=== PATIENT | male | born 1960 | race Caucasian/White ===

== ENCOUNTER → 2018-05-26 10:35 | Outpatient (CLI) | payer OTHER, SELFPAY ==
--- NOTE | 2018-05-26 | DI.ECHO.S_ITS ---
[facility]---------[facility] +---------+ : : [address] : : : : [place] : : : : [id number] : : : : Phone: [phone]---------+ Echocardiogram Report + + :Name: PAT TAYLOR Study Date: 05/26/2018 Height: 70 in : :[facility] Weight: 188 lb : : Gender: Male BSA: 2.0 m2 : :: 1960 Age: 58 yrs BP: 142/79 mmHg: :Reason For Study: Aortic valve stenosis : :Ordering Physician: Nahid Ag : :Arlen Performed By: Ladonna Akers : + + Interpretation Summary The left ventricle is normal in size. The ejection fraction is estimated to be 55-60%. There has been no significant change in LV EF since the previous study. The right ventricle is normal in size and function. The aortic valve is moderately calcified. Leaflet mobility is severely reduced. The peak aortic velocity is 3.7 m/sec. The aortic valve mean gradient is 29 mmHg. The peak aortic velocity on the previous exam was 4.0 m/sec. sev ratio: 0.16 Aortic cusp separation is about 0.7 cm. There is severe aortic stenosis (Paradoxically low gradient). Procedure: A two-dimensional transthoracic echocardiogram with color flow and Doppler was performed. The study quality was technically adequate. Comparison is made with the echocardiogram of 08/01/2016. The patient was in normal sinus rhythm during the exam. Left Ventricle: Left ventricular wall thickness is mildly increased. The left ventricle is normal in size. There is no thrombus. The ejection fraction is estimated to be 55-60%. There has been no significant change since the previous study. There are no focal wall motion abnormalities. The E/A ratio is reversed with an elevated E/E', suggesting impaired early relaxation of the left ventricle with possible increased filling pressures. This is unchanged compared to the previous study. Right Ventricle: The right ventricle is normal in size and function. Atria: The left atrium is moderately dilated. The left atrium has mildly increased in size since the prior echo exam. Right atrial size is normal. There is no Doppler evidence for an interatrial shunt. Mitral Valve: The mitral valve leaflets are mildly calcified. There is mild to moderate mitral annular calcification. There is trace mitral regurgitation. Aortic Valve: The aortic valve is moderately calcified. Leaflet mobility is severely reduced. The aortic valve is not well visualized. The peak aortic velocity is 3.7 m/sec. The peak aortic velocity on the previous exam was 4.0 m/sec. The aortic valve mean gradient is 29 mmHg. The calculated aortic valve area is 0.54 cm2. The aortic valve area indexed to the BSA is 0.27 . Aortic cusp separation is about 0.7 cm. There is severe aortic stenosis. There is mild to moderate aortic regurgitation. Compared to the prior echo study, there has been no change in the severity of aortic regurgitation. Tricuspid Valve: The tricuspid valve is normal in structure and function. Pulmonary artery pressures cannot be estimated because of the lack of a measurable TR jet velocity. There is trace tricuspid regurgitation. Pulmonic Valve: The pulmonic valve is not well visualized. Great Vessels: The aortic root is normal size. The aortic arch is normal in size. The IVC is of normal diameter and collapses greater than 50% with a sniff. This suggests a low right atrial pressure of 3 mm Hg. Pericardium/ Pleura There is no pericardial effusion. MMode/2D Measurements & Calculations LVIDd: 5.2 cm LVOT diam: 2.1 cm LVIDs: 4.0 cm Ao root diam: 3.6 cm FS: 22.2 % asc Aorta Diam: 3.4 cm EPSS: 2.2 cm Ao Arch Diam (Prox Trans): 3.4 cm IVSd: 1.2 cm LVPWd: 1.1 cm LV villanueva. diameter/BSA (cm/m^2): 2.5 LV sys. diameter/BSA (cm/m^2): 2.0 LA A2 area: 26.9 cm2 RA long axis: 4.6 cm LA A4 area: 19.6 cm2 RA area: 14.8 cm2 LA length (vol): 5.1 cm RA vol: 40.7 ml LA vol: 87.9 ml RA : 20.0 ml/m2 LA vol index: 43.2 ml/m2 IVC diam: 1.9 cm RVD1 (basal): 3.1 cm TAPSE: 2.2 cm MANNY (plan): 0.65 cm2 Doppler Measurements & Calculations Ao V2 max: 368.4 cm/sec LVOT Max Lebron: 61.1 cm/sec Ao V2 mean: 257.2 cm/sec LV V1 max P.5 mmHg Ao max P.3 mmHg LV V1 VTI: 13.6 cm Ao mean P.1 mmHg MANNY(I,D): 0.54 cm2 Ao V2 VTI: 85.6 cm MANNY(V,D): 0.57 cm2 sev ratio: 0.16 MANNY indexed to BSA (cm^2/m^2): 0.27 AI P1/2t: 654.7 msec AI dec slope: 197.2 cm/sec2 MV E max lebron: 90.2 cm/sec PA V2 max: 94.0 cm/sec MV A max lebron: 113.0 cm/sec PA V2 mean: 62.4 cm/sec MV E/A: 0.80 PA mean P.8 mmHg Med Peak E' Lebron: 4.3 cm/sec PA Accel Time: 0.09 sec E/E' med: 20.9 Lat Peak E' Lebron: 7.7 cm/sec E/E' lat: 11.7 E/e' average: 16.3 MV dec time: 0.46 sec MV P1/2t: 133.5 msec MV P1/2t max lebron: 90.2 cm/sec MVA(P1/2t): 1.6 cm2 Reading Physician:PM
== END ==
PROVIDERS: Family Provider Internal Medicine; PCP Internal Medicine; Visit Provider Internal Medicine Cardiovascular Disease
DX: I35.0 Nonrheumatic aortic (valve) stenosis (principal)
CPT/HCPCS: 93306

== ENCOUNTER 2019-03-02 14:00 | Outpatient (RCR) | payer OTHER, SELFPAY | END 2019-03-28 10:28 | disposition home or self-care (01) | LOC: CAR 14:00 | PROVIDERS: Family Provider Internal Medicine; PCP Internal Medicine; Visit Provider Thoracic Surgery (Cardiothoracic Vascular Surgery) | DX: Z95.2 Presence of prosthetic heart valve (principal) | CPT/HCPCS: 93798 ==

== ENCOUNTER 2019-05-03 23:07 | Emergency (ER) | payer OTHER, SELFPAY ==
[2019-05-03 23:10] VITALS: BP 171/90; PULSE 88; RESP 16; TEMP 36.6; O2SAT 96; BMI 27.9
--- NOTE | 2019-05-03 23:16 | DI.RAD.S_ITS ---
PROCEDURE: XR CHEST 1V INDICATIONS: chest and left shoulder pain TECHNIQUE: One view of the chest was acquired. COMPARISON: [facility], , CHEST 2 VIEW, 01/27/2018, 10:05. [facility], , CHEST 1 VIEW, 09/20/2012, 13:46. FINDINGS: Surgical changes and devices: Sternotomy wires, probable heart valve replacement surgery. Lungs and pleura: Lungs are clear considering reduced inspiratory volume. No pleural effusions or pneumothorax. Mediastinum: Mediastinal contours appear normal. Heart size is normal. Bones and chest wall: No suspicious bony lesions. Overlying soft tissues appear unremarkable. IMPRESSION: Prior heart surgery, source of chest and shoulder pain not seen. Currently no cardiomegaly or congestive heart failure is seen. Inspiratory volume is reduced. Dictated by: Chris Solis M.D. on 05/04/2019 at 6:55 Approved by: Chris Solis M.D. on 05/04/2019 at 6:55
--- NOTE | 2019-05-03 23:16 | ED.CHESTPAIN ---
HPI - Chest Pain General Chief Complaint: Chest Pain Stated Complaint: LT SHOULDER PAIN Time Seen by Provider: 05/03/19 23:13 Source: patient Mode of arrival: ambulatory Limitations: no limitations History of Present Illness HPI narrative: 59-year-old male smoker with history of valve replacement presents with left shoulder and deltoid pain for the past day or so. He denies any specific injury or obvious over use. He denies any numbness, tingling or weakness. He denies any history of the same. He denies any rash or blisters. He did have very short episode of epigastric chest discomfort earlier this morning which lasted only a few minutes. At the time his pressure had no provocation, palliation or radiation. He denies any associated symptoms such as shortness of breath, dizziness, weakness or lightheadedness. He has no nausea, vomiting or diaphoresis. He denies any of the symptoms that were present prior to his valve replacement as stated above. He states that much of the time his shoulder seems to be slightly worse with range of motion but not always. MD complaint: chest pain Onset (ago): hour(s) Duration: now resolved Onset: during rest Pain location: substernal Severity: mild Quality: aching Pain radiation: none Relieving factors: nothing Exacerbating factors: nothing Treatments prior to arrival chest pain: none Related Data Home Medications Medication Instructions Recorded Confirmed CA PANTOTHENATE/FOLIC ACID/VIT 1 tab PO QDAY #0 04/07/11 (MULTIVITAMIN) Garlic (#GARLIC) 1 tab PO Q DAY #0 09/17/12 DILTIAZEM HCL (DILT-CD) 240 mg PO QDAY #0 01/13/13 aspirin #0 01/13/13 Previous Rx's Medication Instructions Recorded simvastatin 20 mg PO Q DAY #30 tab 07/04/16 omeprazole 20 mg PO QDAY #30 tab 02/09/17 azithromycin [Zithromax Z-Trey] 250 mg PO QDAY #6 tab 01/27/18 promethazine-codeine 5 - 10 ml PO Q4HP PRN #120 ml 01/27/18 prednisone 40 mg PO QDAY #8 tab 01/29/18 hydrocodone-acetaminophen 1 tab PO Q4-6H PRN #10 tab 05/04/19 Allergies Allergy/AdvReac Type Severity Reaction Status Date / Time No Known Drug Allergies Allergy Verified 05/03/19 23:16 Review of Systems Constitutional Denies chills, Denies fever(s), Denies lethargy and Denies weakness Eyes Denies change in vision, Denies eye discharge, Denies irritation and Denies loss of vision ENT Ears, Nose, Mouth, and Throat: Denies change in voice, Denies neck pain and Denies sore throat Cardiovascular Reports chest pain, Denies irregular heart rhythm, Denies lightheadedness, Denies palpitations, Denies dyspnea, Denies dyspnea on exertion and Denies orthopnea Respiratory Denies cough, Denies dyspnea, Denies dyspnea on exertion and Denies wheezing Gastrointestinal Gastrointestinal: Denies abdominal pain, Denies change in bowel habits, Denies diarrhea, Denies nausea and Denies vomiting Genitourinary Denies hematuria, Denies flank pain, Denies urinary incontinence and Denies urinary urgency Musculoskeletal Reports limited range of motion, Reports muscle cramps and Denies neck pain Integumentary/Breasts Denies pruritus, Denies erythema, Denies rash and Denies wounds Neurologic Denies confusion, Denies loss of vision and Denies weakness Psychiatric Denies anxiety, Denies confusion, Denies depression, Denies homicidal ideation and Denies suicidal ideation Endocrine Denies palpitations Hematologic/Lymphatic Denies easy bruising Allergic/Immunologic Denies wheezing PFSH Family History (Updated 09/05/15 @ 00:00 by Conversion Provider) Father Crohn's disease Social History Smoking Status: Smoker, status unknown Family History Father Crohn's disease Social History Smoking Status: Smoker, status unknown Exam Narrative Exam Narrative: GENERAL: 59-year-old male appears stated age, obviously uncomfortable and massaging his left shoulder HEAD: Atraumatic. Normocephalic. No temporal or scalp tenderness. EYES: Pupils equal round and reactive. Extraocular motions intact. No scleral icterus. No injection or drainage. ENT: Nose without bleeding, purulent drainage or septal hematoma. Throat without erythema, tonsillar hypertrophy or exudate. Uvula midline. Airway patent. NECK: Trachea midline. No JVD or lymphadenopathy. Supple, nontender, no meningeal signs. CARDIOVASCULAR: Regular rate and rhythm without murmurs, gallops, or rubs. RESPIRATORY: Clear to auscultation. Breath sounds equal bilaterally. No wheezes, rales, or rhonchi. GASTROINTESTINAL: Abdomen soft, non-tender, nondistended. No hepato-splenomegaly, or palpable masses. No guarding. EXTREMITIES: No clubbing, cyanosis, or edema. No joint tenderness, effusion, or edema noted. No skin abnormalities suggesting cellulitis or shingles BACK: Nontender without deformity or crepitance. No flank tenderness. NEURO: AOx3. SKIN: No rash or erythema. Initial Vital Signs Initial Vital Signs: Vital Signs Temperature 97.8 F 05/03/19 23:10 Pulse Rate 88 05/03/19 23:10 Respiratory Rate 16 05/03/19 23:10 Blood Pressure 171/90 H 05/03/19 23:10 Pulse Oximetry 96 05/03/19 23:10 Scores HEART Score Heart Score history: Slightly Suspicious Heart Score EKG: Normal Heart Score Age: 45-64 years old Heart Score risk factors: 1-2 risk factors Heart Score troponin: < or = to normal limit Heart Score Total: 2 Course Orders Ordered: ED Orders 05/03/19 23:16 XR chest 1V Stat EKG-12 Lead Stat 05/03/19 23:32 Complete Blood Count AUTO DIFF Stat Comprehensive Metabolic Panel Stat Lipase Stat Troponin & CK Cardiac Panel Stat Discontinued Medications Hydrocodone Bitart/Acetaminophen (Vicodin Prepack) 1 bottle MISC SEEINSTR ONE Stop: 05/04/19 00:42 Last Admin: 05/04/19 00:50 Dose: 1 bottle Aspirin (Aspirin Chew) 324 mg PO NOW ONE Stop: 05/03/19 23:17 Last Admin: 05/03/19 23:36 Dose: 324 mg Sodium Chloride (Normal Saline 0.9%) 1,000 mls @ 150 mls/hr IV CONT NELLY Last Infusion: 05/04/19 01:00 Dose: 0 mls/hr Admin: 05/03/19 23:36 Dose: 150 mls/hr Vital Signs - 8 hr 05/03/19 23:10 05/04/19 00:00 05/04/19 01:01 Temperature 97.8 F Pulse Rate 88 64 68 Respiratory Rate 16 13 16 Blood Pressure 171/90 H 158/82 H Blood Pressure [Right Arm] 170/91 H Pulse Oximetry 96 96 97 MDM - Chest Pain Lab Data Result diagrams: 05/03/19 23:32 05/03/19 23:32 Lab Results 05/03/19 05/03/19 Range/Units 23:32 23:32 WBC 6.4 (4.5-11.0) X10^3/uL RBC 4.51 (4.5-5.9) X10^6/uL Hgb 14.2 (13.5-17.5) g/dL Hct 41.2 (41-53) % MCV 91.3 (80-100) fL MCH 31.4 (26-34) PG MCHC 34.4 (30-36) % RDW 14.2 (11.6-14.8) % Plt Count 258 (150-400) X10^3/uL Neut % (Auto) 59.3 (50-75) % Lymph % (Auto) 19.9 L (25-40) % [place] % (Auto) 9.5 (3-14) % Eos % (Auto) 10.5 H (2-4) % Baso % (Auto) 0.8 (0-2) % Neut # (Auto) 3800 (9216-2875) /uL Lymph # (Auto) 1300 (0337-8908) /uL [place] # (Auto) 600 (0-900) /uL Eos # (Auto) 700 H (0-450) /uL Baso # (Auto) 0 (0-100) /uL Sodium 138 (137-145) mmol/L Potassium 4.0 (3.4-5.1) mmol/L Chloride 105 (98-107) mmol/L Carbon Dioxide 22 (22-32) mmol/L BUN 20 (9-20) mg/dL Creatinine 0.90 (0.66-1.25) mg/dL Estimated GFR > 60.0 (>60) mL/min BUN/Creatinine Ratio 22.2 H (6-22) Glucose 140 H (70-100) mg/dL Calcium 9.4 (8.4-10.2) mg/dL Total Bilirubin 0.5 (0.2-1.3) mg/dL AST 32 (17-59) IU/L ALT 21 (21-72) IU/L Alkaline Phosphatase 82 (38-126) U/L Total Creatine Kinase 139 (55-170) U/L CK-MB (CK-2) 1.77 (<2.37) ng/mL CK-MB (CK-2) Rel Index 1.3 L (1.5-5.0) % Troponin I < 0.012 (0.01-0.034) ng/mL Total Protein 7.8 (6.3-8.2) g/dL Albumin 4.6 (3.5-5.0) g/dL Globulin 3.2 (1.7-4.1) g/dL Albumin/Globulin Ratio 1.4 (1.0-2.8) Lipase 164 (23-300) U/L Urine Dip Bedside Urine Glucose Negative Bedside Urine Bilirubin - Negative Bedside Urine Ketone +/- 5 Urine Specific [place] 1.025 Bedside Urine Occult Blood - Negative Bedside Urine pH 6.0 Bedside Urine Protein +/- 15 Bedside Urine Urobilinogen - Negative Bedside Urine Nitrite - Negative Bedside Urine Leukocytes - Negative Esterase MDM Narrative Medical decision making narrative: Multiple etiologies for patient's symptoms considered including: [Cardiovascular disease with thought less likely given lack of convincing findings on EKG, history or by chemically.] Patient's symptoms improved or duration of stay with above-stated therapies. Findings and discharge diagnosis discussed with patient/family followed by verbalization of understanding Return precautions discussed with patient/family whom verbalize understanding. Discharge Plan Departure Patient Disposition: Home Clinical Impression: Acute shoulder pain Qualifiers: Laterality: left Qualified Code(s): M25.512 - Pain in left shoulder Discharge Date/Time: 05/04/19 01:00 Interventions: ED Discharge Assessment Last Done: 05/04/19 01:01 Instructions: DI for Shoulder Pain Activity Restrictions/Additional Instructions: *You have been diagnosed with [acute left shoulder pain] *What to do: *Take medications as directed *Follow up with your primary care provider in 2-3 days, call for an appointment. Let them know you were seen in the Emergency Department and that we ask that you be seen in follow up *Return to ER if you should have any new, worsening or concerning symptoms Prescriptions: New hydrocodone-acetaminophen 5-325 mg tablet 1 tab PO Q4-6H PRN (Reason: pain) Qty: 10 RF: 0 No Action CA PANTOTHENATE/FOLIC ACID/VIT (MULTIVITAMIN) 1 tab PO QDAY Qty: 0 RF: 0 Garlic (#GARLIC) 1 tab PO Q DAY Qty: 0 RF: 0 DILTIAZEM HCL (DILT-CD) 240 mg PO QDAY Qty: 0 RF: 0 aspirin 325 MG tablet,delayed release (DR/EC) Qty: 0 RF: 0 simvastatin 20 MG tablet 20 mg PO Q DAY Qty: 30 RF: 6 omeprazole 20 MG capsule,delayed release(DR/EC) 20 mg PO QDAY Qty: 30 RF: 5 azithromycin [Zithromax Z-Trey] 250 MG tablet 250 mg PO QDAY Qty: 6 RF: 0 promethazine-codeine 6.25 MG/10 MG syrup 5 - 10 ml PO Q4HP PRNQty: 120 RF: 0 prednisone 20 MG tablet 40 mg PO QDAY Qty: 8 RF: 0 Referrals: Juan George MD [Primary Care Provider] -
[2019-05-03] MEDS: ASPIRIN 81 MG TAB 324 MG PO (23:36)
[2019-05-03] MEDS: SODIUM CHLORIDE 0.9% 1,000 ML 150 ML IV (23:36)
[2019-05-03 23:40] LABS: Add Manual Diff / Slide Review NO; Basophils Absolute Auto 0 /uL (0-100); Basophils Percent Auto 0.8 % (0-2); Eosinophils Absolute Auto 700 /uL (0-450); Eosinophils Percent Auto 10.5 % (2-4); Hematocrit 41.2 % (41-53); Hemoglobin 14.2 g/dL (13.5-17.5); Lymphocytes Absolute Auto 1300 /uL (1100-4500); Lymphocytes Percent Auto 19.9 % (25-40); Mean Corpuscular HGB Conc 34.4 % (30-36); Mean Corpuscular Hemoglobin 31.4 PG (26-34); Mean Corpuscular Volume 91.3 fL (80-100); Monocytes Absolute Auto 600 /uL (0-900); Monocytes Percent Auto 9.5 % (3-14); Neutrophils Absolute Auto 3800 /uL (1500-7000); Neutrophils Percent Auto 59.3 % (50-75); Platelet Count 258 X10^3/uL (150-400); Red Blood Cell Count 4.51 X10^6/uL (4.5-5.9); Red Cell Distribution Width 14.2 % (11.6-14.8); White Blood Cell Count 6.4 X10^3/uL (4.5-11.0)
[2019-05-03 23:50] LABS: Alanine Aminotransferase 21 IU/L (21-72); Albumin 4.6 g/dL (3.5-5.0); Albumin Globulin Ratio 1.4 (1.0-2.8); Alkaline Phosphatase 82 U/L (38-126); Aspartate Aminotransferase 32 IU/L (17-59); BUN Creatinine Ratio 22.2 (6-22); Bilirubin Total 0.5 mg/dL (0.2-1.3); Blood Urea Nitrogen 20 mg/dL (9-20); Calcium 9.4 mg/dL (8.4-10.2); Carbon Dioxide 22 mmol/L (22-32); Chloride 105 mmol/L (98-107); Creatine Kinase 139 U/L (55-170); Estimated Glomerular Filt Rate > 60.0 mL/min (>60); Globulin 3.2 g/dL (1.7-4.1); Glucose 140 mg/dL (70-100); HEMOLYSIS < 15 (0-50); Lipase 164 U/L (23-300); Sodium 138 mmol/L (137-145); Total Protein 7.8 g/dL (6.3-8.2)
[2019-05-04] VITALS: BP 170/91; PULSE 64; RESP 13; O2SAT 96
[2019-05-04 00:02] LABS: Troponin I < 0.012 ng/mL (0.01-0.034)
[2019-05-04 00:06] LABS: CKMB % Relative Index 1.3 % (1.5-5.0); Creatine Kinase MB 1.77 ng/mL (<2.37)
[2019-05-04] MEDS: HYDROCODONE/ACET 5/325 PREPACK 1 BOTTLE MISC (00:50)
[2019-05-04 01:01] VITALS: BP 158/82; PULSE 68; RESP 16; O2SAT 97
== END 2019-05-04 01:00 | disposition home or self-care (01) ==
PROVIDERS: Emergency Provider Emergency Medicine; Family Provider Internal Medicine; PCP Internal Medicine
DX: M25.512 Pain in left shoulder (principal); R07.89 Other chest pain; R10.13 Epigastric pain
CPT/HCPCS: 36591; 71045; 80053; 81003; 82550; 82553; 83690; 84484; 85025; 93005; 96360; 99283; 99285

== ENCOUNTER → 2019-07-15 09:07 | Outpatient (CLI) | payer OTHER, SELFPAY ==
--- NOTE | 2019-07-15 | DI.ECHO.S_ITS ---
[place] [facility]---------+ [facility] +---------+ : : [address] : : : : [place] : : : : [phone] : : : : Phone: [phone]---------+ Echocardiogram Report + + :Name: PAT TAYLOR Study Date: 07/15/2019 Height: 70 in : :[facility] Weight: 196 lb : : Gender: Male BSA: 2.1 m2 : :: 1960 Age: 59 yrs BP: 132/80 mmHg: :Reason For Study: S/P AOV REPLACEMENT : :Ordering Physician: Andres : :Maggy Ag Performed By: Shellie Etienne : :Referring: Andres Winter M.D. : + + Interpretation Summary The ejection fraction is estimated to be 55-60%. Septal motion is consistent with post-operative state. There is mild mitral stenosis. The mitral valve mean gradient is 6 mmHg. There is a mechanical aortic valve. The prosthetic aortic valve is well-seated. There is trace perivalvular regurgitation around the prosthetic aortic valve. Procedure: A two-dimensional transthoracic echocardiogram with color flow and Doppler was performed. The study quality was technically adequate. Comparison is made with the echocardiogram of 11/15/18. The patient had a bundle branch block rhythm during the exam. Left Ventricle: The left ventricle is normal in size, wall thickness, and systolic function without any focal wall motion abnormalities. The ejection fraction is estimated to be 55-60%. Septal motion is consistent with post- operative state. Diastolic parameters suggest a relaxation abnormality of the left ventricle, consistent with probable normal filling pressures. Right Ventricle: The right ventricle is normal in size and function. Atria: The left atrium is mildly dilated. Right atrial size is normal. There is no Doppler evidence for an interatrial shunt. Mitral Valve: There is mild mitral annular calcification. The mitral valve leaflets are mildly calcified. There is mild mitral stenosis. The mitral valve mean gradient is 6 mmHg. There is trace mitral regurgitation. Compared to the prior echo study, there has been no change in the severity of mitral regurgitation. Aortic Valve: There is a mechanical aortic valve. The prosthetic aortic valve appears to open well. The prosthetic aortic valve is well-seated. There is trace perivalvular regurgitation around the prosthetic aortic valve. The peak aortic velocity is 2.2 m/sec. The peak aortic velocity on the previous exam was 2.3 m/sec. The aortic valve mean gradient is 9 mmHg. Tricuspid Valve: The tricuspid valve is normal. There is a trace or physiologic amount of tricuspid regurgitation. Pulmonary artery pressures cannot be estimated because of the lack of a measurable TR jet velocity. Pulmonic Valve: The pulmonic valve is not well seen, but is grossly normal. There is a trace or physiologic amount of pulmonic regurgitation. Great Vessels: The aortic root is normal size. The ascending aorta is normal in size. The aortic arch is normal in size. The pulmonary is not well visualized. The IVC is dilated (diameter is greater than 2.1 cm) yet it collapses greater than 50% with a sniff. This suggests a right atrial pressure of 8 mm Hg. Pericardium/ Pleura There is no pericardial effusion. There is no pleural effusion. MMode/2D Measurements & Calculations LVIDd: 5.4 cm LVOT diam: 2.2 cm LVIDs: 4.4 cm Ao root diam: 3.6 cm FS: 18.7 % asc Aorta Diam: 3.4 cm EPSS: 1.9 cm Ao Arch Diam (Prox Trans): 3.0 cm IVSd: 0.93 cm LVPWd: 1.00 cm LV villanueva. diameter/BSA (cm/m^2): 2.6 LV sys. diameter/BSA (cm/m^2): 2.1 LA A2 area: 25.2 cm2 RA long axis: 4.3 cm LA A4 area: 21.7 cm2 RA area: 17.0 cm2 LA length (vol): 5.8 cm RA vol: 57.4 ml LA vol: 80.8 ml RA : 27.7 ml/m2 LA vol index: 39.0 ml/m2 IVC diam: 2.2 cm RVD1 (basal): 4.2 cm RVD2 (mid): 3.1 cm TAPSE: 1.9 cm Doppler Measurements & Calculations Ao V2 max: 219.9 cm/sec LVOT Max Lebron: 81.5 cm/sec Ao V2 mean: 143.8 cm/sec LV V1 max P.7 mmHg Ao max P.3 mmHg LV V1 VTI: 15.8 cm Ao mean P.4 mmHg MANNY(I,D): 1.5 cm2 Ao V2 VTI: 41.5 cm MANNY(V,D): 1.5 cm2 sev ratio: 0.38 MANNY indexed to BSA (cm^2/m^2): 0.73 MV E max lebron: 133.3 cm/sec PA V2 max: 93.8 cm/sec MV A max lebron: 142.8 cm/sec PA V2 mean: 68.0 cm/sec MV E/A: 0.93 PA mean P.0 mmHg Med Peak E' Lebron: 3.4 cm/sec PA Accel Time: 0.11 sec E/E' med: 39.6 Lat Peak E' Lebron: 6.5 cm/sec E/E' lat: 20.4 E/e' average: 30.0 MV dec time: 0.36 sec MVA(VTI): 1.3 cm2 MV V2 mean: 116.3 cm/sec SV(LVOT): 62.2 ml MV mean P.7 mmHg MV V2 VTI: 47.7 cm Reading Physician:12:24 PM
== END ==
PROVIDERS: PCP Internal Medicine; Visit Provider Registered Nurse
DX: I05.0 Rheumatic mitral stenosis (principal); Z95.2 Presence of prosthetic heart valve
CPT/HCPCS: 93306

== ENCOUNTER 2019-07-26 15:41 | Emergency (ER) | payer OTHER, SELFPAY ==
[2019-07-26 15:45] VITALS: BP 149/82; PULSE 88; RESP 16; TEMP 36.8; O2SAT 98
--- NOTE | 2019-07-26 16:14 | ED.ARRPALP ---
HPI - Arrhythmia/Palpitations General Chief Complaint: Arrhythmia/Palpitations Stated Complaint: TACHYCARDIA Time Seen by Provider: 07/26/19 16:08 Source: patient Mode of arrival: ambulatory Limitations: no limitations History of Present Illness HPI narrative: 59-year-old male with complaint of elevated heart rate. Patient states it started at 1:32 p.m., lasted for about 2 or 3 hours. Patient states he has had this many times in the past probably 10 or 15 times. He has been converted with adenosine in the past. He checked his heart rate about 150-160. He felt sort of sudden onset, he felt that his heart rate was elevated. I felt a little short of breath, denies any chest pain or pressure. Denies any nausea or vomiting no other GI or urinary symptoms. No swelling in his extremities. Since his heart rate has resolved he no longer has any symptoms. He has a cardiac history significant for valve replacement, it is metallic and he is on warfarin. He states he has had an ablation x3, he has been cathed he has never had any stents placed. He had echo about 1-2 weeks ago. He takes diltiazem, simvastatin, omeprazole and multivitamin as well as Kelly. He sees Dr. George and Dr. Mckinley is his EP. Related Data Home Medications Medication Instructions Recorded Confirmed multivitamin 1 tab PO DAILY #0 04/07/11 05/17/19 triamcinolone acetonide 0.1 % 1 applic TOP DIRECTED #454 gram 05/06/19 07/26/19 topical cream warfarin 5 mg tablet 10 mg PO QMWF #52 tab 05/06/19 05/17/19 diltiazem HCl 180 mg PO BID 07/26/19 07/26/19 omeprazole 20 mg PO DAILY 07/26/19 07/26/19 simvastatin 20 mg PO DAILY 07/26/19 07/26/19 warfarin 7.5 mg PO SUTUTHSA 07/26/19 Allergies Allergy/AdvReac Type Severity Reaction Status Date / Time No Known Drug Allergies Allergy Verified 07/26/19 15:49 Review of Systems Review of Systems ROS Unobtainable: All systems reviewed & are unremarkable except as noted in HPI and below PFSH Medical History Atrial tachycardia (Chronic) PSVT (paroxysmal supraventricular tachycardia) (Chronic) Stenosis of aorta (Chronic 09/06/15) Chronic hepatitis C without hepatic coma (Chronic 09/06/15) Non-Hodgkin's lymphoma (Inactive 09/06/15) Surgical History S/P aortic valve replacement with metallic valve (Inactive ~09/2018) Family History Father Crohn's disease Social History Smoking Status: Smoker, status unknown Family History Father Crohn's disease Social History Smoking Status: Smoker, status unknown Exam Narrative Exam Narrative: GENERAL: Alert and oriented x three, well-nourished, well-appearing male in no acute distress. HEENT: Head normocephalic, atraumatic, EOMI, pupils reactive, face symmetric, moist mucous membranes NECK: Supple, full range of motion CARDIOVASCULAR: Regular rate and rhythm without murmurs, rubs or gallops. Click noted. No JVD. No edema lower extremities. RESPIRATORY: Breath sounds equal bilaterally, no wheezes rales or rhonchi. ABDOMEN: Soft, nontender. Normoactive bowel sounds all 4 quadrants. No guarding or rebound, rigidity, no mass : No CVA tenderness EXTREMITIES: Normal range of motion, no clubbing or edema. Neurovascularly intact NEUROLOGICAL: Cranial nerves II through XII grossly intact. Moving all extremities SKIN: Warm, dry, no petechiae, no rashes or lesions. Initial Vital Signs Initial Vital Signs: Vital Signs Temperature 98.3 F 07/26/19 15:45 Pulse Rate 88 07/26/19 15:45 Respiratory Rate 16 07/26/19 15:45 Blood Pressure 149/82 H 07/26/19 15:45 Pulse Oximetry 98 07/26/19 15:45 Course Orders Ordered: ED Orders 07/26/19 15:52 EKG-12 Lead Stat 07/26/19 16:37 XR chest 1V Stat 07/26/19 16:43 Basic Metabolic Panel Stat Complete Blood Count AUTO DIFF Stat Magnesium Stat Prothrombin Time INR Stat Thyroid Stimulating Hormone Stat Troponin & CK Cardiac Panel Stat Discontinued Medications Sodium Chloride (Normal Saline 0.9%) 1,000 mls @ 1,000 mls/hr IV BOLUS ONE Stop: 07/26/19 17:36 Last Infusion: 07/26/19 18:03 Dose: 0 mls/hr Admin: 07/26/19 17:10 Dose: 1,000 mls/hr Vital Signs - 8 hr 07/26/19 15:45 07/26/19 17:00 07/26/19 18:08 Temperature 98.3 F Pulse Rate 88 68 73 Respiratory Rate 16 17 16 Blood Pressure 149/82 H 137/72 Blood Pressure [Right Arm] 130/74 Pulse Oximetry 98 97 96 MDM - Arrhythmia/Palpitations Lab Data Attestation: I reviewed the patient's lab results. Result diagrams: 07/26/19 16:43 07/26/19 16:43 Lab Results 07/26/19 07/26/19 07/26/19 Range/Units 16:43 16:43 16:43 WBC 8.8 (4.5-11.0) X10^3/uL RBC 4.73 (4.5-5.9) X10^6/uL Hgb 14.9 (13.5-17.5) g/dL Hct 43.3 (41-53) % MCV 91.7 (80-100) fL MCH 31.6 (26-34) PG MCHC 34.4 (30-36) % RDW 13.3 (11.6-14.8) % Plt Count 260 (150-400) X10^3/uL Neut % (Auto) 64.6 (50-75) % Lymph % (Auto) 17.6 L (25-40) % Graves % (Auto) 10.7 (3-14) % Eos % (Auto) 6.2 H (2-4) % Baso % (Auto) 0.9 (0-2) % Neut # (Auto) 5700 (1781-3290) /uL Lymph # (Auto) 1600 (6944-3117) /uL Graves # (Auto) 900 (0-900) /uL Eos # (Auto) 500 H (0-450) /uL Baso # (Auto) 100 (0-100) /uL PT 20.4 H (10.1-12.7) SECONDS INR 1.7 H (0.9-1.3) Sodium 137 (137-145) mmol/L Potassium 4.3 (3.4-5.1) mmol/L Chloride 106 (98-107) mmol/L Carbon Dioxide 24 (22-32) mmol/L BUN 25 H (9-20) mg/dL Creatinine 1.00 (0.66-1.25) mg/dL Estimated GFR > 60.0 (>60) mL/min BUN/Creatinine Ratio 25.0 H (6-22) Glucose 107 H (70-100) mg/dL Calcium 9.4 (8.4-10.2) mg/dL Magnesium 2.2 (1.6-2.3) mg/dL Total Creatine Kinase 193 H (55-170) U/L CK-MB (CK-2) 2.08 (<2.37) ng/mL CK-MB (CK-2) Rel Index 1.1 L (1.5-5.0) % Troponin I < 0.012 (0.01-0.034) ng/mL TSH (0.47-4.68) uIU/mL 07/26/19 Range/Units 16:43 WBC (4.5-11.0) X10^3/uL RBC (4.5-5.9) X10^6/uL Hgb (13.5-17.5) g/dL Hct (41-53) % MCV (80-100) fL MCH (26-34) PG MCHC (30-36) % RDW (11.6-14.8) % Plt Count (150-400) X10^3/uL Neut % (Auto) (50-75) % Lymph % (Auto) (25-40) % Graves % (Auto) (3-14) % Eos % (Auto) (2-4) % Baso % (Auto) (0-2) % Neut # (Auto) (0438-9559) /uL Lymph # (Auto) (2226-5439) /uL Graves # (Auto) (0-900) /uL Eos # (Auto) (0-450) /uL Baso # (Auto) (0-100) /uL PT (10.1-12.7) SECONDS INR (0.9-1.3) Sodium (137-145) mmol/L Potassium (3.4-5.1) mmol/L Chloride (98-107) mmol/L Carbon Dioxide (22-32) mmol/L BUN (9-20) mg/dL Creatinine (0.66-1.25) mg/dL Estimated GFR (>60) mL/min BUN/Creatinine Ratio (6-22) Glucose (70-100) mg/dL Calcium (8.4-10.2) mg/dL Magnesium (1.6-2.3) mg/dL Total Creatine Kinase (55-170) U/L CK-MB (CK-2) (<2.37) ng/mL CK-MB (CK-2) Rel Index (1.5-5.0) % Troponin I (0.01-0.034) ng/mL TSH 2.35 (0.47-4.68) uIU/mL Imaging Data Chest x-ray: Radiologist's impression: [address] [address] XRay Report Signed Patient: Jake Ramos [facility]#: [id number] : 1960Acct:[id number] Age/Sex: 59 / MDate of Service: 07/26/19 Loc: ED Accession Number: [id number] Procedure: XR chest 1V Ordering Provider: Светлана Knapp D.O. PROCEDURE: XR CHEST 1V INDICATIONS: fast heart beat resolved, hx svt, valve replacement TECHNIQUE: One view of the chest was acquired. COMPARISON: [facility], , XR CHEST 1V, 05/03/2019, 23:28. FINDINGS: Surgical changes and devices: Median sternotomy. Lungs and pleura: Lungs are clear. No pleural effusions or pneumothorax. Mediastinum: Mediastinal contours appear normal. Heart size is normal. Bones and chest wall: No suspicious bony lesions. Overlying soft tissues appear unremarkable. IMPRESSION: No acute process. Dictated by: Jose Ramon Wan M.D. on 07/26/2019 at 17:21 Approved by: Jose Ramon Wan M.D. on 07/26/2019 at 17:21 ECG Data Attestation: I personally reviewed and interpreted this ECG as follows: Prior ECG tracings: available for review Interpretation: Sinus rhythm rate of 78 [place] 168 QRS of 113 and QTC of 419. No ST elevation appreciated, no depression appreciated. Patient has some changes consistent with LVH. Patient has prior from 05/03/19 that appears similar. [facility] Narrative Medical decision making narrative: Patient's symptoms resolved and her is consistent with a episode of SVT which he has known history. Patient is on warfarin, plan to do baseline labs including CBC, INR and BMP to check cholesterol lytes renal function and hemoglobin. Discussed with patient if he continues to be asymptomatic here without any other changes likely plan for DC home with follow-up with cardiology. He has not had episode for quite a while. He did try Valsalva, cold ice water and carotid massage without any improvement and then it resolved about 2 minutes prior to arrival. Patient labs show no acute changes, symptoms self-resolved. Patient has appointment tomorrow with his wire preparation machine tender. His INR is subtherapeutic at 1.7, patient took his usual 10mg warfarin this morning and is due for 7.5mg tomorrow morning. Asked him to take an additional 10mg tonight and his usual 7.5mg in the morning and have wire preparation machine tender recheck his INR tomorrow at his appointment tomorrow. Discharge Plan Departure Patient Disposition: Home Clinical Impression: Heart palpitations Discharge Date/Time: 07/26/19 18:09 Interventions: ED Discharge Assessment Last Done: 07/26/19 18:08 Instructions: Paroxysmal Supraventricular Tachycardia Activity Restrictions/Additional Instructions: Call for follow up with your wire preparation machine tender. Continue home medications as prescribed. Return to the ER for new or worsening symptoms, lightheadedness, passing out, nausea, vomiting, new chest pain, shortness of breath, persistent palpitations or elevated heart rate, new swelling in her lower extremities or other new or concerning symptoms. Prescriptions: No Action multivitamin Tablet 1 tab PO DAILY Qty: 0 RF: 0 warfarin 5 mg tablet 10 mg PO QMWF Qty: 52 RF: 0 triamcinolone acetonide 0.1 % cream 1 applic TOP DIRECTED Qty: 454 RF: 0 diltiazem HCl 180 mg capsule,extended release 24hr 180 mg PO BID RF: 0 simvastatin 20 mg tablet 20 mg PO DAILY RF: 0 omeprazole 20 mg capsule,delayed release(DR/EC) 20 mg PO DAILY RF: 0 warfarin 5 mg tablet 7.5 mg PO SUTUTHSA RF: 0 Referrals: Nahid Mckinley MD [Physician] - Juan George MD [Primary Care Provider] -
--- NOTE | 2019-07-26 16:17 | ED_ITS ---
HPI - Arrhythmia/Palpitations General Chief Complaint: Arrhythmia/Palpitations Stated Complaint: TACHYCARDIA Time Seen by Provider: 07/26/19 16:08 Source: patient Mode of arrival: ambulatory Limitations: no limitations History of Present Illness HPI narrative: 59-year-old male with complaint of elevated heart rate. Patient states it started at 1:32 p.m., lasted for about 2 or 3 hours. Patient states he has had this many times in the past probably 10 or 15 times. He has been converted with adenosine in the past. He checked his heart rate about 150-160. He felt sort of sudden onset, he felt that his heart rate was elevated. I felt a little short of breath, denies any chest pain or pressure. Denies any nausea or vomiting no other GI or urinary symptoms. No swelling in his extremities. Since his heart rate has resolved he no longer has any symptoms. He has a cardiac history significant for valve replacement, it is metallic and he is on warfarin. He states he has had an ablation x3, he has been cathed he has never had any stents placed. He had echo about 1-2 weeks ago. He takes diltiazem, simvastatin, omeprazole and multivitamin as well as Kelly. He sees Dr. George and Dr. Mckinley is his EP. Related Data Home Medications Medication Instructions Recorded Confirmed multivitamin 1 tab PO DAILY #0 04/07/11 05/17/19 triamcinolone acetonide 0.1 % 1 applic TOP DIRECTED #454 gram 05/06/19 07/26/19 topical cream warfarin 5 mg tablet 10 mg PO QMWF #52 tab 05/06/19 05/17/19 diltiazem HCl 180 mg PO BID 07/26/19 07/26/19 omeprazole 20 mg PO DAILY 07/26/19 07/26/19 simvastatin 20 mg PO DAILY 07/26/19 07/26/19 warfarin 7.5 mg PO SUTUTHSA 07/26/19 Allergies Allergy/AdvReac Type Severity Reaction Status Date / Time No Known Drug Allergies Allergy Verified 07/26/19 15:49 Review of Systems Review of Systems ROS Unobtainable: All systems reviewed & are unremarkable except as noted in HPI and below PFSH Medical History Atrial tachycardia (Chronic) PSVT (paroxysmal supraventricular tachycardia) (Chronic) Stenosis of aorta (Chronic 09/06/15) Chronic hepatitis C without hepatic coma (Chronic 09/06/15) Non-Hodgkin's lymphoma (Inactive 09/06/15) Surgical History S/P aortic valve replacement with metallic valve (Inactive ~09/2018) Family History Father Crohn's disease Social History Smoking Status: Smoker, status unknown Family History Father Crohn's disease Social History Smoking Status: Smoker, status unknown Exam Narrative Exam Narrative: GENERAL: Alert and oriented x three, well-nourished, well- appearing male in no acute distress. HEENT: Head normocephalic, atraumatic, EOMI, pupils reactive, face symmetric, moist mucous membranes NECK: Supple, full range of motion CARDIOVASCULAR: Regular rate and rhythm without murmurs, rubs or gallops. Click noted. No JVD. No edema lower extremities. RESPIRATORY: Breath sounds equal bilaterally, no wheezes rales or rhonchi. ABDOMEN: Soft, nontender. Normoactive bowel sounds all 4 quadrants. No guarding or rebound, rigidity, no mass : No CVA tenderness EXTREMITIES: Normal range of motion, no clubbing or edema. Neurovascularly intact NEUROLOGICAL: Cranial nerves II through XII grossly intact. Moving all extremities SKIN: Warm, dry, no petechiae, no rashes or lesions. Initial Vital Signs Initial Vital Signs: Vital Signs Temperature 98.3 F 07/26/19 15:45 Pulse Rate 88 07/26/19 15:45 Respiratory Rate 16 07/26/19 15:45 Blood Pressure 149/82 H 07/26/19 15:45 Pulse Oximetry 98 07/26/19 15:45 Course Orders Ordered: ED Orders 07/26/19 15:52 EKG-12 Lead Stat 07/26/19 16:37 XR chest 1V Stat 07/26/19 16:43 Basic Metabolic Panel Stat Complete Blood Count AUTO DIFF Stat Magnesium Stat Prothrombin Time INR Stat Thyroid Stimulating Hormone Stat Troponin & CK Cardiac Panel Stat Discontinued Medications Sodium Chloride (Normal Saline 0.9%) 1,000 mls @ 1,000 mls/hr IV BOLUS ONE Stop: 07/26/19 17:36 Last Infusion: 07/26/19 18:03 Dose: 0 mls/hr Admin: 07/26/19 17:10 Dose: 1,000 mls/hr Vital Signs - 8 hr 07/26/19 15:45 07/26/19 17:00 07/26/19 18:08 Temperature 98.3 F Pulse Rate 88 68 73 Respiratory Rate 16 17 16 Blood Pressure 149/82 H 137/72 Blood Pressure [Right Arm] 130/74 Pulse Oximetry 98 97 96 MDM - Arrhythmia/Palpitations Lab Data Attestation: I reviewed the patient's lab results. Result diagrams: 07/26/19 16:43 07/26/19 16:43 Lab Results 07/26/19 07/26/19 07/26/19 Range/Units 16:43 16:43 16:43 WBC 8.8 (4.5-11.0) X10^3/uL RBC 4.73 (4.5-5.9) X10^6/uL Hgb 14.9 (13.5-17.5) g/dL Hct 43.3 (41-53) % MCV 91.7 (80-100) fL MCH 31.6 (26-34) PG MCHC 34.4 (30-36) % RDW 13.3 (11.6-14.8) % Plt Count 260 (150-400) X10^3/uL Neut % (Auto) 64.6 (50-75) % Lymph % (Auto) 17.6 L (25-40) % Hettinger % (Auto) 10.7 (3-14) % Eos % (Auto) 6.2 H (2-4) % Baso % (Auto) 0.9 (0-2) % Neut # (Auto) 5700 (8146-7892) /uL Lymph # (Auto) 1600 (1278-0108) /uL [place] # (Auto) 900 (0-900) /uL Eos # (Auto) 500 H (0-450) /uL Baso # (Auto) 100 (0-100) /uL PT 20.4 H (10.1-12.7) SECONDS INR 1.7 H (0.9-1.3) Sodium 137 (137-145) mmol/L Potassium 4.3 (3.4-5.1) mmol/L Chloride 106 (98-107) mmol/L Carbon Dioxide 24 (22-32) mmol/L BUN 25 H (9-20) mg/dL Creatinine 1.00 (0.66-1.25) mg/dL Estimated GFR > 60.0 (>60) mL/min BUN/Creatinine Ratio 25.0 H (6-22) Glucose 107 H (70-100) mg/dL Calcium 9.4 (8.4-10.2) mg/dL Magnesium 2.2 (1.6-2.3) mg/dL Total Creatine Kinase 193 H (55-170) U/L CK-MB (CK-2) 2.08 (<2.37) ng/mL CK-MB (CK-2) Rel Index 1.1 L (1.5-5.0) % Troponin I < 0.012 (0.01-0.034) ng/mL TSH (0.47-4.68) uIU/mL 07/26/19 Range/Units 16:43 WBC (4.5-11.0) X10^3/uL RBC (4.5-5.9) X10^6/uL Hgb (13.5-17.5) g/dL Hct (41-53) % MCV (80-100) fL MCH (26-34) PG MCHC (30-36) % RDW (11.6-14.8) % Plt Count (150-400) X10^3/uL Neut % (Auto) (50-75) % Lymph % (Auto) (25-40) % Hettinger % (Auto) (3-14) % Eos % (Auto) (2-4) % Baso % (Auto) (0-2) % Neut # (Auto) (6397-9301) /uL Lymph # (Auto) (2764-1313) /uL Hettinger # (Auto) (0-900) /uL Eos # (Auto) (0-450) /uL Baso # (Auto) (0-100) /uL PT (10.1-12.7) SECONDS INR (0.9-1.3) Sodium (137-145) mmol/L Potassium (3.4-5.1) mmol/L Chloride (98-107) mmol/L Carbon Dioxide (22-32) mmol/L BUN (9-20) mg/dL Creatinine (0.66-1.25) mg/dL Estimated GFR (>60) mL/min BUN/Creatinine Ratio (6-22) Glucose (70-100) mg/dL Calcium (8.4-10.2) mg/dL Magnesium (1.6-2.3) mg/dL Total Creatine Kinase (55-170) U/L CK-MB (CK-2) (<2.37) ng/mL CK-MB (CK-2) Rel Index (1.5-5.0) % Troponin I (0.01-0.034) ng/mL TSH 2.35 (0.47-4.68) uIU/mL Imaging Data Chest x-ray: Radiologist's impression: [address] [address] XRay Report Signed Patient: Jake Ramos [facility]#: [id number] : 1960Acct:[id number] Age/Sex: 59 / MDate of Service: 07/26/19 Loc: ED Accession Number: [id number] Procedure: XR chest 1V Ordering Provider: Светлана Knapp D.O. PROCEDURE: XR CHEST 1V INDICATIONS: fast heart beat resolved, hx svt, valve replacement TECHNIQUE: One view of the chest was acquired. COMPARISON: [facility], , XR CHEST 1V, 05/03/2019, 23:28. FINDINGS: Surgical changes and devices: Median sternotomy. Lungs and pleura: Lungs are clear. No pleural effusions or pneumothorax. Mediastinum: Mediastinal contours appear normal. Heart size is normal. Bones and chest wall: No suspicious bony lesions. Overlying soft tissues appear unremarkable. IMPRESSION: No acute process. Dictated by: Jose Ramon Wan M.D. on 07/26/2019 at 17:21 Approved by: Jose Ramon Wan M.D. on 07/26/2019 at 17:21 ECG Data Attestation: I personally reviewed and interpreted this ECG as follows: Prior ECG tracings: available for review Interpretation: Sinus rhythm rate of 78 [place] 168 QRS of 113 and QTC of 419. No ST elevation appreciated, no depression appreciated. Patient has some changes consistent with LVH. Patient has prior from 05/03/19 that appears similar. [facility] Narrative Medical decision making narrative: Patient's symptoms resolved and her is consistent with a episode of SVT which he has known history. Patient is on warfarin, plan to do baseline labs including CBC, INR and BMP to check cholesterol lytes renal function and hemoglobin. Discussed with patient if he continues to be asymptomatic here without any other changes likely plan for DC home with follow-up with cardiology. He has not had episode for quite a while. He did try Valsalva, cold ice water and carotid massage without any improvement and then it resolved about 2 minutes prior to arrival. Patient labs show no acute changes, symptoms self-resolved. Patient has appointment tomorrow with his preparation supervisor. His INR is subtherapeutic at 1.7, patient took his usual 10mg warfarin this morning and is due for 7.5mg tomorrow morning. Asked him to take an additional 10mg tonight and his usual 7.5mg in the morning and have preparation supervisor recheck his INR tomorrow at his appointment tomorrow. Discharge Plan Departure Patient Disposition: Home Clinical Impression: Heart palpitations Discharge Date/Time: 07/26/19 18:09 Interventions: ED Discharge Assessment Last Done: 07/26/19 18:08 Instructions: Paroxysmal Supraventricular Tachycardia Activity Restrictions/Additional Instructions: Call for follow up with your preparation supervisor. Continue home medications as prescribed. Return to the ER for new or worsening symptoms, lightheadedness, passing out, nausea, vomiting, new chest pain, shortness of breath, persistent palpitations or elevated heart rate, new swelling in her lower extremities or other new or concerning symptoms. Prescriptions: No Action multivitamin Tablet 1 tab PO DAILY Qty: 0 RF: 0 warfarin 5 mg tablet 10 mg PO QMWF Qty: 52 RF: 0 triamcinolone acetonide 0.1 % cream 1 applic TOP DIRECTED Qty: 454 RF: 0 diltiazem HCl 180 mg capsule,extended release 24hr 180 mg PO BID RF: 0 simvastatin 20 mg tablet 20 mg PO DAILY RF: 0 omeprazole 20 mg capsule,delayed release(DR/EC) 20 mg PO DAILY RF: 0 warfarin 5 mg tablet 7.5 mg PO SUTUTHSA RF: 0 Referrals: Nahid Mckinley MD [Physician] - Juan George MD [Primary Care Provider] -
--- NOTE | 2019-07-26 16:37 | DI.RAD.S_ITS ---
PROCEDURE: XR CHEST 1V INDICATIONS: fast heart beat resolved, hx svt, valve replacement TECHNIQUE: One view of the chest was acquired. COMPARISON: [facility], CR, XR CHEST 1V, 05/03/2019, 23:28. FINDINGS: Surgical changes and devices: Median sternotomy. Lungs and pleura: Lungs are clear. No pleural effusions or pneumothorax. Mediastinum: Mediastinal contours appear normal. Heart size is normal. Bones and chest wall: No suspicious bony lesions. Overlying soft tissues appear unremarkable. IMPRESSION: No acute process. Dictated by: Jose Ramon Wan M.D. on 07/26/2019 at 17:21 Approved by: Jose Ramon Wan M.D. on 07/26/2019 at 17:21
[2019-07-26 16:49] LABS: Add Manual Diff / Slide Review NO; Basophils Absolute Auto 100 /uL (0-100); Basophils Percent Auto 0.9 % (0-2); Eosinophils Absolute Auto 500 /uL (0-450); Eosinophils Percent Auto 6.2 % (2-4); Hematocrit 43.3 % (41-53); Hemoglobin 14.9 g/dL (13.5-17.5); Lymphocytes Absolute Auto 1600 /uL (1100-4500); Lymphocytes Percent Auto 17.6 % (25-40); Mean Corpuscular HGB Conc 34.4 % (30-36); Mean Corpuscular Hemoglobin 31.6 PG (26-34); Mean Corpuscular Volume 91.7 fL (80-100); Monocytes Absolute Auto 900 /uL (0-900); Monocytes Percent Auto 10.7 % (3-14); Neutrophils Absolute Auto 5700 /uL (1500-7000); Neutrophils Percent Auto 64.6 % (50-75); Platelet Count 260 X10^3/uL (150-400); Red Blood Cell Count 4.73 X10^6/uL (4.5-5.9); Red Cell Distribution Width 13.3 % (11.6-14.8); White Blood Cell Count 8.8 X10^3/uL (4.5-11.0)
[2019-07-26 16:56] LABS: INR 1.7 (0.9-1.3); Prothrombin Time 20.4 SECONDS (10.1-12.7)
[2019-07-26 17:00] VITALS: BP 130/74; PULSE 68; RESP 17; O2SAT 97
[2019-07-26 17:01] LABS: Blood Urea Nitrogen 25 mg/dL (9-20); Calcium 9.4 mg/dL (8.4-10.2); Carbon Dioxide 24 mmol/L (22-32); Chloride 106 mmol/L (98-107); Creatine Kinase 193 U/L (55-170); Estimated Glomerular Filt Rate > 60.0 mL/min (>60); Glucose 107 mg/dL (70-100); HEMOLYSIS 19 (0-50); Magnesium 2.2 mg/dL (1.6-2.3); Potassium 4.3 mmol/L (3.4-5.1); Sodium 137 mmol/L (137-145)
[2019-07-26] MEDS: SODIUM CHLORIDE 0.9% 1,000 ML 1000 ML IV (17:10)
--- NOTE | 2019-07-26 17:10 | PC.NURSE ---
PT resting in room. connected to cardiac monitoring. denies palpitation at this time. HR 70's NSR. Cardiac h/o of atrial tachycardia, alblation, and valve replacement on warfarin. IVF infusing. denies CP or SOB at this time. IV placed and labs drawn and sent per order. will monitor.
[2019-07-26 17:12] LABS: Troponin I < 0.012 ng/mL (0.01-0.034)
[2019-07-26 17:15] LABS: CKMB % Relative Index 1.1 % (1.5-5.0); Creatine Kinase MB 2.08 ng/mL (<2.37)
[2019-07-26 17:47] LABS: Thyroid Stimulating Hormone 2.35 uIU/mL (0.47-4.68)
--- NOTE | 2019-07-26 18:03 | PC.NURSE ---
pt resting in bed without change in assessment. IVF completed. pt resting in bed with lights off for comfort. lab work resulted. made aware. awaiting DC.
[2019-07-26 18:08] VITALS: BP 137/72; PULSE 73; RESP 16; O2SAT 96
== END 2019-07-26 18:09 | disposition home or self-care (01) ==
PROVIDERS: Emergency Provider Emergency Medicine; PCP Internal Medicine
DX: R00.2 Palpitations (principal); Z79.01 Long term (current) use of anticoagulants
CPT/HCPCS: 71045; 80048; 82550; 82553; 83735; 84443; 84484; 85025; 85610; 93005; 93041; 96360; 99283; 99285

== ENCOUNTER → 2020-08-21 08:40 | Outpatient (CLI) | payer OTHER, SELFPAY ==
[2020-08-21 09:57] LABS: Add Manual Diff / Slide Review NO; Basophils Absolute Auto 100 /uL (0-100); Basophils Percent Auto 0.6 % (0-2); Eosinophils Absolute Auto 700 /uL (0-450); Hematocrit 44.1 % (41-53); Hemoglobin 15.3 g/dL (13.5-17.5); Lymphocytes Absolute Auto 1500 /uL (1100-4500); Lymphocytes Percent Auto 13.7 % (25-40); Mean Corpuscular HGB Conc 34.7 % (30-36); Mean Corpuscular Hemoglobin 31.9 PG (26-34); Monocytes Absolute Auto 800 /uL (0-900); Monocytes Percent Auto 7.3 % (3-14); Neutrophils Absolute Auto 7900 /uL (1500-7000); Neutrophils Percent Auto 72.4 % (50-75); Platelet Count 264 X10^3/uL (150-400); Red Cell Distribution Width 12.8 % (11.6-14.8)
[2020-08-21 10:14] LABS: HEMOLYSIS < 15 (0-50)
[2020-08-21 10:20] LABS: Alanine Aminotransferase 19 IU/L (<50); Albumin 4.5 g/dL (3.5-5.0); Albumin Globulin Ratio 1.5 (1.0-2.8); Alkaline Phosphatase 89 U/L (38-126); Aspartate Aminotransferase 29 IU/L (17-59); BUN Creatinine Ratio 16.7 (6-22); Bilirubin Total 0.7 mg/dL (0.2-1.3); Blood Urea Nitrogen 16 mg/dL (9-20); Calcium 10.1 mg/dL (8.4-10.2); Carbon Dioxide 29 mmol/L (22-32); Chloride 103 mmol/L (98-107); Cholesterol 192 mg/dL (140-199); Estimated Glomerular Filt Rate > 60.0 mL/min (>60); Globulin 3.1 g/dL (1.7-4.1); Glucose 88 mg/dL (80-110); HDL Cholesterol 49 mg/dL (40-60); LDL Cholesterol Calculated 121 mg/dL (<100); Potassium 4.5 mmol/L (3.4-5.1); Sodium 138 mmol/L (137-145); Total Protein 7.6 g/dL (6.3-8.2); Triglycerides 109 mg/dL (35-150)
== END ==
PROVIDERS: PCP Internal Medicine; Referring Provider Internal Medicine; Visit Provider Internal Medicine
DX: C85.90 Non-Hodgkin lymphoma, unspecified, unspecified site (principal); I47.1 Supraventricular tachycardia; Z79.01 Long term (current) use of anticoagulants; Z95.2 Presence of prosthetic heart valve
CPT/HCPCS: 36415; 80053; 80061; 84153; 85025

== ENCOUNTER 2021-01-28 09:53 | Emergency (ER) | payer OTHER, SELFPAY ==
[2021-01-28] VITALS (44 sets, daily range): BP systolic 128–154; BP diastolic 70–87; PULSE 66–86; RESP 11–30; TEMP 37.2; O2SAT 94–99; BMI 27.6
--- NOTE | 2021-01-28 10:07 | DI.RAD.S_ITS ---
PROCEDURE: XR CHEST 1V INDICATIONS: chest pain TECHNIQUE: One view of the chest was acquired. COMPARISON: [facility], CR, XR CHEST 1V, 07/26/2019, 16:46. FINDINGS: Surgical changes and devices: Sternotomy wires and cardiac valvular prosthesis. Scattered subsegmental atelectasis and/or scarring. No focal consolidation. No pleural effusions or pneumothorax. Mediastinum: Mediastinal contours appear normal. Heart size is normal. Bones and chest wall: No suspicious bony lesions. Overlying soft tissues appear unremarkable. IMPRESSION: No acute disease or interval change. Dictated by: Singh Sepulveda M.D. on 01/28/2021 at 10:55 Approved by: Singh Sepulveda M.D. on 01/28/2021 at 10:57
--- NOTE | 2021-01-28 10:20 | ED.CHESTPAIN ---
HPI - Chest Pain General Chief Complaint: Chest Pain Stated Complaint: Mild Chest pain, Hard time breathing Time Seen by Provider: 01/28/21 10:07 Source: patient Mode of arrival: Ambulatory Limitations: no limitations History of Present Illness HPI narrative: Patient is a 61-year-old male. Has a mechanical aortic heart valve that was placed approximately 2 years ago. He has also had history of ?SVT ?he is on Coumadin. Also has a history of reflux disease. States he has never had a heart attack or stroke. Was told to come into the emergency department by his supervisory forester office after he called them stating that he has had chest pain for the past 24-36 hours. He states that yesterday morning he woke with the discomfort. He states that it was in the center of his chest and radiates to his neck. It is still there although it is improved from yesterday. Since that time he has become very short of breath with exertion. Has not tried anything for his symptoms except his normal medications. Related Data Home Medications Medication Instructions Recorded Confirmed multivitamin 1 tab PO DAILY #0 04/07/11 01/14/21 diltiazem HCl 180 mg PO BID 07/26/19 01/28/21 Melatonin Gummies 2 ea PO BEDTIME 12/10/20 01/14/21 Previous Rx's Medication Instructions Recorded omeprazole 20 mg capsule,delayed 20 mg PO DAILY #90 cap 03/07/20 release simvastatin 20 mg tablet 20 mg PO DAILY #90 tab 08/28/20 warfarin 5 mg tablet 15 mg PO DAILY #270 tab 01/23/21 Allergies Allergy/AdvReac Type Severity Reaction Status Date / Time No Known Drug Allergies Allergy Verified 01/14/21 11:29 Review of Systems Constitutional Constitutional: Denies fever(s) and Denies headache(s) ENT Ears, Nose, Mouth, and Throat: Denies vertigo, Denies dizziness and Denies headache(s) Cardiovascular Cardiovascular: Reports chest pain, Denies rapid heart rate, Denies lightheadedness and Reports dyspnea on exertion Respiratory Respiratory: Denies cough and Reports dyspnea on exertion Gastrointestinal Gastrointestinal: Denies abdominal pain, Denies nausea and Denies vomiting Genitourinary Genitourinary: Denies dysuria Genitourinary: Denies dysuria Musculoskeletal Musculoskeletal: Denies arthralgias, Denies back pain and Denies myalgias Integumentary/Breasts Skin/Breast: Denies rash Neurologic Neurologic: Denies vertigo, Denies dizziness and Denies headache(s) Hematologic/Lymphatic On Anticoagulants: Yes Allergic/Immunologic Allergic/Immunologic: Denies urticaria Patient History Medical History Atrial tachycardia Chronic hepatitis C without hepatic coma (09/06/15) Coronary artery disease detention current use of anticoagulant therapy Non-Hodgkin's lymphoma (09/06/15) PSVT (paroxysmal supraventricular tachycardia) Stenosis of aorta (09/06/15) Surgical History (Updated 08/23/20 @ 16:20 by Juan George MD) S/P aortic valve replacement with metallic valve (~09/2018) Status post heart valve replacement with mechanical valve Family History Father Crohn's disease Social History Smoking Status: Current every day smoker Smoking Status: Current every day smoker alcohol intake frequency: holidays/special occasions only Substance Use Type: marijuana Exam Initial Vital Signs Initial Vital Signs: Vital Signs Blood Pressure 154/83 H 01/28/21 10:01 Const General: cooperative, comfortable and well developed Limitations: mental status not altered HENMT Head: normal to inspection and normocephalic Resp Effort & Inspection: normal respiratory effort Auscultation: clear to auscultation bilaterally Cardio Rate: regular rate Rhythm: regular rhythm Heart Sounds: murmur GI Inspection: non-distended Palpation: soft Skin Lesions: no lesions Rashes: no rashes Neuro General: patient alert, patient awake and patient oriented x3 Cognition: normal cognition Speech: speech normal Extrem General: normal to inspection and capillary refill normal Psych Appearance: grossly normal and well kempt Scores GCS [place] coma scale eye opening: Spontaneous [place] coma scale verbal response: Orientated [place] coma scale motor response: Obey commands [place] coma scale total score: 15 Course Orders Ordered: ED Orders 01/28/21 10:07 XR chest 1V Stat EKG-12 Lead Stat 01/28/21 10:10 COVID19 Stat Complete Blood Count AUTO DIFF Stat Comprehensive Metabolic Panel Stat Lipase Stat Partial Thromboplastin Time Stat Prothrombin Time INR Stat Troponin & CK Cardiac Panel Stat 01/28/21 11:56 CT angio chest abdomen Stat Discontinued Medications Aspirin (Aspirin 81 Mg Chew Tab) 324 mg PO NOW ONE Stop: 01/28/21 14:55 Last Admin: 01/28/21 16:32 Dose: 324 mg Documented by: KERRIE Heparin Sodium (Porcine) (Heparin 5,000 Unit/Ml Vial) 5,000 unit IV NOW ONE Stop: 01/28/21 10:50 Last Admin: 01/28/21 11:07 Dose: 5,000 unit Documented by: SAMRA Heparin Sodium/Dextrose (Heparin Drip) 25,000 unit in 500 mls @ 20 mls/hr IV CONT NELLY; Protocol Last Titration: 01/28/21 12:42 Dose: 1,000 units/hr, 20 mls/hr Documented by: Titration: 01/28/21 11:40 Dose: 0 units/hr, 0 mls/hr Documented by: Admin: 01/28/21 11:07 Dose: 1,000 units/hr, 20 mls/hr Documented by: SAMRA Nitroglycerin (Nitroglycerin Oint 1 Inch/Gm Oint...G.) 0.5 inch TOP NOW ONE Stop: 01/28/21 10:27 Last Admin: 01/28/21 10:31 Dose: 0.5 inch Documented by: SAMRA Vital Signs Vital signs: Vital Signs - 8 hr 01/28/21 10:01 01/28/21 10:02 01/28/21 10:03 Temperature 98.9 F Pulse Rate 82 86 Respiratory Rate 23 16 Blood Pressure 154/83 H 154/83 H Pulse Oximetry 99 97 01/28/21 10:10 01/28/21 10:20 01/28/21 10:30 Temperature Pulse Rate 80 77 72 Respiratory Rate 16 14 18 Blood Pressure Pulse Oximetry 98 97 97 01/28/21 10:31 01/28/21 10:36 01/28/21 10:40 Temperature Pulse Rate 72 69 69 Respiratory Rate 18 18 Blood Pressure 154/83 H 128/71 129/72 Pulse Oximetry 96 96 01/28/21 10:50 01/28/21 11:00 01/28/21 11:10 Temperature Pulse Rate 67 72 75 Respiratory Rate 17 18 19 Blood Pressure 141/70 H 140/79 143/78 H Pulse Oximetry 97 96 97 01/28/21 11:20 01/28/21 11:30 01/28/21 11:40 Temperature Pulse Rate 81 78 73 Respiratory Rate 30 H 25 H 19 Blood Pressure 145/77 H Pulse Oximetry 96 95 96 01/28/21 11:50 01/28/21 12:24 01/28/21 12:25 Temperature Pulse Rate 72 71 71 Respiratory Rate 15 13 Blood Pressure 143/82 H Pulse Oximetry 96 97 01/28/21 12:30 01/28/21 12:40 01/28/21 12:50 Temperature Pulse Rate 69 69 68 Respiratory Rate 14 14 11 L Blood Pressure 140/79 144/75 H 142/75 H Pulse Oximetry 97 97 97 01/28/21 13:00 01/28/21 13:10 01/28/21 13:20 Temperature Pulse Rate 66 81 83 Respiratory Rate 13 18 14 Blood Pressure 135/71 148/83 H 154/87 H Pulse Oximetry 96 96 96 01/28/21 13:30 01/28/21 13:40 01/28/21 13:50 Temperature Pulse Rate 72 70 67 Respiratory Rate 17 15 13 Blood Pressure 132/74 135/74 138/73 Pulse Oximetry 96 96 96 01/28/21 14:00 01/28/21 14:10 01/28/21 14:20 Temperature Pulse Rate 67 68 79 Respiratory Rate 14 15 18 Blood Pressure 131/73 137/74 136/76 Pulse Oximetry 95 96 96 01/28/21 14:30 01/28/21 14:40 01/28/21 14:50 Temperature Pulse Rate 74 74 74 Respiratory Rate 14 19 24 Blood Pressure 144/79 H 136/73 132/72 Pulse Oximetry 96 96 95 01/28/21 15:00 01/28/21 15:10 01/28/21 15:20 Temperature Pulse Rate 75 69 72 Respiratory Rate 17 17 Blood Pressure 141/77 H 133/74 129/72 Pulse Oximetry 97 96 96 01/28/21 15:30 01/28/21 15:40 01/28/21 15:50 Temperature Pulse Rate 68 72 72 Respiratory Rate 13 16 14 Blood Pressure 136/78 133/79 147/81 H Pulse Oximetry 96 96 96 01/28/21 16:00 01/28/21 16:10 01/28/21 16:20 Temperature Pulse Rate 80 72 72 Respiratory Rate 25 H 18 17 Blood Pressure 151/87 H 139/78 136/76 Pulse Oximetry 95 94 95 01/28/21 16:30 01/28/21 16:40 Temperature Pulse Rate 73 72 Respiratory Rate 20 18 Blood Pressure 142/79 H 141/77 H Pulse Oximetry 95 95 MDM - Chest Pain Lab Data Attestation: I reviewed the patient's lab results. Result diagrams: 01/28/21 10:10 01/28/21 10:10 Labs: Lab Results 01/28/21 01/28/21 01/28/21 Range/Units 10:10 10:10 10:10 WBC 9.0 (4.5-11.0) X10^3/uL RBC 4.93 (4.5-5.9) X10^6/uL Hgb 15.4 (13.5-17.5) g/dL Hct 44.7 (41-53) % MCV 90.7 (80-100) fL MCH 31.3 (26-34) PG MCHC 34.5 (30-36) % RDW 13.7 (11.6-14.8) % Plt Count 279 (150-400) X10^3/uL Neut % (Auto) Not Reportable Lymph % (Auto) Not Reportable [place] % (Auto) Not Reportable Eos % (Auto) Not Reportable Baso % (Auto) Not Reportable Lymph # (Auto) Not Reportable [place] # (Auto) Not Reportable Baso # (Auto) Not Reportable Total Counted 100 Seg Neutrophils % 69.0 (38-70) % Band Neutrophils % 1.0 L (3-7) % Lymphocytes % (Manual) 11.0 L (25-45) % Atypical Lymphs % 3.0 H ( - 0) % Monocytes % (Manual) 9.0 (2-11) % Eosinophils % (Manual) 7.0 H (2-4) % Neutrophils # (Manual) 6300 H (1875-4695) /uL RBC Morphology Normal morphology PT 21.0 H (10.1-12.7) SECONDS INR 1.8 H (0.9-1.3) APTT 42 H (26.4-36.2) SECONDS Sodium 138 (137-145) mmol/L Potassium 4.2 (3.4-5.1) mmol/L Chloride 107 (98-107) mmol/L Carbon Dioxide 27 (22-32) mmol/L BUN 21 H (9-20) mg/dL Creatinine 0.94 (0.66-1.25) mg/dL Estimated GFR > 60.0 (>60) mL/min BUN/Creatinine Ratio 22.3 H (6-22) Glucose 117 H (80-110) mg/dL Calcium 9.9 (8.4-10.2) mg/dL Total Bilirubin 0.4 (0.2-1.3) mg/dL AST 32 (17-59) IU/L ALT 26 (<50) IU/L Alkaline Phosphatase 92 (38-126) U/L Total Creatine Kinase 87 (55-170) U/L CK-MB (CK-2) TNP CK-MB (CK-2) Rel Index TNP Troponin I 0.112 H (0.01-0.034) ng/mL Total Protein 8.1 (6.3-8.2) g/dL Albumin 4.7 (3.5-5.0) g/dL Globulin 3.4 (1.7-4.1) g/dL Albumin/Globulin Ratio 1.4 (1.0-2.8) Lipase 97 (23-300) U/L SARS-CoV-2 (PCR) (Negative) 01/28/21 Range/Units 10:10 WBC (4.5-11.0) X10^3/uL RBC (4.5-5.9) X10^6/uL Hgb (13.5-17.5) g/dL Hct (41-53) % MCV (80-100) fL MCH (26-34) PG MCHC (30-36) % RDW (11.6-14.8) % Plt Count (150-400) X10^3/uL Neut % (Auto) Lymph % (Auto) [place] % (Auto) Eos % (Auto) Baso % (Auto) Lymph # (Auto) [place] # (Auto) Baso # (Auto) Total Counted Seg Neutrophils % (38-70) % Band Neutrophils % (3-7) % Lymphocytes % (Manual) (25-45) % Atypical Lymphs % ( - 0) % Monocytes % (Manual) (2-11) % Eosinophils % (Manual) (2-4) % Neutrophils # (Manual) (9572-6777) /uL RBC Morphology PT (10.1-12.7) SECONDS INR (0.9-1.3) APTT (26.4-36.2) SECONDS Sodium (137-145) mmol/L Potassium (3.4-5.1) mmol/L Chloride (98-107) mmol/L Carbon Dioxide (22-32) mmol/L BUN (9-20) mg/dL Creatinine (0.66-1.25) mg/dL Estimated GFR (>60) mL/min BUN/Creatinine Ratio (6-22) Glucose (80-110) mg/dL Calcium (8.4-10.2) mg/dL Total Bilirubin (0.2-1.3) mg/dL AST (17-59) IU/L ALT (<50) IU/L Alkaline Phosphatase (38-126) U/L Total Creatine Kinase (55-170) U/L CK-MB (CK-2) CK-MB (CK-2) Rel Index Troponin I (0.01-0.034) ng/mL Total Protein (6.3-8.2) g/dL Albumin (3.5-5.0) g/dL Globulin (1.7-4.1) g/dL Albumin/Globulin Ratio (1.0-2.8) Lipase (23-300) U/L SARS-CoV-2 (PCR) Negative (Negative) Imaging Data Chest x-ray: Radiologist's Impression: [address] [id number] ReportSigned Patient: Jake Ramos [facility]#: [id number]: 1960Acct:[id number]/Sex: 61 / MDate of Service: 01/28/21Loc: EDAccession Number: [id number] Procedure: XR chest 1V Ordering Provider: Ad Reilly D.O. PROCEDURE: XR CHEST 1V INDICATIONS: chest pain TECHNIQUE: One view of the chest was acquired. [facility]. FINDINGS: Surgical changes and devices: Sternotomy wires and cardiac valvular prosthesis. Scattered subsegmental atelectasis and/or scarring. No focal consolidation. No pleural effusions or pneumothorax. Mediastinum: Mediastinal contours appear normal. Heart size is normal. Bones and chest wall: No suspicious bony lesions. Overlying soft tissues appear unremarkable. IMPRESSION: No acute disease or interval change. Dictated by: Singh Sepulveda M.D. on 01/28/2021 at 10:55 Approved by: Singh Sepulveda M.D. on 01/28/2021 at 10:57 CT scan - chest: Radiologist's Impression: [address] [id number] Scan ReportSigned Patient: Jake Ramos SMR#: [id number]: 1960Acct:[id number]/Sex: 61 / MDate of Service: 01/28/21Loc: EDAccession Number: [id number] Procedure: CT angio chest abdomen Ordering Provider: Ad Reilly D.O. PROCEDURE: CT ANGIO CHEST ABDOMEN INDICATIONS: Evaluate for aortic dissection TECHNIQUE: Precontrast 5 mm thick sections acquired from the lung apices to the iliac crests. After the administration of intravenous contrast, 2.5 mm thick sections again acquired from the lung apices to the iliac crests. 10 mm maximum intensity projection (MIP) oblique sagittal and coronal reformats were then acquired. For radiation dose reduction, the following was used: automated exposure control. COMPARISON: [facility], CT, ANGIOGRAPHY CHEST, 09/21/2012, 8:19. FINDINGS: Image quality: Excellent. AORTA: There are no areas of hemodynamically significant stenosis, vascular occlusion, aneurysmal dilation or dissection identified. Mild areas of atherosclerotic calcification and mural thrombus are present throughout the abdominal and thoracic aorta. CHEST: Lungs and pleura: No acute airspace opacities. No pleural effusions or pneumothorax. Central and peripheral airways are patent and normal in caliber. Nodular opacity within the left apex has increased in size currently measuring 13 mm AP x 8 mm transverse compared to 6 mm AP x 5 mm transverse. Mediastinum: Heart size is normal. Coronary calcifications are present. No pericardial effusion. No mediastinal or hilar adenopathy by size criteria. Central pulmonary arteries are normal in size. Esophagus is normal in caliber. Mild hiatal hernia. Bones and chest wall: No axillary adenopathy by size criteria. Thyroid gland demonstrates a punctate area of low attenuation within the right lobe. This area is not as well seen on prior exam. No suspicious bony lesions. No vertebral body compression fractures. ABDOMEN: Vasculature: Celiac trunk and mesenteric arteries are patent. Renal arteries are also patent. Solid organs: Liver is normal in size and enhancement. Gallbladder is unremarkable . Biliary system is non dilated. Pancreas enhances normally. Spleen is normal in size and enhancement. No adrenal nodules. Both kidneys are normal in size and enhancement, without hydronephrosis. Peritoneum and bowel: No free fluid or air. Bowel loops are normal in caliber and wall thickness. Mild colonic diverticula without inflammatory change. Nodes and vessels: No retroperitoneal or mesenteric adenopathy by size criteria. Inferior vena cava is normal in morphology. Bones: No suspicious bony lesions. No vertebral body compression fractures. Miscellaneous: Minimal fat containing ventral hernia. IMPRESSION: 1. No evidence of dissection. Atherosclerotic changes noted. 2. Increased size of nodular opacity within the left upper lobe compared to 2012. Given prominent interval growth, slow growing neoplasm cannot be definitively excluded. Further evaluation with PET scan is recommended. Dictated by: Rebecca Marina M.D. on 01/28/2021 at 12:22 Approved by: Rebecca Marina M.D. on 01/28/2021 at 12:32 ECG Data Attestation: I personally reviewed and interpreted this ECG as follows: Prior ECG tracings: available for review Interpretation: Sinus rhythm Ventricular rate 80 to LVH Left axis deviation T-wave inversions 1 aVL Similar to EKG dated 07/26/2019 [facility] Narrative Medical decision making narrative: Aortic valve replacement 2 years ago. Started having chest discomfort yesterday. Does report it is improved this morning but is still having it. Is also having shortness of breath on exertion. No fevers. No cough. Has been taking his medications. EKG today unchanged from prior in 2019. Him chest x-ray is unremarkable per am troponin elevated. Concern for NSTEMI. CT scan of the chest does not show any signs of a dissection. The left lung nodule is noted. I did discuss this with the patient. Discussed the case with Dr. garcia with Cardiology who recommended patient be transferred for further evaluation treatment. I then discussed the case with hospitalist at [facility] who accepts patient. Discussed the transfer with the patient. Also discussed the lung nodule with him. Expressed understanding of this. Patient is stable for transfer. Patient is on heparin. Discharge Plan Departure Patient Disposition: [facility] Clinical Impression: Non-ST elevated myocardial infarction, Lung nodule Prescriptions: No Action multivitamin Tablet 1 tab PO DAILY Qty: 0 RF: 0 omeprazole 20 mg capsule,delayed release(DR/EC) 20 mg PO DAILY Qty: 90 RF: 3 simvastatin 20 mg tablet 20 mg PO DAILY Qty: 90 RF: 1 warfarin 5 mg tablet 15 mg PO DAILY Qty: 270 RF: 2 Melatonin Gummies 2 ea PO BEDTIME RF: 0 diltiazem HCl 180 mg capsule,extended release 24hr 180 mg PO BID RF: 0 Referrals: Juan George MD [Primary Care Provider] -
[2021-01-28 10:21] LABS: Hematocrit 44.7 % (41-53); Hemoglobin 15.4 g/dL (13.5-17.5); Mean Corpuscular HGB Conc 34.5 % (30-36); Mean Corpuscular Hemoglobin 31.3 PG (26-34); Mean Corpuscular Volume 90.7 fL (80-100); Platelet Count 279 X10^3/uL (150-400); Red Blood Cell Count 4.93 X10^6/uL (4.5-5.9); Red Cell Distribution Width 13.7 % (11.6-14.8)
[2021-01-28 10:22] LABS: Add Manual Diff / Slide Review YES
[2021-01-28 10:26] LABS: INR 1.8 (0.9-1.3)
[2021-01-28] MEDS: NITROGLYCERIN OINT 1 INCH/GM OINT...G. 0.5 INCH TOP (10:31)
[2021-01-28 10:32] LABS: Alanine Aminotransferase 26 IU/L (<50); Albumin 4.7 g/dL (3.5-5.0); Albumin Globulin Ratio 1.4 (1.0-2.8); Alkaline Phosphatase 92 U/L (38-126); Aspartate Aminotransferase 32 IU/L (17-59); BUN Creatinine Ratio 22.3 (6-22); Bilirubin Total 0.4 mg/dL (0.2-1.3); Blood Urea Nitrogen 21 mg/dL (9-20); Calcium 9.9 mg/dL (8.4-10.2); Carbon Dioxide 27 mmol/L (22-32); Chloride 107 mmol/L (98-107); Creatine Kinase 87 U/L (55-170); Estimated Glomerular Filt Rate > 60.0 mL/min (>60); Globulin 3.4 g/dL (1.7-4.1); Glucose 117 mg/dL (80-110); HEMOLYSIS 17 (0-50); Lipase 97 U/L (23-300); Potassium 4.2 mmol/L (3.4-5.1); Sodium 138 mmol/L (137-145); Total Protein 8.1 g/dL (6.3-8.2)
[2021-01-28 10:42] LABS: PTT Partial Thromboplastin Tim 42 SECONDS (26.4-36.2)
[2021-01-28 10:43] LABS: Troponin I 0.112 ng/mL (0.01-0.034)
[2021-01-28 10:48] LABS: Neutrophils Absolute Manual 6300 /uL (3000-5900); Total Cells Counted 100
[2021-01-28 10:49] LABS: RBC Morphology Normal Morphology
[2021-01-28 10:54] LABS: COVID19 -Nasal RAPID Negative (Negative)
[2021-01-28] MEDS: HEPARIN 5,000 UNIT/ML VIAL 5000 UNIT IV (11:07)
[2021-01-28] MEDS: HEPARIN DRIP 25,000 UNIT/500 ML IV.SOLN 20 UNIT IV (11:07)
--- NOTE | 2021-01-28 11:56 | DI.CT.S_ITS ---
PROCEDURE: CT ANGIO CHEST ABDOMEN INDICATIONS: Evaluate for aortic dissection TECHNIQUE: Precontrast 5 mm thick sections acquired from the lung apices to the iliac crests. After the administration of intravenous contrast, 2.5 mm thick sections again acquired from the lung apices to the iliac crests. 10 mm maximum intensity projection (MIP) oblique sagittal and coronal reformats were then acquired. For radiation dose reduction, the following was used: automated exposure control. COMPARISON: [facility], CT, ANGIOGRAPHY CHEST, 09/21/2012, 8:19. FINDINGS: Image quality: Excellent. AORTA: There are no areas of hemodynamically significant stenosis, vascular occlusion, aneurysmal dilation or dissection identified. Mild areas of atherosclerotic calcification and mural thrombus are present throughout the abdominal and thoracic aorta. CHEST: Lungs and pleura: No acute airspace opacities. No pleural effusions or pneumothorax. Central and peripheral airways are patent and normal in caliber. Nodular opacity within the left apex has increased in size currently measuring 13 mm AP x 8 mm transverse compared to 6 mm AP x 5 mm transverse. Mediastinum: Heart size is normal. Coronary calcifications are present. No pericardial effusion. No mediastinal or hilar adenopathy by size criteria. Central pulmonary arteries are normal in size. Esophagus is normal in caliber. Mild hiatal hernia. Bones and chest wall: No axillary adenopathy by size criteria. Thyroid gland demonstrates a punctate area of low attenuation within the right lobe. This area is not as well seen on prior exam. No suspicious bony lesions. No vertebral body compression fractures. ABDOMEN: Vasculature: Celiac trunk and mesenteric arteries are patent. Renal arteries are also patent. Solid organs: Liver is normal in size and enhancement. Gallbladder is unremarkable . Biliary system is non dilated. Pancreas enhances normally. Spleen is normal in size and enhancement. No adrenal nodules. Both kidneys are normal in size and enhancement, without hydronephrosis. Peritoneum and bowel: No free fluid or air. Bowel loops are normal in caliber and wall thickness. Mild colonic diverticula without inflammatory change. Nodes and vessels: No retroperitoneal or mesenteric adenopathy by size criteria. Inferior vena cava is normal in morphology. Bones: No suspicious bony lesions. No vertebral body compression fractures. Miscellaneous: Minimal fat containing ventral hernia. IMPRESSION: 1. No evidence of dissection. Atherosclerotic changes noted. 2. Increased size of nodular opacity within the left upper lobe compared to 2011. Given prominent interval growth, slow growing neoplasm cannot be definitively excluded. Further evaluation with PET scan is recommended. Dictated by: Rebecca Marina M.D. on 01/28/2021 at 12:22 Approved by: Rebecca Marina M.D. on 01/28/2021 at 12:32
--- NOTE | 2021-01-28 12:42 | PC.NURSE ---
Provider verbal order to restart Heparin. Heparin restarted at 20ml/hr
[2021-01-28] MEDS: ASPIRIN 81 MG CHEW TAB 324 MG PO (16:32)
== END 2021-01-28 16:50 | disposition short-term general hospital (02) ==
PROVIDERS: Emergency Provider Emergency Medicine; PCP Internal Medicine
DX: I21.4 Non-ST elevation (NSTEMI) myocardial infarction (principal); R91.1 Solitary pulmonary nodule; Z95.2 Presence of prosthetic heart valve; Z79.01 Long term (current) use of anticoagulants; R06.00 Dyspnea, unspecified; Z20.822 Contact with and (suspected) exposure to COVID-19; R79.89 Other specified abnormal findings of blood chemistry
CPT/HCPCS: 36415; 71045; 71275; 74175; 80053; 82550; 83690; 84484; 85007; 85025; 85610; 85730; 87635; 93005; 96365; 96375; 99284; C9803; J1644; Q9967

== ENCOUNTER → 2021-02-18 11:09 | Outpatient (CLI) | payer OTHER, SELFPAY ==
[2021-02-18 14:32] LABS: COVID19 -Nasal RAPID Negative (Negative)
== END ==
PROVIDERS: PCP Internal Medicine; Visit Provider Physician Assistant
DX: Z20.822 Contact with and (suspected) exposure to COVID-19 (principal)
CPT/HCPCS: 87635

== ENCOUNTER → 2021-02-22 08:28 | Outpatient (CLI) | payer OTHER, SELFPAY ==
[2021-02-22] MEDS: COVID-19 VACC #1, MRNA(MOD) 100 MCG/0.5 ML VIAL IM (08:36)
== END ==
PROVIDERS: PCP Internal Medicine; Visit Provider Internal Medicine
DX: Z23 Encounter for immunization (principal)
CPT/HCPCS: 0011A; 91301

== ENCOUNTER 2021-03-06 13:11 | Emergency (ER) | payer OTHER, SELFPAY ==
[2021-03-06] VITALS (9 sets, daily range): BP systolic 118–144; BP diastolic 59–77; PULSE 63–80; RESP 12–25; TEMP 36.9; O2SAT 97–100; BMI 26.4
--- NOTE | 2021-03-06 13:20 | DI.RAD.S_ITS ---
PROCEDURE: XR CHEST 1V INDICATIONS: chest pain TECHNIQUE: One view of the chest was acquired. COMPARISON: [facility], CR, XR CHEST 1V, 01/28/2021, 10:21. [facility], CR, XR CHEST 1V, 07/26/2019, 16:46. FINDINGS: Surgical changes and devices: Sternotomy wires, presumed prior CABG Lungs and pleura: Lungs are slightly abnormal with a mild chronic interstitial prominence perhaps reflecting prior smoking history. No pleural effusions or pneumothorax. Mediastinum: Mediastinal contours appear normal. Heart size is normal. Bones and chest wall: No suspicious bony lesions. Overlying soft tissues appear unremarkable. IMPRESSION: Chronic mild interstitial prominence, source of chest pain is not seen. Dictated by: Chris Solis M.D. on 03/06/2021 at 14:04 Approved by: Chris Solis M.D. on 03/06/2021 at 14:06
[2021-03-06 13:45] LABS: Add Manual Diff / Slide Review NO; Basophils Absolute Auto 100 /uL (0-100); Basophils Percent Auto 0.8 % (0-2); Eosinophils Absolute Auto 700 /uL (0-450); Eosinophils Percent Auto 7.8 % (2-4); Hematocrit 42.7 % (41-53); Hemoglobin 14.7 g/dL (13.5-17.5); Lymphocytes Absolute Auto 1500 /uL (1100-4500); Lymphocytes Percent Auto 17.2 % (25-40); Mean Corpuscular HGB Conc 34.4 % (30-36); Mean Corpuscular Volume 90.1 fL (80-100); Monocytes Absolute Auto 800 /uL (0-900); Neutrophils Absolute Auto 5600 /uL (1500-7000); Neutrophils Percent Auto 65.2 % (50-75); Platelet Count 265 X10^3/uL (150-400); Red Blood Cell Count 4.73 X10^6/uL (4.5-5.9); Red Cell Distribution Width 14.1 % (11.6-14.8); White Blood Cell Count 8.5 X10^3/uL (4.5-11.0)
[2021-03-06 13:58] LABS: INR 4.1 (0.9-1.3)
[2021-03-06 14:00] LABS: PTT Partial Thromboplastin Tim 59 SECONDS (26.4-36.2)
[2021-03-06 14:05] LABS: Alanine Aminotransferase 25 IU/L (<50); Albumin 5.1 g/dL (3.5-5.0); Albumin Globulin Ratio 1.5 (1.0-2.8); Alkaline Phosphatase 90 U/L (38-126); Aspartate Aminotransferase 42 IU/L (17-59); BUN Creatinine Ratio 17.4 (6-22); Bilirubin Total 0.4 mg/dL (0.2-1.3); Blood Urea Nitrogen 21 mg/dL (9-20); Calcium 10.2 mg/dL (8.4-10.2); Carbon Dioxide 27 mmol/L (22-32); Chloride 103 mmol/L (98-107); Creatine Kinase 147 U/L (55-170); Estimated Glomerular Filt Rate > 60.0 mL/min (>60); Globulin 3.3 g/dL (1.7-4.1); Glucose 86 mg/dL (80-110); Lipase 127 U/L (23-300); Potassium 4.3 mmol/L (3.4-5.1); Sodium 139 mmol/L (137-145); Total Protein 8.4 g/dL (6.3-8.2)
[2021-03-06 14:17] LABS: Troponin I 0.014 ng/mL (0.01-0.034)
--- NOTE | 2021-03-06 14:19 | ED.CHESTPAIN ---
HPI - Chest Pain General Chief Complaint: Chest Pain Stated Complaint: chest pain/heart attack 5 weeks ago Time Seen by Provider: 03/06/21 14:15 Source: patient Mode of arrival: Ambulatory Limitations: no limitations History of Present Illness HPI narrative: 61-year-old gentleman with history of coronary artery disease and valve replacement status post ME with stent 6 on January 28 for the left main/LAD lesion currently anticoagulated with Plavix and warfarin, presents with general malaise and chest tightness that is been present for the last 2-3 days. He notes that 2 days ago he had an episode of central chest tightness that seem to radiate up to the right side of his neck he actually left work early went home and rested it resolved 1 day ago he was doing well. This morning he woke up again feeling a bit ?off? with chest tightness. He did go to cardiac rehab this morning and did his to 20 minute workouts without an increase in chest tightness or chest pain. He did note that his blood pressure was a bit low with systolics in the 105 range. When he mentioned to staff at cardiac rehab that he was not feeling well the suggested seeing his primary care physician and when scheduling that appointment they suggested he come to the emergency department for further evaluation today. He denies any fevers. He states that he has a ?touch of a cough? but had attributed that to increased pollen in the air. He stop smoking with his heart attack 6 weeks ago. He has never been diagnosed with COPD and has not typically used inhalers. He notes that he is not experiencing any exertional chest pain, exertional dyspnea or orthopnea. No lower extremity edema, no dizziness, nausea, vomiting, diarrhea. Related Data Home Medications Medication Instructions Recorded Confirmed multivitamin 1 tab PO DAILY #0 04/07/11 02/07/21 Melatonin Gummies 2 ea PO BEDTIME 12/10/20 02/07/21 clopidogrel 75 mg tablet 75 mg PO DAILY tab 02/07/21 02/07/21 diltiazem HCl 120 mg 120 mg PO BID cap 02/07/21 02/07/21 capsule,extended release 24 hr enoxaparin 80 mg/0.8 mL 80 mg SUBCUT Q12H ml 02/07/21 02/07/21 subcutaneous syringe lisinopril 2.5 mg tablet 2.5 mg PO BID tab 02/07/21 02/07/21 rosuvastatin 40 mg tablet 40 mg PO DAILY 02/07/21 02/07/21 Previous Rx's Medication Instructions Recorded omeprazole 20 mg capsule,delayed 20 mg PO DAILY #90 cap 03/07/20 release warfarin 5 mg tablet 15 mg PO DAILY #270 tab 01/23/21 Allergies Allergy/AdvReac Type Severity Reaction Status Date / Time No Known Drug Allergies Allergy Verified 03/06/21 13:21 Review of Systems Review of Systems ROS Unobtainable: All systems reviewed & are unremarkable except as noted in HPI and below Patient History Medical History Atrial tachycardia Chronic hepatitis C without hepatic coma (09/06/15) Coronary artery disease [facility] current use of anticoagulant therapy Non-Hodgkin's lymphoma (09/06/15) PSVT (paroxysmal supraventricular tachycardia) Stenosis of aorta (09/06/15) Surgical History S/P aortic valve replacement with metallic valve (~09/2018) S/P coronary artery stent placement (~01/2021) Status post heart valve replacement with mechanical valve Family History Father Crohn's disease Social History Smoking Status: Former smoker Smoking Status: Former smoker alcohol intake frequency: holidays/special occasions only Substance Use Type: marijuana Exam Narrative Exam Narrative: General: Healthy appearing, in no acute distress. Able to give a complete and coherent history. Well-nourished well-developed HEENT: Moist mucous membranes, normal sclera with reactive pupils, Neck: No JVD, supple Respiratory: Lungs are clear to auscultation, no wheezing no rales no rhonchi. Full and symmetrical air movement Cardiac: Regular rate and rhythm no murmurs no bruits Abdomen: Soft, nontender, good bowel tones, no flank pain Skin: Warm and dry, no rashes Neurologic: Grossly neurologically intact with no obvious asymmetries or abnormalities Extremities: No trauma, well perfused Psych: Cooperative, appropriate insight and affect Initial Vital Signs Initial Vital Signs: Vital Signs Temperature 98.5 F 03/06/21 13:21 Pulse Rate 78 03/06/21 13:21 Respiratory Rate 25 H 03/06/21 13:21 Blood Pressure 144/77 H 03/06/21 13:21 Pulse Oximetry 100 03/06/21 13:21 Course Orders Ordered: ED Orders 03/06/21 13:20 XR chest 1V Stat Complete Blood Count AUTO DIFF Stat Comprehensive Metabolic Panel Stat Lipase Stat Partial Thromboplastin Time Stat Prothrombin Time INR Stat Troponin & CK Cardiac Panel Stat EKG-12 Lead Stat Discontinued Medications Albuterol (Albuterol Hfa Prepack) 1 box MISC SEEINSTR ONE Stop: 03/06/21 14:36 Last Admin: 03/06/21 14:57 Dose: Not Given Documented by: LUIS Albuterol (Albuterol Hfa Mdi 60 Puff/8 Gm Inhaler) 2 puff INH NOW ONE Stop: 03/06/21 14:56 Last Admin: 03/06/21 15:04 Dose: 2 puff Documented by: LAMONT Vital Signs Vital signs: Vital Signs - 8 hr 03/06/21 13:21 03/06/21 13:29 03/06/21 13:30 Temperature 98.5 F Pulse Rate 78 70 69 Respiratory Rate 25 H 17 17 Blood Pressure 144/77 H 131/64 Pulse Oximetry 100 100 99 03/06/21 14:00 03/06/21 14:30 03/06/21 15:00 Temperature Pulse Rate 63 70 66 Respiratory Rate 16 22 19 Blood Pressure 118/59 L 135/65 130/65 Pulse Oximetry 97 97 99 03/06/21 15:04 Temperature Pulse Rate 80 Respiratory Rate 12 Blood Pressure Pulse Oximetry 99 MDM - Chest Pain Medical Records Data Attestation: I reviewed the patient's medical records. Lab Data Attestation: I reviewed the patient's lab results. Result diagrams: 03/06/21 13:20 03/06/21 13:20 Labs: Lab Results 03/06/21 03/06/21 03/06/21 Range/Units 13:20 13:20 13:20 WBC 8.5 (4.5-11.0) X10^3/uL RBC 4.73 (4.5-5.9) X10^6/uL Hgb 14.7 (13.5-17.5) g/dL Hct 42.7 (41-53) % MCV 90.1 (80-100) fL MCH 31.0 (26-34) PG MCHC 34.4 (30-36) % RDW 14.1 (11.6-14.8) % Plt Count 265 (150-400) X10^3/uL Neut % (Auto) 65.2 (50-75) % Lymph % (Auto) 17.2 L (25-40) % Surry % (Auto) 9.0 (3-14) % Eos % (Auto) 7.8 H (2-4) % Baso % (Auto) 0.8 (0-2) % Neut # (Auto) 5600 (1630-9607) /uL Lymph # (Auto) 1500 (0994-1685) /uL [place]ry # (Auto) 800 (0-900) /uL Eos # (Auto) 700 H (0-450) /uL Baso # (Auto) 100 (0-100) /uL PT 47.0 H (10.1-12.7) SECONDS INR 4.1 H (0.9-1.3) APTT 59 H D (26.4-36.2) SECONDS Sodium 139 (137-145) mmol/L Potassium 4.3 (3.4-5.1) mmol/L Chloride 103 (98-107) mmol/L Carbon Dioxide 27 (22-32) mmol/L BUN 21 H (9-20) mg/dL Creatinine 1.21 (0.66-1.25) mg/dL Estimated GFR > 60.0 (>60) mL/min BUN/Creatinine Ratio 17.4 (6-22) Glucose 86 (80-110) mg/dL Calcium 10.2 (8.4-10.2) mg/dL Total Bilirubin 0.4 (0.2-1.3) mg/dL AST 42 (17-59) IU/L ALT 25 (<50) IU/L Alkaline Phosphatase 90 (38-126) U/L Total Creatine Kinase 147 (55-170) U/L CK-MB (CK-2) 1.46 (<2.37) ng/mL CK-MB (CK-2) Rel Index 1.0 L (1.5-5.0) % Troponin I 0.014 (0.01-0.034) ng/mL Total Protein 8.4 H (6.3-8.2) g/dL Albumin 5.1 H (3.5-5.0) g/dL Globulin 3.3 (1.7-4.1) g/dL Albumin/Globulin Ratio 1.5 (1.0-2.8) Lipase 127 (23-300) U/L Imaging Data Chest x-ray: Radiologist's Impression: FINDINGS: Surgical changes and devices: Sternotomy wires, presumed prior CABG Lungs and pleura: Lungs are slightly abnormal with a mild chronic interstitial prominence perhaps reflecting prior smoking history. No pleural effusions or pneumothorax. Mediastinum: Mediastinal contours appear normal. Heart size is normal. Bones and chest wall: No suspicious bony lesions. Overlying soft tissues appear unremarkable. IMPRESSION: Chronic mild interstitial prominence, source of chest pain is not seen. Dictated by: Chris Solis M.D. on 03/06/2021 at 14:04 ECG Data Attestation: I personally reviewed and interpreted this ECG as follows: Interpretation: Sinus rhythm at a rate of 70 LVH with mild strain pattern similar prior EKGs and no evidence for acute ischemia MDM Narrative Medical decision making narrative: 61-year-old gentleman with history of coronary artery disease and aortic valve replacement who is 6 weeks post stenting LAD lesion presents with 2 days of chest tightness. He stop smoking with the stent placement approximately 6 weeks ago. The chest tightness is present throughout the majority of the day, is not positional or exertional. He was able to go to cardiac rehab this morning and had no difficulty or change with chest tightness but did notice is present throughout the entire time. He has never had a diagnosis of reactive airway disease. Workup shows no evidence of pneumonia, acute coronary syndrome, pneumothorax, congestive heart failure. INR is at 4.1 and clinical presentation is not consistent with pulmonary embolism. With the description of the tightness a trial of meter dose inhaler albuterol is done and he notes that the tightness actually is moderately better after 2 puffs of albuterol. Suspect that there is a moderate degree of COPD/reactive airway disease that likely is more noticeable now that he is not smoking and also worsened by seasonal allergies and pollen counts currently elevated. Will ask him to continue with 2 puffs b.i.d. of albuterol and when he is feeling the tightness and follow-up with his primary care physician. Discharge Plan Departure Patient Disposition: Home Clinical Impression: COPD (chronic obstructive pulmonary disease) Qualifiers: COPD type: unspecified COPD Qualified Code(s): J44.9 - Chronic obstructive pulmonary disease, unspecified Instructions: DI for Asthma -- Adult, DI for Chronic Obstructive Pulmonary Disease Activity Restrictions/Additional Instructions: Thank you for coming in today Your workup is very reassuring. There is no evidence of acute heart attack or problems with your stent. No lung infections, no collapsed lungs, blood clots in your lungs or congestive heart failure. With the tightness that does not seem to be worse with exertion the possibility of mild COPD or asthma was considered. You did seem to feel a bit better with the albuterol inhaler to open up your airways. I am going to suggest that you use 2 puffs of albuterol with a spacer morning and evening and you can use this during the day with activity if your feeling this chest tightness. Please follow-up with Dr. George in the near future and continue all of your other medications. If you have worsening symptoms, please return to the ER Prescriptions: No Action multivitamin Tablet 1 tab PO DAILY Qty: 0 RF: 0 omeprazole 20 mg capsule,delayed release(DR/EC) 20 mg PO DAILY Qty: 90 RF: 3 warfarin 5 mg tablet 15 mg PO DAILY Qty: 270 RF: 2 diltiazem HCl 120 mg capsule,extended release 24hr 120 mg PO BID RF: 0 rosuvastatin 40 mg tablet 40 mg PO DAILY RF: 0 enoxaparin 80 mg/0.8 mL syringe 80 mg SUBCUT Q12H RF: 0 lisinopril 2.5 mg tablet 2.5 mg PO BID RF: 0 clopidogrel 75 mg tablet 75 mg PO DAILY RF: 0 Melatonin Gummies 2 ea PO BEDTIME RF: 0 Referrals: Juan George MD [Primary Care Provider] -
[2021-03-06 14:21] LABS: Creatine Kinase MB 1.46 ng/mL (<2.37); HEMOLYSIS 23 (0-50)
[2021-03-06] MEDS: ALBUTEROL HFA MDI 60 PUFF/8 GM INHALER INH (15:04)
== END 2021-03-06 16:07 | disposition home or self-care (01) ==
PROVIDERS: Emergency Medicine; Emergency Provider Emergency Medicine; PCP Internal Medicine
DX: J44.9 Chronic obstructive pulmonary disease, unspecified (principal); R07.89 Other chest pain
CPT/HCPCS: 36415; 71045; 80053; 82550; 82553; 83690; 84484; 85025; 85610; 85730; 93005; 94640; 99283; 99284; A9270

== ENCOUNTER 2021-03-08 13:42 | Emergency (ER) | payer OTHER, SELFPAY ==
[2021-03-08 13:51] VITALS: BP 154/84; PULSE 89; RESP 18; TEMP 36.3; O2SAT 96
[2021-03-08] MEDS: TET,DIPH,PERTUSS(ACELL),VAC/PF 0.5 ML SYRINGE IM (14:08)
--- NOTE | 2021-03-08 14:38 | ED.WOUNDLAC ---
HPI - Wound/Laceration General Chief Complaint: Wound/Laceration Stated Complaint: cut left thumb Time Seen by Provider: 03/08/21 14:24 Source: patient Mode of arrival: Ambulatory Limitations: no limitations History of Present Illness HPI narrative: Patient is a 61-year-old male. He is on Plavix and other anti coagulation who is here for evaluation of a cut to his left thumb. He states that he cut it with a razor knife at work. He does not know when his last tetanus shot was. He did wash it out afterwards but it continued to bleed so he came to the emergency department for further evaluation. Related Data Home Medications Medication Instructions Recorded Confirmed multivitamin 1 tab PO DAILY #0 04/07/11 02/07/21 Melatonin Gummies 2 ea PO BEDTIME 12/10/20 02/07/21 clopidogrel 75 mg tablet 75 mg PO DAILY tab 02/07/21 02/07/21 diltiazem HCl 120 mg 120 mg PO BID cap 02/07/21 02/07/21 capsule,extended release 24 hr enoxaparin 80 mg/0.8 mL 80 mg SUBCUT Q12H ml 02/07/21 02/07/21 subcutaneous syringe lisinopril 2.5 mg tablet 2.5 mg PO BID tab 02/07/21 02/07/21 rosuvastatin 40 mg tablet 40 mg PO DAILY 02/07/21 02/07/21 Previous Rx's Medication Instructions Recorded omeprazole 20 mg capsule,delayed 20 mg PO DAILY #90 cap 03/07/20 release warfarin 5 mg tablet 15 mg PO DAILY #270 tab 01/23/21 Allergies Allergy/AdvReac Type Severity Reaction Status Date / Time No Known Drug Allergies Allergy Verified 03/08/21 13:51 Review of Systems Constitutional Constitutional: Denies fever(s) Cardiovascular Cardiovascular: Denies chest pain and Denies dyspnea Respiratory Respiratory: Denies dyspnea Musculoskeletal Musculoskeletal: Denies arthralgias and Denies myalgias Integumentary/Breasts Comments: Cut to left thumb Neurologic Neurologic: Denies behavioral changes Psychiatric Psychiatric: Denies behavioral changes Hematologic/Lymphatic On Anticoagulants: Yes Allergic/Immunologic Allergic/Immunologic: Denies urticaria Patient History Medical History Atrial tachycardia Chronic hepatitis C without hepatic coma (09/06/15) Coronary artery disease [employer] current use of anticoagulant therapy Non-Hodgkin's lymphoma (09/06/15) PSVT (paroxysmal supraventricular tachycardia) Stenosis of aorta (09/06/15) Surgical History S/P aortic valve replacement with metallic valve (~09/2018) S/P coronary artery stent placement (~01/2021) Status post heart valve replacement with mechanical valve Family History Father Crohn's disease Social History Smoking Status: Former smoker Smoking Status: Former smoker alcohol intake frequency: holidays/special occasions only Substance Use Type: marijuana Exam Initial Vital Signs Initial Vital Signs: Vital Signs Temperature 97.4 F L 03/08/21 13:51 Pulse Rate 89 03/08/21 13:51 Respiratory Rate 18 03/08/21 13:51 Blood Pressure 154/84 H 03/08/21 13:51 Pulse Oximetry 96 03/08/21 13:51 Const General: cooperative and comfortable Cardio Pulses: radial pulses present on the left Skin Other: Patient with a 1 cm laceration to the radial aspect of the left thumb between the MCP and IP joint. Neuro General: patient alert and patient awake Sensory Exam: no sensory deficits noted Extrem Other: Full range of motion of the MCP and IP joint of the left thumb both active and passive. Psych Appearance: grossly normal and well kempt Procedures Laceration Repair Laceration 1: Site: hand Side (If applicable): left Size (cm): 1 Description: linear Depth: simple, single layer Pre-repair: irrigated extensively Skin layer closed with: dermabond Course Orders Ordered: Discontinued Medications Diphtheria/Tetanus/Acell Pertussis (Tet,Diph,Pertuss(Acell),Vac/Pf 0.5 Ml Syringe) 0.5 ml IM .ONCE ONE Stop: 03/08/21 14:03 Last Admin: 03/08/21 14:08 Dose: 0.5 ml Documented by: NIKA Vital Signs Vital signs: Vital Signs - 8 hr 03/08/21 13:51 Temperature 97.4 F L Pulse Rate 89 Respiratory Rate 18 Blood Pressure 154/84 H Pulse Oximetry 96 MDM - Wound/Laceration MDM Narrative Medical decision making narrative: Tetanus was updated. His wound was irrigated extensively. Full range of motion of the MCP and IP joint. Low suspicion for fracture. Was closed with Dermabond and Steri-Strips. He was given care instructions and return precautions. He expressed understanding and agreement. Discharge Plan Departure Patient Disposition: Home Clinical Impression: Laceration Instructions: DI for Minor Laceration Activity Restrictions/Additional Instructions: Your tetanus was updated. Continue all of your medications as directed. Return to the emergency department for any new or worsening symptoms Prescriptions: No Action multivitamin Tablet 1 tab PO DAILY Qty: 0 RF: 0 omeprazole 20 mg capsule,delayed release(DR/EC) 20 mg PO DAILY Qty: 90 RF: 3 warfarin 5 mg tablet 15 mg PO DAILY Qty: 270 RF: 2 diltiazem HCl 120 mg capsule,extended release 24hr 120 mg PO BID RF: 0 rosuvastatin 40 mg tablet 40 mg PO DAILY RF: 0 enoxaparin 80 mg/0.8 mL syringe 80 mg SUBCUT Q12H RF: 0 lisinopril 2.5 mg tablet 2.5 mg PO BID RF: 0 clopidogrel 75 mg tablet 75 mg PO DAILY RF: 0 Melatonin Gummies 2 ea PO BEDTIME RF: 0 Referrals: Juan George MD [Primary Care Provider] -
== END 2021-03-08 14:51 | disposition home or self-care (01) ==
PROVIDERS: Emergency Provider Emergency Medicine; PCP Internal Medicine
DX: S61.012A Laceration without foreign body of left thumb without damage to nail, initial encounter (principal); W26.0XXA Contact with knife, initial encounter; Y99.0 Civilian activity done for income or pay; Z23 Encounter for immunization
CPT/HCPCS: 12001; 90471; 99282; 99283; 90715

== ENCOUNTER → 2021-03-22 08:34 | Outpatient (CLI) | payer OTHER, SELFPAY ==
[2021-03-22] MEDS: COVID-19 VACC #2, MRNA(MOD) 100 MCG/0.5 ML VIAL IM (08:41)
== END ==
PROVIDERS: PCP Internal Medicine; Visit Provider Internal Medicine
DX: Z23 Encounter for immunization (principal)
CPT/HCPCS: 0012A; 91301

== ENCOUNTER → 2021-04-23 11:05 | Outpatient (CLI) | payer OTHER, SELFPAY ==
[2021-04-23 12:22] LABS: BUN Creatinine Ratio 18.3 (6-22); Blood Urea Nitrogen 19 mg/dL (9-20); Estimated Glomerular Filt Rate > 60.0 mL/min (>60)
== END ==
PROVIDERS: PCP Internal Medicine; Referring Provider Internal Medicine; Visit Provider Internal Medicine
DX: Z01.812 Encounter for preprocedural laboratory examination (principal)
CPT/HCPCS: 36415; 82565; 84520

== ENCOUNTER → 2021-05-02 14:56 | Outpatient (CLI) | payer OTHER, SELFPAY ==
--- NOTE | 2021-05-02 14:56 | DI.CT.S_ITS ---
PROCEDURE: CT CHEST WO CON INDICATIONS: TERRA nodule TECHNIQUE: Noncontrast 5 mm thick sections acquired from the pulmonary apices to the posterior costophrenic angles. 1 mm lung window, 5 mm thick coronal and sagittal and 7 mm axial MIP reformats were then acquired. For radiation dose reduction, the following was used: automated exposure control, adjustment of mA and/or kV according to patient size. COMPARISON: [facility], CT, CT ANGIO CHEST ABDOMEN, 01/28/2021, 11:55. FINDINGS: Image quality: Excellent. Lungs and pleura: A 1.1 cm spiculated left apical lung mass demonstrates coarse central calcification and tethering to the adjacent pleural surfaces. No size change since the most recent prior study. Mild paraseptal emphysematous changes. Mild paraseptal reticulation throughout the lungs, accentuated by respiratory motion. No dense consolidations, effusion, or pneumothorax. Central and peripheral airways are patent and normal in caliber. Mediastinum: Heart size is normal. Heavy coronary artery calcification and or vascular stent. Aortic and mitral valvular calcification. No pericardial effusion. No mediastinal adenopathy by size criteria. Thoracic aorta and central pulmonary arteries are normal in size. Esophagus is normal in caliber. No hiatal hernia. Bones and chest wall: Median sternotomy changes. No suspicious bony lesions. No vertebral body compression fractures. No axillary or supraclavicular adenopathy by size criteria. Thyroid gland is unremarkable . Abdomen: Visualized upper abdominal solid organs and bowel loops appear normal in the absence of contrast. IMPRESSION: 1. Predominantly calcified 1.1 cm spiculated left upper lobe lung lesion is probably benign scar or healed granulomatous disease. Follow-up in three months is recommended to assess stability. 2. Mild emphysema. Dictated by: Sarahi Mac M.D. on 05/03/2021 at 10:13 Approved by: Sarahi Mac M.D. on 05/03/2021 at 10:26
== END ==
PROVIDERS: PCP Internal Medicine; Referring Provider Internal Medicine; Visit Provider Internal Medicine
DX: R91.1 Solitary pulmonary nodule (principal)
CPT/HCPCS: 71250

== ENCOUNTER 2021-05-13 08:30 | Outpatient (RCR) | payer OTHER, SELFPAY | END 2021-05-13 10:30 | LOC: CAR 08:30 | PROVIDERS: PCP Internal Medicine; Referring Provider Internal Medicine Adult Congenital Heart Disease; Visit Provider Internal Medicine Adult Congenital Heart Disease | DX: Z95.5 Presence of coronary angioplasty implant and graft (principal) | CPT/HCPCS: 93798 ==

== ENCOUNTER → 2021-08-01 11:23 | Outpatient (CLI) | payer OTHER, SELFPAY ==
[2021-08-01 12:42] LABS: INR 2.2 (0.9-1.3); Prothrombin Time 25.7 SECONDS (10.1-12.7)
== END ==
PROVIDERS: PCP Internal Medicine; Referring Provider Internal Medicine; Visit Provider Internal Medicine
DX: Z79.01 Long term (current) use of anticoagulants (principal); Z95.2 Presence of prosthetic heart valve
CPT/HCPCS: 36415; 85610

== ENCOUNTER 2021-09-21 10:41 | Emergency (ER) | payer OTHER, SELFPAY ==
[2021-09-21] VITALS (8 sets, daily range): BP systolic 115–162; BP diastolic 58–97; PULSE 65–135; RESP 13–20; TEMP 36.8; O2SAT 96–99; BMI 27.0
--- NOTE | 2021-09-21 10:55 | DI.RAD.S_ITS ---
PROCEDURE: XR CHEST 1V INDICATIONS: chest pain TECHNIQUE: One view of the chest was acquired. COMPARISON: [facility], CT, CT CHEST WO CON, 05/02/2021, 15:01. [facility], CT, CT ANGIO CHEST ABDOMEN, 01/28/2021, 11:55. [facility], CR, XR CHEST 1V, 01/28/2021, 10:21. [facility], CR, XR CHEST 1V, 03/06/2021, 13:26. FINDINGS: Surgical changes and devices: Sternotomy wires are seen. An aortic valve prosthesis is seen. Lungs and pleura: Mild, streaky opacities are seen at the lung bases. Low lung volumes are noted. This causes a crowded appearance to the lung markings and limits evaluation. No pleural effusions or pneumothorax. Mediastinum: The cardiac contours are within normal limits. The aorta demonstrates calcification and tortuosity. Bones and chest wall: No suspicious bony lesions. Age-appropriate bony degenerative changes are seen. Overlying soft tissues appear unremarkable. IMPRESSION: Low lung volumes, with likely atelectasis at the lung bases. Postoperative and degenerative changes are seen. Dictated by: Adria Woodward M.D. on 09/21/2021 at 10:15 Approved by: Adria Woodward M.D. on 09/21/2021 at 10:17
[2021-09-21] MEDS: NITROGLYCERIN 0.4 MG SL TAB SL (11:00)
[2021-09-21] MEDS: ASPIRIN 81 MG CHEW TAB 324 MG PO (11:01)
[2021-09-21] MEDS: SODIUM CHLORIDE 0.9% 1,000 ML 150 ML IV (11:01)
[2021-09-21 11:06] LABS: INR 2.4 (0.9-1.3); Prothrombin Time 27.6 SECONDS (10.1-12.7)
[2021-09-21 11:09] LABS: PTT Partial Thromboplastin Tim 45 SECONDS (26.4-36.2)
[2021-09-21 11:12] LABS: Add Manual Diff / Slide Review NO; Basophils Absolute Auto 100 /uL (0-100); Basophils Percent Auto 0.7 % (0-2); Eosinophils Absolute Auto 400 /uL (0-450); Eosinophils Percent Auto 3.5 % (2-4); Hematocrit 44.4 % (41-53); Hemoglobin 15.4 g/dL (13.5-17.5); Lymphocytes Absolute Auto 2100 /uL (1100-4500); Lymphocytes Percent Auto 17.1 % (25-40); Mean Corpuscular HGB Conc 34.6 % (30-36); Mean Corpuscular Hemoglobin 30.8 PG (26-34); Monocytes Absolute Auto 1300 /uL (0-900); Neutrophils Absolute Auto 8600 /uL (1500-7000); Neutrophils Percent Auto 68.7 % (50-75); Platelet Count 298 X10^3/uL (150-400); Red Blood Cell Count 4.98 X10^6/uL (4.5-5.9); Red Cell Distribution Width 13.9 % (11.6-14.8); White Blood Cell Count 12.6 X10^3/uL (4.5-11.0)
[2021-09-21 11:13] LABS: Alanine Aminotransferase 23 IU/L (<50); Albumin 4.8 g/dL (3.5-5.0); Albumin Globulin Ratio 1.5 (1.0-2.8); Alkaline Phosphatase 76 U/L (38-126); Aspartate Aminotransferase 32 IU/L (17-59); BUN Creatinine Ratio 15.6 (6-22); Bilirubin Total 0.6 mg/dL (0.2-1.3); Blood Urea Nitrogen 17 mg/dL (9-20); Calcium 9.9 mg/dL (8.4-10.2); Carbon Dioxide 27 mmol/L (22-32); Chloride 102 mmol/L (98-107); Creatine Kinase 91 U/L (55-170); Estimated Glomerular Filt Rate > 60.0 mL/min (>60); Globulin 3.2 g/dL (1.7-4.1); Glucose 89 mg/dL (80-110); HEMOLYSIS 16 (0-50); Lipase 92 U/L (23-300); Potassium 4.5 mmol/L (3.4-5.1); Sodium 137 mmol/L (137-145)
--- NOTE | 2021-09-21 11:13 | ED.CHESTPAIN ---
HPI - Chest Pain General Chief Complaint: Chest Pain Stated Complaint: Chest discomfort- recent heart attack Time Seen by Provider: 09/21/21 10:45 History of Present Illness HPI narrative: 61-year-old male daily smoker with history of coronary artery disease and frequent bouts of SVT requiring previous ablation is a presents with a chief complaint of chest pain for the past day and half and reported heart rate is eyes the 140s or so. He has a squeezing pressure type sensation and feel short of breath with exertion. He denies any fever chills nor nausea or vomiting. He denies unexplained diaphoresis. He has had no recent injury nor travel. He denies any history of clot. Related Data Home Medications Medication Instructions Recorded Confirmed multivitamin 1 tab PO DAILY #0 04/07/11 09/16/21 Melatonin Gummies 2 ea PO BEDTIME 12/10/20 09/16/21 clopidogrel 75 mg tablet 75 mg PO DAILY tab 02/07/21 09/16/21 diltiazem HCl 120 mg 120 mg PO BID cap 02/07/21 09/16/21 capsule,extended release 24 hr lisinopril 2.5 mg tablet 2.5 mg PO BID tab 02/07/21 09/16/21 rosuvastatin 40 mg tablet 40 mg PO DAILY 02/07/21 09/16/21 warfarin 5 mg tablet 15 mg PO DAILY tab 09/10/21 09/16/21 Previous Rx's Medication Instructions Recorded omeprazole 20 mg capsule,delayed 20 mg PO DAILY #90 cap 03/07/20 release bupropion HCl 150 mg 24 hr tablet, 150 mg PO QAM #30 tab 09/16/21 extended release Allergies Allergy/AdvReac Type Severity Reaction Status Date / Time No Known Drug Allergies Allergy Verified 09/21/21 11:40 Review of Systems Review of Systems Narrative: GENERAL: Denies chills, fatigue, malaise, fever, sweats. HEENT: Denies sinus pain, ear pain, sore throat, difficulty swallowing, dizziness. RESPIRATORY: See HPI CARDIOVASCULAR: See HPI GASTROINTESTINAL: Denies nausea, vomiting, abdominal pain, diarrhea, constipation, melena. : Denies dysuria, frequency, incontinence, hematuria, urinary retention. MUSCULOSKELETAL: denies weakness, joint pain, or bony pain SKIN: Denies rash, skin lesions, or other NEUROLOGIC: Denies weakness, headache, numbness, change in speech, confusion, seizures, incoordination. PSYCHIATRIC: No concerning psychosocial issues. 12 point review of systems is negative except for those stated above Patient History Medical History Atrial tachycardia Chronic hepatitis C without hepatic coma (09/06/15) Cigarette smoker motivated to quit Coronary artery disease group home current use of anticoagulant therapy Non-Hodgkin's lymphoma (09/06/15) PSVT (paroxysmal supraventricular tachycardia) Stenosis of aorta (09/06/15) Surgical History S/P aortic valve replacement with metallic valve (~09/2018) S/P coronary artery stent placement (~01/2021) Status post heart valve replacement with mechanical valve Family History Father Crohn's disease Social History Smoking Status: Current every day smoker (6 Cigars, No Cigarettes. ) Smoking Status: Current every day smoker (6 Cigars, No Cigarettes. ) alcohol intake frequency: holidays/special occasions only Substance Use Type: marijuana Exam Narrative Exam Narrative: GENERAL: [61] year old patient appears stated age. Well-developed patient, in mild distress. Anxious HEAD: Atraumatic. Normocephalic. EYES: Pupils equal round and reactive. Extraocular motions intact. No scleral icterus. No injection or drainage. ENT: Nose without bleeding, purulent drainage. Throat without erythema, tonsillar hypertrophy or exudate. Airway patent. NECK: Trachea midline. Non tender CARDIOVASCULAR: Tachycardic but regular rhythm without murmurs, gallops, or rubs. RESPIRATORY: Clear to auscultation. Breath sounds equal bilaterally. No wheezes, rales, or rhonchi. GASTROINTESTINAL: Abdomen soft, non-tender, nondistended. EXTREMITIES: No edema or joint tenderness. BACK: Nontender without deformity or crepitance. No flank tenderness. NEURO: AOx3. SKIN: No rash or erythema of visible areas Initial Vital Signs Initial Vital Signs: Vital Signs Pulse Rate 135 H 09/21/21 10:49 Blood Pressure 162/97 H 09/21/21 10:49 Pulse Oximetry 99 09/21/21 10:49 Course Orders Ordered: Discontinued Medications Aspirin (Aspirin 81 Mg Chew Tab) 324 mg PO NOW ONE Stop: 09/21/21 10:56 Last Admin: 09/21/21 11:01 Dose: 324 mg Documented by: PEMA Sodium Chloride (Normal Saline 0.9%) 1,000 mls @ 150 mls/hr IV CONT NELLY Last Infusion: 09/21/21 13:51 Dose: 0 mls/hr Documented by: Infusion: 09/21/21 13:47 Dose: 0 mls/hr Documented by: Infusion: 09/21/21 13:27 Dose: 0 mls/hr Documented by: Admin: 09/21/21 11:01 Dose: 150 mls/hr Documented by: PEMA Nitroglycerin (Nitroglycerin 0.4 Mg Sl Tab) 0.4 mg SL [id number] PRN PRN Reason: Chest Pain Last Admin: 09/21/21 11:00 Dose: 0.4 mg Documented by: PEMA Reevaluation(s) Reevaluation #1: Patient noted to be in at tachycardic arrhythmia on arrival and that abated soon after his arrival. Along with this his symptoms completely resolved. He remained symptom free for the duration of his visit Vital Signs Vital signs: Vital Signs - 8 hr 09/21/21 10:49 09/21/21 11:00 09/21/21 11:05 Temperature 98.2 F Pulse Rate 135 H 80 65 Respiratory Rate 20 18 Blood Pressure 162/97 H 118/64 162/97 H Pulse Oximetry 99 97 98 09/21/21 11:30 Temperature Pulse Rate 71 Respiratory Rate 13 Blood Pressure 116/64 Pulse Oximetry 96 MDM - Chest Pain Lab Data Result diagrams: 09/21/21 10:50 09/21/21 10:50 Labs: Lab Results 09/21/21 09/21/21 09/21/21 Range/Units 10:50 10:50 10:50 WBC 12.6 H (4.5-11.0) X10^3/uL RBC 4.98 (4.5-5.9) X10^6/uL Hgb 15.4 (13.5-17.5) g/dL Hct 44.4 (41-53) % MCV 89.0 (80-100) fL MCH 30.8 (26-34) PG MCHC 34.6 (30-36) % RDW 13.9 (11.6-14.8) % Plt Count 298 (150-400) X10^3/uL Neut % (Auto) 68.7 (50-75) % Lymph % (Auto) 17.1 L (25-40) % [place] % (Auto) 10.0 (3-14) % Eos % (Auto) 3.5 (2-4) % Baso % (Auto) 0.7 (0-2) % Neut # (Auto) 8600 H (7459-3063) /uL Lymph # (Auto) 2100 (2494-7832) /uL [place] # (Auto) 1300 H (0-900) /uL Eos # (Auto) 400 (0-450) /uL Baso # (Auto) 100 (0-100) /uL PT 27.6 H (10.1-12.7) SECONDS INR 2.4 H (0.9-1.3) APTT 45 H D (26.4-36.2) SECONDS Sodium 137 (137-145) mmol/L Potassium 4.5 (3.4-5.1) mmol/L Chloride 102 (98-107) mmol/L Carbon Dioxide 27 (22-32) mmol/L BUN 17 (9-20) mg/dL Creatinine 1.09 (0.66-1.25) mg/dL Estimated GFR > 60.0 (>60) mL/min BUN/Creatinine Ratio 15.6 (6-22) Glucose 89 (80-110) mg/dL Calcium 9.9 (8.4-10.2) mg/dL Total Bilirubin 0.6 (0.2-1.3) mg/dL AST 32 (17-59) IU/L ALT 23 (<50) IU/L Alkaline Phosphatase 76 (38-126) U/L Total Creatine Kinase 91 (55-170) U/L CK-MB (CK-2) TNP CK-MB (CK-2) Rel Index TNP Troponin I < 0.012 (0.01-0.034) ng/mL NT-Pro-B Natriuret Pep (<125) pg/mL Total Protein 8.0 (6.3-8.2) g/dL Albumin 4.8 (3.5-5.0) g/dL Globulin 3.2 (1.7-4.1) g/dL Albumin/Globulin Ratio 1.5 (1.0-2.8) Lipase 92 (23-300) U/L SARS-CoV-2 (PCR) (Negative) 09/21/21 09/21/21 09/21/21 Range/Units 10:50 10:55 12:55 WBC (4.5-11.0) X10^3/uL RBC (4.5-5.9) X10^6/uL Hgb (13.5-17.5) g/dL Hct (41-53) % MCV (80-100) fL MCH (26-34) PG MCHC (30-36) % RDW (11.6-14.8) % Plt Count (150-400) X10^3/uL Neut % (Auto) (50-75) % Lymph % (Auto) (25-40) % [place] % (Auto) (3-14) % Eos % (Auto) (2-4) % Baso % (Auto) (0-2) % Neut # (Auto) (4533-0044) /uL Lymph # (Auto) (6290-6376) /uL [place] # (Auto) (0-900) /uL Eos # (Auto) (0-450) /uL Baso # (Auto) (0-100) /uL PT (10.1-12.7) SECONDS INR (0.9-1.3) APTT (26.4-36.2) SECONDS Sodium (137-145) mmol/L Potassium (3.4-5.1) mmol/L Chloride (98-107) mmol/L Carbon Dioxide (22-32) mmol/L BUN (9-20) mg/dL Creatinine (0.66-1.25) mg/dL Estimated GFR (>60) mL/min BUN/Creatinine Ratio (6-22) Glucose (80-110) mg/dL Calcium (8.4-10.2) mg/dL Total Bilirubin (0.2-1.3) mg/dL AST (17-59) IU/L ALT (<50) IU/L Alkaline Phosphatase (38-126) U/L Total Creatine Kinase (55-170) U/L CK-MB (CK-2) CK-MB (CK-2) Rel Index Troponin I 0.014 (0.01-0.034) ng/mL NT-Pro-B Natriuret Pep 471 H (<125) pg/mL Total Protein (6.3-8.2) g/dL Albumin (3.5-5.0) g/dL Globulin (1.7-4.1) g/dL Albumin/Globulin Ratio (1.0-2.8) Lipase (23-300) U/L SARS-CoV-2 (PCR) Negative (Negative) MDM Narrative Medical decision making narrative: Multiple causes of chest pain considered including IA, PE, pneumothorax, pneumonia, aortic dissection, and pleurisy. Patient reports no radiation, no diaphoresis, no provocation with exertion, and no vomiting. Patient had been having symptoms for over 24 hours, reports rapid heart rate in the 130s and quickly comforts on arrival. His symptoms resolved along with the rapid heart rate. Two troponins were negative. Return precautions given and questions answered to his apparent satisfaction Discharge Plan Departure Patient Disposition: Home Clinical Impression: PSVT (paroxysmal supraventricular tachycardia) Chest pain Qualifiers: Chest pain type: unspecified Qualified Code(s): R07.9 - Chest pain, unspecified Instructions: DI for Chest Pain Activity Restrictions/Additional Instructions: *You have been diagnosed with [chest pain and, likely due to SVT. Physical exam, EKGs, labs are very reassuring *What to do: *Please continue to take your regular medications as directed. [ ] New medication prescriptions sent to your pharmacy: [ ] [ ] New medication written as a paper prescription [x ] No new medications given *Please follow up with your primary care provider in 2-3 days, call for an appointment. Let them know you were seen in the Emergency Department and that we ask that you be seen in follow up. We will electronically transmit a record of today's note if your PCP is in our system *If you do not have a primary care provider please contact the [facility] Resource line at [phone]. They will ask some questions about your medical history and help get you set up with a doctor in the community. *Return to Emergency Department if you should have any new, worsening or concerning symptoms, such as [fever greater than 101 F, shaking chills, worsening pain, persistent vomiting or other bothersome symptoms] Prescriptions: No Action multivitamin Tablet 1 tab PO DAILY Qty: 0 RF: 0 omeprazole 20 mg capsule,delayed release(DR/EC) 20 mg PO DAILY Qty: 90 RF: 3 diltiazem HCl 120 mg capsule,extended release 24hr 120 mg PO BID RF: 0 rosuvastatin 40 mg tablet 40 mg PO DAILY RF: 0 lisinopril 2.5 mg tablet 2.5 mg PO BID RF: 0 clopidogrel 75 mg tablet 75 mg PO DAILY RF: 0 bupropion HCl 150 mg tablet extended release 24 hr 150 mg PO QAM Qty: 30 RF: 3 Melatonin Gummies 2 ea PO BEDTIME RF: 0 warfarin 5 mg tablet 15 mg PO DAILY RF: 0 Referrals: Juan George MD [Primary Care Provider] -
[2021-09-21 11:22] LABS: NT-proBNP (BNP-Adult 18+) 471 pg/mL (<125)
[2021-09-21 11:24] LABS: Troponin I < 0.012 ng/mL (0.01-0.034)
[2021-09-21 12:28] LABS: COVID19 -Nasal RAPID Negative (Negative)
[2021-09-21 13:37] LABS: Troponin I 0.014 ng/mL (0.01-0.034)
== END 2021-09-21 13:54 | disposition home or self-care (01) ==
PROVIDERS: Emergency Provider Emergency Medicine; PCP Internal Medicine
DX: I47.1 Supraventricular tachycardia (principal); R07.9 Chest pain, unspecified; R06.02 Shortness of breath; Z20.822 Contact with and (suspected) exposure to COVID-19
CPT/HCPCS: 36415; 71045; 80053; 82550; 83690; 83880; 84484; 85025; 85610; 85730; 87635; 93005; 93010; 96360; 96361; 99284; C9803

== ENCOUNTER → 2021-10-14 08:33 | Outpatient (CLI) | payer OTHER, SELFPAY ==
[2021-10-14 09:27] LABS: Cholesterol 144 mg/dL (140-199); HDL Cholesterol 44 mg/dL (40-60); LDL Cholesterol Calculated 74 mg/dL (<100); Triglycerides 132 mg/dL (35-150)
== END ==
PROVIDERS: PCP Internal Medicine; Referring Provider Internal Medicine Cardiovascular Disease; Visit Provider Internal Medicine Cardiovascular Disease
DX: E78.5 Hyperlipidemia, unspecified (principal)
CPT/HCPCS: 36415; 80061

== ENCOUNTER → 2021-11-19 10:22 | Outpatient (CLI) | payer OTHER, SELFPAY ==
[2021-11-19 11:21] LABS: INR 2.8 (0.9-1.3); Prothrombin Time 32.4 SECONDS (10.1-12.7)
== END ==
PROVIDERS: PCP Internal Medicine; Referring Provider Internal Medicine; Visit Provider Internal Medicine
DX: Z79.01 Long term (current) use of anticoagulants (principal)
CPT/HCPCS: 36415; 85610

== ENCOUNTER 2022-03-04 07:41 | Observation (INO) | payer OTHER, SELFPAY ==
[2022-03-04] VITALS (12 sets, daily range): BP systolic 110–156; BP diastolic 60–83; PULSE 67–83; RESP 16–21; TEMP 36.5–37.2; O2SAT 93–99; BMI 27.5; BMI 26.3
--- NOTE | 2022-03-04 07:51 | DI.RAD.S_ITS ---
PROCEDURE: XR CHEST 1V INDICATIONS: chest pain TECHNIQUE: One view of the chest was acquired. COMPARISON: [facility], CR, XR CHEST 1V, 09/21/2021, 11:02. [facility], CR, XR CHEST 1V, 03/06/2021, 13:26. FINDINGS: Surgical changes and devices: Status post median sternotomy. Lungs and pleura: Lungs are clear. No pleural effusions or pneumothorax. Mediastinum: Mediastinal contours appear normal. Heart size is normal. Bones and chest wall: No suspicious bony lesions. Overlying soft tissues appear unremarkable. IMPRESSION: No acute cardiopulmonary abnormality. Dictated by: Frank Oswald M.D. on 03/04/2022 at 8:18 Approved by: Frank Oswald M.D. on 03/04/2022 at 8:18
--- NOTE | 2022-03-04 07:55 | ED_ITS ---
HPI - Chest Pain General Chief Complaint: Chest Pain Stated Complaint: Chest pain Time Seen by Provider: 03/04/22 07:53 Source: patient Mode of arrival: Ambulatory Limitations: no limitations Limitations: no limitations History of Present Illness HPI narrative: This is a 62-year-old male with known cardiac history with proximal supraventricular tachycardia with ablation x4 and cardiac stent x1 placed at [facility] secondary to difficult placement in September of 2020, COPD, non-Hodgkin's lymphoma. Patient did have severe aortic stenosis with a [facility] mechanical aortic valve placed in September of 2018. Patient is on warfarin and Plavix. He takes a statin, lisinopril, diltiazem and does have nitro at home. States this morning about 5:00 a.m. he developed chest pain, shortness of breath and headache. He took some Tylenol but did make much difference. He states that the chest pain is centralized substernal, does not radiate. He denies any diaphoresis but has had some now nausea, no vomiting, no syncope, felt a little lightheaded here in the department but not at home. No swelling in his extremities. He describes his chest pain is exertional as well as the shortness of breath worsening uneven walking across the room is difficult. He denies any other GI or urinary symptoms. He has had prior episodes of chest discomfort but going into his neck the pattern is somewhat atypical from prior. Patient did try to sublingual nitro at home which did not resolve his symptoms but did help. Patient denies any other major surgeries. No known drug allergies. He does smoke half pack per day of tobacco, no alcohol, occasional THC. No other illicit. Dr. George is his primary care physician, Dr. Lindsay is his primary astrobiologist and Dr. Mckinley is his elec trophysiologist. Related Data Home Medications Medication Instructions Recorded Confirmed multivitamin 1 tab PO DAILY #0 04/07/11 03/04/22 clopidogrel 75 mg tablet 75 mg PO DAILY tab 02/07/21 03/04/22 diltiazem HCl 120 mg 120 mg PO BID cap 02/07/21 03/04/22 capsule,extended release 24 hr lisinopril 2.5 mg tablet 2.5 mg PO BID tab 02/07/21 03/04/22 rosuvastatin 40 mg tablet 40 mg PO DAILY 03/11/21 04/05/22 Previous Rx's Medication Instructions Recorded omeprazole 20 mg capsule,delayed 20 mg PO DAILY #90 cap 03/07/20 release warfarin 5 mg tablet 12.5 mg PO DAILY #270 tab 02/12/22 Allergies Allergy/AdvReac Type Severity Reaction Status Date / Time No Known Drug Allergies Allergy Verified 10/14/21 15:53 Review of Systems Review of Systems ROS Unobtainable: All systems reviewed & are unremarkable except as noted in HPI and below Patient History Medical History Atrial tachycardia Chronic hepatitis C without hepatic coma (09/06/15) Cigarette smoker motivated to quit 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 10/14/21) alcohol intake frequency: holidays/special occasions only Substance Use Type: marijuana Exam Narrative Exam Narrative: GENERAL: Alert and oriented x three, male in mild distress. HEENT: Head normocephalic, atraumatic, EOMI, pupils reactive, face symmetric, moist mucous membranes NECK: Supple, full range of motion CARDIOVASCULAR: Regular rate and rhythm without murmurs, rubs or gallops. No JVD. No swelling bilateral lower extremities. RESPIRATORY: Breath sounds equal bilaterally, no wheezes rales or rhonchi. ABDOMEN: Soft, nontender. Normoactive bowel sounds all 4 quadrants. No guarding or rebound, rigidity, no mass : No CVA tenderness EXTREMITIES: Normal range of motion, no clubbing or edema. Neurovascularly intact. Normal gait. NEUROLOGICAL: Cranial nerves II through XII grossly intact. Moving all extremities SKIN: Warm, dry, no petechiae, no rashes or lesions. Initial Vital Signs Initial Vital Signs: Vital Signs Pulse Rate 81 03/04/22 07:46 Respiratory Rate 21 03/04/22 07:46 Course Orders Ordered: Atorvastatin Calcium (Atorvastatin 20 Mg Tablet) 80 mg PO BEDTIME [facility] Bupropion HCl (Bupropion Xl 150 Mg Tab) 150 mg PO DAILY [facility] Clopidogrel Bisulfate (Clopidogrel 75 Mg Tablet) 75 mg PO DAILY [facility] Last Admin: 03/04/22 15:25 Dose: Not Given Documented by: CULLEN Diltiazem HCl (Diltiazem Cd 120 Mg Cap) 120 mg PO BID [facility] Sodium Chloride (Normal Saline 0.9%) 500 mls @ 21 mls/hr IV CONT NELLY Lisinopril (Lisinopril 5 Mg Tablet) 2.5 mg PO BID [facility] Morphine Sulfate (Morphine 2 Mg/Ml Inj) 2 mg IV Q5MIN PRN PRN Reason: Chest Pain Naloxone HCl (Naloxone 0.4 Mg/Ml Vial) 0.2 mg IV Q2MIN PRN PRN Reason: Opiate Reversal Nitroglycerin (Nitroglycerin 0.4 Mg Sl Tab) 0.4 mg SL [id number] PRN PRN Reason: Chest Pain Pantoprazole Sodium (Pantoprazole Dr 20 Mg Tablet) 20 mg PO 0600 [facility] Sodium Chloride (Sodium Chloride 0.9% Flush) 10 ml IV PRN PRN PRN Reason: Flush Sodium Chloride (Sodium Chloride 0.9% Flush) 10 ml IV BID [facility] Discontinued Medications Aspirin (Aspirin 81 Mg Chew Tab) 324 mg PO NOW ONE Stop: 03/04/22 08:07 Last Admin: 03/04/22 08:14 Dose: 324 mg Documented by: JIM Nitroglycerin (Nitroglycerin 0.4 Mg Sl Tab) 0.4 mg SL [id number] PRN PRN Reason: Chest Pain Last Admin: 03/04/22 08:27 Dose: 0.4 mg Documented by: Admin: 03/04/22 08:22 Dose: 0.4 mg Documented by: Admin: 03/04/22 08:15 Dose: 0.4 mg Documented by: JIM Consultations Consultation #1: Dr. Hu, cardiology at [facility]. Discussed patient has a conc erning history past medically as well as his HPI today. He does not have clear acute EKG changes that I appreciate and he has negative troponin x2 but did improve with nitro. At this time she agrees with keeping patient for observation does not feel he needs transfer but would ask for recontact if needed. She asked to hold heparin as his INR is 3.8. Time: 11:35 Consultation #2: Dr. George, accepts. Discussed recommendations for Cardiology. Time: 11:42 Consultation #3: Dr. George did call back later, they were unable to get a stress testing until , today is Thursday. Asks if we can see if there is any bed available to regionally for transfer. We did contact multiple hospitals including that of [facility] see regional hotline and there was no bed availability currently. We did contact [facility] to see if they would be willing to do a ship in return for potential stress testing but at this time would be several weeks out for that to be available. Dr. George was updated and plan is for patient to continue to stay here at [facility]. Vital Signs Vital signs: Vital Signs - 8 hr 03/04/22 07:46 03/04/22 07:47 03/04/22 07:52 Temperature 98.3 F Pulse Rate 81 83 73 Respiratory Rate 21 19 18 Blood Pressure 140/81 140/81 Pulse Oximetry 96 96 03/04/22 08:00 03/04/22 08:30 03/04/22 09:00 Temperature Pulse Rate 71 72 67 Respiratory Rate 16 18 17 Blood Pressure 137/73 110/60 125/70 Pulse Oximetry 96 93 98 MDM - Chest Pain Lab Data Result diagrams: 03/04/22 07:52 03/04/22 07:52 Labs: Lab Results 03/04/22 03/04/22 03/04/22 Range/Units 07:52 07:52 07:52 WBC 9.8 (4.5-11.0) X10^3/uL RBC 4.81 (4.5-5.9) X10^6/uL Hgb 14.4 (13.5-17.5) g/dL Hct 42.1 (41-53) % MCV 87.5 (80-100) fL MCH 29.9 (26-34) PG MCHC 34.2 (30-36) % RDW 14.5 (11.6-14.8) % Plt Count 281 (150-400) X10^3/uL Neut % (Auto) 72.3 (50-75) % Lymph % (Auto) 13.8 L (25-40) % [place] % (Auto) 8.3 (3-14) % Eos % (Auto) 4.9 H (2-4) % Baso % (Auto) 0.7 (0-2) % Neut # (Auto) 7100 H (1668-8539) /uL Lymph # (Auto) 1400 (5724-5996) /uL [place] # (Auto) 800 (0-900) /uL Eos # (Auto) 500 H (0-450) /uL Baso # (Auto) 100 (0-100) /uL PT 44.8 H (10.1-12.7) SECONDS INR 3.8 H (0.9-1.3) APTT 55 H D (26.4-36.2) SECONDS Sodium 138 (137-145) mmol/L Potassium 4.6 (3.4-5.1) mmol/L Chloride 105 (98-107) mmol/L Carbon Dioxide 25 (22-32) mmol/L BUN 17 (9-20) mg/dL Creatinine 1.04 (0.66-1.25) mg/dL Estimated GFR > 60.0 (>60) mL/min BUN/Creatinine Ratio 16.3 (6-22) Glucose 116 H (80-110) mg/dL Calcium 9.6 (8.4-10.2) mg/dL Magnesium 2.1 (1.6-2.3) mg/dL Total Bilirubin 0.6 (0.2-1.3) mg/dL AST 28 (17-59) IU/L ALT 20 (<50) IU/L Alkaline Phosphatase 94 (38-126) U/L Total Creatine Kinase 143 (55-170) U/L CK-MB (CK-2) 1.76 (<2.37) ng/mL CK-MB (CK-2) Rel Index 1.2 L (1.5-5.0) % Troponin I 0.013 (0.01-0.034) ng/mL NT-Pro-B Natriuret Pep (<125) pg/mL Total Protein 8.2 (6.3-8.2) g/dL Albumin 4.8 (3.5-5.0) g/dL Globulin 3.4 (1.7-4.1) g/dL Albumin/Globulin Ratio 1.4 (1.0-2.8) Lipase 80 (23-300) U/L SARS-CoV-2 (PCR) (Negative) 03/04/22 03/04/22 03/04/22 Range/Units 07:52 08:40 10:00 WBC (4.5-11.0) X10^3/uL RBC (4.5-5.9) X10^6/uL Hgb (13.5-17.5) g/dL Hct (41-53) % MCV (80-100) fL MCH (26-34) PG MCHC (30-36) % RDW (11.6-14.8) % Plt Count (150-400) X10^3/uL Neut % (Auto) (50-75) % Lymph % (Auto) (25-40) % [place] % (Auto) (3-14) % Eos % (Auto) (2-4) % Baso % (Auto) (0-2) % Neut # (Auto) (5851-1435) /uL Lymph # (Auto) (8777-4889) /uL [place] # (Auto) (0-900) /uL Eos # (Auto) (0-450) /uL Baso # (Auto) (0-100) /uL PT (10.1-12.7) SECONDS INR (0.9-1.3) APTT (26.4-36.2) SECONDS Sodium (137-145) mmol/L Potassium (3.4-5.1) mmol/L Chloride (98-107) mmol/L Carbon Dioxide (22-32) mmol/L BUN (9-20) mg/dL Creatinine (0.66-1.25) mg/dL Estimated GFR (>60) mL/min BUN/Creatinine Ratio (6-22) Glucose (80-110) mg/dL Calcium (8.4-10.2) mg/dL Magnesium (1.6-2.3) mg/dL Total Bilirubin (0.2-1.3) mg/dL AST (17-59) IU/L ALT (<50) IU/L Alkaline Phosphatase (38-126) U/L Total Creatine Kinase (55-170) U/L CK-MB (CK-2) (<2.37) ng/mL CK-MB (CK-2) Rel Index (1.5-5.0) % Troponin I 0.014 (0.01-0.034) ng/mL NT-Pro-B Natriuret Pep 259 H (<125) pg/mL Total Protein (6.3-8.2) g/dL Albumin (3.5-5.0) g/dL Globulin (1.7-4.1) g/dL Albumin/Globulin Ratio (1.0-2.8) Lipase (23-300) U/L SARS-CoV-2 (PCR) Negative (Negative) Imaging Data Chest x-ray: Radiologist's Impression: [address] [address] XRay Report Signed Patient: Jake Ramos MR#: [id number] : 1960 Acct:[id number] Age/Sex: 62 / M Date of Service: 03/04/22 Loc: ED Accession Number: [id number] ?? Procedure: XR chest 1V Ordering Provider: Светлана Knapp D.O. PROCEDURE:? XR CHEST 1V ? INDICATIONS:? chest pain ? TECHNIQUE:? One view of the chest was acquired.? ? COMPARISON:? [facility], , XR CHEST 1V, 09/21/2021, 11:02.? [facility], , XR CHEST 1V, 03/06/2021, 13:26. ? FINDINGS:? ? Surgical changes and devices:? Status post median sternotomy. ? Lungs and pleura:? Lungs are clear.? No pleural effusions or pneumothorax.? ? Mediastinum:? Mediastinal contours appear normal.? Heart size is normal.? ? Bones and chest wall:? No suspicious bony lesions.? Overlying soft tissues appe ar unremarkable.? ? IMPRESSION:? No acute cardiopulmonary abnormality. ? ? ? Dictated by: Frank Oswald M.D. on 03/04/2022 at 8:18 ? ? Approved by: Frank Oswald M.D. on 03/04/2022 at 8:18 ECG Data Attestation: I personally reviewed and interpreted this ECG as follows: Prior ECG tracings: not available for review Interpretation: Sinus rhythm with a rate 87 ND 190 QRS of 100 and QTC of 471. Patient has similar changes on EKG with prior in 09/21/2021 and 03/06/2021. No acute changes today. MDM Narrative Medical decision making narrative: This is a 62-year-old male with prior mechanical aortic valve replacement for aortic stenosis on warfarin paroxysmal SVT with ablation x4 and cardiac stent placed at [facility] secondary to complex placement in September of 2020 with exertional chest pain and shortness of breath consistent with cardiac cause. Patient had some improvement with nitro at home with this episode. Here he has not had acute EKG changes or troponin change but his story is concerning. I spoke with his cardiology team, Dr. Perkins who does recommend observation she does not recommend initiating heparin at this time. Does not feel patient needs to be transferred. Discussed with primary care team accepts for admission. Discharge Plan Departure Patient Disposition: Admitted as Observation Clinical Impression: Chest pain Admit Date/Time: 03/04/22 11:42 Admit Provider: Juan George
[2022-03-04 08:01] LABS: Add Manual Diff / Slide Review NO; Basophils Absolute Auto 100 /uL (0-100); Basophils Percent Auto 0.7 % (0-2); Eosinophils Absolute Auto 500 /uL (0-450); Eosinophils Percent Auto 4.9 % (2-4); Hematocrit 42.1 % (41-53); Hemoglobin 14.4 g/dL (13.5-17.5); Lymphocytes Absolute Auto 1400 /uL (1100-4500); Lymphocytes Percent Auto 13.8 % (25-40); Mean Corpuscular HGB Conc 34.2 % (30-36); Mean Corpuscular Hemoglobin 29.9 PG (26-34); Mean Corpuscular Volume 87.5 fL (80-100); Monocytes Absolute Auto 800 /uL (0-900); Monocytes Percent Auto 8.3 % (3-14); Neutrophils Absolute Auto 7100 /uL (1500-7000); Neutrophils Percent Auto 72.3 % (50-75); Platelet Count 281 X10^3/uL (150-400); Red Blood Cell Count 4.81 X10^6/uL (4.5-5.9); Red Cell Distribution Width 14.5 % (11.6-14.8); White Blood Cell Count 9.8 X10^3/uL (4.5-11.0)
[2022-03-04 08:05] LABS: INR 3.8 (0.9-1.3); Prothrombin Time 44.8 SECONDS (10.1-12.7)
[2022-03-04 08:08] LABS: PTT Partial Thromboplastin Tim 55 SECONDS (26.4-36.2)
[2022-03-04 08:10] LABS: Alanine Aminotransferase 20 IU/L (<50); Albumin 4.8 g/dL (3.5-5.0); Albumin Globulin Ratio 1.4 (1.0-2.8); Alkaline Phosphatase 94 U/L (38-126); Aspartate Aminotransferase 28 IU/L (17-59); BUN Creatinine Ratio 16.3 (6-22); Bilirubin Total 0.6 mg/dL (0.2-1.3); Blood Urea Nitrogen 17 mg/dL (9-20); Calcium 9.6 mg/dL (8.4-10.2); Carbon Dioxide 25 mmol/L (22-32); Chloride 105 mmol/L (98-107); Creatine Kinase 143 U/L (55-170); Estimated Glomerular Filt Rate > 60.0 mL/min (>60); Globulin 3.4 g/dL (1.7-4.1); Glucose 116 mg/dL (80-110); HEMOLYSIS < 15 (0-50); Lipase 80 U/L (23-300); Magnesium 2.1 mg/dL (1.6-2.3); Potassium 4.6 mmol/L (3.4-5.1); Sodium 138 mmol/L (137-145); Total Protein 8.2 g/dL (6.3-8.2)
[2022-03-04] MEDS: ASPIRIN 81 MG CHEW TAB 324 MG PO (08:14)
[2022-03-04] MEDS: NITROGLYCERIN 0.4 MG SL TAB SL ×3 (08:15→08:27)
[2022-03-04 08:21] LABS: Troponin I 0.013 ng/mL (0.01-0.034)
[2022-03-04 08:25] LABS: CKMB % Relative Index 1.2 % (1.5-5.0); Creatine Kinase MB 1.76 ng/mL (<2.37)
[2022-03-04 08:47] LABS: NT-proBNP (BNP-Adult 18+) 259 pg/mL (<125)
[2022-03-04 09:02] LABS: COVID19 -Nasal RAPID Negative (Negative)
[2022-03-04 10:56] LABS: Troponin I 0.014 ng/mL (0.01-0.034)
--- NOTE | 2022-03-04 12:15 | P.HP_ITS ---
History of Present Illness History of Present Illness Date Patient Seen: 03/04/22 Time Patient Seen: 12:15 Chief complaint: Chest pain Narrative: 62-year-old male admitted from the [facility] Emergency Department because of chest pain Patient with known cardiac history including occlusive coronary disease with symptoms of chest brain shortness of breath with headache. He said the pain is substernal does not radiate but has had some nausea. [place] a little lightheaded. Seems like he gets worse with activity even walking across the room is difficult for him. He took 1 nitroglycerin before he came in and was given 3 additional nitro in the emergency department. He does seem to think that made a substantial difference in his pain which is now completely absent ER evaluation was unremarkable with no EKG changes and troponin normal x2. Cardiology was consulted over the phone they recommended he be admitted for stress testing His cardiac history is remarkable for severe aortic stenosis status post Saint Al mechanical valve replacement in September 2018 at the [facility] with long-term anticoagulation He has known coronary disease with disease including 80% stenosis in the first diagonal branch and disease in the left main artery which was treated with complex PCI at the [facility] in January of 2021. 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 current use of anticoagulant therapy Non-Hodgkin's lymphoma (09/06/15) PSVT (paroxysmal supraventricular tachycardia) Stenosis of aorta (09/06/15) Surgical History S/P aortic valve replacement with metallic valve (~09/2018) S/P coronary artery stent placement (~01/2021) Status post heart valve replacement with mechanical valve Family & Social History Family History Father Crohn's disease Safety & Behavioral: Feels Safe in Current Yes Environment Been Physically Hurt or No Threatened By a Person Tobacco & Substance use: Smoking Status Former smoker alcohol intake frequency holiday/special occasion Substance Use Type marijuana Meds Home Medications and Allergies Home Medications Medication Instructions Recorded Confirmed Type multivitamin 1 tab PO DAILY #0 04/07/11 03/04/22 History omeprazole 20 mg capsule,delayed 20 mg PO DAILY #90 cap 03/07/20 03/04/22 Rx release clopidogrel 75 mg tablet 75 mg PO DAILY tab 02/07/21 03/04/22 History diltiazem HCl 120 mg 120 mg PO BID cap 02/07/21 03/04/22 History capsule,extended release 24 hr lisinopril 2.5 mg tablet 2.5 mg PO BID tab 02/07/21 03/04/22 History rosuvastatin 40 mg tablet 40 mg PO DAILY 02/07/21 03/04/22 History warfarin 5 mg tablet 12.5 mg PO DAILY #270 tab 02/12/22 03/04/22 Rx Allergies Allergy/AdvReac Type Severity Reaction Status Date / Time No Known Drug Allergies Allergy Verified 10/14/21 15:53 Review of Systems Review of Systems ROS: Yes All systems reviewed with the patient and are negative except as otherwise documented Exam Vital Signs (past 8 hours): - 03/04/22 07:46 03/04/22 07:47 03/04/22 07:52 Temperature 98.3 F Pulse Rate 81 83 73 Respiratory Rate 21 19 18 Blood Pressure 140/81 140/81 Pulse Oximetry 96 96 03/04/22 08:00 03/04/22 08:30 03/04/22 09:00 Temperature Pulse Rate 71 72 67 Respiratory Rate 16 18 17 Blood Pressure 137/73 110/60 125/70 Pulse Oximetry 96 93 98 Oxygen Delivery Method Room Air Narrative Exam Narrative: Non acutely ill-appearing middle-aged male in no obvious distress lying on a gurney in the emergency department HEENT-unremarkable Neck-no bruits Lungs-clear with good breath sounds Heart-regular rate and rhythm, normal S1-S2 harsh almost metallic, no murmur Abdomen-benign positive bowel tones soft nontender Extremities-no cyanosis clubbing or edema Objective Labs Result Diagrams: 03/04/22 07:52 03/04/22 07:52 Labs: Laboratory Results - last 24 hr 03/04/22 03/04/22 03/04/22 07:52 07:52 07:52 WBC 9.8 RBC 4.81 Hgb 14.4 Hct 42.1 MCV 87.5 MCH 29.9 MCHC 34.2 RDW 14.5 Plt Count 281 Neut % (Auto) 72.3 Lymph % (Auto) 13.8 L Hall % (Auto) 8.3 Eos % (Auto) 4.9 H Baso % (Auto) 0.7 Neut # (Auto) 7100 H Lymph # (Auto) 1400 Hall # (Auto) 800 Eos # (Auto) 500 H Baso # (Auto) 100 PT 44.8 H INR 3.8 H APTT 55 H D Sodium 138 Potassium 4.6 Chloride 105 Carbon Dioxide 25 BUN 17 Creatinine 1.04 Estimated GFR > 60.0 BUN/Creatinine Ratio 16.3 Glucose 116 H Calcium 9.6 Magnesium 2.1 Total Bilirubin 0.6 AST 28 ALT 20 Alkaline Phosphatase 94 Total Creatine Kinase 143 CK-MB (CK-2) 1.76 CK-MB (CK-2) Rel Index 1.2 L Troponin I 0.013 NT-Pro-B Natriuret Pep Total Protein 8.2 Albumin 4.8 Globulin 3.4 Albumin/Globulin Ratio 1.4 Lipase 80 SARS-CoV-2 (PCR) 03/04/22 03/04/22 03/04/22 07:52 08:40 10:00 WBC RBC Hgb Hct MCV MCH MCHC RDW Plt Count Neut % (Auto) Lymph % (Auto) Hall % (Auto) Eos % (Auto) Baso % (Auto) Neut # (Auto) Lymph # (Auto) Hall # (Auto) Eos # (Auto) Baso # (Auto) PT INR APTT Sodium Potassium Chloride Carbon Dioxide BUN Creatinine Estimated GFR BUN/Creatinine Ratio Glucose Calcium Magnesium Total Bilirubin AST ALT Alkaline Phosphatase Total Creatine Kinase CK-MB (CK-2) CK-MB (CK-2) Rel Index Troponin I 0.014 NT-Pro-B Natriuret Pep 259 H Total Protein Albumin Globulin Albumin/Globulin Ratio Lipase SARS-CoV-2 (PCR) Negative Assessment & Plan Assessment & Plan narrative: 1. Patient with known coronary disease as well as other cardiac issues with exertional chest pain quite suspicious for recurrent ischemia. Fortunately his initial workup has been negative. Cardiology's recommended he undergo stress testing to look for evidence of ischemia rather than repeat angiography. This seems reasonable unfortunately will not be able to obtain this at this hospital because of other pending studies for other patients for approximately 48 hours. I will therefore also consult Cardiology in ask them to see patient for thoughts regarding alternatives for evaluation in this setting specially given his complex cardiac history which is certainly beyond the routine. We did check and there is no local availability for any other hospitals to accept patient including even perhaps to do the perfusion imaging and send him back to us. 2. Chronic anticoagulation-continue patient's usual dose warfarin. He is on relatively high-dose warfarin but is been monitored carefully. Uncertain as to why he is requiring such a high dose but again has been monitored carefully and dose was slowly escalated to reach this level 3. Chronic hepatitis C-patient asymptomatic from this 4. Distant history non-Hodgkin's lymphoma-not an active issue at this time 5. Code status-patient should be a full code in the event of a sudden cardiac o r respiratory arrest which is verified with him 6. VTE prophylaxis-patient chronic anticoagulated warfarin no additional prophylaxis necessary. Time Spent With Patient Critical Care time: I spent a total of [] minutes of critical care time on this patient's care today; this time is exclusive of procedural time.
--- NOTE | 2022-03-04 13:55 | PC.NURSE ---
Addendum entered by Patsy Armstrong R.N. 03/04/22 19:15: New iv started to r.forearm, flushing well. Addendum entered by Patsy Armstrong R.N. 03/04/22 15:32: Patient is resting comfortably and denies any chest pain at this time. Original Note: Patient admitted to room 223 around 1300. He denies chest pain at this time. He is on tele and is NSR. Patient has a hx of smoking cigars and he has a nicotine patch on him from this morning. Patient is independent in his room and he denies any discomfort at this time.
[2022-03-04 18:27] LABS: Creatine Kinase 116 U/L (55-170)
[2022-03-04 18:40] LABS: Troponin I 0.014 ng/mL (0.01-0.034)
[2022-03-04 18:43] LABS: CKMB % Relative Index 1.1 % (1.5-5.0); Creatine Kinase MB 1.24 ng/mL (<2.37)
[2022-03-04] MEDS: ATORVASTATIN 20 MG TABLET 80 MG PO (20:44)
[2022-03-04] MEDS: lisinopriL 5 MG TABLET 2.5 MG PO (20:45)
[2022-03-04] MEDS: dilTIAZem CD 120 MG CAP PO (20:45)
[2022-03-04] MEDS: SODIUM CHLORIDE 0.9% FLUSH 10 ML IV ×2 (20:46→23:57)
--- NOTE | 2022-03-04 21:26 | PC.NURSE ---
Patient is alert and oriented. Breath sounds CTA with RA sat of 96%. HRR w/telemetry reading of SR w/1st degree AVB + BBB. Denies any chest pain and/or SOB. Denied nausea. BT present and abdomen is soft. Denied dysuria, frequency or urgency with urination. Is getting up to bathroom/ambulating in [place] independently. Denied any other pain/discomfort. Fall risk score is moderate but patient is steady on feet and agrees to call if dizzy or lightheaded.
[2022-03-04] MEDS: SODIUM CHLORIDE 0.9% 500 ML 21 ML IV (23:56)
[2022-03-05] VITALS (9 sets, daily range): BP systolic 101–123; BP diastolic 56–68; PULSE 69–81; RESP 16–18; TEMP 36.4–36.7; O2SAT 94–97
--- NOTE | 2022-03-05 07:26 | P.DS_ITS ---
History of Present Illness History of Present Illness Date Patient Seen: 03/05/22 Time Patient Seen: 07:27 Chief complaint: Chest pain Narrative: 62-year-old male admitted from the [facility] Emergency Department because of chest pain Patient with known cardiac history including occlusive coronary disease with symptoms of chest brain shortness of breath with headache. He said the pain is substernal does not radiate but has had some nausea. [place] a little lightheaded. Seems like he gets worse with activity even walking across the room is difficult for him. He took 1 nitroglycerin before he came in and was given 3 additional nitro in the emergency department. He does seem to think that made a substantial difference in his pain which is now completely absent ER evaluation was unremarkable with no EKG changes and troponin normal x2. Cardiology was consulted over the phone they recommended he be admitted for stress testing His cardiac history is remarkable for severe aortic stenosis status post Saint Al mechanical valve replacement in September 2018 at the [facility] with long-term anticoagulation He has known coronary disease with disease including 80% stenosis in the first diagonal branch and disease in the left main artery which was treated with complex PCI at the [facility] in January of 2021. He had a drug- eluting stent placed at that time Also has a history of an SVT status post ablation x3 I believe Discharge Providers Provider Date of admission: 03/04/22 11:42 Primary care physician: Juan George MD Consults: 03/04/22 13:02 Consult to Cardiology Routine Comment: Consulting Provider: Andres Winter Reason for consultation: chest pain Has provider been notified: No Discharge provider: Juan George MD Summary Hospital Course Discharge Diagnosis: 1. Chest pain, probable cardiac ischemia without infarction 2. Coronary artery disease status post stent placement proximal LAD January 2021 with extension of lesion at the time towards the left main ostium 3. Status post aortic valve replacement with Saint Al mechanical aortic valve 4. Chronic long-term anticoagulation secondary to aortic valve replacement 5. Status post cardiac ablation for SVT 6. Chronic hepatitis C without coma Hospital Course: As noted above patient had very suspicious symptoms for cardiac ischemia upon presentation. Fortunately his EKG was unchanged x2 and troponin was negative x3. He had no additional symptoms after symptoms resolved with the administration nitroglycerin in the emergency department. 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 Andres Winter, who agreed cardiac catheterization is likely the most definitive way to either rule out recurrent disease of his left main/LAD and or identify persistent/new disease that requires intervention. During this hospitalization patient had no additional symptoms and no signifi cant dysrhythmias. Plans were made for him to be transferred to [facility] for cardiac catheterization. He was kept NPO for this purpose. Status at Discharge Cognitive/behavioral status at discharge: oriented and at baseline, oriented Functional status at discharge: independent ambulation Overall status at discharge: patient is back to baseline Exam Vital Signs (past 8 hours): - 03/05/22 00:10 03/05/22 04:52 Temperature 97.5 F L 98.1 F Pulse Rate 71 77 Respiratory Rate 18 18 Blood Pressure 123/68 108/61 Pulse Oximetry 94 95 Oxygen Delivery Method Room Air Oxygen Flow Rate 0 Objective Labs Result Diagrams: 03/04/22 07:52 03/04/22 07:52 Labs: Laboratory Results - last 24 hr 03/04/22 03/04/22 03/04/22 07:52 07:52 07:52 WBC 9.8 RBC 4.81 Hgb 14.4 Hct 42.1 MCV 87.5 MCH 29.9 MCHC 34.2 RDW 14.5 Plt Count 281 Neut % (Auto) 72.3 Lymph % (Auto) 13.8 L Emery % (Auto) 8.3 Eos % (Auto) 4.9 H Baso % (Auto) 0.7 Neut # (Auto) 7100 H Lymph # (Auto) 1400 Emery # (Auto) 800 Eos # (Auto) 500 H Baso # (Auto) 100 PT 44.8 H INR 3.8 H APTT 55 H D Sodium 138 Potassium 4.6 Chloride 105 Carbon Dioxide 25 BUN 17 Creatinine 1.04 Estimated GFR > 60.0 BUN/Creatinine Ratio 16.3 Glucose 116 H Calcium 9.6 Magnesium 2.1 Total Bilirubin 0.6 AST 28 ALT 20 Alkaline Phosphatase 94 Total Creatine Kinase 143 CK-MB (CK-2) 1.76 CK-MB (CK-2) Rel Index 1.2 L Troponin I 0.013 NT-Pro-B Natriuret Pep Total Protein 8.2 Albumin 4.8 Globulin 3.4 Albumin/Globulin Ratio 1.4 Lipase 80 SARS-CoV-2 (PCR) 03/04/22 03/04/22 03/04/22 07:52 08:40 10:00 WBC RBC Hgb Hct MCV MCH MCHC RDW Plt Count Neut % (Auto) Lymph % (Auto) Emery % (Auto) Eos % (Auto) Baso % (Auto) Neut # (Auto) Lymph # (Auto) Emery # (Auto) Eos # (Auto) Baso # (Auto) PT INR APTT Sodium Potassium Chloride Carbon Dioxide BUN Creatinine Estimated GFR BUN/Creatinine Ratio Glucose Calcium Magnesium Total Bilirubin AST ALT Alkaline Phosphatase Total Creatine Kinase CK-MB (CK-2) CK-MB (CK-2) Rel Index Troponin I 0.014 NT-Pro-B Natriuret Pep 259 H Total Protein Albumin Globulin Albumin/Globulin Ratio Lipase SARS-CoV-2 (PCR) Negative 03/04/22 18:05 WBC RBC Hgb Hct MCV MCH MCHC RDW Plt Count Neut % (Auto) Lymph % (Auto) Emery % (Auto) Eos % (Auto) Baso % (Auto) Neut # (Auto) Lymph # (Auto) Emery # (Auto) Eos # (Auto) Baso # (Auto) PT INR APTT Sodium Potassium Chloride Carbon Dioxide BUN Creatinine Estimated GFR BUN/Creatinine Ratio Glucose Calcium Magnesium Total Bilirubin AST ALT Alkaline Phosphatase Total Creatine Kinase 116 CK-MB (CK-2) 1.24 CK-MB (CK-2) Rel Index 1.1 L Troponin I 0.014 NT-Pro-B Natriuret Pep Total Protein Albumin Globulin Albumin/Globulin Ratio Lipase SARS-CoV-2 (PCR) [facility] Medical History Atrial tachycardia Chronic hepatitis C without hepatic coma (09/06/15) Cigarette smoker motivated to quit Coronary artery disease retirement current use of anticoagulant therapy Non-Hodgkin's lymphoma (09/06/15) PSVT (paroxysmal supraventricular tachycardia) Stenosis of aorta (09/06/15) Surgical History S/P aortic valve replacement with metallic valve (~09/2018) S/P coronary artery stent placement (~01/2021) Status post heart valve replacement with mechanical valve Family History Father Crohn's disease Social History household members: spouse Smoking Status: Former smoker Discharge Assessment & Plan Assessment and Plan Plan of Treatment: Plan discharge to [facility] for cardiac catheterization under the care of Dr. Winter Discharge Plan Discharge orders & Medications Prescriptions: No Action multivitamin Tablet 1 tab PO DAILY Qty: 0 0RF omeprazole 20 mg capsule,delayed release(DR/EC) 20 mg PO DAILY Qty: 90 3RF warfarin 5 mg tablet 12.5 mg PO DAILY Qty: 270 1RF Rx Instructions: 12.5 mg Thursday, Thursday, Thursday and 10 mg all other days, or as directed. diltiazem HCl 120 mg capsule,extended release 24hr 120 mg PO BID 0RF rosuvastatin 40 mg tablet 40 mg PO DAILY 0RF lisinopril 2.5 mg tablet 2.5 mg PO BID 0RF clopidogrel 75 mg tablet 75 mg PO DAILY 0RF Follow up/Referrals: Juan George MD [Primary Care Provider] - Discharge Health Status Multidrug resistant organism: No MDRO Precautions: [place] Diet/Activity/Treatments Diet: Nothing by Mouth Liquid consistency: Normal/Thin Food texture: Regular Discharge Data Primary Care Provider: Juan George Attending Provider: Juan George Quality VTE Deep Vein Thrombosis/Pulmonary Embolism Present on Admission: No
[2022-03-05] MEDS: lisinopriL 5 MG TABLET 2.5 MG PO ×2 (09:05→20:40)
[2022-03-05] MEDS: CLOPIDOGREL 75 MG TABLET PO (09:08)
[2022-03-05] MEDS: SODIUM CHLORIDE 0.9% FLUSH 10 ML IV ×2 (09:08→20:41)
[2022-03-05] MEDS: buPROPion XL 150 MG TAB PO (09:08)
[2022-03-05] MEDS: dilTIAZem CD 120 MG CAP PO ×2 (09:08→20:41)
--- NOTE | 2022-03-05 10:19 | P.PN_ITS ---
Subjective Subjective Date Patient Seen: 03/05/22 Time Patient Seen: 09:10 Interval history: Patient has remained completely asymptomatic overnight. Exam Vital Signs (past 8 hours): - 03/05/22 04:52 03/05/22 07:43 03/05/22 08:06 Temperature 98.1 F 98.1 F Pulse Rate 77 76 Respiratory Rate 18 16 Blood Pressure 108/61 106/63 Pulse Oximetry 95 95 97 03/05/22 09:05 Temperature Pulse Rate 76 Respiratory Rate Blood Pressure 106/63 Pulse Oximetry Oxygen Delivery Method Room Air Oxygen Flow Rate 0 Objective Labs Result Diagrams: 03/04/22 07:52 03/04/22 07:52 Labs: Laboratory Results - last 24 hr 03/04/22 03/04/22 10:00 18:05 Total Creatine Kinase 116 CK-MB (CK-2) 1.24 CK-MB (CK-2) Rel Index 1.1 L Troponin I 0.014 0.014 [facility] Medical History Atrial tachycardia Chronic hepatitis C without hepatic coma (09/06/15) Cigarette smoker motivated to quit Coronary artery disease snf current use of anticoagulant therapy Non-Hodgkin's lymphoma (09/06/15) PSVT (paroxysmal supraventricular tachycardia) Stenosis of aorta (09/06/15) Surgical History S/P aortic valve replacement with metallic valve (~09/2018) S/P coronary artery stent placement (~01/2021) Status post heart valve replacement with mechanical valve Family History Father Crohn's disease Social History household members: spouse Smoking Status: Former smoker Assessment & Plan Assessment & Plan narrative: Patient has remained completely asymptomatic. Series of troponins and ECGs have remained unchanged and or normal. Initial plan was to transport patient to [facility] for cardiac catheterization this morning. However [facility] is unable to accept patient for any procedures they are diverting all EMS etcetera per Cardiology. We were unable to find an alternative location for patient to be admitted ye sterday because of unavailability of beds in [place] I have asked local cardiology to see patient in person here at [facility] and give recommendations for next steps giving an apparent inability to proceed with cardiac catheterization at this time. Time Spent With Patient Critical Care time: I spent a total of [] minutes of critical care time on this patient's care today; this time is exclusive of procedural time. Quality VTE Deep Vein Thrombosis/Pulmonary Embolism Present on Admission: No
--- NOTE | 2022-03-05 11:25 | CM.DANOTE ---
DCP Brief Assessment Note Patient is a 62 yo male who was admitted on 03/04/22 for Chest Pain. Pt has REG PPO for insurance and his PCP is Dr. Juan George. EMR was reviewed. 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 Andres Winter recommendation of hospital transfer for cardiac cath rather than attempt stress test. [facility] confirming time available for pt transfer for higher level of care and time for cardiac cath with Dr. Winter sometime today. ESTEE Salinas
--- NOTE | 2022-03-05 12:42 | DI.ECHO.S_ITS ---
[place] +---------+ Hospital +---------+ : : [address] : [address] : : : : [id number] : : : : Phone: [phone]+ Echocardiogram Report + + :Name: PAT TAYLOR Study Date: 03/05/2022 Height: 71 in : :[facility] ReadingLocation: Weight: 188 lb : : Gender: Male BSA: 2.1 m2 : :: 1960 Age: 62 yrs BP: 108/61 mmHg: :Reason For Study: CHEST PAIN : :Ordering Physician: AUDREY, : :CONNIE Performed By: Mattie Wilson : :Referring: CONNIE HOUSTON : + + Interpretation Summary 1) Normal left ventricular thickness, size, wall motion, and systolic function (EF 55-60%). 2) Normal right ventricular size and function. 3) There is a mechanical aortic valve that is well seated and opens well (mean gradient 7mm Hg). There is trace aortic regurgitation. 4) Compared to the Echo done 01/30/2021, no significant change. Procedure: A two-dimensional transthoracic echocardiogram with color flow and Doppler was performed. The study quality was technically adequate. Comparison is made with the echocardiogram of 01/30/2021. The patient was in sinus rhythm with heart rates between 68-76 bpm during the exam. Left Ventricle: The left ventricle is normal in size and wall thickness. The ejection fraction is estimated to be 55-60%. Left ventricular systolic function appears normal without focal wall motion abnormalities. Right Ventricle: The right ventricle is normal in size and function. Atria: The left atrial size is normal. Right atrial size is normal. There is no Doppler evidence for an interatrial shunt. Mitral Valve: There is moderate to severe mitral annular calcification. The mitral valve leaflets are mildly calcified. The mitral valve mean gradient is 4.0 mmHg. There is no mitral regurgitation noted. Aortic Valve: There is a mechanical aortic valve. The peak aortic velocity is 1.95 m/sec. The aortic valve mean gradient is 7.4 mmHg. There is trace aortic regurgitation. Tricuspid Valve: The tricuspid valve is normal in structure and function. There is trace tricuspid regurgitation. Pulmonic Valve: The pulmonic valve leaflets are thin and pliable; valve motion is normal. There is no pulmonic valvular regurgitation. Great Vessels: The ascending aorta is at the upper limits of normal in size. The IVC is of normal diameter and collapses greater than 50% with a sniff. This suggests a low right atrial pressure of 3 mm Hg. Pericardium/ Pleura There is no pericardial effusion. There is no pleural effusion. MMode/2D Measurements & Calculations LVIDd: 4.9 cm LVOT diam: 2.0 cm LVIDs: 3.6 cm Ao root diam: 3.0 cm FS: 26.4 % asc Aorta Diam: 2.9 cm IVSd: 0.96 cm Ao Arch Diam (Prox Trans): 2.9 cm LVPWd: 0.94 cm LV villanueva. diameter/BSA (cm/m^2): 2.4 LV sys. diameter/BSA (cm/m^2): 1.8 LA A2 area: 18.9 cm2 RA long axis: 4.8 cm LA A4 area: 19.7 cm2 RA area: 15.5 cm2 LA length (vol): 5.4 cm RA vol: 42.1 ml LA vol: 58.6 ml RA : 20.5 ml/m2 LA vol index: 28.5 ml/m2 IVC diam: 1.6 cm RVD1 (basal): 2.8 cm RVD2 (mid): 2.6 cm TAPSE: 1.6 cm Doppler Measurements & Calculations Ao V2 max: 195.7 cm/sec LVOT Max Lebron: 75.6 cm/sec Ao V2 mean: 124.1 cm/sec LV V1 max P.3 mmHg Ao max P.1 mmHg LV V1 VTI: 14.3 cm Ao mean P.4 mmHg MANNY(I,D): 1.4 cm2 Ao V2 VTI: 32.9 cm MANNY(V,D): 1.2 cm2 sev ratio: 0.43 MANNY indexed to BSA (cm^2/m^2): 0.66 MV E max lebron: 107.3 cm/sec PA V2 max: 96.9 cm/sec MV A max lebron: 153.7 cm/sec PA V2 mean: 69.4 cm/sec MV E/A: 0.70 PA mean P.1 mmHg Med Peak E' Lebron: 6.6 cm/sec PA pr(Accel): 31.0 mmHg E/E' med: 16.2 Lat Peak E' Lebron: 8.3 cm/sec E/E' lat: 12.9 E/e' average: 14.6 MV dec time: 0.53 sec MVA(VTI): 0.97 cm2 MV V2 mean: 91.6 cm/sec SV(LVOT): 44.7 ml MV mean P.0 mmHg MV V2 VTI: 45.9 cm Reading Physician:01:50 PM
--- NOTE | 2022-03-05 12:43 | PM.CN ---
History of Present Illness Consult details Chief complaint: Chest pain Narrative: 62 yo M h/o CAD with stent and mechanical aortic valve admitted with chest pain. Patient states that he developed chest pain yesterday around 5AM while at work. It lasted for about 2 hrs before resolving with nitro SL was given in the ER around 7AM. Associated with chest pain was dyspnea and nausea. He had one episode of recurrent chest pain yesterday and it also resolved with nitro SL. Denies any other symptoms. Patient feels good now and back to baseline. Meds Home Medications and Allergies Home Medications Medication Instructions Recorded Confirmed Type multivitamin 1 tab PO DAILY #0 04/07/11 03/04/22 History omeprazole 20 mg capsule,delayed 20 mg PO DAILY #90 cap 03/07/20 03/04/22 Rx release clopidogrel 75 mg tablet 75 mg PO DAILY tab 02/07/21 03/04/22 History diltiazem HCl 120 mg 120 mg PO BID cap 02/07/21 03/04/22 History capsule,extended release 24 hr lisinopril 2.5 mg tablet 2.5 mg PO BID tab 02/07/21 03/04/22 History rosuvastatin 40 mg tablet 40 mg PO DAILY 02/07/21 03/04/22 History warfarin 5 mg tablet 12.5 mg PO DAILY #270 tab 02/12/22 03/04/22 Rx Allergies Allergy/AdvReac Type Severity Reaction Status Date / Time No Known Drug Allergies Allergy Verified 10/14/21 15:53 Review of Systems Review of Systems Narrative: as per HPI and otherwise unremarkable Exam Vital Signs (past 8 hours): - 03/05/22 04:52 03/05/22 07:43 03/05/22 08:06 Temperature 98.1 F 98.1 F Pulse Rate 77 76 Respiratory Rate 18 16 Blood Pressure 108/61 106/63 Pulse Oximetry 95 95 97 03/05/22 09:05 03/05/22 11:59 Temperature 98.1 F Pulse Rate 76 79 Respiratory Rate 16 Blood Pressure 106/63 101/65 Pulse Oximetry 97 Oxygen Delivery Method Room Air Oxygen Flow Rate 0 Gen gildardo: NAD, pleasant, cooperative HEET: NCAT, no scleral icterus, MMM NEck: supple CV: RRR, nl S1 and mechanical S2, 3/6 systolic murmur, no LE edema, no JVD Resp: Good aeration, CTAB Abd: soft, NT Neuro: no facial droop, moving all four extremities symmetrically Psych: appropriate affect Objective ECG Impression: ECG 03/04/2022: sinus rhythmwith first degree AV block and no ST-T changes Labs Result Diagrams: 03/04/22 07:52 03/04/22 07:52 Labs: Laboratory Results - last 24 hr 03/04/22 18:05 Total Creatine Kinase 116 CK-MB (CK-2) 1.24 CK-MB (CK-2) Rel Index 1.1 L Troponin I 0.014 [facility] Medical History Atrial tachycardia Chronic hepatitis C without hepatic coma (09/06/15) Cigarette smoker motivated to quit Coronary artery disease nursing home current use of anticoagulant therapy Non-Hodgkin's lymphoma (09/06/15) PSVT (paroxysmal supraventricular tachycardia) Stenosis of aorta (09/06/15) Surgical History S/P aortic valve replacement with metallic valve (~09/2018) S/P coronary artery stent placement (~01/2021) Status post heart valve replacement with mechanical valve Family History Father Crohn's disease Social History household members: spouse Tobacco & Substance Use Smoking Status: Former smoker Assessment & Plan Assessment & Plan narrative: 62 yo M h/o remote hodgkin's lymphoma s/p radiation, atrial tachycardia s/p ablation,mechanical aortic valve 2017, and CAD s/p LM-LAD stent 01/2021 here with chest pain: # Chest pain: Etiology could be esophageal spasm or coronary spasm as it responded to nitro SL. ECG and serial trops reassuring. Given h/o LM-LAD stent last year, I think it would be good to do further risk stratification. Plan: - Treadmill nuclear stress test. If no significant ischemia, add imdur 60mg daily. If significant ischemia, then transfer to [facility] for cath. - Echo # CAD s/p LM-LAD stent 2020. - No aspirin as the patient on warfarin - Continue clopidogrel 75mg daily - Continue warfarin given mechanical aortic valve - Continue rosuvastatin 40mg qhs # Mechanical aortic valve: - Warfarin - Echo as above Thank you for the interesting consultation. Cardiology is available if there are further questions. Time Spent With Patient Critical Care time: I spent a total of [] minutes of critical care time on this patient's care today; this time is exclusive of procedural time.
--- NOTE | 2022-03-05 12:44 | DI.NM.S_ITS ---
PROCEDURE: NM ELVIA PERF SPECT R&S PHARM Rest and pharmacological stress myocardial perfusion SPECT with gated imaging and ejection fraction RADIOPHARMACEUTICAL: 12.0 mCi Tc-99m tetrafosmin IV at rest and 27.1 mCi Tc-99m tetrafosmin IV at peak effect of pharmacological stress. [id number] was performed. INDICATIONS: chest pain TECHNIQUE: Radiopharmaceutical was injected at peak stress test, and also at rest. SPECT images were obtained. SPECT myocardial perfusion images were displayed in short axis, horizontal long axis, and vertical long axis views. Gated images were reviewed using Wetpaint software. COMPARISON: None. CARDIAC STRESS: A pharmacologic stress test was performed under the supervision of an attending staff, using an infusion of lexiscan 0.4mg IV X1 as target heart rate not achieved after 7 minutes and 40 seconds of exercise (patient on diltiazem). Hemodynamic data: There is normal blood pressure and heart rate response to pharmacologic stress. Symptoms: The patient had 3-4/10 chest pain with lexiscan that resolved with aminophylline. Aminophylline: none EKmm horizontal to downsloping ST depressions in the inferior and anterolateral leads with lexiscan; no ectopy. FINDINGS: Raw data: There is good myocardial uptake of radiotracer. No significant motion artifacts. Bdbv-zd-cnazf ratio is 0.35 (normal is less than 0.38 for tetrafosmin tracer). Left ventricle function: Gated images demonstrate normal left ventricular wall thickening. No segmental wall motion abnormalities. No transient ischemic dilation; TID is 0.88 (normal less than 1.3). Left ventricle resting end diastolic volume is 134 mL. Left ventricle stress ejection fraction is 53%; normal range is above 45%. Myocardial perfusion: There is a mildly intense reversible lateral wall defect that is consistent with ischemia. No infarction. SSS 6, SRS 1. IMPRESSION: Abnormal nuclear stress test consistent with lateral wall ischemia. No infarction. 1) There is a mildly intense reversible lateral wall defect that is consistent with ischemia. No infarction. SSS 6, SRS 1. 2) Normal left ventricular size, wall motion, and systolic function (EF post stress 53%). 3) 2mm horizontal to downsloping ST depressions in the inferior and anterolateral leads. 4) No chest pain with exercise. The chest pain with lexiscan is non-diagnostic. 5) Fair exercise tolerance (10.1 METs). Target heart rate not reached as the patient on diltiazem. Study switched to lexiscan. 6) Compared to the nuc stress done 03/07/2015, lateral wall ischemia is new on this study. Dictated by: Merry Houston MD on 03/06/2022 at 13:56 Approved by: Merry Houston MD on 03/06/2022 at 14:04
[2022-03-05] MEDS: ATORVASTATIN 20 MG TABLET 80 MG PO (20:40)
--- NOTE | 2022-03-05 21:07 | PC.NURSE ---
Patient is alert and oriented. Breath sounds CTA with RA sat of 96%. HRR w/telemetry reading of SR w/1st degree AVB. Denies any current chest pain or SOB. Denies nausea. BT present and abdomen is soft. Denies dysuria, frequency or urgency with urination. Independent with mobility and is steady on feet; agrees to call for assistance if feeling dizzy or lightheaded. Is aware he will be NPO after 0000 for planned stress test in a.m. Denies any pain/discomfort. Fall risk score is moderate.
[2022-03-06] VITALS (7 sets, daily range): BP systolic 106–128; BP diastolic 62–71; PULSE 65–77; RESP 16–18; TEMP 36.8; O2SAT 95–97
--- NOTE | 2022-03-06 08:27 | P.PN_ITS ---
Subjective Subjective Date Patient Seen: 03/06/22 Time Patient Seen: 08:27 Interval history: Patient remains asymptomatic Seen by Cardiology yesterday who thought a myocardial perfusion imaging stress test should be sufficient to risk stratify him after reviewing details in person Also had echo done yesterday that was unremarkable as it turns out. 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 Non-Hodgkin's lymphoma (09/06/15) PSVT (paroxysmal supraventricular tachycardia) Stenosis of aorta (09/06/15) Surgical History S/P aortic valve replacement with metallic valve (~09/2018) S/P coronary artery stent placement (~01/2021) Status post heart valve replacement with mechanical valve Family History Father Crohn's disease Social History household members: spouse Smoking Status: Former smoker Assessment & Plan Assessment & Plan narrative: Patient with known coronary disease with episodes of chest pain that her quite suspicious although he did have symptoms long enough the 1 would think some of his objective findings such as troponin ECG etcetera should have been abnormal if indeed this was a cardiac source of symptoms which they were not Echocardiogram unremarkable Plan for myocardial perfusion imaging today. He did receive his initial resting injection as I was with him in the room this morning so that process as well underway. Hopefully if does not show evidence of significant ischemia he can be discharged later today. Cardiology recommended the addition of Imdur to his regimen, since nitro did seem to help and there are other etiologies beyond obstructive coronary disease that could be responsible for his symptoms that would not be found with a perfusion imaging study such as coronary spasm, etcetera. Time Spent With Patient Critical Care time: I spent a total of [] minutes of critical care time on this patient's care today; this time is exclusive of procedural time. Quality VTE Deep Vein Thrombosis/Pulmonary Embolism Present on Admission: No
[2022-03-06] MEDS: CLOPIDOGREL 75 MG TABLET PO (09:46)
[2022-03-06] MEDS: dilTIAZem CD 120 MG CAP PO (09:46)
[2022-03-06] MEDS: buPROPion XL 150 MG TAB PO (09:46)
[2022-03-06] MEDS: lisinopriL 5 MG TABLET 2.5 MG PO (09:46)
[2022-03-06] MEDS: SODIUM CHLORIDE 0.9% FLUSH 10 ML IV (09:47)
--- NOTE | 2022-03-06 12:01 | PM.TREADMILL ---
Cardiac Stress Test Report Referral & Results Date Patient Seen: 03/06/22 Time Patient Seen: 12:03 Requesting provider: Juan George Indication: Chest Pain Rest ECG: Sinus rhythm Procedure Note: Standard Zan protocol, Patient exercised for 7:40 kelby into stage 3 but patient was unable to achieve targer heart rate, test stopped due to fatigue and dyspnea Test converted to Lexiscan. After Lexiscan injection patient developed 3-4/10 sternum chest pain without radiation, lasting into recovery After Lexiscan injection had 1.5-2mm st depression in II, aVF, v4-V6 and T wave inversion in I and aVR. Patient complained of nausea after Lexiscan injection; 100 mg Aminoph IV given . Chest pain and nausea resolved after Aminoph injection Impression: Positive stress test Please note: Actual ECG tracings can be found in the PACS system.
--- NOTE | 2022-03-06 14:40 | PC.NURSE ---
Day shift - Pt had 15 beat run of vta and Dr. George was notified and he prescribed PO Isosorbide. dR GEORGE IS D/C pT TO HOME.
[2022-03-06] MEDS: ISOSORBIDE MONONITRATE ER 30 MG TABLET 60 MG PO (14:47)
--- NOTE | 2022-03-06 16:44 | P.DS_ITS ---
History of Present Illness History of Present Illness Date Patient Seen: 03/06/22 Time Patient Seen: 16:44 Chief complaint: Chest pain Narrative: 62-year-old male admitted from the [facility] Emergency Department because of chest pain Patient with known cardiac history including occlusive coronary disease with symptoms of chest brain shortness of breath with headache.? He said the pain is substernal does not radiate but has had some nausea.? [place] a little lightheaded.? Seems like he gets worse with activity even walking across the room is difficult for him.? He took 1 nitroglycerin before he came in and was given 3 additional nitro in the emergency department.? He does seem to think that made a substantial difference in his pain which is now completely absent ER evaluation was unremarkable with no EKG changes and troponin normal x2.? Cardiology was consulted over the phone they recommended he be admitted for stress testing His cardiac history is remarkable for severe aortic stenosis status post [place] mechanical valve replacement in September 2018 at the [facility] with long-term anticoagulation He has known coronary disease with disease including 80% stenosis in the first diagonal branch and disease in the left main artery which was treated with complex PCI at the [facility] in January of 2021.? He had a drug- eluting stent placed at that time Also has a history of an SVT status post ablation x3 I believe Discharge Providers Provider Date of admission: 03/04/22 11:42 Discharge Date: 03/06/22 Primary care physician: Juan George MD Consults: 03/04/22 13:02 Consult to Cardiology Routine Comment: Consulting Provider: Andres Winter Reason for consultation: chest pain Has provider been notified: No 03/05/22 10:08 Consult to Physician Routine Comment: Consulting Provider: Merry Houston Reason for consultation: CHest Pain Has provider been notified: Yes Discharge provider: Juan George MD Summary Hospital Course Discharge Diagnosis: 1. Chest pain and dyspnea, uncertain if cardiac etiology 2. Coronary artery disease 3. Status post aortic valve replacement with mechanical valve 4. Long-term anticoagulation with warfarin 5. History of PSVT 6. Chronic hepatitis C without coma Hospital Course: As above patient was admitted by the emergency department. Series of troponins and EKGs were unchanged. Patient had no additional symptoms. We were unable to initially obtained cardiac stress testing with perfusion imaging for several days because of a full nuclear medicine schedule. Discussion was held with patient's primary bread racker who thought given his prior significant left main/LAD disease cardiac catheterization was indicated. However we are unable to find a facility that could or would perform cardiac catheterization including [facility] where his primary bread racker has privileges. He was seen in consultation by Cardiology who agreed that he needs some sort of risk stratification and we went ahead and did a nuclear medicine perfusion imaging enhance cardiac stress test. Patient was able to exercise for greater than 7 minutes without significant symptoms. He was unable to achieve heart rate targets and so had Lexiscan administered which produced some chest symptoms including pain and dyspnea. His imaging actually showed evidence of some lateral wall ischemia consistent not with left sided disease but probably some circumflex which apparently is old unknown Therefore after consultation with patient's bread racker it was elected to send him home to continue on his usual medications with the addition of a long-acting nitrate in the form of isosorbide mononitrate 60 mg daily. Patient will be seen in close outpatient follow-up by cardiology Status at Discharge Cognitive/behavioral status at discharge: oriented Functional status at discharge: independent ambulation Overall status at discharge: patient is back to baseline Exam Vital Signs (past 8 hours): - 03/06/22 09:46 03/06/22 11:36 03/06/22 12:00 Temperature 98.3 F Pulse Rate 68 77 Respiratory Rate 16 Blood Pressure 112/66 128/71 Pulse Oximetry 96 96 Oxygen Delivery Method Room Air Oxygen Flow Rate 0 Objective Labs Result Diagrams: 03/04/22 07:52 03/04/22 07:52 [facility] Medical History Atrial tachycardia Chronic hepatitis C without hepatic coma (09/06/15) Cigarette smoker motivated to quit Coronary artery disease correction current use of anticoagulant therapy Non-Hodgkin's lymphoma (09/06/15) PSVT (paroxysmal supraventricular tachycardia) Stenosis of aorta (09/06/15) Surgical History S/P aortic valve replacement with metallic valve (~09/2018) S/P coronary artery stent placement (~01/2021) Status post heart valve replacement with mechanical valve Family History Father Crohn's disease Social History household members: spouse Smoking Status: Former smoker Discharge Assessment & Plan Assessment and Plan Plan of Treatment: Plan discharge to [facility] for cardiac catheterization under the care of Dr. Winter Discharge Plan Discharge Plan Patient Disposition: Home Discharge orders & Medications Prescriptions: New isosorbide mononitrate 60 mg tablet extended release 24 hr 60 mg PO DAILY Qty: 30 3RF Continued multivitamin Tablet 1 tab PO DAILY Qty: 0 0RF omeprazole 20 mg capsule,delayed release(DR/EC) 20 mg PO DAILY Qty: 90 3RF warfarin 5 mg tablet 12.5 mg PO DAILY Qty: 270 1RF Rx Instructions: 12.5 mg Thursday, Thursday, Thursday and 10 mg all other days, or as directed. diltiazem HCl 120 mg capsule,extended release 24hr 120 mg PO BID 0RF rosuvastatin 40 mg tablet 40 mg PO DAILY 0RF lisinopril 2.5 mg tablet 2.5 mg PO BID 0RF clopidogrel 75 mg tablet 75 mg PO DAILY 0RF Follow up/Referrals: Juan George MD [Primary Care Provider] - 03/27/22 10:30 am (appt:03/27 @ 1030 w/dr george please arrive 15 min prior to scheduled appointment time) Andres Winter MD [Physician] - 03/07/22 2:00 pm (appt:03/07 @ 2:00 please arive 15 min prior to scheduled appointment time your records have been faxed to dr winter office [facility] ) Discharge Health Status Multidrug resistant organism: No MDRO Diet/Activity/Treatments Diet: Diet as Tolerated Visit Report/Discharge Packet Instructions: DI for Chest Pain Discharge Data Primary Care Provider: Juan George Attending Provider: Juan George Quality VTE Deep Vein Thrombosis/Pulmonary Embolism Present on Admission: No
== END 2022-03-06 15:19 | disposition home or self-care (01) ==
LOC: ED 11:42 → AC 11:43
PROVIDERS: Admitting Provider Internal Medicine; Emergency Provider Emergency Medicine; PCP Internal Medicine; Referring Provider Emergency Medicine; Visit Provider Internal Medicine
DX: R07.9 Chest pain, unspecified (principal); R11.0 Nausea; R06.02 Shortness of breath; R51.9 Headache, unspecified; I25.10 Atherosclerotic heart disease of native coronary artery without angina pectoris; B18.2 Chronic viral hepatitis C; J44.9 Chronic obstructive pulmonary disease, unspecified; Z79.01 Long term (current) use of anticoagulants; Z95.818 Presence of other cardiac implants and grafts; Z95.2 Presence of prosthetic heart valve; Z20.822 Contact with and (suspected) exposure to COVID-19
CPT/HCPCS: 36415; 71045; 78452; 80053; 82550; 82553; 83690; 83735; 83880; 84484; 85025; 85610; 85730; 87635; 93005; 93010; 93017; 93306; 94760; 99217; 99219; 99225; 99284; C9803; G0378; A9502; J2785

== ENCOUNTER → 2022-03-22 15:16 | Outpatient (CLI) | payer OTHER, SELFPAY ==
[2022-03-20 12:49] VITALS: BMI 26.3
[2022-03-22 15:43] LABS: INR 1.7 (0.9-1.3); Prothrombin Time 18.9 SECONDS (10.1-12.7)
== END ==
PROVIDERS: PCP Internal Medicine; Referring Provider Internal Medicine; Visit Provider Internal Medicine
DX: Z79.01 Long term (current) use of anticoagulants (principal)
CPT/HCPCS: 36415; 85610

== ENCOUNTER → 2022-03-29 08:32 | Outpatient (CLI) | payer OTHER, SELFPAY ==
[2022-03-25 15:49] VITALS: BMI 26.3
[2022-03-29 09:48] LABS: INR 1.9 (0.9-1.3); Prothrombin Time 21.7 SECONDS (10.1-12.7)
== END ==
PROVIDERS: PCP Internal Medicine; Referring Provider Internal Medicine; Visit Provider Internal Medicine
DX: Z79.01 Long term (current) use of anticoagulants (principal)
CPT/HCPCS: 36415; 85610

== ENCOUNTER 2022-04-07 13:31 | Emergency (ER) | payer OTHER, SELFPAY ==
[2022-03-25 15:49] VITALS: BMI 26.3
[2022-04-07] VITALS (24 sets, daily range): BP systolic 113–168; BP diastolic 58–79; PULSE 55–69; RESP 12–20; TEMP 36.2; O2SAT 94–99; BMI 27.1
--- NOTE | 2022-04-07 13:41 | DI.RAD.S_ITS ---
PROCEDURE: XR CHEST 1V INDICATIONS: chest pain TECHNIQUE: One view of the chest was acquired. COMPARISON: [facility], CT, CT CHEST WO CON, 05/02/2021, 15:01. [facility], CR, XR CHEST 1V, 03/04/2022, 8:01. [facility], CR, XR CHEST 1V, 09/21/2021, 11:02. FINDINGS: Surgical changes and devices: Post median sternotomy. Lungs and pleura: Left upper lobe calcified nodule is unchanged. No pleural effusions or pneumothorax. Mediastinum: Mediastinal contours appear normal. Heart size is normal. Bones and chest wall: No suspicious bony lesions. Overlying soft tissues appear unremarkable. IMPRESSION: No acute cardiopulmonary abnormality. Left upper lobe calcified nodule appears similar. Dictated by: Nigel Son M.D. on 04/07/2022 at 14:06 Approved by: Nigel Son M.D. on 04/07/2022 at 14:11
[2022-04-07 14:07] LABS: Alanine Aminotransferase 25 IU/L (<50); Albumin 4.6 g/dL (3.5-5.0); Albumin Globulin Ratio 1.5 (1.0-2.8); Alkaline Phosphatase 73 U/L (38-126); Aspartate Aminotransferase 27 IU/L (17-59); BUN Creatinine Ratio 15.5 (6-22); Bilirubin Total 0.4 mg/dL (0.2-1.3); Blood Urea Nitrogen 17 mg/dL (9-20); Calcium 9.5 mg/dL (8.4-10.2); Carbon Dioxide 27 mmol/L (22-32); Chloride 105 mmol/L (98-107); Creatine Kinase 102 U/L (55-170); Estimated Glomerular Filt Rate > 60 mL/min (>60); Globulin 3.1 g/dL (1.7-4.1); Glucose 87 mg/dL (80-110); HEMOLYSIS < 15 (0-50); Lipase 78 U/L (23-300); Potassium 4.2 mmol/L (3.4-5.1); Sodium 139 mmol/L (137-145); Total Protein 7.7 g/dL (6.3-8.2)
[2022-04-07 14:08] LABS: Add Manual Diff / Slide Review NO; Basophils Absolute Auto 100 /uL (0-100); Basophils Percent Auto 0.6 % (0-2); Eosinophils Absolute Auto 500 /uL (0-450); Eosinophils Percent Auto 5.8 % (2-4); Hematocrit 40.3 % (41-53); Hemoglobin 13.7 g/dL (13.5-17.5); Lymphocytes Absolute Auto 1500 /uL (1100-4500); Mean Corpuscular Hemoglobin 29.7 PG (26-34); Mean Corpuscular Volume 87.5 fL (80-100); Monocytes Absolute Auto 800 /uL (0-900); Monocytes Percent Auto 8.6 % (3-14); Neutrophils Absolute Auto 6300 /uL (1500-7000); Platelet Count 288 X10^3/uL (150-400); Red Blood Cell Count 4.61 X10^6/uL (4.5-5.9); Red Cell Distribution Width 14.7 % (11.6-14.8); White Blood Cell Count 9.2 X10^3/uL (4.5-11.0)
[2022-04-07 14:18] LABS: Troponin I < 0.012 ng/mL (0.01-0.034)
[2022-04-07 14:22] LABS: CKMB % Relative Index 1.7 % (1.5-5.0); Creatine Kinase MB 1.69 ng/mL (<2.37)
[2022-04-07 14:52] LABS: COVID19 -Nasal RAPID Negative (Negative)
--- NOTE | 2022-04-07 14:56 | ED.CHESTPAIN ---
HPI - Chest Pain <Gurmeet Powell, DO - Last Filed: 04/12/22 01:39> General Chief Complaint: Chest Pain Stated Complaint: Chest pain, fatigue, SOB- sent by disease control inspector Time Seen by Provider: 04/07/22 14:35 Source: patient Mode of arrival: Ambulatory Limitations: no limitations History of Present Illness HPI narrative: 62-year-old male former smoker with history of SVT, COPD, severe aortic stenosis, [place] mechanical valve in [address] [facility] on long-term anticoagulation, known coronary artery disease with recent hospitalization for acute coronary syndrome presents at the request of his Cardiology group for evaluation of chest pain. He had been in his normal state of health this morning and was engaged in very minimal level is exertion which brought on 4/10 left-sided chest pressure with radiation into his neck. He did admits to associated fatigue, shortness of breath and minimal nausea. His symptoms improved slightly after 2 nitro, he called cardiology group and was referred here. On arrival he is still having to out of 10 chest pain but denies other cardiac equivalent. He did not take his aspirin yet today. He denies current shortness of breath, nausea, vomiting, fever or chills. Admitted here at [facility] on March 04 for chest pain and had subsequent stress testing noting lateral ischemia. He was seen by Cardiology and referral and taken for heart catheterization which noted critical ostial circumflex disease and recommendation was for transfer to the [facility] for PCI. He had outpatient appointment arranged for consultation this coming Thursday. Related Data Home Medications Medication Instructions Recorded Confirmed multivitamin 1 tab PO DAILY #0 04/07/11 04/07/22 diltiazem HCl 120 mg 120 mg PO BID cap 02/07/21 04/07/22 capsule,extended release 24 hr lisinopril 2.5 mg tablet 2.5 mg PO BID tab 02/07/21 04/07/22 rosuvastatin 40 mg tablet 40 mg PO DAILY 02/07/21 04/07/22 Previous Rx's Medication Instructions Recorded warfarin 5 mg tablet 12.5 mg PO DAILY #270 tab 02/12/22 isosorbide mononitrate 60 mg 60 mg PO DAILY #30 tab 03/06/22 tablet,extended release 24 hr alprazolam 0.25 mg tablet 0.25 mg PO TID PRN #20 tab 04/03/22 enoxaparin 100 mg/mL subcutaneous 90 mg (0.9 mL) SUBCUT Q12H #10 ml 04/10/22 syringe (Lovenox) Allergies Allergy/AdvReac Type Severity Reaction Status Date / Time No Known Drug Allergies Allergy Verified 04/07/22 13:40 Review of Systems <Gurmeet Saxena DO - Last Filed: 04/12/22 01:39> Review of Systems Narrative: GENERAL: See HPI HEENT: Denies sinus pain, ear pain, sore throat, difficulty swallowing, dizziness. RESPIRATORY: See HPI CARDIOVASCULAR: See HPI GASTROINTESTINAL: See HPI : Denies dysuria, frequency, incontinence, hematuria, urinary retention. MUSCULOSKELETAL: denies weakness, joint pain, or bony pain SKIN: Denies rash, skin lesions, or other NEUROLOGIC: Denies weakness, headache, numbness, change in speech, confusion, seizures, incoordination. PSYCHIATRIC: No concerning psychosocial issues. 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 Non-Hodgkin's lymphoma (09/06/15) PSVT (paroxysmal supraventricular tachycardia) Stenosis of aorta (09/06/15) Surgical History S/P aortic valve replacement with metallic valve (~09/2018) S/P coronary artery stent placement (~01/2021) Status post heart valve replacement with mechanical valve Family History Father Crohn's disease Social History household members: spouse Smoking Status: Former smoker Smoking Status: Former smoker alcohol intake frequency: holidays/special occasions only Substance Use Type: marijuana Exam <Gurmeet Saxena DO - Last Filed: 04/12/22 01:39> Narrative Exam Narrative: GENERAL: [62] year old patient appears stated age. Well-developed patient, in mild distress. HEAD: Atraumatic. Normocephalic. EYES: Pupils equal round and reactive. Extraocular motions intact. No scleral icterus. No injection or drainage. ENT: Nose without bleeding, purulent drainage. Throat without erythema, tonsillar hypertrophy or exudate. Airway patent. NECK: Trachea midline. Non tender CARDIOVASCULAR: Regular rate and rhythm with audible click consistent with mechanical valve RESPIRATORY: Clear to auscultation. Breath sounds equal bilaterally. No wheezes, rales, or rhonchi. GASTROINTESTINAL: Abdomen soft, non-tender, nondistended. EXTREMITIES: No edema or joint tenderness. BACK: Nontender without deformity or crepitance. No flank tenderness. NEURO: AOx3. SKIN: No rash or erythema of visible areas Initial Vital Signs Initial Vital Signs: Vital Signs Temperature 97.2 F L 04/07/22 13:34 Pulse Rate 69 04/07/22 13:34 Respiratory Rate 20 04/07/22 13:34 Blood Pressure 148/69 H 04/07/22 13:34 Pulse Oximetry 98 04/07/22 13:34 <Sofi Levin, DO - Last Filed: 04/09/22 19:31> Initial Vital Signs Initial Vital Signs: Vital Signs Temperature 97.2 F L 04/07/22 13:34 Pulse Rate 69 04/07/22 13:34 Respiratory Rate 20 04/07/22 13:34 Blood Pressure 148/69 H 04/07/22 13:34 Pulse Oximetry 98 04/07/22 13:34 <Светлана Knapp DO - Last Filed: 04/10/22 07:57> Initial Vital Signs Initial Vital Signs: Vital Signs Temperature 97.2 F L 04/07/22 13:34 Pulse Rate 69 04/07/22 13:34 Respiratory Rate 20 04/07/22 13:34 Blood Pressure 148/69 H 04/07/22 13:34 Pulse Oximetry 98 04/07/22 13:34 Course <Gurmeet Saxena DO - Last Filed: 04/12/22 01:39> Orders Ordered: Discontinued Medications Aspirin (Aspirin 81 Mg Chew Tab) 324 mg PO NOW ONE Stop: 04/07/22 14:58 Last Admin: 04/07/22 15:11 Dose: 324 mg Documented by: ATAYLOR Isosorbide Mononitrate (Isosorbide Mononitrate Er 30 Mg Tablet) 60 mg PO DAILY [facility] [place] Last Admin: 04/09/22 08:10 Dose: 60 mg Documented by: Admin: 04/08/22 08:23 Dose: 60 mg Documented by: MARCELL Lisinopril (Lisinopril 5 Mg Tablet) 2.5 mg PO BID [facility] Last Admin: 04/09/22 08:09 Dose: 2.5 mg Documented by: Admin: 04/08/22 22:23 Dose: 2.5 mg Documented by: Admin: 04/08/22 08:23 Dose: 2.5 mg Documented by: Admin: 04/07/22 23:34 Dose: 2.5 mg Documented by: MARANDA Lorazepam (Lorazepam 2 Mg/Ml Inj) 0.5 mg IV Q4HR PRN PRN Reason: Anxiety Last Admin: 04/09/22 12:52 Dose: 0.5 mg Documented by: Admin: 04/09/22 08:10 Dose: 0.5 mg Documented by: Admin: 04/08/22 16:16 Dose: 0.5 mg Documented by: NIKA Metoprolol Tartrate (Metoprolol Ir 25 Mg Tablet) 25 mg PO BID [facility] [place] Last Admin: 04/09/22 08:10 Dose: 25 mg Documented by: Admin: 04/08/22 22:26 Dose: 25 mg Documented by: Admin: 04/08/22 08:23 Dose: 25 mg Documented by: MARCELL Nitroglycerin (Nitroglycerin 0.4 Mg Sl Tab) 0.4 mg SL [id number] PRN PRN Reason: Chest Pain Last Admin: 04/07/22 16:17 Dose: 0.4 mg Documented by: Admin: 04/07/22 15:30 Dose: 0.4 mg Documented by: Admin: 04/07/22 15:12 Dose: 0.4 mg Documented by: MARANDA Warfarin Sodium (Warfarin 5 Mg Tablet) 12.5 mg PO NOW ONE Stop: 04/07/22 17:56 Last Admin: 04/07/22 18:04 Dose: Not Given Documented by: MARANDA Warfarin Sodium (Warfarin 5 Mg Tablet) 12.5 mg PO DAILY [facility] [place] Last Admin: 04/08/22 08:26 Dose: 10 mg Documented by: MARCELL Reevaluation(s) Reevaluation #1: Patient is pain-free after our nitro and rest Time: 17:00 Consultations Consultation #1: Steps taken to initiate transfer for high-risk PCI Time: 15:14 Consultation #2: call from Cardiology at . Prep discussed the clinical course including patient's presentation today, labs, EKGs, recent heart catheterization at [facility] and upcoming consultation. She is in agreement that patient is appropriate candidate for transfer, however they are currently not beds available. They will stay in close contact regarding bed availability. We discussed patient's medications and recommendation is against any heparin given patient's lack of occlusive findings on EKG, and negative troponin. She does recommend maximizing patient has nitrates and states we may treat with short acting nitrates or consider increasing his Imdur. Additionally, she recommends holding diltiazem and switching to metoprolol to maximize antianginal medications. Time: 16:12 Vital Signs Vital signs: Vital Signs - 8 hr 04/09/22 11:30 04/09/22 12:00 04/09/22 12:30 Pulse Rate 66 66 68 Respiratory Rate 17 20 Blood Pressure Pulse Oximetry 96 04/09/22 12:31 04/09/22 13:00 Pulse Rate 69 69 Respiratory Rate 18 19 Blood Pressure 115/64 117/64 Pulse Oximetry 95 99 <Sofi Levin DO - Last Filed: 04/09/22 19:31> Orders Ordered: Discontinued Medications Aspirin (Aspirin 81 Mg Chew Tab) 324 mg PO NOW ONE Stop: 04/07/22 14:58 Last Admin: 04/07/22 15:11 Dose: 324 mg Documented by: MARANDA Isosorbide Mononitrate (Isosorbide Mononitrate Er 30 Mg Tablet) 60 mg PO DAILY [facility] [place] Last Admin: 04/09/22 08:10 Dose: 60 mg Documented by: Admin: 04/08/22 08:23 Dose: 60 mg Documented by: MARCELL Lisinopril (Lisinopril 5 Mg Tablet) 2.5 mg PO BID [facility] [place] Last Admin: 04/09/22 08:09 Dose: 2.5 mg Documented by: Admin: 04/08/22 22:23 Dose: 2.5 mg Documented by: Admin: 04/08/22 08:23 Dose: 2.5 mg Documented by: Admin: 04/07/22 23:34 Dose: 2.5 mg Documented by: MARANDA Lorazepam (Lorazepam 2 Mg/Ml Inj) 0.5 mg IV Q4HR PRN PRN Reason: Anxiety Last Admin: 04/09/22 12:52 Dose: 0.5 mg Documented by: Admin: 04/09/22 08:10 Dose: 0.5 mg Documented by: Admin: 04/08/22 16:16 Dose: 0.5 mg Documented by: NIKA Metoprolol Tartrate (Metoprolol Ir 25 Mg Tablet) 25 mg PO BID [facility] [place] Last Admin: 04/09/22 08:10 Dose: 25 mg Documented by: Admin: 04/08/22 22:26 Dose: 25 mg Documented by: Admin: 04/08/22 08:23 Dose: 25 mg Documented by: MARCELL Nitroglycerin (Nitroglycerin 0.4 Mg Sl Tab) 0.4 mg SL [id number] PRN PRN Reason: Chest Pain Last Admin: 04/07/22 16:17 Dose: 0.4 mg Documented by: Admin: 04/07/22 15:30 Dose: 0.4 mg Documented by: Admin: 04/07/22 15:12 Dose: 0.4 mg Documented by: MARANDA Warfarin Sodium (Warfarin 5 Mg Tablet) 12.5 mg PO NOW ONE Stop: 04/07/22 17:56 Last Admin: 04/07/22 18:04 Dose: Not Given Documented by: MARANDA Warfarin Sodium (Warfarin 5 Mg Tablet) 12.5 mg PO DAILY [facility] Last Admin: 04/08/22 08:26 Dose: 10 mg Documented by: MARCELL Vital Signs Vital signs: Vital Signs - 8 hr 04/09/22 11:30 04/09/22 12:00 04/09/22 12:30 Pulse Rate 66 66 68 Respiratory Rate 17 20 Blood Pressure Pulse Oximetry 96 04/09/22 12:31 04/09/22 13:00 Pulse Rate 69 69 Respiratory Rate 18 19 Blood Pressure 115/64 117/64 Pulse Oximetry 95 99 <Светлана Knapp DO - Last Filed: 04/10/22 07:57> Orders Ordered: Discontinued Medications Aspirin (Aspirin 81 Mg Chew Tab) 324 mg PO NOW ONE Stop: 04/07/22 14:58 Last Admin: 04/07/22 15:11 Dose: 324 mg Documented by: MARANDA Isosorbide Mononitrate (Isosorbide Mononitrate Er 30 Mg Tablet) 60 mg PO DAILY [facility] [place] Last Admin: 04/09/22 08:10 Dose: 60 mg Documented by: Admin: 04/08/22 08:23 Dose: 60 mg Documented by: MARCELL Lisinopril (Lisinopril 5 Mg Tablet) 2.5 mg PO BID [facility] [place] Last Admin: 04/09/22 08:09 Dose: 2.5 mg Documented by: Admin: 04/08/22 22:23 Dose: 2.5 mg Documented by: Admin: 04/08/22 08:23 Dose: 2.5 mg Documented by: Admin: 04/07/22 23:34 Dose: 2.5 mg Documented by: MARANDA Lorazepam (Lorazepam 2 Mg/Ml Inj) 0.5 mg IV Q4HR PRN PRN Reason: Anxiety Last Admin: 04/09/22 12:52 Dose: 0.5 mg Documented by: Admin: 04/09/22 08:10 Dose: 0.5 mg Documented by: Admin: 04/08/22 16:16 Dose: 0.5 mg Documented by: NIKA Metoprolol Tartrate (Metoprolol Ir 25 Mg Tablet) 25 mg PO BID [facility] [place] Last Admin: 04/09/22 08:10 Dose: 25 mg Documented by: Admin: 04/08/22 22:26 Dose: 25 mg Documented by: Admin: 04/08/22 08:23 Dose: 25 mg Documented by: MARCELL Nitroglycerin (Nitroglycerin 0.4 Mg Sl Tab) 0.4 mg SL [id number] PRN PRN Reason: Chest Pain Last Admin: 04/07/22 16:17 Dose: 0.4 mg Documented by: Admin: 04/07/22 15:30 Dose: 0.4 mg Documented by: Admin: 04/07/22 15:12 Dose: 0.4 mg Documented by: ATAYLOR Warfarin Sodium (Warfarin 5 Mg Tablet) 12.5 mg PO NOW ONE Stop: 04/07/22 17:56 Last Admin: 04/07/22 18:04 Dose: Not Given Documented by: ATAYLOR Warfarin Sodium (Warfarin 5 Mg Tablet) 12.5 mg PO DAILY [facility] [place] Last Admin: 04/08/22 08:26 Dose: 10 mg Documented by: MARCELL Vital Signs Vital signs: Vital Signs - 8 hr 04/09/22 11:30 04/09/22 12:00 04/09/22 12:30 Pulse Rate 66 66 68 Respiratory Rate 17 20 Blood Pressure Pulse Oximetry 96 04/09/22 12:31 04/09/22 13:00 Pulse Rate 69 69 Respiratory Rate 18 19 Blood Pressure 115/64 117/64 Pulse Oximetry 95 99 MDM - Chest Pain <Gurmeet Saxena DO - Last Filed: 04/12/22 01:39> Lab Data Result diagrams: 04/08/22 18:10 04/08/22 18:10 Labs: Lab Results 04/07/22 04/07/22 04/07/22 Range/Units 13:45 13:45 13:50 WBC 9.2 (4.5-11.0) X10^3/uL RBC 4.61 (4.5-5.9) X10^6/uL Hgb 13.7 (13.5-17.5) g/dL Hct 40.3 L (41-53) % MCV 87.5 (80-100) fL MCH 29.7 (26-34) PG MCHC 34.0 (30-36) % RDW 14.7 (11.6-14.8) % Plt Count 288 (150-400) X10^3/uL Neut % (Auto) 69.0 (50-75) % Lymph % (Auto) 16.0 L (25-40) % [place] % (Auto) 8.6 (3-14) % Eos % (Auto) 5.8 H (2-4) % Baso % (Auto) 0.6 (0-2) % Neut # (Auto) 6300 (6994-1499) /uL Lymph # (Auto) 1500 (2920-7783) /uL [place] # (Auto) 800 (0-900) /uL Eos # (Auto) 500 H (0-450) /uL Baso # (Auto) 100 (0-100) /uL PT (10.1-12.7) SECONDS INR (0.9-1.3) Sodium 139 (137-145) mmol/L Potassium 4.2 (3.4-5.1) mmol/L Chloride 105 (98-107) mmol/L Carbon Dioxide 27 (22-32) mmol/L BUN 17 (9-20) mg/dL Creatinine 1.10 (0.66-1.25) mg/dL Estimated GFR > 60 (>60) mL/min BUN/Creatinine Ratio 15.5 (6-22) Glucose 87 (80-110) mg/dL Calcium 9.5 (8.4-10.2) mg/dL Magnesium 2.0 (1.6-2.3) mg/dL Total Bilirubin 0.4 (0.2-1.3) mg/dL AST 27 (17-59) IU/L ALT 25 (<50) IU/L Alkaline Phosphatase 73 (38-126) U/L Total Creatine Kinase 102 (55-170) U/L CK-MB (CK-2) 1.69 (<2.37) ng/mL CK-MB (CK-2) Rel Index 1.7 (1.5-5.0) % Troponin I < 0.012 (0.01-0.034) ng/mL Total Protein 7.7 (6.3-8.2) g/dL Albumin 4.6 (3.5-5.0) g/dL Globulin 3.1 (1.7-4.1) g/dL Albumin/Globulin Ratio 1.5 (1.0-2.8) Lipase 78 (23-300) U/L SARS-CoV-2 (PCR) Negative (Negative) 04/07/22 04/08/22 04/08/22 Range/Units 18:11 05:55 18:10 WBC 7.8 (4.5-11.0) X10^3/uL RBC 4.47 L (4.5-5.9) X10^6/uL Hgb 13.2 L (13.5-17.5) g/dL Hct 39.0 L (41-53) % MCV 87.3 (80-100) fL MCH 29.7 (26-34) PG MCHC 34.0 (30-36) % RDW 14.4 (11.6-14.8) % Plt Count 274 (150-400) X10^3/uL Neut % (Auto) 65.3 (50-75) % Lymph % (Auto) 20.5 L (25-40) % [place] % (Auto) 5.2 (3-14) % Eos % (Auto) 8.0 H (2-4) % Baso % (Auto) 1.0 (0-2) % Neut # (Auto) 5100 (5239-7862) /uL Lymph # (Auto) 1600 (9158-1964) /uL [place] # (Auto) 400 (0-900) /uL Eos # (Auto) 600 H (0-450) /uL Baso # (Auto) 100 (0-100) /uL PT (10.1-12.7) SECONDS INR (0.9-1.3) Sodium (137-145) mmol/L Potassium (3.4-5.1) mmol/L Chloride (98-107) mmol/L Carbon Dioxide (22-32) mmol/L BUN (9-20) mg/dL Creatinine (0.66-1.25) mg/dL Estimated GFR (>60) mL/min BUN/Creatinine Ratio (6-22) Glucose (80-110) mg/dL Calcium (8.4-10.2) mg/dL Magnesium (1.6-2.3) mg/dL Total Bilirubin (0.2-1.3) mg/dL AST (17-59) IU/L ALT (<50) IU/L Alkaline Phosphatase (38-126) U/L Total Creatine Kinase 85 (55-170) U/L CK-MB (CK-2) TNP (<2.37) ng/mL CK-MB (CK-2) Rel Index TNP (1.5-5.0) % Troponin I < 0.012 < 0.012 (0.01-0.034) ng/mL Total Protein (6.3-8.2) g/dL Albumin (3.5-5.0) g/dL Globulin (1.7-4.1) g/dL Albumin/Globulin Ratio (1.0-2.8) Lipase (23-300) U/L SARS-CoV-2 (PCR) (Negative) 04/08/22 04/08/22 Range/Units 18:10 18:10 WBC (4.5-11.0) X10^3/uL RBC (4.5-5.9) X10^6/uL Hgb (13.5-17.5) g/dL Hct (41-53) % MCV (80-100) fL MCH (26-34) PG MCHC (30-36) % RDW (11.6-14.8) % Plt Count (150-400) X10^3/uL Neut % (Auto) (50-75) % Lymph % (Auto) (25-40) % [place] % (Auto) (3-14) % Eos % (Auto) (2-4) % Baso % (Auto) (0-2) % Neut # (Auto) (5116-3674) /uL Lymph # (Auto) (6389-9263) /uL [place] # (Auto) (0-900) /uL Eos # (Auto) (0-450) /uL Baso # (Auto) (0-100) /uL PT 41.3 H (10.1-12.7) SECONDS INR 3.6 H (0.9-1.3) Sodium 136 L (137-145) mmol/L Potassium 3.9 (3.4-5.1) mmol/L Chloride 106 (98-107) mmol/L Carbon Dioxide 24 (22-32) mmol/L BUN 25 H (9-20) mg/dL Creatinine 1.09 (0.66-1.25) mg/dL Estimated GFR > 60 (>60) mL/min BUN/Creatinine Ratio 22.9 H (6-22) Glucose 155 H (80-110) mg/dL Calcium 8.7 (8.4-10.2) mg/dL Magnesium (1.6-2.3) mg/dL Total Bilirubin (0.2-1.3) mg/dL AST (17-59) IU/L ALT (<50) IU/L Alkaline Phosphatase (38-126) U/L Total Creatine Kinase (55-170) U/L CK-MB (CK-2) (<2.37) ng/mL CK-MB (CK-2) Rel Index (1.5-5.0) % Troponin I (0.01-0.034) ng/mL Total Protein (6.3-8.2) g/dL Albumin (3.5-5.0) g/dL Globulin (1.7-4.1) g/dL Albumin/Globulin Ratio (1.0-2.8) Lipase (23-300) U/L SARS-CoV-2 (PCR) (Negative) ECG Data Interpretation: EKG is normal sinus rhythm rate [71 ] and free of any signs of ischemia or ectopy. No ST segmental elevation or depression. No T wave inversions. LVH MDM Narrative Medical decision making narrative: 1700 -patient's blood pressure currently in the 120s with a pulse in the upper 50s, this is baseline for her. Nighttime medications written, will currently hold lisinopril <Sofi Levin DO - Last Filed: 04/09/22 19:31> Lab Data Labs: Lab Results 04/07/22 04/07/22 04/07/22 Range/Units 13:45 13:45 13:50 WBC 9.2 (4.5-11.0) X10^3/uL RBC 4.61 (4.5-5.9) X10^6/uL Hgb 13.7 (13.5-17.5) g/dL Hct 40.3 L (41-53) % MCV 87.5 (80-100) fL MCH 29.7 (26-34) PG MCHC 34.0 (30-36) % RDW 14.7 (11.6-14.8) % Plt Count 288 (150-400) X10^3/uL Neut % (Auto) 69.0 (50-75) % Lymph % (Auto) 16.0 L (25-40) % [place] % (Auto) 8.6 (3-14) % Eos % (Auto) 5.8 H (2-4) % Baso % (Auto) 0.6 (0-2) % Neut # (Auto) 6300 (9348-5187) /uL Lymph # (Auto) 1500 (6737-6941) /uL [place] # (Auto) 800 (0-900) /uL Eos # (Auto) 500 H (0-450) /uL Baso # (Auto) 100 (0-100) /uL PT (10.1-12.7) SECONDS INR (0.9-1.3) Sodium 139 (137-145) mmol/L Potassium 4.2 (3.4-5.1) mmol/L Chloride 105 (98-107) mmol/L Carbon Dioxide 27 (22-32) mmol/L BUN 17 (9-20) mg/dL Creatinine 1.10 (0.66-1.25) mg/dL Estimated GFR > 60 (>60) mL/min BUN/Creatinine Ratio 15.5 (6-22) Glucose 87 (80-110) mg/dL Calcium 9.5 (8.4-10.2) mg/dL Magnesium 2.0 (1.6-2.3) mg/dL Total Bilirubin 0.4 (0.2-1.3) mg/dL AST 27 (17-59) IU/L ALT 25 (<50) IU/L Alkaline Phosphatase 73 (38-126) U/L Total Creatine Kinase 102 (55-170) U/L CK-MB (CK-2) 1.69 (<2.37) ng/mL CK-MB (CK-2) Rel Index 1.7 (1.5-5.0) % Troponin I < 0.012 (0.01-0.034) ng/mL Total Protein 7.7 (6.3-8.2) g/dL Albumin 4.6 (3.5-5.0) g/dL Globulin 3.1 (1.7-4.1) g/dL Albumin/Globulin Ratio 1.5 (1.0-2.8) Lipase 78 (23-300) U/L SARS-CoV-2 (PCR) Negative (Negative) 04/07/22 04/08/22 04/08/22 Range/Units 18:11 05:55 18:10 WBC 7.8 (4.5-11.0) X10^3/uL RBC 4.47 L (4.5-5.9) X10^6/uL Hgb 13.2 L (13.5-17.5) g/dL Hct 39.0 L (41-53) % MCV 87.3 (80-100) fL MCH 29.7 (26-34) PG MCHC 34.0 (30-36) % RDW 14.4 (11.6-14.8) % Plt Count 274 (150-400) X10^3/uL Neut % (Auto) 65.3 (50-75) % Lymph % (Auto) 20.5 L (25-40) % [place] % (Auto) 5.2 (3-14) % Eos % (Auto) 8.0 H (2-4) % Baso % (Auto) 1.0 (0-2) % Neut # (Auto) 5100 (8128-5585) /uL Lymph # (Auto) 1600 (5738-3766) /uL [place] # (Auto) 400 (0-900) /uL Eos # (Auto) 600 H (0-450) /uL Baso # (Auto) 100 (0-100) /uL PT (10.1-12.7) SECONDS INR (0.9-1.3) Sodium (137-145) mmol/L Potassium (3.4-5.1) mmol/L Chloride (98-107) mmol/L Carbon Dioxide (22-32) mmol/L BUN (9-20) mg/dL Creatinine (0.66-1.25) mg/dL Estimated GFR (>60) mL/min BUN/Creatinine Ratio (6-22) Glucose (80-110) mg/dL Calcium (8.4-10.2) mg/dL Magnesium (1.6-2.3) mg/dL Total Bilirubin (0.2-1.3) mg/dL AST (17-59) IU/L ALT (<50) IU/L Alkaline Phosphatase (38-126) U/L Total Creatine Kinase 85 (55-170) U/L CK-MB (CK-2) TNP (<2.37) ng/mL CK-MB (CK-2) Rel Index TNP (1.5-5.0) % Troponin I < 0.012 < 0.012 (0.01-0.034) ng/mL Total Protein (6.3-8.2) g/dL Albumin (3.5-5.0) g/dL Globulin (1.7-4.1) g/dL Albumin/Globulin Ratio (1.0-2.8) Lipase (23-300) U/L SARS-CoV-2 (PCR) (Negative) 04/08/22 04/08/22 Range/Units 18:10 18:10 WBC (4.5-11.0) X10^3/uL RBC (4.5-5.9) X10^6/uL Hgb (13.5-17.5) g/dL Hct (41-53) % MCV (80-100) fL MCH (26-34) PG MCHC (30-36) % RDW (11.6-14.8) % Plt Count (150-400) X10^3/uL Neut % (Auto) (50-75) % Lymph % (Auto) (25-40) % [place] % (Auto) (3-14) % Eos % (Auto) (2-4) % Baso % (Auto) (0-2) % Neut # (Auto) (1942-7127) /uL Lymph # (Auto) (7112-6077) /uL [place] # (Auto) (0-900) /uL Eos # (Auto) (0-450) /uL Baso # (Auto) (0-100) /uL PT 41.3 H (10.1-12.7) SECONDS INR 3.6 H (0.9-1.3) Sodium 136 L (137-145) mmol/L Potassium 3.9 (3.4-5.1) mmol/L Chloride 106 (98-107) mmol/L Carbon Dioxide 24 (22-32) mmol/L BUN 25 H (9-20) mg/dL Creatinine 1.09 (0.66-1.25) mg/dL Estimated GFR > 60 (>60) mL/min BUN/Creatinine Ratio 22.9 H (6-22) Glucose 155 H (80-110) mg/dL Calcium 8.7 (8.4-10.2) mg/dL Magnesium (1.6-2.3) mg/dL Total Bilirubin (0.2-1.3) mg/dL AST (17-59) IU/L ALT (<50) IU/L Alkaline Phosphatase (38-126) U/L Total Creatine Kinase (55-170) U/L CK-MB (CK-2) (<2.37) ng/mL CK-MB (CK-2) Rel Index (1.5-5.0) % Troponin I (0.01-0.034) ng/mL Total Protein (6.3-8.2) g/dL Albumin (3.5-5.0) g/dL Globulin (1.7-4.1) g/dL Albumin/Globulin Ratio (1.0-2.8) Lipase (23-300) U/L SARS-CoV-2 (PCR) (Negative) MDM Narrative Medical decision making narrative: 1700 -patient's blood pressure currently in the 120s with a pulse in the upper 50s, this is baseline for her. Nighttime medications written, will currently hold lisinopril 04/08/22 ([place]) patient is signed out to me by Dr. Joshua and seen evaluated patient myself. Resting comfortably eating breakfast. No longer having any chest discomfort. I have reviewed notes. It appears patient is on the [facility] waiting list for complicated cardiac issues. [facility] states they will not have bed available until tomorrow. 04/09/22 (Ra): Patient signed out to me by Dr. Levin. Patient evaluated by myself. Patient is ambulated to the department several times throughout the night no chest discomfort or pain. Patient's labs repeated and reviewed patient's INR was 3.6 and warfarin was held, hemoglobin appears stable at 13.2 with a prior 13.7 the day before. BUN slightly elevated at 25. Glucose is 155. Patient receiving medications including metoprolol, lisinopril and isosorbide. [facility] did call overnight, no beds actively available at this time. Patient signed back out to Dr. Levin. 04/09/22 ([place]am) patient has now been in the emergency department for 48 hours. He has had no further episodes of chest pain 2- troponins INR is noted to be elevated Coumadin was held. 1130-Spoke with on-call Cardiology at this morning, states that of patient has no EKG changes 2- troponins can be released and discharged home Patient actually has an appointment with his disease control inspector Dr. Celis at 12:45 p.m. it is a telephone call. Patient and I both spoke with Dr. Celis. He agrees that patient can be released from the emergency department and he will arrange outpatient with follow-up heart catheterization. Patient is quite excited to go home <Светлана Knapp, - Last Filed: 04/10/22 07:57> Lab Data Labs: Lab Results 04/07/22 04/07/22 04/07/22 Range/Units 13:45 13:45 13:50 WBC 9.2 (4.5-11.0) X10^3/uL RBC 4.61 (4.5-5.9) X10^6/uL Hgb 13.7 (13.5-17.5) g/dL Hct 40.3 L (41-53) % MCV 87.5 (80-100) fL MCH 29.7 (26-34) PG MCHC 34.0 (30-36) % RDW 14.7 (11.6-14.8) % Plt Count 288 (150-400) X10^3/uL Neut % (Auto) 69.0 (50-75) % Lymph % (Auto) 16.0 L (25-40) % [place] % (Auto) 8.6 (3-14) % Eos % (Auto) 5.8 H (2-4) % Baso % (Auto) 0.6 (0-2) % Neut # (Auto) 6300 (8262-0104) /uL Lymph # (Auto) 1500 (7724-5368) /uL [place] # (Auto) 800 (0-900) /uL Eos # (Auto) 500 H (0-450) /uL Baso # (Auto) 100 (0-100) /uL PT (10.1-12.7) SECONDS INR (0.9-1.3) Sodium 139 (137-145) mmol/L Potassium 4.2 (3.4-5.1) mmol/L Chloride 105 (98-107) mmol/L Carbon Dioxide 27 (22-32) mmol/L BUN 17 (9-20) mg/dL Creatinine 1.10 (0.66-1.25) mg/dL Estimated GFR > 60 (>60) mL/min BUN/Creatinine Ratio 15.5 (6-22) Glucose 87 (80-110) mg/dL Calcium 9.5 (8.4-10.2) mg/dL Magnesium 2.0 (1.6-2.3) mg/dL Total Bilirubin 0.4 (0.2-1.3) mg/dL AST 27 (17-59) IU/L ALT 25 (<50) IU/L Alkaline Phosphatase 73 (38-126) U/L Total Creatine Kinase 102 (55-170) U/L CK-MB (CK-2) 1.69 (<2.37) ng/mL CK-MB (CK-2) Rel Index 1.7 (1.5-5.0) % Troponin I < 0.012 (0.01-0.034) ng/mL Total Protein 7.7 (6.3-8.2) g/dL Albumin 4.6 (3.5-5.0) g/dL Globulin 3.1 (1.7-4.1) g/dL Albumin/Globulin Ratio 1.5 (1.0-2.8) Lipase 78 (23-300) U/L SARS-CoV-2 (PCR) Negative (Negative) 04/07/22 04/08/22 04/08/22 Range/Units 18:11 05:55 18:10 WBC 7.8 (4.5-11.0) X10^3/uL RBC 4.47 L (4.5-5.9) X10^6/uL Hgb 13.2 L (13.5-17.5) g/dL Hct 39.0 L (41-53) % MCV 87.3 (80-100) fL MCH 29.7 (26-34) PG MCHC 34.0 (30-36) % RDW 14.4 (11.6-14.8) % Plt Count 274 (150-400) X10^3/uL Neut % (Auto) 65.3 (50-75) % Lymph % (Auto) 20.5 L (25-40) % [place] % (Auto) 5.2 (3-14) % Eos % (Auto) 8.0 H (2-4) % Baso % (Auto) 1.0 (0-2) % Neut # (Auto) 5100 (7019-4941) /uL Lymph # (Auto) 1600 (3062-6754) /uL [place] # (Auto) 400 (0-900) /uL Eos # (Auto) 600 H (0-450) /uL Baso # (Auto) 100 (0-100) /uL PT (10.1-12.7) SECONDS INR (0.9-1.3) Sodium (137-145) mmol/L Potassium (3.4-5.1) mmol/L Chloride (98-107) mmol/L Carbon Dioxide (22-32) mmol/L BUN (9-20) mg/dL Creatinine (0.66-1.25) mg/dL Estimated GFR (>60) mL/min BUN/Creatinine Ratio (6-22) Glucose (80-110) mg/dL Calcium (8.4-10.2) mg/dL Magnesium (1.6-2.3) mg/dL Total Bilirubin (0.2-1.3) mg/dL AST (17-59) IU/L ALT (<50) IU/L Alkaline Phosphatase (38-126) U/L Total Creatine Kinase 85 (55-170) U/L CK-MB (CK-2) TNP (<2.37) ng/mL CK-MB (CK-2) Rel Index TNP (1.5-5.0) % Troponin I < 0.012 < 0.012 (0.01-0.034) ng/mL Total Protein (6.3-8.2) g/dL Albumin (3.5-5.0) g/dL Globulin (1.7-4.1) g/dL Albumin/Globulin Ratio (1.0-2.8) Lipase (23-300) U/L SARS-CoV-2 (PCR) (Negative) 04/08/22 04/08/22 Range/Units 18:10 18:10 WBC (4.5-11.0) X10^3/uL RBC (4.5-5.9) X10^6/uL Hgb (13.5-17.5) g/dL Hct (41-53) % MCV (80-100) fL MCH (26-34) PG MCHC (30-36) % RDW (11.6-14.8) % Plt Count (150-400) X10^3/uL Neut % (Auto) (50-75) % Lymph % (Auto) (25-40) % [place] % (Auto) (3-14) % Eos % (Auto) (2-4) % Baso % (Auto) (0-2) % Neut # (Auto) (5058-9334) /uL Lymph # (Auto) (5199-7909) /uL [place] # (Auto) (0-900) /uL Eos # (Auto) (0-450) /uL Baso # (Auto) (0-100) /uL PT 41.3 H (10.1-12.7) SECONDS INR 3.6 H (0.9-1.3) Sodium 136 L (137-145) mmol/L Potassium 3.9 (3.4-5.1) mmol/L Chloride 106 (98-107) mmol/L Carbon Dioxide 24 (22-32) mmol/L BUN 25 H (9-20) mg/dL Creatinine 1.09 (0.66-1.25) mg/dL Estimated GFR > 60 (>60) mL/min BUN/Creatinine Ratio 22.9 H (6-22) Glucose 155 H (80-110) mg/dL Calcium 8.7 (8.4-10.2) mg/dL Magnesium (1.6-2.3) mg/dL Total Bilirubin (0.2-1.3) mg/dL AST (17-59) IU/L ALT (<50) IU/L Alkaline Phosphatase (38-126) U/L Total Creatine Kinase (55-170) U/L CK-MB (CK-2) (<2.37) ng/mL CK-MB (CK-2) Rel Index (1.5-5.0) % Troponin I (0.01-0.034) ng/mL Total Protein (6.3-8.2) g/dL Albumin (3.5-5.0) g/dL Globulin (1.7-4.1) g/dL Albumin/Globulin Ratio (1.0-2.8) Lipase (23-300) U/L SARS-CoV-2 (PCR) (Negative) [facility] Narrative Medical decision making narrative: 1700 -patient's blood pressure currently in the 120s with a pulse in the upper 50s, this is baseline for her. Nighttime medications written, will currently hold lisinopril 04/08/22 (Poonam) patient is signed out to me by Dr. Joshua and seen evaluated patient myself. Resting comfortably eating breakfast. No longer having any chest discomfort. I have reviewed notes. It appears patient is on the [facility] waiting list for complicated cardiac issues. [facility] states they will not have bed available until tomorrow. 04/09/22 (Ra): Patient signed out to me by Dr. Levin. Patient evaluated by myself. Patient is ambulated to the department several times throughout the night no chest discomfort or pain. Patient's labs repeated and reviewed patient's INR was 3.6 and warfarin was held, hemoglobin appears stable at 13.2 with a prior 13.7 the day before. BUN slightly elevated at 25. Glucose is 155. Patient receiving medications including metoprolol, lisinopril and isosorbide. [facility] did call overnight, no beds actively available at this time. Patient signed back out to Dr. Levin. Discharge Plan Departure Patient Disposition: Home Clinical Impression: Coronary artery disease Instructions: DI for Acute Coronary Syndrome, DI for Angina Activity Restrictions/Additional Instructions: Thank you so much for your patients over the last 2 days. I am sorry it has been a difficult stay for you. *You have been diagnosed with coronary artery disease *What to do: Please follow-up with your disease control inspector at [facility]. *Continue to take medications as directed *Follow up with your primary care provider in 2-3 days or call [phone] Dr. Celis, his office will call you *Return to ER if you should have increasing chest pain shortness of breath, or any new, worsening or concerning symptoms Prescriptions: No Action multivitamin Tablet 1 tab PO DAILY Qty: 0 0RF warfarin 5 mg tablet 12.5 mg PO DAILY Qty: 270 1RF Rx Instructions: 12.5 mg Thursday, Thursday, Thursday and 10 mg all other days, or as directed. enoxaparin [Lovenox] 100 mg/mL syringe 90 mg SUBCUT Q12H Qty: 10 1RF diltiazem HCl 120 mg capsule,extended release 24hr 120 mg PO BID 0RF rosuvastatin 40 mg tablet 40 mg PO DAILY 0RF lisinopril 2.5 mg tablet 2.5 mg PO BID 0RF alprazolam 0.25 mg tablet 0.25 mg PO TID PRN (Reason: anxiety) Qty: 20 0RF isosorbide mononitrate 60 mg tablet extended release 24 hr 60 mg PO DAILY Qty: 30 3RF Referrals: Kendell Celis MD [Non-Staff] - Juan George MD [Primary Care Provider] -
[2022-04-07] MEDS: ASPIRIN 81 MG CHEW TAB 324 MG PO (15:11)
[2022-04-07] MEDS: NITROGLYCERIN 0.4 MG SL TAB SL ×3 (15:12→16:17)
[2022-04-07 18:35] LABS: Creatine Kinase 85 U/L (55-170)
[2022-04-07 18:48] LABS: Troponin I < 0.012 ng/mL (0.01-0.034)
--- NOTE | 2022-04-07 19:25 | PC.NURSE ---
Per Dr. Saxena, pt ok to eat with restriction of no caffeine. Pt provided meal from ER.
[2022-04-07] MEDS: lisinopriL 5 MG TABLET 2.5 MG PO (23:34)
[2022-04-08] VITALS (30 sets, daily range): BP systolic 100–150; BP diastolic 55–80; PULSE 59–83; RESP 12–23; O2SAT 93–97
[2022-04-08 06:22] LABS: Troponin I < 0.012 ng/mL (0.01-0.034)
--- NOTE | 2022-04-08 06:28 | PC.NURSE ---
pt states he just wants to stretch, up ambulatory without assistance
[2022-04-08] MEDS: METOPROLOL IR 25 MG TABLET PO ×2 (08:23→22:26)
[2022-04-08] MEDS: lisinopriL 5 MG TABLET 2.5 MG PO ×2 (08:23→22:23)
[2022-04-08] MEDS: ISOSORBIDE MONONITRATE ER 30 MG TABLET 60 MG PO (08:23)
[2022-04-08] MEDS: WARFARIN 5 MG TABLET 12.5 MG PO (08:26)
[2022-04-08] MEDS: LORazepam 2 MG/ML INJ 0.5 MG IV (16:16)
[2022-04-08 18:55] LABS: INR 3.6 (0.9-1.3); Prothrombin Time 41.3 SECONDS (10.1-12.7)
[2022-04-08 18:57] LABS: Add Manual Diff / Slide Review NO; Basophils Absolute Auto 100 /uL (0-100); Eosinophils Absolute Auto 600 /uL (0-450); Hemoglobin 13.2 g/dL (13.5-17.5); Lymphocytes Absolute Auto 1600 /uL (1100-4500); Lymphocytes Percent Auto 20.5 % (25-40); Mean Corpuscular Hemoglobin 29.7 PG (26-34); Mean Corpuscular Volume 87.3 fL (80-100); Monocytes Absolute Auto 400 /uL (0-900); Monocytes Percent Auto 5.2 % (3-14); Neutrophils Absolute Auto 5100 /uL (1500-7000); Neutrophils Percent Auto 65.3 % (50-75); Platelet Count 274 X10^3/uL (150-400); Red Blood Cell Count 4.47 X10^6/uL (4.5-5.9); Red Cell Distribution Width 14.4 % (11.6-14.8); White Blood Cell Count 7.8 X10^3/uL (4.5-11.0)
[2022-04-08 19:03] LABS: BUN Creatinine Ratio 22.9 (6-22); Blood Urea Nitrogen 25 mg/dL (9-20); Calcium 8.7 mg/dL (8.4-10.2); Carbon Dioxide 24 mmol/L (22-32); Chloride 106 mmol/L (98-107); Estimated Glomerular Filt Rate > 60 mL/min (>60); Glucose 155 mg/dL (80-110); HEMOLYSIS 21 (0-50); Potassium 3.9 mmol/L (3.4-5.1); Sodium 136 mmol/L (137-145)
--- NOTE | 2022-04-08 19:30 | PC.NURSE ---
pt ambulating around, given yogurt and water for tea without any c/o
[2022-04-09] VITALS (31 sets, daily range): BP systolic 103–137; BP diastolic 64–70; PULSE 59–72; RESP 13–22; O2SAT 95–99
--- NOTE | 2022-04-09 03:28 | PC.NURSE ---
spoke with transfer center and updated them on pt's condition, they will call back when bed available
[2022-04-09] MEDS: lisinopriL 5 MG TABLET 2.5 MG PO (08:09)
[2022-04-09] MEDS: LORazepam 2 MG/ML INJ 0.5 MG IV ×2 (08:10→12:52)
[2022-04-09] MEDS: ISOSORBIDE MONONITRATE ER 30 MG TABLET 60 MG PO (08:10)
[2022-04-09] MEDS: METOPROLOL IR 25 MG TABLET PO (08:10)
== END 2022-04-09 13:53 | disposition home or self-care (01) ==
PROVIDERS: Emergency Medicine; Emergency Provider Emergency Medicine; PCP Internal Medicine; Referring Provider Internal Medicine Cardiovascular Disease
DX: I25.10 Atherosclerotic heart disease of native coronary artery without angina pectoris (principal); Z79.01 Long term (current) use of anticoagulants
CPT/HCPCS: 36415; 71045; 80048; 80053; 82550; 82553; 83690; 83735; 84484; 85025; 85610; 87635; 93005; 96374; 96376; 99284; C9803; J2060

== ENCOUNTER → 2022-04-12 08:28 | Outpatient (CLI) | payer OTHER, SELFPAY ==
[2022-03-25 15:49] VITALS: BMI 26.3
[2022-04-12 09:39] LABS: INR 1.1 (0.9-1.3); Prothrombin Time 12.5 SECONDS (10.1-12.7)
== END ==
PROVIDERS: PCP Internal Medicine; Referring Provider Internal Medicine; Visit Provider Internal Medicine
DX: Z79.01 Long term (current) use of anticoagulants (principal); Z95.2 Presence of prosthetic heart valve
CPT/HCPCS: 36415; 85610

== ENCOUNTER → 2022-04-14 09:13 | Outpatient (CLI) | payer OTHER, SELFPAY ==
[2022-03-25 15:49] VITALS: BMI 26.3
[2022-04-14 13:42] LABS: COVID-19 CEPHEID PCR (VTM/NP) Negative (Negative)
== END ==
PROVIDERS: PCP Internal Medicine; Visit Provider Family Medicine Sleep Medicine
DX: Z20.822 Contact with and (suspected) exposure to COVID-19 (principal)
CPT/HCPCS: C9803; U0003; U0005

== ENCOUNTER → 2022-07-08 15:27 | Outpatient (CLI) | payer OTHER, SELFPAY ==
[2022-03-25 15:49] VITALS: BMI 26.3
[2022-07-08 17:06] LABS: Prothrombin Time 23.1 SECONDS (10.1-12.7)
[2022-07-08 17:58] LABS: Prostate Specific Antigen Scrn 1.14 ng/mL (0.1-4.0)
== END ==
PROVIDERS: PCP Internal Medicine; Referring Provider Internal Medicine; Visit Provider Internal Medicine
DX: Z12.5 Encounter for screening for malignant neoplasm of prostate (principal); Z79.01 Long term (current) use of anticoagulants
CPT/HCPCS: 36415; 85610; G0103

== ENCOUNTER → 2022-07-14 07:59 | Outpatient (CLI) | payer OTHER, SELFPAY ==
[2022-03-25 15:49] VITALS: BMI 26.3
--- NOTE | 2022-07-14 | DI.ECHO.S_ITS ---
[place] +---------+ [facility] +---------+ : : [address] : [place] [address] : : : : [id number] : : : : Phone: [phone]+ Echocardiogram Report + + :Name: PAT TAYLOR Study Date: 07/14/2022 Height: 71 in : :[facility] ReadingLocation: Weight: 193 lb : : Gender: Male BSA: 2.1 m2 : :: 1960 Age: 62 yrs BP: 155/91 mmHg: :Reason For Study: CAD : :Ordering Physician: BRAYAN, : :HARRY Performed By: Gomez Mcclure : :Referring: HARRY WINTER : + + Interpretation Summary Left ventricular ejection fraction is estimated to be 45 +/- 5%. There is mid inferior wall hypokinesis. There is basal posterolateral wall hypokinesis. There is proximal mid posteriolateral wall hypokinesis. Left ventricular function has mildly worsened compared to the previous exam. The prosthetic aortic valve is not well visualized. There is probable normal prosthetic aortic valve function. Procedure: A two-dimensional transthoracic echocardiogram with color flow and Doppler was performed. The study quality was technically adequate. Comparison is made with the echocardiogram of 03/05/2022. Left Ventricle: The left ventricle is normal in size and wall thickness. Left ventricular systolic function is mildly reduced. Left ventricular ejection fraction is estimated to be 45 +/- 5%. Left ventricular function has mildly worsened compared to the previous exam. There is basal inferior wall hypokinesis. There is mid inferior wall hypokinesis. There is basal posterolateral wall hypokinesis. There is proximal mid posteriolateral wall hypokinesis. Diastolic function could not be accurately assessed due to unobtainable data. Right Ventricle: The right ventricle is normal in size and function. Atria: Both atria are normal in size. The interatrial septum grossly appears intact with no obvious evidence for an atrial septal defect. Mitral Valve: There is moderate to severe mitral annular calcification. There is trace mitral regurgitation. Aortic Valve: There is a mechanical aortic valve. The prosthetic aortic valve is well-seated. There is probable normal prosthetic aortic valve function. The prosthetic aortic valve is not well visualized. No aortic regurgitation is present. Tricuspid Valve: The tricuspid valve is normal in structure and function. No tricuspid regurgitation. Pulmonary artery pressures cannot be estimated because of the lack of a measurable TR jet velocity. Pulmonic Valve: The pulmonic valve is not well seen, but is grossly normal. There is no pulmonic valvular regurgitation. Great Vessels: The aortic root is not well visualized. The dimensions of the ascending aorta are normal. The IVC is dilated (diameter is greater than 2.1 cm) yet it collapses greater than 50% with a sniff. This suggests a right atrial pressure of 8 mm Hg. Pericardium/ Pleura There is no pericardial effusion. There is no pleural effusion. MMode/2D Measurements & Calculations LVIDd: 5.7 cm asc Aorta Diam: 3.6 cm LVIDs: 4.5 cm FS: 21.4 % IVSd: 1.00 cm LVPWd: 1.0 cm LV villanueva. diameter/BSA (cm/m^2): 2.7 LV sys. diameter/BSA (cm/m^2): 2.2 LA dimension: 3.2 cm RA long axis: 4.9 cm LA A2 area: 18.4 cm2 IVC diam: 2.3 cm LA A4 area: 19.6 cm2 LA length (vol): 5.4 cm LA vol: 56.9 ml LA vol index: 27.4 ml/m2 LVLs ap4: 7.0 cm LVLd ap2: 8.0 cm LVLs ap2: 7.5 cm TAPSE_phl: 1.8 cm Doppler Measurements & Calculations Ao V2 max: 145.0 cm/sec LVOT Max Lebron: 69.2 cm/sec Ao V2 mean: 93.6 cm/sec LV V1 max P.9 mmHg Ao max P.0 mmHg LV V1 VTI: 17.6 cm Ao mean P.0 mmHg sev ratio: 0.62 Ao V2 VTI: 28.6 cm MV E max lebron: 144.0 cm/sec MV V2 mean: 104.0 cm/sec MV A max lebron: 139.0 cm/sec MV mean P.0 mmHg MV E/A: 1.0 MV V2 VTI: 41.2 cm Med Peak E' Lebron: 4.3 cm/sec E/E' med: 33.9 Lat Peak E' Lebron: 5.1 cm/sec E/E' lat: 28.1 E/e' average: 31.0 MV dec time: 0.36 sec MV P1/2t: 94.3 msec MV P1/2t max lebron: 147.0 cm/sec AV VR_phl: 0.48 MVA(P1/2t): 2.3 cm2 MV P1/2t-pr_phl: 95.0 msec Reading Physician:12:21 PM
== END ==
PROVIDERS: PCP Internal Medicine; Referring Provider Internal Medicine Cardiovascular Disease; Visit Provider Internal Medicine Cardiovascular Disease
DX: I25.10 Atherosclerotic heart disease of native coronary artery without angina pectoris (principal)
CPT/HCPCS: 93306

== ENCOUNTER → 2022-07-22 08:45 | Outpatient (CLI) | payer OTHER, SELFPAY ==
[2022-03-25 15:49] VITALS: BMI 26.3
[2022-07-22 10:57] LABS: INR 2.2 (0.9-1.3); Prothrombin Time 25.2 SECONDS (10.1-12.7)
== END ==
PROVIDERS: PCP Internal Medicine; Referring Provider Internal Medicine; Visit Provider Internal Medicine
DX: Z79.01 Long term (current) use of anticoagulants (principal)
CPT/HCPCS: 36415; 85610

== ENCOUNTER → 2022-07-30 07:06 | Outpatient (CLI) | payer OTHER, SELFPAY ==
[2022-03-25 15:49] VITALS: BMI 26.3
[2022-07-30 13:01] LABS: INR 2.9 (0.9-1.3); Prothrombin Time 33.5 SECONDS (10.1-12.7)
== END ==
PROVIDERS: PCP Internal Medicine; Referring Provider Internal Medicine; Visit Provider Internal Medicine
DX: Z79.01 Long term (current) use of anticoagulants (principal); Z95.2 Presence of prosthetic heart valve
CPT/HCPCS: 36415; 85610

== ENCOUNTER → 2022-08-18 06:58 | Outpatient (CLI) | payer OTHER, SELFPAY ==
[2022-03-25 15:49] VITALS: BMI 26.3
[2022-08-18 07:46] LABS: INR 3.5 (0.9-1.3); Prothrombin Time 40.4 SECONDS (10.1-12.7)
== END ==
PROVIDERS: PCP Internal Medicine; Referring Provider Internal Medicine; Visit Provider Internal Medicine
DX: Z79.01 Long term (current) use of anticoagulants (principal); Z95.2 Presence of prosthetic heart valve
CPT/HCPCS: 36415; 85610

== ENCOUNTER → 2022-09-23 09:08 | Outpatient (CLI) | payer OTHER, SELFPAY ==
[2022-03-25 15:49] VITALS: BMI 26.3
[2022-09-23 10:16] LABS: INR 3.5 (0.9-1.3); Prothrombin Time 41.1 SECONDS (10.1-12.7)
== END ==
PROVIDERS: PCP Internal Medicine; Referring Provider Internal Medicine; Visit Provider Internal Medicine
DX: Z79.01 Long term (current) use of anticoagulants (principal); Z95.2 Presence of prosthetic heart valve
CPT/HCPCS: 36415; 85610

== ENCOUNTER → 2022-10-27 09:05 | Outpatient (CLI) | payer OTHER, SELFPAY ==
[2022-03-25 15:49] VITALS: BMI 26.3
[2022-10-27 11:20] LABS: INR 4.2 (0.9-1.3); Prothrombin Time 49.1 SECONDS (10.1-12.7)
== END ==
PROVIDERS: PCP Internal Medicine; Referring Provider Internal Medicine; Visit Provider Internal Medicine
DX: Z79.01 Long term (current) use of anticoagulants (principal); Z95.2 Presence of prosthetic heart valve
CPT/HCPCS: 36415; 85610

== ENCOUNTER → 2022-11-10 14:09 | Outpatient (CLI) | payer OTHER, SELFPAY ==
[2022-03-25 15:49] VITALS: BMI 26.3
[2022-11-10 23:06] LABS: INR 3.1 (0.9-1.3); Prothrombin Time 36.2 SECONDS (10.1-12.7)
== END ==
PROVIDERS: PCP Internal Medicine; Referring Provider Internal Medicine; Visit Provider Internal Medicine
DX: Z79.01 Long term (current) use of anticoagulants (principal)
CPT/HCPCS: 36415; 85610

== ENCOUNTER 2023-05-25 08:13 | Emergency (ER) | payer OTHER, SELFPAY ==
[2022-03-25 15:49] VITALS: BMI 26.3
[2023-05-25] VITALS (15 sets, daily range): BP systolic 100–144; BP diastolic 58–78; PULSE 76–87; RESP 18–25; TEMP 36.4; O2SAT 93–99; BMI 29.4
--- NOTE | 2023-05-25 08:15 | DI.RAD.S_ITS ---
PROCEDURE: XR CHEST 1V INDICATIONS: chest pain TECHNIQUE: One view of the chest was acquired. COMPARISON: [facility], CR, XR CHEST 1V, 04/07/2022, 13:49. [facility], CR, XR CHEST 1V, 03/04/2022, 8:01. FINDINGS: Surgical changes and devices: None. Lungs and pleura: Left basilar airspace opacity. Mediastinum: Mediastinal contours appear normal. Heart size is normal. Bones and chest wall: No suspicious bony lesions. Overlying soft tissues appear unremarkable. IMPRESSION: Left basilar airspace opacity concerning for pneumonia. Atelectasis is also a consideration. Dictated by: Emeka Torres M.D. on 05/25/2023 at 9:01 Approved by: Emeka Torres M.D. on 05/25/2023 at 9:02
[2023-05-25 08:40] LABS: Add Manual Diff / Slide Review NO; Basophils Absolute Auto 0 /uL (0-100); Basophils Percent Auto 0.4 % (0-2); Eosinophils Absolute Auto 0 /uL (0-450); Eosinophils Percent Auto 0.1 % (2-4); Hematocrit 46.3 % (41-53); Hemoglobin 15.5 g/dL (13.5-17.5); Lymphocytes Absolute Auto 400 /uL (1100-4500); Lymphocytes Percent Auto 5.9 % (25-40); Mean Corpuscular HGB Conc 33.5 % (30-36); Mean Corpuscular Hemoglobin 30.3 PG (26-34); Mean Corpuscular Volume 90.6 fL (80-100); Monocytes Absolute Auto 600 /uL (0-900); Monocytes Percent Auto 8.3 % (3-14); Neutrophils Absolute Auto 6300 /uL (1500-7000); Neutrophils Percent Auto 85.3 % (50-75); Platelet Count 219 X10^3/uL (150-400); Red Blood Cell Count 5.11 X10^6/uL (4.5-5.9); Red Cell Distribution Width 15.7 % (11.6-14.8); White Blood Cell Count 7.4 X10^3/uL (4.5-11.0)
[2023-05-25] MEDS: NITROGLYCERIN 0.4 MG SL TAB SL ×2 (08:41→08:48)
[2023-05-25 08:44] LABS: INR 3.7 (0.9-1.3); Prothrombin Time 43.4 SECONDS (10.1-12.7)
[2023-05-25 08:47] LABS: PTT Partial Thromboplastin Tim 55 SECONDS (26-36)
[2023-05-25 08:48] LABS: Alanine Aminotransferase 30 IU/L (<50); Albumin 4.6 g/dL (3.5-5.0); Albumin Globulin Ratio 1.2 (1.0-2.8); Alkaline Phosphatase 86 U/L (38-126); Aspartate Aminotransferase 50 IU/L (17-59); BUN Creatinine Ratio 18.5 (6-22); Blood Urea Nitrogen 20 mg/dL (9-20); Calcium 9.4 mg/dL (8.4-10.2); Carbon Dioxide 23 mmol/L (22-32); Chloride 101 mmol/L (98-107); Creatine Kinase 80 U/L (55-170); Estimated Glomerular Filt Rate > 60 mL/min (>60); Globulin 3.9 g/dL (1.7-4.1); Glucose 108 mg/dL (80-110); Lipase 51 U/L (23-300); Magnesium 2.1 mg/dL (1.6-2.3); Potassium 4.5 mmol/L (3.4-5.1); Sodium 134 mmol/L (137-145); Total Protein 8.5 g/dL (6.3-8.2)
[2023-05-25 08:51] LABS: HEMOLYSIS 73 (0-50)
[2023-05-25 09:00] LABS: Troponin I 0.013 ng/mL (0.01-0.034)
--- NOTE | 2023-05-25 09:06 | ED.CHESTPAIN ---
HPI - Chest Pain General Chief Complaint: Chest Pain Stated Complaint: sent by [facility]/chest pain Time Seen by Provider: 05/25/23 09:00 Source: patient Mode of arrival: Ambulatory Limitations: no limitations History of Present Illness HPI narrative: Patient is a 63-year-old male. He known history of coronary artery disease. About 1.5 years ago he did have a stent placed. About 3 years ago he did have an aortic valve replacement. About 30 years ago he underwent treatment for non-Hodgkin's lymphoma. He stated that on Thursday he started to have chest discomfort. Was not worse with palpation or movement. Not worse with breathing. He states he was leaning on his chest throughout the day but does not remember specific incident that caused the pain to hurt. It has been constant since Thursday although there has been times when it is better than others. He is not tried anything for the symptoms prior to arrival. No problems breathing. No coughing. No vomiting. No fevers. Related Data Home Medications Medication Instructions Recorded Confirmed multivitamin 1 tab PO DAILY ##0 04/07/11 07/08/22 diltiazem HCl 120 mg 120 mg PO BID 02/07/21 07/08/22 capsule,extended release 24 hr clopidogrel 75 mg tablet (Plavix) 75 mg PO DAILY 04/30/22 07/08/22 Previous Rx's Medication Instructions Recorded lisinopril 2.5 mg tablet 2.5 mg PO BID #90 tabs 07/15/22 naproxen 500 mg tablet 1,000 mg PO .PRN #90 tabs 07/15/22 rosuvastatin 40 mg tablet 40 mg PO DAILY #90 tabs 07/15/22 warfarin 5 mg tablet See Rx Instructions .Route 11/10/22 .COMPLEX #270 tabs isosorbide mononitrate 60 mg 60 mg PO DAILY #30 tabs 11/19/22 tablet,extended release 24 hr tramadol 50 mg tablet 50 mg PO Q8H PRN pain #10 tabs 05/25/23 Allergies Allergy/AdvReac Type Severity Reaction Status Date / Time No Known Drug Allergies Allergy Verified 05/25/23 08:20 Review of Systems Review of Systems ROS Unobtainable: All systems reviewed & are unremarkable except as noted in HPI and below Patient History Medical History Atrial tachycardia Chronic hepatitis C without hepatic coma (09/06/15) Cigarette smoker motivated to quit Coronary artery disease longterm current use of anticoagulant therapy Non-Hodgkin's lymphoma (09/06/15) PSVT (paroxysmal supraventricular tachycardia) Stenosis of aorta (09/06/15) Surgical History S/P aortic valve replacement with metallic valve (~09/2018) S/P coronary artery stent placement (~01/2021) Status post heart valve replacement with mechanical valve Family History Father Crohn's disease Social History household members: spouse Smoking Status: Former smoker Smoking Status: Former smoker alcohol intake frequency: holidays/special occasions only Substance Use Type: marijuana Exam Initial Vital Signs Initial Vital Signs: Vital Signs Temperature 97.6 F 05/25/23 08:16 Pulse Rate 86 05/25/23 08:16 Respiratory Rate 18 05/25/23 08:16 Blood Pressure 144/78 H 05/25/23 08:16 Pulse Oximetry 99 05/25/23 08:16 Oxygen Delivery Method Room Air 05/25/23 08:16 Const General: cooperative, comfortable and No ill appearing HENMT Head: normal to inspection and normocephalic Resp Effort & Inspection: normal respiratory effort Auscultation: clear to auscultation bilaterally Cardio Rate: regular rate Rhythm: regular rhythm GI Inspection: normal to inspection and non-distended Skin General: no rashes or lesions noted Other: Well-healed surgical scar over sternum consistent with his history of aortic valve replacement Neuro General: patient alert, patient awake and moves all extremities Extrem General: normal to inspection and capillary refill normal Scores HEART Score Heart Score history: Slightly Suspicious Heart Score EKG: Non-Specific repolarization disturbance Heart Score Age: 45-64 years old Heart Score risk factors: > 3 risk factors or hx of atherosclerotic disease Heart Score troponin: < or = to normal limit Heart Score Total: 4 Course Orders Ordered: ED Orders 05/25/23 08:15 XR chest 1V Stat EKG-12 Lead Stat 05/25/23 08:30 Complete Blood Count AUTO DIFF Stat Comprehensive Metabolic Panel Stat Lipase Stat Magnesium Stat PTT Partial Thromboplastin Chandana Stat Prothrombin Time INR Stat Troponin & CK Cardiac Panel Stat 05/25/23 11:42 Troponin & CK Cardiac Panel Stat Discontinued Medications Hydrocodone Bitart/Acetaminophen (Hydrocodone/Acet 5/325 Tablet) 1 tab PO NOW ONE Stop: 05/25/23 10:03 Last Admin: 05/25/23 10:07 Dose: 1 tab Documented By: AT Aspirin (Aspirin 81 Mg Chew Tab) 324 mg PO NOW ONE Stop: 05/25/23 08:16 Last Admin: 05/25/23 08:34 Dose: Not Given Documented By: ROMEO Nitroglycerin (Nitroglycerin 0.4 Mg Sl Tab) 0.4 mg SL [id number] PRN PRN Reason: Chest Pain Last Admin: 05/25/23 08:48 Dose: 0.4 mg Documented By: Admin: 05/25/23 08:41 Dose: 0.4 mg Documented By: ROMEO Vital Signs Vital signs: Vital Signs - 8 hr 05/25/23 08:16 05/25/23 08:41 05/25/23 08:48 Temperature 97.6 F Pulse Rate 86 80 83 Respiratory Rate 18 Blood Pressure 144/78 H 131/71 124/68 Pulse Oximetry 99 Oxygen Delivery Method Room Air 05/25/23 08:17 05/25/23 08:19 05/25/23 08:19 Temperature Pulse Rate 87 86 Respiratory Rate 25 H Blood Pressure 144/78 H Pulse Oximetry 98 99 Oxygen Delivery Method 05/25/23 08:30 05/25/23 08:41 05/25/23 08:41 Temperature Pulse Rate 79 80 Respiratory Rate 22 23 Blood Pressure 131/71 Pulse Oximetry 99 97 Oxygen Delivery Method 05/25/23 08:45 05/25/23 08:48 05/25/23 08:48 Temperature Pulse Rate 84 84 Respiratory Rate 22 23 Blood Pressure 124/68 Pulse Oximetry 97 95 Oxygen Delivery Method 05/25/23 09:00 05/25/23 09:00 05/25/23 09:30 Temperature Pulse Rate 82 Respiratory Rate 22 Blood Pressure 100/58 L 127/67 Pulse Oximetry 93 Oxygen Delivery Method 05/25/23 09:30 05/25/23 10:00 05/25/23 10:00 Temperature Pulse Rate 82 84 Respiratory Rate 23 21 Blood Pressure 125/71 Pulse Oximetry 96 96 Oxygen Delivery Method Room Air 05/25/23 10:30 05/25/23 10:30 05/25/23 11:00 Temperature Pulse Rate 80 Respiratory Rate 21 Blood Pressure 130/75 126/73 Pulse Oximetry 97 Oxygen Delivery Method 05/25/23 11:00 05/25/23 11:30 05/25/23 11:30 Temperature Pulse Rate 81 85 Respiratory Rate 20 20 Blood Pressure 119/68 Pulse Oximetry 96 95 Oxygen Delivery Method 05/25/23 12:00 05/25/23 12:00 05/25/23 12:30 Temperature Pulse Rate 76 Respiratory Rate 18 Blood Pressure 121/70 121/74 Pulse Oximetry 96 Oxygen Delivery Method 05/25/23 12:30 Temperature Pulse Rate 81 Respiratory Rate 22 Blood Pressure Pulse Oximetry 96 Oxygen Delivery Method MDM - Chest Pain Lab Data Attestation: I reviewed the patient's lab results. 05/25/23 08:30 05/25/23 08:30 Labs: Lab Results 05/25/23 05/25/23 05/25/23 Range/Units 08:30 08:30 08:30 WBC 7.4 (4.5-11.0) X10^3/uL RBC 5.11 (4.5-5.9) X10^6/uL Hgb 15.5 (13.5-17.5) g/dL Hct 46.3 (41-53) % MCV 90.6 (80-100) fL MCH 30.3 (26-34) PG MCHC 33.5 (30-36) % RDW 15.7 H (11.6-14.8) % Plt Count 219 (150-400) X10^3/uL Neut % (Auto) 85.3 H (50-75) % Lymph % (Auto) 5.9 L (25-40) % [place] % (Auto) 8.3 (3-14) % Eos % (Auto) 0.1 L (2-4) % Baso % (Auto) 0.4 (0-2) % Neut # (Auto) 6300 (8041-9692) /uL Lymph # (Auto) 400 L (7981-1904) /uL [place] # (Auto) 600 (0-900) /uL Eos # (Auto) 0 (0-450) /uL Baso # (Auto) 0 (0-100) /uL PT 43.4 H (10.1-12.7) SECONDS INR 3.7 H (0.9-1.3) APTT 55 H (26-36) SECONDS Sodium 134 L (137-145) mmol/L Potassium 4.5 (3.4-5.1) mmol/L Chloride 101 (98-107) mmol/L Carbon Dioxide 23 (22-32) mmol/L BUN 20 (9-20) mg/dL Creatinine 1.08 (0.66-1.25) mg/dL Estimated GFR > 60 (>60) mL/min BUN/Creatinine Ratio 18.5 (6-22) Glucose 108 (80-110) mg/dL Calcium 9.4 (8.4-10.2) mg/dL Magnesium 2.1 (1.6-2.3) mg/dL Total Bilirubin 1.0 (0.2-1.3) mg/dL AST 50 (17-59) IU/L ALT 30 (<50) IU/L Alkaline Phosphatase 86 (38-126) U/L Total Creatine Kinase 80 (55-170) U/L CK-MB (CK-2) TNP CK-MB (CK-2) Rel Index TNP Troponin I 0.013 (0.01-0.034) ng/mL Total Protein 8.5 H (6.3-8.2) g/dL Albumin 4.6 (3.5-5.0) g/dL Globulin 3.9 (1.7-4.1) g/dL Albumin/Globulin Ratio 1.2 (1.0-2.8) Lipase 51 (23-300) U/L 05/25/23 Range/Units 11:42 WBC (4.5-11.0) X10^3/uL RBC (4.5-5.9) X10^6/uL Hgb (13.5-17.5) g/dL Hct (41-53) % MCV (80-100) fL MCH (26-34) PG MCHC (30-36) % RDW (11.6-14.8) % Plt Count (150-400) X10^3/uL Neut % (Auto) (50-75) % Lymph % (Auto) (25-40) % [place] % (Auto) (3-14) % Eos % (Auto) (2-4) % Baso % (Auto) (0-2) % Neut # (Auto) (9817-6602) /uL Lymph # (Auto) (2869-0076) /uL [place] # (Auto) (0-900) /uL Eos # (Auto) (0-450) /uL Baso # (Auto) (0-100) /uL PT (10.1-12.7) SECONDS INR (0.9-1.3) APTT (26-36) SECONDS Sodium (137-145) mmol/L Potassium (3.4-5.1) mmol/L Chloride (98-107) mmol/L Carbon Dioxide (22-32) mmol/L BUN (9-20) mg/dL Creatinine (0.66-1.25) mg/dL Estimated GFR (>60) mL/min BUN/Creatinine Ratio (6-22) Glucose (80-110) mg/dL Calcium (8.4-10.2) mg/dL Magnesium (1.6-2.3) mg/dL Total Bilirubin (0.2-1.3) mg/dL AST (17-59) IU/L ALT (<50) IU/L Alkaline Phosphatase (38-126) U/L Total Creatine Kinase 66 (55-170) U/L CK-MB (CK-2) TNP CK-MB (CK-2) Rel Index TNP Troponin I < 0.012 (0.01-0.034) ng/mL Total Protein (6.3-8.2) g/dL Albumin (3.5-5.0) g/dL Globulin (1.7-4.1) g/dL Albumin/Globulin Ratio (1.0-2.8) Lipase (23-300) U/L Imaging Data Chest x-ray: Radiologist's Impression: PROCEDURE:? XR CHEST 1V ? INDICATIONS:? chest pain ? TECHNIQUE:? One view of the chest was acquired.? ? COMPARISON:? [facility], , XR CHEST 1V, 04/07/2022, 13:49.? [facility], , XR CHEST 1V, 03/04/2022, 8:01. ? FINDINGS:? ? Surgical changes and devices:? None.? ? Lungs and pleura:? Left basilar airspace opacity. ? Mediastinum:? Mediastinal contours appear normal.? Heart size is normal.? ? Bones and chest wall:? No suspicious bony lesions.? Overlying soft tissues appear unremarkable.? ? IMPRESSION:? Left basilar airspace opacity concerning for pneumonia.? Atelectasis is also a consideration. ECG Data Attestation: I personally reviewed and interpreted this ECG as follows: Interpretation: Sinus rhythm Ventricular rate 80 Normal axis LVH Nonspecific ST T wave changes MDM Narrative Medical decision making narrative: Patient has had constant symptoms for at least 3 days. Nonischemic EKG. Troponins negative x2. Despite his and score 4 in his known history of coronary artery disease that is very reassuring given his workup today that his symptoms today are not cardiac in origin. We did discuss potential other etiologies such as costochondritis or GI. Patient clinically does not have pneumonia. There is no indication for antibiotics. Will have the patient continue to take all his medications as directed and contact his primary doctor and also his director digital catalogue for follow-up to discuss potential further testing if needed. He was given strict return precautions. He expressed understanding and agreement with plan. Discharge Plan Departure Patient Disposition: Home Clinical Impression: Atypical chest pain Instructions: DI for Atypical Chest Pain Activity Restrictions/Additional Instructions: Recommend that you continue to take all of your medications as directed. I also recommend that you contact your primary doctor and also your director digital catalogue for follow-up. Return to the emergency department for new or worsening symptoms like we discussed. Prescriptions: New tramadol 50 mg tablet 50 mg PO Q8H PRN (Reason: pain) Qty: 10 0RF No Action multivitamin Tablet 1 tab PO DAILY Qty: 0 lisinopril 2.5 mg tablet 2.5 mg PO BID Qty: 90 3RF rosuvastatin 40 mg tablet 40 mg PO DAILY Qty: 90 3RF naproxen 500 mg tablet 1,000 mg PO .PRN Qty: 90 3RF warfarin 5 mg tablet See Rx Instructions .ROUTE .COMPLEX Qty: 270 0RF Dose Instruction: take two and a half tablets (12.5mg) Thursday, Thursday, Thursday and two tablets (10 mg) all other days, or as directed. Rx Instructions: take two and a half tablets (12.5mg) Thursday, Thursday, Thursday and two tablets (10 mg) all other days, or as directed. isosorbide mononitrate 60 mg tablet extended release 24 hr 60 mg PO DAILY Qty: 30 3RF diltiazem HCl 120 mg capsule,extended release 24hr 120 mg PO BID clopidogrel [Plavix] 75 mg tablet 75 mg PO DAILY Referrals: Juan George MD [Primary Care Provider] - Stand Alone Forms: Patient Portal/API
[2023-05-25] MEDS: HYDROCODONE/ACET 5/325 TABLET 1 TAB PO (10:07)
[2023-05-25 12:00] LABS: Creatine Kinase 66 U/L (55-170)
[2023-05-25 12:13] LABS: Troponin I < 0.012 ng/mL (0.01-0.034)
== END 2023-05-25 12:37 | disposition home or self-care (01) ==
PROVIDERS: Emergency Provider Emergency Medicine; PCP Internal Medicine
DX: R07.89 Other chest pain (principal); Z95.5 Presence of coronary angioplasty implant and graft
CPT/HCPCS: 36415; 71045; 80053; 82550; 83690; 83735; 84484; 85025; 85610; 85730; 93005; 93010; 99284

== ENCOUNTER 2023-06-10 11:37 | Inpatient (IN) | payer OTHER, SELFPAY ==
[2022-03-25 15:49] VITALS: BMI 26.3
[2023-06-10] VITALS (12 sets, daily range): BP systolic 107–157; BP diastolic 63–82; PULSE 75–94; RESP 14–18; TEMP 36.3–36.8; O2SAT 96–100; BMI 28.5; BMI 27.3
[2023-06-10] MEDS: PANTOPRAZOLE 40 MG VIAL 80 MG IV (11:52)
[2023-06-10 12:03] LABS: Add Manual Diff / Slide Review NO; Basophils Absolute Auto 0 /uL (0-100); Basophils Percent Auto 0.5 % (0-2); Eosinophils Absolute Auto 300 /uL (0-450); Eosinophils Percent Auto 2.8 % (2-4); Hematocrit 35.8 % (41-53); Hemoglobin 12.3 g/dL (13.5-17.5); Lymphocytes Absolute Auto 1600 /uL (1100-4500); Lymphocytes Percent Auto 17.4 % (25-40); Mean Corpuscular HGB Conc 34.3 % (30-36); Mean Corpuscular Hemoglobin 30.1 PG (26-34); Mean Corpuscular Volume 87.8 fL (80-100); Monocytes Absolute Auto 700 /uL (0-900); Neutrophils Absolute Auto 6500 /uL (1500-7000); Neutrophils Percent Auto 71.3 % (50-75); Platelet Count 526 X10^3/uL (150-400); Red Blood Cell Count 4.08 X10^6/uL (4.5-5.9); Red Cell Distribution Width 15.3 % (11.6-14.8); White Blood Cell Count 9.1 X10^3/uL (4.5-11.0)
[2023-06-10 12:23] LABS: INR 2.4 (0.9-1.3)
[2023-06-10 12:25] LABS: PTT Partial Thromboplastin Tim 43 SECONDS (26-36)
[2023-06-10 12:27] LABS: Alanine Aminotransferase 32 IU/L (<50); Albumin 4.5 g/dL (3.5-5.0); Albumin Globulin Ratio 1.1 (1.0-2.8); Alkaline Phosphatase 96 U/L (38-126); Aspartate Aminotransferase 38 IU/L (17-59); BUN Creatinine Ratio 15.3 (6-22); Bilirubin Total 0.5 mg/dL (0.2-1.3); Blood Urea Nitrogen 18 mg/dL (9-20); Calcium 9.6 mg/dL (8.4-10.2); Carbon Dioxide 26 mmol/L (22-32); Chloride 103 mmol/L (98-107); Estimated Glomerular Filt Rate > 60 mL/min (>60); Glucose 90 mg/dL (80-110); HEMOLYSIS 15 (0-50); Potassium 4.1 mmol/L (3.4-5.1); Sodium 139 mmol/L (137-145); Total Protein 8.5 g/dL (6.3-8.2)
--- NOTE | 2023-06-10 13:15 | ED.GIBLEED ---
HPI - GI Bleed General Chief complaint: GI Bleed Stated complaint: sent by DR KAE marques Time Seen by Provider: 06/10/23 12:50 Source: patient Mode of arrival: Ambulatory History of Present Illness HPI Narrative: This is a 63-year-old male history non-Hodgkin's lymphoma 30 years ago, mechanical aortic valve replacement anticoagulated on warfarin, history of SVT, hypertension and dyslipidemia with complaint of black stools for the past 3 days. Patient states he is had bowel movement 2 times daily, they have been loose. Denies any lightheadedness or passing out. No chest pain, no shortness of breath. He is had a little bit of epigastric discomfort. Denies any back or flank pain. Denies any generalized abdominal pain. No nausea no vomiting, he states her black tarry appearing. No urinary symptoms dysuria urgency or frequency he is not had similar symptoms in the past. He is on warfarin daily, does not take aspirin or other thinners. No regular NSAID use. Patient has had colonoscopy about 13 years ago had multiple polyps he is had several colonoscopies since then without any changes. He had an EGD about 30 years ago for difficulty with swallowing when he had non-Hodgkin's lymphoma nonsense end. Patient states he sometimes will take Pepcid [id number] but not regularly, he is not had any Pepto, iron does note he had a single dose of antibiotic for prophylactic dental several days ago. Primary care is Dr. George, Dr. Winter is his clerical secretary. Related Data Home Medications Medication Instructions Recorded Confirmed multivitamin 1 tab PO DAILY ##0 04/07/11 06/10/23 diltiazem HCl 120 mg 120 mg PO BID 02/07/21 06/10/23 capsule,extended release 24 hr Previous Rx's Medication Instructions Recorded naproxen 500 mg tablet 1,000 mg PO .PRN #90 tabs 07/15/22 rosuvastatin 40 mg tablet 40 mg PO DAILY #90 tabs 07/15/22 isosorbide mononitrate 60 mg 60 mg PO DAILY #30 tabs 11/19/22 tablet,extended release 24 hr warfarin 5 mg tablet See Rx Instructions .Route 06/10/23 .COMPLEX #270 tabs Allergies Allergy/AdvReac Type Severity Reaction Status Date / Time No Known Drug Allergies Allergy Verified 06/10/23 11:45 Review of Systems Review of Systems ROS Unobtainable: All systems reviewed & are unremarkable except as noted in HPI and below Patient History Medical History Atrial tachycardia Chronic hepatitis C without hepatic coma (09/06/15) Cigarette smoker motivated to quit Coronary artery disease [facility] current use of anticoagulant therapy Non-Hodgkin's lymphoma (09/06/15) PSVT (paroxysmal supraventricular tachycardia) Stenosis of aorta (09/06/15) Surgical History S/P aortic valve replacement with metallic valve (~09/2018) S/P coronary artery stent placement (~01/2021) Status post heart valve replacement with mechanical valve Family History Father Crohn's disease Social History household members: spouse Smoking Status: Former smoker alcohol intake: never Smoking Status: Former smoker alcohol intake frequency: holidays/special occasions only Substance Use Type: marijuana Exam Narrative Exam Narrative: GENERAL: Alert and oriented x three, well-appearing male in no acute distress. HEENT: Head normocephalic, atraumatic, EOMI, pupils reactive, face symmetric, moist mucous membranes NECK: Supple, full range of motion CARDIOVASCULAR: Regular rate and rhythm without murmurs, rubs or gallops. RESPIRATORY: Breath sounds equal bilaterally, no wheezes rales or rhonchi. ABDOMEN: Soft, nontender. Normoactive bowel sounds all 4 quadrants. No guarding or rebound, rigidity, no mass : No CVA tenderness EXTREMITIES: Normal range of motion, no clubbing or edema. Neurovascularly intact NEUROLOGICAL: Cranial nerves II through XII grossly intact. Moving all extremities SKIN: Warm, dry, no petechiae, no rashes or lesions. Initial Vital Signs Initial Vital Signs: Vital Signs Temperature 98.2 F 06/10/23 11:42 Pulse Rate 89 06/10/23 11:42 Respiratory Rate 16 06/10/23 11:42 Blood Pressure 153/72 H 06/10/23 11:42 Pulse Oximetry 100 06/10/23 11:42 Oxygen Delivery Method Room Air 06/10/23 11:42 Course Orders Ordered: ED Orders 06/10/23 11:41 Comprehensive Metabolic Panel Stat PTT Partial Thromboplastin Chandana Stat Prothrombin Time INR Stat 06/10/23 11:48 Complete Blood Count AUTO DIFF Stat Type and Screen Stat 06/10/23 12:07 EKG-12 Lead Stat Atorvastatin Calcium (Atorvastatin 20 Mg Tablet) 80 mg PO DAILY [facility] Clopidogrel Bisulfate (Clopidogrel 75 Mg Tablet) 75 mg PO DAILY [facility] Diltiazem HCl (Diltiazem Cd 120 Mg Cap) 120 mg PO BID [facility] Enoxaparin Sodium (Enoxaparin 100 Mg/Ml Syringe) 90 mg SUBCUT BID [facility] Sodium Chloride (Normal Saline 0.9%) 1,000 mls @ 75 mls/hr IV CONT NELLY Last Admin: 06/10/23 16:15 Dose: 75 mls/hr Documented By: FABIENNE Isosorbide Mononitrate (Isosorbide Mononitrate Er 30 Mg Tablet) 60 mg PO DAILY [facility] Lisinopril (Lisinopril 5 Mg Tablet) 2.5 mg PO BID [facility] Naloxone HCl (Naloxone 0.4 Mg/Ml Vial) 0.2 mg IV Q2MIN PRN PRN Reason: Opiate Reversal Ondansetron HCl (Ondansetron 4 Mg/2 Ml Inj) 4 mg IV Q8HR PRN PRN Reason: Nausea And Vomiting Oxycodone HCl (Oxycodone Ir 5 Mg Tablet) 5 mg PO Q4HR PRN PRN Reason: Pain, Moderate (4-6) Last Admin: 06/10/23 18:05 Dose: 5 mg Documented By: FABIENNE Pantoprazole Sodium (Pantoprazole 40 Mg Vial) 40 mg IV BID [facility] Tramadol HCl (Tramadol 50 Mg Tablet) 50 mg PO Q8H PRN PRN Reason: pain Last Admin: 06/10/23 16:22 Dose: 50 mg Documented By: FABIENNE Discontinued Medications Phytonadione 10 mg/ Sodium (Chloride) 101 mls @ 202 mls/hr IV NOW ONE Stop: 06/10/23 17:28 Last Admin: 06/10/23 18:05 Dose: 202 mls/hr Documented By: FABIENNE Ondansetron HCl (Ondansetron 4 Mg/2 Ml Inj) 4 mg IV NOW PRN PRN Reason: Nausea And Vomiting Pantoprazole Sodium (Pantoprazole 40 Mg Vial) 80 mg IV NOW ONE Stop: 06/10/23 11:46 Last Admin: 06/10/23 11:52 Dose: 80 mg Documented By: CHARISMA Vital Signs Vital signs: Vital Signs - 8 hr 06/10/23 11:42 06/10/23 11:44 06/10/23 12:00 Temperature 98.2 F Pulse Rate 89 87 81 Respiratory Rate 16 14 17 Blood Pressure 153/72 H Pulse Oximetry 100 100 99 Oxygen Delivery Method Room Air 06/10/23 12:01 06/10/23 12:01 06/10/23 12:30 Temperature Pulse Rate 81 Respiratory Rate 18 Blood Pressure 124/63 124/71 Pulse Oximetry 100 Oxygen Delivery Method 06/10/23 12:30 06/10/23 13:00 06/10/23 13:00 Temperature Pulse Rate 75 77 Respiratory Rate 15 14 Blood Pressure 122/68 Pulse Oximetry 99 98 Oxygen Delivery Method 06/10/23 13:30 06/10/23 13:30 06/10/23 14:00 Temperature Pulse Rate 78 77 Respiratory Rate 18 17 Blood Pressure 138/76 Pulse Oximetry 98 99 Oxygen Delivery Method MDM - GI Bleed Lab Data 06/10/23 11:48 06/10/23 11:41 Labs: Lab Results 06/10/23 06/10/23 06/10/23 Range/Units 11:41 11:41 11:48 WBC 9.1 (4.5-11.0) X10^3/uL RBC 4.08 L (4.5-5.9) X10^6/uL Hgb 12.3 L (13.5-17.5) g/dL Hct 35.8 L (41-53) % MCV 87.8 (80-100) fL MCH 30.1 (26-34) PG MCHC 34.3 (30-36) % RDW 15.3 H (11.6-14.8) % Plt Count 526 H (150-400) X10^3/uL Neut % (Auto) 71.3 (50-75) % Lymph % (Auto) 17.4 L (25-40) % [place] % (Auto) 8.0 (3-14) % Eos % (Auto) 2.8 (2-4) % Baso % (Auto) 0.5 (0-2) % Neut # (Auto) 6500 (3123-6742) /uL Lymph # (Auto) 1600 (8512-2805) /uL [place] # (Auto) 700 (0-900) /uL Eos # (Auto) 300 (0-450) /uL Baso # (Auto) 0 (0-100) /uL PT 28.0 H (10.1-12.7) SECONDS INR 2.4 H (0.9-1.3) APTT 43 H (26-36) SECONDS Sodium 139 (137-145) mmol/L Potassium 4.1 (3.4-5.1) mmol/L Chloride 103 (98-107) mmol/L Carbon Dioxide 26 (22-32) mmol/L BUN 18 (9-20) mg/dL Creatinine 1.18 (0.66-1.25) mg/dL Estimated GFR > 60 (>60) mL/min BUN/Creatinine Ratio 15.3 (6-22) Glucose 90 (80-110) mg/dL Calcium 9.6 (8.4-10.2) mg/dL Total Bilirubin 0.5 (0.2-1.3) mg/dL AST 38 (17-59) IU/L ALT 32 (<50) IU/L Alkaline Phosphatase 96 (38-126) U/L Total Protein 8.5 H (6.3-8.2) g/dL Albumin 4.5 (3.5-5.0) g/dL Globulin 4.0 (1.7-4.1) g/dL Albumin/Globulin Ratio 1.1 (1.0-2.8) Blood Type Antibody Screen 06/10/23 Range/Units 11:48 WBC (4.5-11.0) X10^3/uL RBC (4.5-5.9) X10^6/uL Hgb (13.5-17.5) g/dL Hct (41-53) % MCV (80-100) fL MCH (26-34) PG MCHC (30-36) % RDW (11.6-14.8) % Plt Count (150-400) X10^3/uL Neut % (Auto) (50-75) % Lymph % (Auto) (25-40) % [place] % (Auto) (3-14) % Eos % (Auto) (2-4) % Baso % (Auto) (0-2) % Neut # (Auto) (0026-5464) /uL Lymph # (Auto) (3570-9383) /uL [place] # (Auto) (0-900) /uL Eos # (Auto) (0-450) /uL Baso # (Auto) (0-100) /uL PT (10.1-12.7) SECONDS INR (0.9-1.3) APTT (26-36) SECONDS Sodium (137-145) mmol/L Potassium (3.4-5.1) mmol/L Chloride (98-107) mmol/L Carbon Dioxide (22-32) mmol/L BUN (9-20) mg/dL Creatinine (0.66-1.25) mg/dL Estimated GFR (>60) mL/min BUN/Creatinine Ratio (6-22) Glucose (80-110) mg/dL Calcium (8.4-10.2) mg/dL Total Bilirubin (0.2-1.3) mg/dL AST (17-59) IU/L ALT (<50) IU/L Alkaline Phosphatase (38-126) U/L Total Protein (6.3-8.2) g/dL Albumin (3.5-5.0) g/dL Globulin (1.7-4.1) g/dL Albumin/Globulin Ratio (1.0-2.8) Blood Type A Positive Antibody Screen Negative Urine Dip Bedside Urine Glucose Negative Bedside Urine Bilirubin - Negative Bedside Urine Ketone - Negative Urine Specific [place] 1.015 Bedside Urine Occult Blood - Negative Bedside Urine pH 6.0 Bedside Urine Protein - Negative Bedside Urine Urobilinogen - Negative Bedside Urine Nitrite - Negative Bedside Urine Leukocytes - Negative Esterase ECG Data Attestation: I personally reviewed and interpreted this ECG as follows: Prior ECG tracings: not available for review Interpretation: Sinus rhythm rate 80 MN 190 QRS of [address] No acute [address] elevation. MDM Narrative Medical decision making narrative: This is a 63-year-old male with black tarry stools reported, patient does appear to have had a drop in his hemoglobin from 15-12. platelets are slightly elevated 526. INR is 2.4. CMP shows no acute change, LFTs are negative. Total protein is 8.5. Patient does appear hemodynamically stable. Discussed admitting patient for observation, scope to evaluate for source. Patient was given a dose of Protonix here in the department. Patient is anticoagulated for mechanical valve so would not reverse at this time. Patient is somewhat ambivalent about staying, reach out to patient's admitting team. Spoke with Dr. Garrido, she is happy to keep the patient if it would facilitate faster scope for the patient. If general surgery would not be scoping the patient would allow discharge home for short term follow up. Spoke with Dr. Navas, she recommends to keep patient for scope as patient has mechanical valve on warfarin and will need bridging for scope. Updated Dr. Garrido who is agreeable to admit. Discharge Plan Departure Patient Disposition: Admitted As Inpatient Clinical Impression: GI bleed Admit Date/Time: 06/10/23 14:32 Admit Provider: Bee Garrido
--- NOTE | 2023-06-10 15:13 | PM.HP.1 ---
History of Present Illness History of Present Illness Date Patient Seen: 06/10/23 Chief complaint: sent by DR KAE marques Narrative: Pt is a 63yo man with HTN, CAD, hx of mechanical aortic valve replacement on chronic anticoagulation with Warfarin, and tobacco abuse who presented with melena. The pt reports that starting 3 days ago he developed very dark stools. They are normal consistency and frequency, 2-3 times/day. He has had mild epigastric pain during this time frame as well, but not severe enough that he would usually worry about it. He does state that he frequently has GERD symptoms, but these are easily improved with Pepcid AC. The pt denies any recent lightheadedness, dizziness, palpitations. He denies any nausea, vomiting. He denies any SOB, chest pain. He has otherwise been feeling well without concerns. The pt is not on any NSAIDs or Aspirin. He denies significant alcohol use. His INRs have been stable for the past 2 weeks. Prior to that they were somewhat erratic, high and then low, due to antibiotic use for a dental procedure. The pt denies ever having melena or blood in his stool in the past. [facility] Medical History Atrial tachycardia Chronic hepatitis C without hepatic coma (09/06/15) Cigarette smoker motivated to quit Coronary artery disease long-term current use of anticoagulant therapy Non-Hodgkin's lymphoma (09/06/15) PSVT (paroxysmal supraventricular tachycardia) Stenosis of aorta (09/06/15) Surgical History S/P aortic valve replacement with metallic valve (~09/2018) S/P coronary artery stent placement (~01/2021) Status post heart valve replacement with mechanical valve Family History Father Crohn's disease Social History household members: spouse Smoking Status: Former smoker alcohol intake: never Meds Home Medications and Allergies Home Medications Medication Instructions Recorded Confirmed Type multivitamin 1 tab PO DAILY ##0 04/07/11 06/10/23 History diltiazem HCl 120 mg 120 mg PO BID 02/07/21 06/10/23 History capsule,extended release 24 hr naproxen 500 mg tablet 1,000 mg PO .PRN #90 tabs 07/15/22 06/10/23 Rx rosuvastatin 40 mg tablet 40 mg PO DAILY #90 tabs 07/15/22 06/10/23 Rx isosorbide mononitrate 60 mg 60 mg PO DAILY #30 tabs 11/19/22 06/10/23 Rx tablet,extended release 24 hr warfarin 5 mg tablet See Rx Instructions .Route 06/10/23 06/10/23 Rx .COMPLEX #270 tabs Allergies Allergy/AdvReac Type Severity Reaction Status Date / Time No Known Drug Allergies Allergy Verified 06/10/23 11:45 Exam Vital Signs (past 8 hours): - 06/10/23 11:42 06/10/23 11:44 06/10/23 12:00 Temperature 98.2 F Pulse Rate 89 87 81 Respiratory Rate 16 14 17 Blood Pressure 153/72 H Pulse Oximetry 100 100 99 Oxygen Delivery Method Room Air 06/10/23 12:01 06/10/23 12:01 06/10/23 12:30 Temperature Pulse Rate 81 Respiratory Rate 18 Blood Pressure 124/63 124/71 Pulse Oximetry 100 Oxygen Delivery Method 06/10/23 12:30 06/10/23 13:00 06/10/23 13:00 Temperature Pulse Rate 75 77 Respiratory Rate 15 14 Blood Pressure 122/68 Pulse Oximetry 99 98 Oxygen Delivery Method 06/10/23 13:30 06/10/23 13:30 06/10/23 14:00 Temperature Pulse Rate 78 77 Respiratory Rate 18 17 Blood Pressure 138/76 Pulse Oximetry 98 99 Oxygen Delivery Method 06/10/23 14:42 06/10/23 14:42 06/10/23 14:43 Temperature Pulse Rate 94 H 88 Respiratory Rate Blood Pressure 157/78 H Pulse Oximetry 99 100 Oxygen Delivery Method 06/10/23 14:43 Temperature Pulse Rate Respiratory Rate Blood Pressure 153/81 H Pulse Oximetry Oxygen Delivery Method Oxygen Delivery Method Room Air Narrative Exam Narrative: GEN - alert, cooperative and no distress HEENT - normocephalic and atraumatic, moist mucus membranes HEART - RRR, S1, S2 normal, no S3 or S4, grade 2/6 systolic murmur LUNGS - symmetric chest rise, no accessory muscles, clear to auscultation bilaterally ABD - flat, nondistended, normal bowel sounds, soft, mild epigastric tenderness, no hepatomegaly, splenomegaly or masses EXT - no cyanosis, clubbing or edema SKIN - no rashes or suspicious lesions NEURO - no gross deficits Objective Labs 06/10/23 11:48 06/10/23 11:41 Labs: Laboratory Results - last 24 hr 06/10/23 06/10/23 06/10/23 11:41 11:41 11:48 WBC 9.1 RBC 4.08 L Hgb 12.3 L Hct 35.8 L MCV 87.8 MCH 30.1 MCHC 34.3 RDW 15.3 H Plt Count 526 H Neut % (Auto) 71.3 Lymph % (Auto) 17.4 L [place] % (Auto) 8.0 Eos % (Auto) 2.8 Baso % (Auto) 0.5 Neut # (Auto) 6500 Lymph # (Auto) 1600 [place] # (Auto) 700 Eos # (Auto) 300 Baso # (Auto) 0 PT 28.0 H INR 2.4 H APTT 43 H Sodium 139 Potassium 4.1 Chloride 103 Carbon Dioxide 26 BUN 18 Creatinine 1.18 Estimated GFR > 60 BUN/Creatinine Ratio 15.3 Glucose 90 Calcium 9.6 Total Bilirubin 0.5 AST 38 ALT 32 Alkaline Phosphatase 96 Total Protein 8.5 H Albumin 4.5 Globulin 4.0 Albumin/Globulin Ratio 1.1 Blood Type Antibody Screen 06/10/23 11:48 WBC RBC Hgb Hct MCV MCH MCHC RDW Plt Count Neut % (Auto) Lymph % (Auto) [place] % (Auto) Eos % (Auto) Baso % (Auto) Neut # (Auto) Lymph # (Auto) [place] # (Auto) Eos # (Auto) Baso # (Auto) PT INR APTT Sodium Potassium Chloride Carbon Dioxide BUN Creatinine Estimated GFR BUN/Creatinine Ratio Glucose Calcium Total Bilirubin AST ALT Alkaline Phosphatase Total Protein Albumin Globulin Albumin/Globulin Ratio Blood Type A Positive Antibody Screen Negative Assessment & Plan Assessment & Plan narrative: Pt is a 63yo man with HTN, CAD, hx of mechanical aortic valve replacement on chronic anticoagulation with Warfarin, and tobacco abuse who presented with melena. 1) Melena: Likely upper GI bleed. Risk factors of chronic anticoagulation, intermittent GERD symptoms. Pt is hemodynamically stable, but did have a slight drop in his H/H with Hgb of 12.3 down from 15.5 on 05/25. - Surgery consulted, appreciate recommendations - Continue IV Protonix BID - Vitamin K for reversal Coumadin, with full dose (1mg/kg) Lovenox bridging - NPO after midnight, plan on endoscopy and colonoscopy tomorrow pending INR 2) HTN, CAD: BP stable - Continue home medications 3) Hx of Aortic valve replacement, mechanical valve: - Hold Coumadin, bridge with Lovenox as above - Restart Coumadin as soon as possible after procedure FEN: NPO after midnight Code: Full DVT ppx: SCDs, on anticoagulation as above Dispo: Pending evaluation as above. Possible d/c tomorrow after endoscopy/colonoscopy. Pt is hoping to be able to go on his transcontinental RV trip, leaving next Thursday, that he has been planning for the last year.
[2023-06-10] MEDS: SODIUM CHLORIDE 0.9% 1,000 ML 75 ML IV (16:15)
[2023-06-10] MEDS: TRAMADOL 50 MG TABLET PO (16:22)
--- NOTE | 2023-06-10 16:26 | PC.ADMIT ---
Admission Note: Patient arrived to room 225 from ER via wheelchair, independent in room, steady on feet, denies dizziness. Pt reports black tarry stools for past 3 days, none since arriving at hospital. Denies pain to abdomen, does report pain to upper gums/mouth where he recently had a tooth extracted and tramadol administered per emar. Alert and oriented x3. RA. Oriented to room and to bed/tv/call light controls. Wallet, cell phone, clothing, and shoes all in room with pt, declines to lock up any valuables. Call light within reach. NPO at this time. The patient,Jake Ramos,63 y/o, was given written information regarding hospital policies, unit procedures and contact persons. Patient's smoking status: Former smoker. Vital Signs - 8 hr 06/10/23 11:42 06/10/23 11:44 06/10/23 12:00 Temperature 98.2 F Pulse Rate 89 87 81 Respiratory Rate 16 14 17 Blood Pressure 153/72 H Pulse Oximetry 100 100 99 Oxygen Delivery Method Room Air Oxygen Flow Rate 06/10/23 12:01 06/10/23 12:01 06/10/23 12:30 Temperature Pulse Rate 81 Respiratory Rate 18 Blood Pressure 124/63 124/71 Pulse Oximetry 100 Oxygen Delivery Method Oxygen Flow Rate 06/10/23 12:30 06/10/23 13:00 06/10/23 13:00 Temperature Pulse Rate 75 77 Respiratory Rate 15 14 Blood Pressure 122/68 Pulse Oximetry 99 98 Oxygen Delivery Method Oxygen Flow Rate 06/10/23 13:30 06/10/23 13:30 06/10/23 14:00 Temperature Pulse Rate 78 77 Respiratory Rate 18 17 Blood Pressure 138/76 Pulse Oximetry 98 99 Oxygen Delivery Method Oxygen Flow Rate 06/10/23 14:42 06/10/23 14:42 06/10/23 14:43 Temperature Pulse Rate 94 H 88 Respiratory Rate Blood Pressure 157/78 H Pulse Oximetry 99 100 Oxygen Delivery Method Oxygen Flow Rate 06/10/23 14:43 06/10/23 15:15 06/10/23 15:32 Temperature 97.3 F L Pulse Rate 87 Respiratory Rate 16 Blood Pressure 153/81 H 120/82 Pulse Oximetry 98 Oxygen Delivery Method Room Air Oxygen Flow Rate 0
[2023-06-10] MEDS: PHYTONADIONE (VIT K1) 10 MG in SODIUM CHLORIDE 0.9% 100 ML 202 MG IV (18:05)
[2023-06-10] MEDS: OXYCODONE IR 5 MG TABLET PO (18:05)
[2023-06-10] MEDS: dilTIAZem CD 120 MG CAP PO (22:00)
[2023-06-10] MEDS: PANTOPRAZOLE 40 MG VIAL IV (22:00)
[2023-06-10] MEDS: ENOXAPARIN 100 MG/ML SYRINGE 90 MG SUBCUT (22:01)
[2023-06-10] MEDS: lisinopriL 5 MG TABLET 2.5 MG PO (22:02)
[2023-06-11] VITALS (10 sets, daily range): BP systolic 77–125; BP diastolic 43–74; PULSE 74–84; RESP 14–20; TEMP 36.3–36.8; O2SAT 91–98; BMI 27.3
[2023-06-11 05:05] LABS: Add Manual Diff / Slide Review NO; Basophils Absolute Auto 100 /uL (0-100); Basophils Percent Auto 1.2 % (0-2); Eosinophils Absolute Auto 200 /uL (0-450); Eosinophils Percent Auto 3.2 % (2-4); Hematocrit 30.2 % (41-53); Hemoglobin 10.5 g/dL (13.5-17.5); Lymphocytes Absolute Auto 1300 /uL (1100-4500); Lymphocytes Percent Auto 17.4 % (25-40); Mean Corpuscular HGB Conc 34.7 % (30-36); Mean Corpuscular Hemoglobin 30.2 PG (26-34); Monocytes Absolute Auto 700 /uL (0-900); Monocytes Percent Auto 9.4 % (3-14); Neutrophils Absolute Auto 5000 /uL (1500-7000); Neutrophils Percent Auto 68.8 % (50-75); Platelet Count 386 X10^3/uL (150-400); Red Blood Cell Count 3.47 X10^6/uL (4.5-5.9); Red Cell Distribution Width 15.4 % (11.6-14.8); White Blood Cell Count 7.2 X10^3/uL (4.5-11.0)
[2023-06-11 05:10] LABS: INR 1.6 (0.9-1.3); Prothrombin Time 18.7 SECONDS (10.1-12.7)
[2023-06-11 05:13] LABS: PTT Partial Thromboplastin Tim 39 SECONDS (26-36)
[2023-06-11] MEDS: SODIUM CHLORIDE 0.9% 1,000 ML 75 ML IV (05:36)
--- NOTE | 2023-06-11 07:19 | P.PN_ITS ---
Subjective Subjective Date Patient Seen: 06/11/23 Time Patient Seen: 07:19 Interval history: Patient's numbers show decline in hemoglobin hematocrit overnight. Not dramatically so but definitely down. INR now 1.6. Exam Vital Signs (past 8 hours): - 06/11/23 04:00 Temperature 97.8 F Pulse Rate 78 Respiratory Rate 17 Blood Pressure 113/65 Pulse Oximetry 96 Oxygen Flow Rate 0 Oxygen Delivery Method Room Air Oxygen Flow Rate 0 Objective Labs 06/11/23 04:45 06/10/23 11:41 Labs: Laboratory Results - last 24 hr 06/10/23 06/10/23 06/10/23 11:41 11:41 11:48 WBC 9.1 RBC 4.08 L Hgb 12.3 L Hct 35.8 L MCV 87.8 MCH 30.1 MCHC 34.3 RDW 15.3 H Plt Count 526 H Neut % (Auto) 71.3 Lymph % (Auto) 17.4 L [place] % (Auto) 8.0 Eos % (Auto) 2.8 Baso % (Auto) 0.5 Neut # (Auto) 6500 Lymph # (Auto) 1600 [place] # (Auto) 700 Eos # (Auto) 300 Baso # (Auto) 0 PT 28.0 H INR 2.4 H APTT 43 H Sodium 139 Potassium 4.1 Chloride 103 Carbon Dioxide 26 BUN 18 Creatinine 1.18 Estimated GFR > 60 BUN/Creatinine Ratio 15.3 Glucose 90 Calcium 9.6 Total Bilirubin 0.5 AST 38 ALT 32 Alkaline Phosphatase 96 Total Protein 8.5 H Albumin 4.5 Globulin 4.0 Albumin/Globulin Ratio 1.1 Blood Type Antibody Screen 06/10/23 06/11/23 06/11/23 11:48 04:45 04:45 WBC 7.2 RBC 3.47 L Hgb 10.5 L Hct 30.2 L MCV 87.0 MCH 30.2 MCHC 34.7 RDW 15.4 H Plt Count 386 Neut % (Auto) 68.8 Lymph % (Auto) 17.4 L [place] % (Auto) 9.4 Eos % (Auto) 3.2 Baso % (Auto) 1.2 Neut # (Auto) 5000 Lymph # (Auto) 1300 [place] # (Auto) 700 Eos # (Auto) 200 Baso # (Auto) 100 PT 18.7 H D INR 1.6 H APTT 39 H Sodium Potassium Chloride Carbon Dioxide BUN Creatinine Estimated GFR BUN/Creatinine Ratio Glucose Calcium Total Bilirubin AST ALT Alkaline Phosphatase Total Protein Albumin Globulin Albumin/Globulin Ratio Blood Type A Positive Antibody Screen Negative [facility] Medical History Atrial tachycardia Chronic hepatitis C without hepatic coma (09/06/15) Cigarette smoker motivated to quit Coronary artery disease emt intermediate current use of anticoagulant therapy Non-Hodgkin's lymphoma (09/06/15) PSVT (paroxysmal supraventricular tachycardia) Stenosis of aorta (09/06/15) Surgical History S/P aortic valve replacement with metallic valve (~09/2018) S/P coronary artery stent placement (~01/2021) Status post heart valve replacement with mechanical valve Family History Father Crohn's disease Social History household members: spouse Smoking Status: Former smoker alcohol intake: never Assessment & Plan Assessment & Plan narrative: 1. Presumed upper GI bleed-hopefully patient will be able to undergo upper endoscopy today. He is had his warfarin held and vitamin K so that his INR is trending down somewhat dramatically. I have also discontinued his Plavix as Cardiology felt like 1 year of Plavix from his last coronary intervention in March 2022 would be appropriate, and he was told to discontinue it. Fortunately patient remains hemodynamically stable without evidence ongoing active cardiac ischemia. No need for transfusion at this point in my opinion. Continue to monitor his hemoglobin hematocrit while we await upper endoscopy and depending on outcomes potentially lower endoscopy as well 2. Cardiac-patient is status post placement of [place] mechanical aortic valve which is why he is chronically anticoagulated. Will need to be bridged with Lovenox (which he is). Also had complex percutaneous intervention of his coronary at the [facility] in March 2022. It is now been over years since that intervention, and he had his Plavix discontinued as per Cardiology. Patient does have complex coronary artery disease with multiple arteries involved. No evidence of active ischemia at this time. Hemoglobin hematocrit okay for the moment. Continue to monitor these numbers carefully and I would have a higher threshold for intervention with transfusion etcetera given his known coronary disease Patient also with a history of atrial tachycardia/SVT. Current time this is asymptomatic but will continue to monitor Overall patient seems stable. Hopefully as something straight for such as ongoing gastritis that will allow us to feel comfortable re anticoagulating him with warfarin and aggressively treating with proton pump inhibitors etcetera. Quality VTE Deep Vein Thrombosis/Pulmonary Embolism Present on Admission: No
[2023-06-11] MEDS: ISOSORBIDE MONONITRATE ER 30 MG TABLET 60 MG PO (10:00)
[2023-06-11] MEDS: ATORVASTATIN 20 MG TABLET 80 MG PO (10:00)
[2023-06-11] MEDS: PANTOPRAZOLE 40 MG VIAL IV (10:00)
[2023-06-11] MEDS: dilTIAZem CD 120 MG CAP PO (10:00)
--- NOTE | 2023-06-11 13:48 | P.CONS_ITS ---
History of Present Illness Consult details Date Patient Seen: 06/11/23 Time Patient Seen: 13:48 Chief complaint: sent by DR KAE marques Reason for consult: GI bleed Requesting provider: Juan George Narrative: Patient had episodes of dark stools for last 3 days. Is on coumadin and Plavix for mechanical heart valve among other issues. INR stable. Mild epigastric discomfort from time to time. Was given Vit K and INR today is 1.5. Meds Home Medications and Allergies Home Medications Medication Instructions Recorded Confirmed Type multivitamin 1 tab PO DAILY ##0 04/07/11 06/10/23 History diltiazem HCl 120 mg 120 mg PO BID 02/07/21 06/10/23 History capsule,extended release 24 hr naproxen 500 mg tablet 1,000 mg PO .PRN #90 tabs 07/15/22 06/10/23 Rx rosuvastatin 40 mg tablet 40 mg PO DAILY #90 tabs 07/15/22 06/10/23 Rx isosorbide mononitrate 60 mg 60 mg PO DAILY #30 tabs 11/19/22 06/10/23 Rx tablet,extended release 24 hr warfarin 5 mg tablet See Rx Instructions .Route 06/10/23 06/10/23 Rx .COMPLEX #270 tabs Allergies Allergy/AdvReac Type Severity Reaction Status Date / Time No Known Drug Allergies Allergy Verified 06/10/23 11:45 Review of Systems Review of Systems Narrative: Just had a wisdom tooth removed yesterday. ROS: Yes All systems reviewed with the patient and are negative except as otherwise documented Exam Vital Signs (past 8 hours): - 06/11/23 08:22 06/11/23 13:44 Temperature 98.2 F Pulse Rate 74 84 Respiratory Rate 16 18 Blood Pressure 111/67 125/74 Pulse Oximetry 97 98 Oxygen Delivery Method Room Air Oxygen Flow Rate 0 Oxygen Delivery Method Room Air Oxygen Flow Rate 0 Const General: cooperative, healthy appearing and comfortable Nutritional Appearance: average body habitus [facility] Head: normocephalic and atraumatic Eyes General: appearance normal, both eyes and all related structures Sclera: sclerae normal Neck Neck: trachea midline Chest Chest: normal inspection of the chest Resp Effort & Inspection: normal respiratory effort and able to speak in complete sentences Cardio Rate: regular rate Rhythm: regular rhythm GI Palpation: soft Skin General: turgor normal Neuro General: patient alert, patient awake and patient oriented x3 Cognition: normal cognition Psych Appearance: grossly normal Mental Status: mental status grossly normal Judgment: judgment good Objective Labs 06/11/23 04:45 06/10/23 11:41 Labs: Laboratory Results - last 24 hr 06/10/23 06/11/23 06/11/23 11:48 04:45 04:45 WBC 7.2 RBC 3.47 L Hgb 10.5 L Hct 30.2 L MCV 87.0 MCH 30.2 MCHC 34.7 RDW 15.4 H Plt Count 386 Neut % (Auto) 68.8 Lymph % (Auto) 17.4 L [place] % (Auto) 9.4 Eos % (Auto) 3.2 Baso % (Auto) 1.2 Neut # (Auto) 5000 Lymph # (Auto) 1300 [place] # (Auto) 700 Eos # (Auto) 200 Baso # (Auto) 100 PT 18.7 H D INR 1.6 H APTT 39 H Blood Type A Positive Antibody Screen Negative [facility] Medical History Atrial tachycardia Chronic hepatitis C without hepatic coma (09/06/15) Cigarette smoker motivated to quit Coronary artery disease shelter current use of anticoagulant therapy Non-Hodgkin's lymphoma (09/06/15) PSVT (paroxysmal supraventricular tachycardia) Stenosis of aorta (09/06/15) Surgical History S/P aortic valve replacement with metallic valve (~09/2018) S/P coronary artery stent placement (~01/2021) Status post heart valve replacement with mechanical valve Family History Father Crohn's disease Social History household members: spouse Tobacco & Substance Use Smoking Status: Former smoker alcohol intake: never Assessment & Plan Assessment & Plan narrative: Upper GI bleed, mild anemia, chronic anticoagulation Plan: EGD Time Spent With Patient Time with patient: less than 30 minutes
[2023-06-11] MEDS: LACTATED RINGERS 1,000 ML 150 ML IV (13:49)
--- NOTE | 2023-06-11 13:50 | CM.DANOTE ---
Initial DCP Assessment Note Pt is a 63 yo male, resident of [place], presents with tarry stools and suspected to have a GI bleed so scheduled for upper scope today PCP: Juan George Payer: Edda CLANCY Reviewed chart, pt indp and active at baseline, lives w/spouse Patient scheduled for scope today. Patient sitting up, chatting this morning, no needs anticipated from this CM team CM team will plan to follow closely for any DC needs or concerns that arise however anticipate home w/spouse w/o needs ESTEE Huang Discharge Planning/Care Management CM Discharge Assessment Start: 06/11/23 12:32 Freq: Status: Active Protocol: Document 06/11/23 12:32 GUNNAR (Rec: 06/11/23 13:49 [id number]) Discharge Planning Assessment Assigned [employer] ESTEE Henderson DPOA/Assigned Designee Name Katie Bailon, spouse Contact Information [phone] Advance Directives? No History Provided By Patient,Medical Record Prior Living Arrangements House Household Members spouse Type of transporation used prior to Drives own vehicle admit Independent with ADL's Yes Is patient alert and oriented? Yes Barriers to Discharge No Discharge Plan Home Transportation Arrangement Likely spouse Referrals Initiated None needed
--- NOTE | 2023-06-11 14:05 | PM.OP.EGD ---
Operative Date/Time/Diagnoses Date of procedure: 06/11/23 Time of procedure: 14:06 Pre-op diagnosis: anemia, dark stools, chronic anticoagulation Post-op diagnosis: same Procedure & Clinicians Study performed: EGD with MAC Same procedure as scheduled: Yes Indications: Dark stools for 3 days, anemia, chronic anticoagulation Surgeon: Hina Navas Procedure Notes Procedure in detail: Preop diagnosis: GI bleed Postop diagnosis: Same Operative procedure: EGD with anesthesia Surgeon: Melisa Navas MD Findings: Duodenitis, no ulcers. Stomach and esophagus within normal limits Procedure: Patient placed in a lateral position. Anesthetic was provided. Scope inserted into the esophagus advanced to the stomach. Insufflation allowed me to identified the pylorus which I intubate into the duodenum. Insufflation and extraction of the scope including retroflex had the above findings. Impression: Duodenitis in the 2nd portion of the duodenum, no ulcer of stomach or duodenum seen. Esophagus within normal limits. Plan: Restart anticoagulation and clear liquid diet. Proceed with PPIs b.i.d. for 6 weeks. Findings: other findings (Duodenitis) Specimen(s): none sent Complications: none Post-procedure Recommendations: Start medication(s) (Proton pump inhibitor b.i.d. for 6 weeks) and Continue medication(s) Plan for aftercare: Restart Coumadin Follow up: as needed Disposition: PACU
[2023-06-11] MEDS: ENOXAPARIN 40 MG/0.4 ML SYRINGE SUBCUT (16:08)
--- NOTE | 2023-06-12 08:43 | PM.DS.1 ---
History of Present Illness History of Present Illness Date Patient Seen: 06/11/23 Time Patient Seen: 15:30 Chief complaint: sent by DR KAE marques Narrative: Pt is a 63yo man with HTN, CAD, hx of mechanical aortic valve replacement on chronic anticoagulation with Warfarin, and tobacco abuse who presented with melena.? The pt reports that starting 3 days ago he developed very dark stools.? They are normal consistency and frequency, 2-3 times/day.? He has had mild epigastric pain during this time frame as well, but not severe enough that he would usually worry about it.? He does state that he frequently has GERD symptoms, but these are easily improved with Pepcid AC.? The pt denies any recent lightheadedness, dizziness, palpitations.? He denies any nausea, vomiting.? He denies any SOB, chest pain.? He has otherwise been feeling well without concerns.? The pt is not on any NSAIDs or Aspirin.? He denies significant alcohol use.? His INRs have been stable for the past 2 weeks.? Prior to that they were somewhat erratic, high and then low, due to antibiotic use for a dental procedure.? The pt denies ever having melena or blood in his stool in the past.? {from Dr. Garrido's H&P 06/10/23} Discharge Providers Provider Date of admission: 06/10/23 14:32 Discharge Date: 06/11/23 Primary care physician: Juan George MD Discharge provider: Juan George MD Summary Hospital Course Discharge Diagnosis: 1.?Acute?upper?GI?bleed?with?acute?blood?loss?anemia 2.??Duodenitis 3.??Chronic?anticoagulation?with?warfarin?secondary?to?mechanical?aortic?valve?replacement 4.??Mechanical?aortic?valve?replacement?with?[place]?aortic?valve? 5.??Coronary?artery?disease?status?post?complicated?PCI?May?2021 6.?History?of?PSVT/atrial?tachycardia 7.?Chronic?hepatitis?C?without?coma Hospital Course: Patient?was?admitted?to?the?hospital?after?presenting?with?the?GI?bleed?as?above.??His?warfarin?was?held?and?he?was?given?a?dose?of?vitamin?K?in?effort?to?reverse?it?to?allow?for?interventions?as?necessary.??He?underwent?upper?endoscopy?which?demonst rated?evidence?of?duodenitis?as?a?probable?source?of?his?GI?bleed.??His?hemoglobin?hematocrit?remained?relatively?stable.??He?was?anticoagulated?with?Lovenox?to?cover?his?mechanical?aortic?valve?immediately?after?his?procedure.??He?was?restarted?on?w arfarin?immediately?after?procedure? Was?felt?to?be?stable?for?discharge?given?the?low-level?of?his?ongoing?GI?bleed?and?the?findings?on?endoscopy.??He?will?be?covered?with?Lovenox?until?his?INR?is?back?in?excess?of?2.0. He?was?started?on?proton?pump?inhibitor?parenterally?upon?admission?and?he?will?continue?that?as?an?oral?dose?twice?daily?for?least?6?weeks? Status at Discharge Cognitive/behavioral status at discharge: at baseline, oriented Functional status at discharge: independent ambulation Overall status at discharge: patient is back to baseline Exam Vital Signs (past 8 hours): Oxygen Delivery Method Room Air Oxygen Flow Rate 0 Objective Labs 06/11/23 04:45 06/10/23 11:41 [facility] Medical History Atrial tachycardia Chronic hepatitis C without hepatic coma (09/06/15) Cigarette smoker motivated to quit Coronary artery disease half-way current use of anticoagulant therapy Non-Hodgkin's lymphoma (09/06/15) PSVT (paroxysmal supraventricular tachycardia) Stenosis of aorta (09/06/15) Surgical History S/P aortic valve replacement with metallic valve (~09/2018) S/P coronary artery stent placement (~01/2021) Status post heart valve replacement with mechanical valve Family History Father Crohn's disease Social History household members: spouse Smoking Status: Former smoker alcohol intake: never Discharge Plan Discharge Plan Patient Disposition: Home Provider Discharge Comment: Take 10mg warfarin today and tomorrow, then resume usual schedule, check INR on Thursday or Thursday Discharge orders & Medications Prescriptions: New enoxaparin 100 mg/mL Syringe 90 mg SUBCUT BID Qty: 10 2RF Rx Instructions: use until INR is >2.0, then stop omeprazole 40 mg capsule,delayed release(DR/EC) 40 mg PO BID Qty: 90 2RF Continued multivitamin Tablet 1 tab PO DAILY Qty: 0 rosuvastatin 40 mg tablet 40 mg PO DAILY Qty: 90 3RF naproxen 500 mg tablet 1,000 mg PO .PRN Qty: 90 3RF isosorbide mononitrate 60 mg tablet extended release 24 hr 60 mg PO DAILY Qty: 30 3RF warfarin 5 mg tablet See Rx Instructions .ROUTE .COMPLEX Qty: 270 0RF Dose Instruction: take two and a half tablets (12.5mg) Thursday, Thursday, Thursday and two tablets (10 mg) all other days, or as directed. Rx Instructions: Take 1.5 tablets (7.5 mg) Thursday, Thursday, Thursday and 2 tablets (10 mg) all other days, or as directed. diltiazem HCl 120 mg capsule,extended release 24hr 120 mg PO BID Follow up/Referrals: Juan George MD [Primary Care Provider] - 1 Month (if possible, or upon return from trip) Discharge Health Status Multidrug resistant organism: No MDRO Diet/Activity/Treatments Diet: Diet as Tolerated Visit Report/Discharge Packet Stand Alone Forms: Patient Portal/API, Stroke Signs & Symptoms, EGD Result: [facility], EGD Result: [facility] Discharge Data Primary Care Provider: Juan Geroge Discharges patient from system. Discharge Date/Time: 06/11/23 16:23 Quality VTE Deep Vein Thrombosis/Pulmonary Embolism Present on Admission: No
== END 2023-06-11 16:23 | disposition home or self-care (01) | DRG 378 ==
LOC: ED 14:31 → AC 14:34
PROVIDERS: Surgery; Admitting Provider Family Medicine; Emergency Provider Emergency Medicine; PCP Internal Medicine; Referring Provider Emergency Medicine; Visit Provider Internal Medicine
PROC: 0DJ08ZZ Inspection of Upper Intestinal Tract, Via Natural or Artificial Opening Endoscopic (ICD-10-PCS; CPT 43235; principal; 2023-06-11 13:45)
DX: K29.81 Duodenitis with bleeding (principal); D62 Acute posthemorrhagic anemia; D68.32 Hemorrhagic disorder due to extrinsic circulating anticoagulants; I10 Essential (primary) hypertension; I25.10 Atherosclerotic heart disease of native coronary artery without angina pectoris; Z87.891 Personal history of nicotine dependence; Z95.2 Presence of prosthetic heart valve; Z79.01 Long term (current) use of anticoagulants
CPT/HCPCS: 36415; 80053; 81003; 85025; 85610; 85730; 86850; 86900; 86901; 93005; 99222; 99238; 99284; C9113; J1650; J2704; J3430

== ENCOUNTER → 2023-09-18 10:57 | Outpatient (CLI) | payer OTHER, SELFPAY ==
[2023-06-10 15:20] VITALS: BMI 27.3
[2023-09-18 11:38] LABS: Add Manual Diff / Slide Review NO; Basophils Absolute Auto 100 /uL (0-100); Basophils Percent Auto 0.8 % (0-2); Eosinophils Absolute Auto 300 /uL (0-450); Eosinophils Percent Auto 3.9 % (2-4); Hematocrit 40.6 % (41-53); Hemoglobin 13.8 g/dL (13.5-17.5); Lymphocytes Absolute Auto 1500 /uL (1100-4500); Lymphocytes Percent Auto 17.9 % (25-40); Mean Corpuscular Hemoglobin 28.8 PG (26-34); Mean Corpuscular Volume 84.6 fL (80-100); Monocytes Absolute Auto 800 /uL (0-900); Monocytes Percent Auto 9.1 % (3-14); Neutrophils Absolute Auto 5800 /uL (1500-7000); Neutrophils Percent Auto 68.3 % (50-75); Platelet Count 279 X10^3/uL (150-400); Red Cell Distribution Width 17.1 % (11.6-14.8); White Blood Cell Count 8.5 X10^3/uL (4.5-11.0)
[2023-09-18 11:57] LABS: Alanine Aminotransferase 22 IU/L (<50); Albumin 4.7 g/dL (3.5-5.0); Albumin Globulin Ratio 1.4 (1.0-2.8); Alkaline Phosphatase 77 U/L (38-126); Aspartate Aminotransferase 28 IU/L (17-59); BUN Creatinine Ratio 17.6 (6-22); Bilirubin Total 0.5 mg/dL (0.2-1.3); Blood Urea Nitrogen 21 mg/dL (9-20); Calcium 9.9 mg/dL (8.4-10.2); Carbon Dioxide 23 mmol/L (22-32); Chloride 105 mmol/L (98-107); Estimated Glomerular Filt Rate > 60 mL/min (>60); Globulin 3.4 g/dL (1.7-4.1); Glucose 92 mg/dL (80-110); HEMOLYSIS < 15 (0-50); Potassium 4.3 mmol/L (3.4-5.1); Sodium 137 mmol/L (137-145); Total Protein 8.1 g/dL (6.3-8.2)
[2023-09-18 12:02] LABS: INR 2.6 (0.9-1.3)
[2023-09-18 12:08] LABS: Prothrombin Time 29.6 SECONDS (10.1-12.7)
== END ==
PROVIDERS: PCP Internal Medicine; Referring Provider Internal Medicine; Visit Provider Internal Medicine
DX: K92.2 Gastrointestinal hemorrhage, unspecified (principal); Z79.01 Long term (current) use of anticoagulants; I25.10 Atherosclerotic heart disease of native coronary artery without angina pectoris
CPT/HCPCS: 36415; 80053; 85025; 85610

== ENCOUNTER 2023-11-13 12:41 | Day surgery (SDC) | payer OTHER, SELFPAY ==
[2023-06-10 15:20] VITALS: BMI 27.3
--- NOTE | 2023-11-13 | PATH_ITS ---
[facility] Accession Number: [id number] No. of containers..01 Tissue . 01 Material submitted: . colon - ASCENDING COLON . 01 Diagnosis: Ascending Colon, Polyp: Colonic mucosa with surface hyperplastic-type changes. Negative for dysplasia and malignancy. MRV 11/24/2023 1303 Local . 01 Electronically signed: . Kathleen Guzman MD, Pathologist NPI- [id number] . 01 Gross description: . ASCENDING COLON: Received in formalin is 1 fragment(s) of kyle, soft tissue measuring 0.1 x 0.1 x 0.1 cm submitted entirely in 1 cassette(s) /CODY 11/16/2023 1932 Local . 01 Pathologist provided ICD-10: K63.5 . 01 CPT . 047950 Specimen Comment: A courtesy copy of this report has been sent to [phone] Performed at: 01 [facility] [address] [place] [address], [place], [place] [id number] MD Manuel Sethi MD Phone: [phone]
[2023-11-13 13:16] VITALS: BP 125/80; PULSE 95; RESP 18; TEMP 36.6; O2SAT 98; BMI 25.9
[2023-11-13] MEDS: LACTATED RINGERS 1,000 ML 120 ML IV (13:24)
--- NOTE | 2023-11-13 13:26 | PM.HP.1 ---
History of Present Illness History of Present Illness Date Patient Seen: 11/13/23 Time Patient Seen: 13:26 Chief complaint: Colonoscopy Narrative: 63-year-old man personal history of colonic polyps here for screening colonoscopy. Last colonoscopy 10 years ago. No family history of intestinal malignancy. No abdominal concerns today. 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 Atrial tachycardia Non-Hodgkin's lymphoma (09/06/15) Chronic hepatitis C without hepatic coma (09/06/15) Stenosis of aorta (09/06/15) PSVT (paroxysmal supraventricular tachycardia) Surgical History S/P coronary artery stent placement (~01/2021) Status post heart valve replacement with mechanical valve S/P aortic valve replacement with metallic valve (~09/2018) Family History Father Crohn's disease Social History household members: spouse Smoking Status: Current every day smoker alcohol intake: never Meds Home Medications and Allergies Home Medications Medication Instructions Recorded Confirmed Type multivitamin 1 tab PO DAILY ##0 04/07/11 11/13/23 History diltiazem HCl 120 mg 120 mg PO BID 02/07/21 11/13/23 History capsule,extended release 24 hr naproxen 500 mg tablet 1,000 mg (2 x 500 mg) PO .PRN #90 07/15/22 11/13/23 Rx tabs isosorbide mononitrate 60 mg 60 mg PO DAILY #30 tabs 11/19/22 11/13/23 Rx tablet,extended release 24 hr warfarin 5 mg tablet See Rx Instructions .Route 06/10/23 11/13/23 Rx .COMPLEX #270 tabs rosuvastatin 40 mg tablet 40 mg PO DAILY #90 tabs 09/21/23 11/13/23 Rx Allergies Allergy/AdvReac Type Severity Reaction Status Date / Time No Known Drug Allergies Allergy Verified 11/13/23 12:56 Exam Vital Signs (past 8 hours): - 11/13/23 13:16 Temperature 97.8 F Pulse Rate 95 H Respiratory Rate 18 Blood Pressure 125/80 Pulse Oximetry 98 Oxygen Delivery Method Room Air Oxygen Delivery Method Room Air Narrative Exam Narrative: General adult man alert oriented no acute distress Chest nonlabored respiration Extremities warm well perfused Assessment & Plan Assessment and plan (1) Personal history of colonic polyps: Status: Acute Assessment & Plan narrative: The patient requires colorectal screening and colonoscopy is recommended. Technical details were discussed. Risks, benefits, alternatives explained. Risks including but not limited to myocardial infarction, aspiration, bleeding, pain, missed lesion, incomplete examination, need for further radiographic studies, colonic perforation, and need for major abdominal surgery were discussed. All questions were answered to their satisfaction, and they are in agreement with this plan.
--- NOTE | 2023-11-13 13:28 | P.OP.COLON_ITS ---
Operative Date/Time/Diagnoses Date of procedure: 11/13/23 Time of procedure: 13:28 Pre-op diagnosis: Personal history of colonic polyps Post-op diagnosis: other (Colonic polyp x1) Procedure & Clinicians Study performed: Colonoscopy Same procedure as scheduled: Yes Procedure Notes Procedure in detail: The history and physical was performed/updated and the patient is ASA class is 3. The procedure was discussed in detail with the patient. Potential risks complications including infection, bleeding, missed diagnosis, perforation, need for surgery, and were explained. Their questions were answered and informed consent was obtained. Patient was brought to the procedure room and placed standard monitoring equipment. The patient's vital signs were monitored continuously throughout the entire procedure. Prior to starting time-out was performed. The patient was placed in the left lateral recumbent position. Procedural sedation was administered by anesthesia. Examination began with a thorough inspection of the perianal area there was no evidence of fissures, fistulae, external hemorrhoids or cutaneous malignancy. The colonoscopy scope was then placed into the anal canal and was advanced to the cecum, which was identified by the ileocecal valve, the appendiceal orifice and the confluence of the taenia. The scope was then slowly withdrawn examining colon thoroughly in all directions, irrigating it of any residual stool. The scope was retroflexed within the rectum The patient tolerated the procedure well. They will be discharged once criteria are met. The prep was of good/excellent quality. The withdrawl time was 6 minutes. FINDINGS * Ascending colon 2 mm polyp removed with biopsy forceps Specimen(s): other (Ascending colon polyp) Impression: Colonic polyp Post-procedure Plan for aftercare: Follow-up is dependent on pathology findings Disposition: same day surgery
[2023-11-13 13:55] VITALS: BP 101/69; PULSE 84; RESP 20; TEMP 36.1; O2SAT 98
[2023-11-13 14:00] VITALS: BP 133/82; PULSE 93; RESP 20; O2SAT 100
[2023-11-13 14:05] VITALS: BP 120/58; PULSE 90; RESP 17; O2SAT 100
[2023-11-13] MEDS: ALBUTEROL/IPRATROPIUM 3 ML AMPUL INH (14:06)
[2023-11-13 14:30] VITALS: BP 125/80; PULSE 95; RESP 16; TEMP 36.6; O2SAT 94
== END 2023-11-13 14:32 | disposition home or self-care (01) ==
PROVIDERS: PCP Internal Medicine; Referring Provider Surgery; Visit Provider Surgery
PROC: 0DJD8ZZ Inspection of Lower Intestinal Tract, Via Natural or Artificial Opening Endoscopic (ICD-10-PCS; CPT 45378; principal; 2023-11-13 13:15)
DX: Z12.11 Encounter for screening for malignant neoplasm of colon (principal); Z86.010 Personal history of colon polyps; K63.5 Polyp of colon
CPT/HCPCS: 45380

== ENCOUNTER 2025-05-11 13:10 | Emergency (ER) | payer MEDICARE, BC, SELFPAY ==
[2023-06-10 15:20] VITALS: BMI 27.3
[2025-05-11 13:22] VITALS: BP 143/78; PULSE 88; RESP 14; TEMP 36.7; O2SAT 98; BMI 27.9
--- NOTE | 2025-05-11 13:28 | DI.RAD.S_ITS ---
PROCEDURE: XR FOOT RT MIN 3V INDICATIONS: fall/pain/brusing TECHNIQUE: 3 views of the foot were acquired. COMPARISON: None. FINDINGS: Bones: No fractures or dislocations. Severe 1st MTP joint osteoarthritic changes are seen with prominent dorsal marginal osteophyte formation concerning for hallux limitus. [id number] osteoarthritic changes throughout rest of the right foot are seen. Well-defined plantar calcaneal enthesophyte is seen. No suspicious bony lesions. Soft tissues: No tibiotalar joint effusion. Achilles tendon appears normal. IMPRESSION: No acute right foot fracture or dislocation. Severe 1st MTP joint osteoarthritis with suggestion of hallux limitus. [id number] osteoarthritic changes in rest of right foot. Well-defined plantar calcaneal enthesophyte. Dictated by: Dong Matos M.D. on 05/11/2025 at 14:26 Approved by: Dong Matos M.D. on 05/11/2025 at 14:27
--- NOTE | 2025-05-11 15:18 | ED.LOWEXIN ---
HPI - Extremity Injury (Lower) <Lay Ferro PA-C - Last Filed: 05/11/25 16:40> General Chief Complaint: Extremity Injury, Lower Stated Complaint: broke ft bleeding on blood thinners Time Seen by Provider: 05/11/25 14:48 Source: patient Mode of arrival: Ambulatory History of Present Illness HPI Narrative: Mr. Ramos is a very pleasant 65 year old male with a past medical history of aortic valve replacement on warfarin who presents to the emergency department for a right foot injury that occurred yesterday. Patient states that he was stepping over a small dog fence when he tripped and fell forward, his right great toe was bent abnormally causing the base of the great toe to rip/lacerate. Now has bruising and pain of the 1st MTP joint, he came to the ER however because laceration on the bottom of his big toe is still bleeding. His last Tdap was 03/08/2021. States that when he fell forward he caught himself on both of his hands and he did not hit his head, and his wrists are not bothering him. No other injuries. Related Data Home Medications ?Medication ?Instructions ?Recorded ?Confirmed multivitamin 1 tab PO DAILY ##0 04/07/11 05/12/25 diltiazem HCl 120 mg 120 mg PO BID 02/07/21 05/12/25 capsule,extended release 24 hr Previous Rx's ?Medication ?Instructions ?Recorded naproxen 500 mg tablet 1,000 mg (2 x 500 mg) PO .PRN #90 07/15/22 tabs isosorbide mononitrate 60 mg 60 mg PO DAILY #30 tabs 11/19/22 tablet,extended release 24 hr warfarin 5 mg tablet See Rx Instructions .Route 06/10/23 .COMPLEX #270 tabs rosuvastatin 40 mg tablet 40 mg PO DAILY #90 tabs 11/25/24 Allergies Allergy/AdvReac Type Severity Reaction Status Date / Time No Known Drug Allergies Allergy Verified 05/12/25 09:05 Review of Systems <Lay Ferro PA-C - Last Filed: 05/11/25 16:40> Review of Systems ROS Unobtainable: All systems reviewed & are unremarkable except as noted in HPI and below Patient History <Lay Ferro PA-C - Last Filed: 05/11/25 16:40> Medical History Osteoarthritis of foot, right Mixed hyperlipidemia Personal history of colonic polyps GI bleed Cigarette smoker motivated to quit Coronary artery disease care home current use of anticoagulant therapy Atrial tachycardia Non-Hodgkin's lymphoma (09/06/15) Chronic hepatitis C without hepatic coma (09/06/15) Stenosis of aorta (09/06/15) PSVT (paroxysmal supraventricular tachycardia) Surgical History S/P coronary artery stent placement (~01/2021) Status post heart valve replacement with mechanical valve S/P aortic valve replacement with metallic valve (~09/2018) Family History Father Crohn's disease Brother Prostate cancer Social History household members: spouse alcohol intake: never Smoking Status: Never smoker alcohol intake frequency: holidays/special occasions only Exam <Lay Ferro PA-C - Last Filed: 05/11/25 16:40> Narrative Exam Narrative: GENERAL: 65 year old patient appears stated age. Well-developed patient, in no acute distress. HEAD: Atraumatic. Normocephalic. NECK: Trachea midline. Cervical ROM intact. CARDIOVASCULAR: Regular rate RESPIRATORY: ?Nonlabored respirations. ?Speaking in clear, full sentences. ? EXTREMITIES: Ecchymoses of right great toe and 1st MTP. There is a 2 cm laceration on the base of the right great toe, overlying the plantar MTP crease. There is very slow ooze of blood from this laceration. Patient has brisk capillary refill on his toes, sensation intact to light touch, and strong DP and PT pulses. No obvious deformities. NEURO: AOx3. ?Clear speech. ?Moves all 4 extremities appropriately with the exception of right great toe SKIN: Warm, dry. Laceration on plantar aspect of right great toe described above. Initial Vital Signs Initial Vital Signs: Vital Signs Temperature 98.1 F 05/11/25 13:22 Pulse Rate 88 05/11/25 13:22 Respiratory Rate 14 05/11/25 13:22 Blood Pressure 143/78 H 05/11/25 13:22 Pulse Oximetry 98 05/11/25 13:22 Oxygen Delivery Method Room Air 05/11/25 13:22 <Светлана Knapp DO - Last Filed: 05/22/25 19:05> Initial Vital Signs Initial Vital Signs: Vital Signs Temperature 98.1 F 05/11/25 13:22 Pulse Rate 88 05/11/25 13:22 Respiratory Rate 14 05/11/25 13:22 Blood Pressure 143/78 H 05/11/25 13:22 Pulse Oximetry 98 05/11/25 13:22 Oxygen Delivery Method Room Air 05/11/25 13:22 Course <Lay Ferro PA-C - Last Filed: 05/11/25 16:40> Orders Ordered: Discontinued Medications Acetaminophen (Acetaminophen 325 Mg Tablet) 975 mg PO NOW ONE Stop: 05/11/25 15:50 Last Admin: 05/11/25 16:10 Dose: 975 mg Documented By: MIQUEL Bacitracin (Bacitracin Oint 0.9 Gm Pckt) 1 applic TOP NOW ONE Stop: 05/11/25 15:50 Last Admin: 05/11/25 16:10 Dose: 1 applic Documented By: MIQUEL Cephalexin HCl (Cephalexin 250 Mg Capsule) 500 mg PO NOW ONE Stop: 05/11/25 15:50 Last Admin: 05/11/25 16:10 Dose: 500 mg Documented By: MIQUEL Vital Signs Vital signs: Vital Signs - 8 hr 05/11/25 13:22 Temperature 98.1 F Pulse Rate 88 Respiratory Rate 14 Blood Pressure 143/78 H Pulse Oximetry 98 Oxygen Delivery Method Room Air <Светлана Knapp DO - Last Filed: 05/22/25 19:05> Orders Ordered: Discontinued Medications Acetaminophen (Acetaminophen 325 Mg Tablet) 975 mg PO NOW ONE Stop: 05/11/25 15:50 Last Admin: 05/11/25 16:10 Dose: 975 mg Documented By: MIQUEL Bacitracin (Bacitracin Oint 0.9 Gm Pckt) 1 applic TOP NOW ONE Stop: 05/11/25 15:50 Last Admin: 05/11/25 16:10 Dose: 1 applic Documented By: MIQUEL Cephalexin HCl (Cephalexin 250 Mg Capsule) 500 mg PO NOW ONE Stop: 05/11/25 15:50 Last Admin: 05/11/25 16:10 Dose: 500 mg Documented By: MIQUEL Vital Signs Vital signs: Vital Signs - 8 hr 05/11/25 13:22 Temperature 98.1 F Pulse Rate 88 Respiratory Rate 14 Blood Pressure 143/78 H Pulse Oximetry 98 Oxygen Delivery Method Room Air MDM - Extremity Injury (Lower) <Lay Ferro PA-C - Last Filed: 05/11/25 16:40> Medical Records Attestation: I reviewed the patient's medical records. Imaging Data Right Foot X-Ray: Radiologist's Impression: PROCEDURE: XR FOOT RT MIN 3V INDICATIONS: fall/pain/brusing TECHNIQUE: 3 views of the foot were acquired. COMPARISON: None. FINDINGS: Bones: No fractures or dislocations. Severe 1st MTP joint osteoarthritic changes are seen with prominent dorsal marginal osteophyte formation concerning for hallux limitus. [id number]-[id number] osteoarthritic changes throughout rest of the right foot are seen. Well-defined plantar calcaneal enthesophyte is seen. No suspicious bony lesions. Soft tissues: No tibiotalar joint effusion. Achilles tendon appears normal. IMPRESSION: No acute right foot fracture or dislocation. Severe 1st MTP joint osteoarthritis with suggestion of hallux limitus. [id number]-[id number] osteoarthritic changes in rest of right foot. Well-defined plantar calcaneal enthesophyte. Dictated by: Dong Matos M.D. on 05/11/2025 at 14:26 Approved by: Dong Matos M.D. on 05/11/2025 at 14:27 [facility] Narrative Medical decision making narrative: 65 year old male with a past medical history of aortic valve replacement on warfarin who presents to the emergency department for a right foot injury that occurred yesterday. Differential diagnosis includes but is not limited to right phalanx fracture, right foot fracture, sprain, strain, contusion, laceration, etc. On exam the patient is in no acute distress, nontoxic appearing, vital signs appropriate. He is ecchymosis and edema of the right great toe/1st MTP, he has a superficial laceration on the base of the right great toe. His Tdap was updated in 2020. X-ray right foot obtained in triage reveals no acute right foot fracture or dislocation however patient does have severe 1st MTP joint osteoarthritis. Because of the patient's pain and bruising, we will treat as a potential fracture with crutches, postoperative shoe. Due to patient's laceration occurring over 24 hours ago, we will allow to heal by secondary intention, wound was cleansed, soaked in diluted Betadine, bacitracin and a pressure dressing was applied to the wound with cessation of bleeding. Recommended removing the dressing in 24 hours and then discussed daily wound care. We will treat patient with Keflex to prevent infection. Discussed with pharmacist that Keflex will not have interaction with the patient's warfarin/INR as he was concerned about this. Recommended rice therapy, weight-bearing as tolerated, Tylenol for pain. Discussed ED return precautions. Patient verbalized understanding of all information agreeable with the plan. He is ambulatory with crutches and stable for discharge home. Discharge Plan Departure Patient Disposition: Home Clinical Impression: Laceration of foot, right, Osteoarthritis of foot, right Instructions: DI for Open Laceration Activity Restrictions/Additional Instructions: Dear Ms. Ochoatamara, Thank you for coming to the emergency department. Today you were evaluated for a right foot injury. Your x-ray does not show any broken bones however you do have very severe arthritis in the area of your foot pain, so we are treating you as a possible foot fracture and I would like you to continue wearing the orthopedic shoe and use crutches. The laceration on the bottom of your foot was cleansed and a pressure dressing was applied which I would like you to keep in place for the next 24 hours. Please keep the dressing on your wound clean, dry, and intact for the next 24 hours. After this time, you may remove the dressing and gently clean the wound with soap and water, then pat dry. Keep the wound clean and covered. Avoid soaking the wound in any water such as a bath, pool, or the ocean. If you develop any signs of wound infection such as increased redness, pus drainage, streaking redness, or fevers, please return to the ER immediately for evaluation. I would like you to complete the full course of antibiotics to prevent wound infection from the foot laceration. Antibiotics have been sent to [facility]. Please use RICE therapy for your pain in addition to acetaminophen. Rest the painful area. Ice the area of pain/swelling for at least 15 minutes, 4x a day. Compress the area of swelling using a brace, wrap, or splint if applied. Elevate the painful or swollen extremity by supporting it above the level of the heart with pillows when sitting or laying. Please follow up with your primary care doctor within the next 2-3 days for ER follow-up. (If you do not have a PCP you can call [phone]. ?to schedule an appointment with an [facility] Primary Care Provider) IF YOU DEVELOP ANY NEW OR WORSENING SYMPTOMS, RETURN TO THE ER! Please read the attached instructions, they highlight more specific treatments and interventions for you at home. Thank you for letting me participate in your care, Lay Ferro PA-C Prescriptions: No Action multivitamin Tablet 1 tab PO DAILY Qty: 0 naproxen 500 mg tablet 1,000 mg PO .PRN Qty: 90 3RF isosorbide mononitrate 60 mg tablet extended release 24 hr 60 mg PO DAILY Qty: 30 3RF warfarin 5 mg tablet See Rx Instructions .ROUTE .COMPLEX Qty: 270 0RF Dose Instruction: take two and a half tablets (12.5mg) Thursday, Thursday, Thursday and two tablets (10 mg) all other days, or as directed. Rx Instructions: Take 1.5 tablets (7.5 mg) Thursday, Thursday, Thursday and 2 tablets (10 mg) all other days, or as directed. rosuvastatin 40 mg tablet 40 mg PO DAILY Qty: 90 1RF Rx Instructions: ANNUAL/YEARLY CHECK IN DUE 02/2025. PLEASE CALL TO SCHEDULE FUTURE APPT. THANKS 11/25/24. diltiazem HCl 120 mg capsule,extended release 24hr 120 mg PO BID triamcinolone acetonide [Kenalog] 40 mg/mL suspension 40 mg intrabursal ONCE Qty: 1 0RF Referrals: Juan George MD [Primary Care Provider, Internal Medicine] Stand Alone Forms: Patient Portal/API ED Sign-out <Светлана Knapp, - Last Filed: 05/22/25 19:05> Cosign ED Attending Aleena Attestation: I was immediately available in the department for consultation.
[2025-05-11] MEDS: cephALEXin 250 MG CAPSULE 500 MG PO (16:10)
[2025-05-11] MEDS: ACETAMINOPHEN 325 MG TABLET 975 MG PO (16:10)
[2025-05-11] MEDS: BACITRACIN OINT 0.9 GM PCKT 1 APPLIC TOP (16:10)
[2025-05-11 16:40] VITALS: BP 155/92; PULSE 73; RESP 18; O2SAT 98
== END 2025-05-11 16:41 | disposition home or self-care (01) ==
PROVIDERS: Emergency Provider Physician Assistant; PCP Internal Medicine
DX: S91.311A Laceration without foreign body, right foot, initial encounter (principal); M19.071 Primary osteoarthritis, right ankle and foot; Z79.01 Long term (current) use of anticoagulants; Z95.2 Presence of prosthetic heart valve; W01.0XXA Fall on same level from slipping, tripping and stumbling without subsequent striking against object, initial encounter
CPT/HCPCS: 73630; 99283

== ENCOUNTER → 2025-05-17 07:11 | Outpatient (CLI) | payer MEDICARE, BC, SELFPAY ==
[2023-06-10 15:20] VITALS: BMI 27.3
[2025-05-17 07:44] LABS: Add Manual Diff / Slide Review NO; Basophils Absolute Auto 100 /uL (0-100); Basophils Percent Auto 0.8 % (0-2); Eosinophils Absolute Auto 100 /uL (0-450); Eosinophils Percent Auto 0.8 % (2-4); Hematocrit 44.8 % (41-53); Hemoglobin 15.1 g/dL (13.5-17.5); Lymphocytes Absolute Auto 2000 /uL (1100-4500); Lymphocytes Percent Auto 22.6 % (25-40); Mean Corpuscular HGB Conc 33.7 % (30-36); Mean Corpuscular Hemoglobin 30.7 PG (26-34); Mean Corpuscular Volume 91.1 fL (80-100); Monocytes Absolute Auto 1000 /uL (0-900); Monocytes Percent Auto 11.3 % (3-14); Neutrophils Absolute Auto 5700 /uL (1500-7000); Neutrophils Percent Auto 64.5 % (50-75); Platelet Count 309 X10^3/uL (150-400); Red Blood Cell Count 4.92 X10^6/uL (4.5-5.9); Red Cell Distribution Width 14.6 % (11.6-14.8); White Blood Cell Count 8.8 X10^3/uL (4.5-11.0)
[2025-05-17 07:59] LABS: Alanine Aminotransferase 23 IU/L (<50); Albumin 5.1 g/dL (3.5-5.0); Alkaline Phosphatase 69 U/L (38-126); Aspartate Aminotransferase 31 IU/L (17-59); BUN Creatinine Ratio 22.7 (6-22); Bilirubin Total 0.9 mg/dL (0.2-1.3); Blood Urea Nitrogen 29 mg/dL (9-20); Carbon Dioxide 26 mmol/L (22-32); Chloride 102 mmol/L (98-107); Cholesterol 181 mg/dL (140-199); Estimated Glomerular Filt Rate > 60 mL/min (>60); Globulin 2.5 g/dL (1.7-4.1); Glucose 96 mg/dL (70-99); HDL Cholesterol 80 mg/dL (40-60); HEMOLYSIS < 15 (0-50); LDL Cholesterol Calculated 65 mg/dL (<100); Potassium 4.8 mmol/L (3.4-5.1); Sodium 138 mmol/L (137-145); Total Protein 7.6 g/dL (6.3-8.2); Triglycerides 178 mg/dL (35-150)
[2025-05-17 08:25] LABS: Prostate Specific Antigen Scrn 1.08 ng/mL (0.1-4.0)
[2025-05-17 08:26] LABS: Prothrombin Time 65.1 SECONDS (9.4-12.5)
== END ==
PROVIDERS: PCP Internal Medicine; Referring Provider Internal Medicine; Visit Provider Internal Medicine
DX: I25.10 Atherosclerotic heart disease of native coronary artery without angina pectoris (principal); Z12.5 Encounter for screening for malignant neoplasm of prostate; C85.90 Non-Hodgkin lymphoma, unspecified, unspecified site; B18.2 Chronic viral hepatitis C; E78.2 Mixed hyperlipidemia; Z79.01 Long term (current) use of anticoagulants
CPT/HCPCS: 36415; 80053; 80061; 85025; 85610; G0103

== ENCOUNTER 2025-06-06 09:15 | Emergency (ER) | payer MEDICARE, BC, SELFPAY ==
[2023-06-10 15:20] VITALS: BMI 27.3
[2025-06-06] VITALS (68 sets, daily range): BP systolic 105–179; BP diastolic 60–89; PULSE 60–73; RESP 12–25; TEMP 36.5; O2SAT 94–99; BMI 28.0
--- NOTE | 2025-06-06 09:17 | DI.RAD.S_ITS ---
PROCEDURE: XR CHEST 1V INDICATIONS: Chest Pain TECHNIQUE: One view of the chest was acquired. COMPARISON: [facility], CR, XR CHEST 1V, 05/25/2023, 8:30. [facility], CR, XR CHEST 1V, 04/07/2022, 13:49. FINDINGS: Surgical changes and devices: Sternotomy wires and prosthetic heart valve are present. Lungs and pleura: Lungs are clear. No pleural effusions or pneumothorax. Mediastinum: Mediastinal contours appear normal. Heart size is normal. Bones and chest wall: No suspicious bony lesions. Overlying soft tissues appear unremarkable. IMPRESSION: No acute cardiopulmonary abnormality is seen. Approved by: Kenji Hussein M.D. on 06/06/2025 at 10:25
--- NOTE | 2025-06-06 09:22 | ED_ITS ---
HPI - General Adult <Vianey Slade MD - Last Filed: 06/07/25 23:24> General Chief complaint: Chest Pain Stated complaint: Chest pain x 2 days Time Seen by Provider: 06/06/25 09:15 History of Present Illness HPI narrative: 65-year-old gentleman with a history of [facility] mechanical aortic valve [facility] 2018 for severe aortic stenosis, coronary artery disease prior complex PCI [facility] January 2021, March 2022, cardiac ablation in 2011 2012, history of non-Hodgkin's lymphoma, hyperlipidemia presents with 2 days of chest pain associated with diaphoresis central pain radiating up into both sides of his neck similar to prior cardiac events, symptoms have been waxing and waning but have not completely resolved. This morning took 2 nitro which were effective until they both wore off, pain is currently 3/10, he is mildly diaphoretic, able to speak in complete sentences in no obvious dyspnea. He comes in with his . Outside the room, his notes that he continues to smoke tobacco, marijuana and drink quite a bit, she notes that he does not have withdrawal symptoms from these. Related Data Home Medications ?Medication ?Instructions ?Recorded ?Confirmed multivitamin 1 tab PO DAILY ##0 04/07/11 05/12/25 diltiazem HCl 120 mg 120 mg PO BID 02/07/2105/12 capsule,extended release 24 hr Previous Rx's ?Medication ?Instructions ?Recorded naproxen 500 mg tablet 1,000 mg (2 x 500 mg) PO .OR N #90 07/15/22 tabs isosorbide mononitrate 60 mg 60 mg PO DAILY #30 tabs 1 01/20/22 tablet,extended release 24 hr warfarin 5 mg tablet See Rx Instructions .Route 0 06/10/23 .COMPLEX #270 tabs rosuvastatin 40 mg tablet 40 mg PO DAILY #90 tabs 10/31 06/22 Allergies Allergy/AdvReac Type Severity Reaction Status Date / Time No Known Drug Allergies Allergy Verified 05/12/25 09:05 Review of Systems <Vianey Slade MD - Last Filed: 06/07/25 23:24> Review of Systems Narrative: Pertinent positive and negative findings as per HPI Patient History <Vianey Slade MD - Last Filed: 06/07/25 23:24> Medical History Osteoarthritis of foot, right Mixed hyperlipidemia Personal history of colonic polyps GI bleed Cigarette smoker motivated to quit Coronary artery disease nursing home current use of anticoagulant therapy Atrial tachycardia Non-Hodgkin's lymphoma (09/06/15) Chronic hepatitis C without hepatic coma (09/06/15) Stenosis of aorta (09/06/15) PSVT (paroxysmal supraventricular tachycardia) Surgical History S/P coronary artery stent placement (~01/2021) Status post heart valve replacement with mechanical valve S/P aortic valve replacement with metallic valve (~09/2018) Family History Father Crohn's disease Brother Prostate cancer Social History household members: spouse Smoking Status: Former smoker alcohol intake: never alcohol intake frequency: holidays/special occasions only Exam <Vianey Slade MD - Last Filed: 06/07/25 23:24> Initial Vital Signs Initial Vital Signs: Vital Signs Temperature 97.7 F 06/06/25 09:22 Pulse Rate 73 06/06/25 09:22 Respiratory Rate 18 06/06/25 09:22 Blood Pressure 179/83 H 06/06/25 09:22 Pulse Oximetry 99 06/06/25 09:22 Oxygen Delivery Method Room Air 06/06/25 09:22 General: no acute distress. Able to give a complete and coherent history. Well-nourished well-developed HEENT: Moist mucous membranes, normal sclera with reactive pupils, Neck: No JVD, supple Respiratory: Lungs are clear to auscultation, no wheezing no rales no rhonchi. Full and symmetrical air movement Cardiac: Regular rate and rhythm, mechanical valve click Abdomen: Soft, nontender, no rebound or guarding, no flank pain Skin: Diaphoretic, no rashes Neurologic: Grossly neurologically intact with no obvious asymmetries or abnormalities Extremities: No trauma, well perfused Psych: Cooperative, appropriate insight and affect <Wesley Cruz DO - Last Filed: 06/07/25 01:09> Initial Vital Signs Initial Vital Signs: Vital Signs Temperature 97.7 F 06/06/25 09:22 Pulse Rate 73 06/06/25 09:22 Respiratory Rate 18 06/06/25 09:22 Blood Pressure 179/83 H 06/06/25 09:22 Pulse Oximetry 99 06/06/25 09:22 Oxygen Delivery Method Room Air 06/06/25 09:22 Course <Vianey Slade MD - Last Filed: 06/07/25 23:24> Orders Ordered: Discontinued Medications Aspirin (Aspirin 81 Mg Chew Tab) 324 mg PO NOW ONE Stop: 06/06/25 09:18 Last Admin: 06/06/25 09:37 Dose: 324 mg Documented By: CHARISMA Heparin Sodium (Porcine) (Heparin 5,000 Unit/Ml Vial) 5,000 unit IV NOW ONE Stop: 06/06/25 10:13 Last Admin: 06/06/25 11:14 Dose: 5,000 unit Documented By: RONNIE Heparin Sodium/Dextrose (Heparin Drip) 25,000 unit in 500 mls @ 20.058 mls/hr IV CONT NELLY; Protocol Last Titration: 06/07/25 01:11 Dose: 9 units/kg/hr, 16.411 mls/hr Documented By: MIQUEL Co-signed By: DENVER Titration: 06/06/25 18:16 Dose: 9 units/kg/hr, 16.411 mls/hr Documented By: RONNIE Co-signed By: STEPHANIE Titration: 06/06/25 17:44 Dose: 0 units/kg/hr, 0 mls/hr Documented By: RONNIE Co-signed By: CHARISMA Admin: 06/06/25 11:15 Dose: 11 units/kg/hr, 20.058 mls/hr Documented By: RONNIE Co-signed By: CARMEN Nitroglycerin (Nitroglycerin) 50 mg in 250 mls @ 1.5 mls/hr IV TITRATE NELLY; Protocol Last Titration: 06/07/25 01:12 Dose: 30 mcg/min, 9 mls/hr Documented By: Titration: 06/06/25 23:26 Dose: 30 mcg/min, 9 mls/hr Documented By: Titration: 06/06/25 15:51 Dose: 25 mcg/min, 7.5 mls/hr Documented By: Titration: 06/06/25 15:00 Dose: 20 mcg/min, 6 mls/hr Documented By: Titration: 06/06/25 13:00 Dose: 15 mcg/min, 4.5 mls/hr Documented By: Titration: 06/06/25 12:10 Dose: 10 mcg/min, 3 mls/hr Documented By: Admin: 06/06/25 11:25 Dose: 5 mcg/min, 1.5 mls/hr Documented By: RONNIE Morphine Sulfate (Morphine 2 Mg/Ml Inj) 2 mg IV Q15MIN NELLY Last Admin: 06/06/25 23:24 Dose: 2 mg Documented By: Admin: 06/06/25 22:19 Dose: 2 mg Documented By: Admin: 06/06/25 19:09 Dose: 2 mg Documented By: Admin: 06/06/25 16:59 Dose: 2 mg Documented By: Admin: 06/06/25 16:19 Dose: 2 mg Documented By: RONNIE Nitroglycerin (Nitroglycerin Oint 1 Inch/Gm Oint...G.) 0.5 inch TOP NOW ONE Stop: 06/06/25 09:29 Last Admin: 06/06/25 09:37 Dose: 0.5 inch Documented By: CHARISMA Vital Signs Vital signs: Vital Signs - 8 hr 06/06/25 17:15 06/06/25 17:15 06/06/25 17:30 Pulse Rate 63 63 Respiratory Rate 13 15 Blood Pressure 122/69 Pulse Oximetry 95 96 Oxygen Delivery Method 06/06/25 17:30 06/06/25 17:45 06/06/25 17:45 Pulse Rate 64 Respiratory Rate 24 Blood Pressure 123/68 105/67 Pulse Oximetry 96 Oxygen Delivery Method 06/06/25 18:00 06/06/25 18:00 06/06/25 18:10 Pulse Rate 64 61 Respiratory Rate 19 18 Blood Pressure 109/69 Pulse Oximetry 96 95 Oxygen Delivery Method 06/06/25 18:10 06/06/25 18:20 06/06/25 18:20 Pulse Rate 63 Respiratory Rate 14 Blood Pressure 133/70 125/69 Pulse Oximetry 96 Oxygen Delivery Method 06/06/25 18:30 06/06/25 18:30 06/06/25 18:40 Pulse Rate 64 61 Respiratory Rate 14 15 Blood Pressure 123/69 Pulse Oximetry 95 95 Oxygen Delivery Method 06/06/25 18:40 06/06/25 19:00 06/06/25 19:30 Pulse Rate 73 66 Respiratory Rate 15 Blood Pressure 127/68 Pulse Oximetry 95 95 Oxygen Delivery Method 06/06/25 20:00 06/06/25 20:30 06/06/25 21:00 Pulse Rate 69 64 65 Respiratory Rate 21 13 12 Blood Pressure Pulse Oximetry 95 95 96 Oxygen Delivery Method Room Air 06/06/25 21:30 06/06/25 22:00 06/06/25 22:12 Pulse Rate 64 66 72 Respiratory Rate 12 17 20 Blood Pressure Pulse Oximetry 95 95 95 Oxygen Delivery Method 06/06/25 22:12 06/06/25 22:20 06/06/25 22:20 Pulse Rate 66 Respiratory Rate 23 Blood Pressure 118/72 108/64 Pulse Oximetry 94 Oxygen Delivery Method 06/06/25 22:30 06/06/25 22:30 06/06/25 22:45 Pulse Rate 68 65 Respiratory Rate 20 17 Blood Pressure 130/74 Pulse Oximetry 95 95 Oxygen Delivery Method 06/06/25 22:45 06/06/25 23:00 06/06/25 23:00 Pulse Rate 66 Respiratory Rate 24 Blood Pressure 127/72 117/68 Pulse Oximetry 95 Oxygen Delivery Method 06/06/25 23:15 06/06/25 23:15 06/06/25 23:25 Pulse Rate 66 65 Respiratory Rate 13 17 Blood Pressure 114/67 Pulse Oximetry 96 95 Oxygen Delivery Method 06/06/25 23:25 06/06/25 23:30 06/06/25 23:30 Pulse Rate 64 Respiratory Rate 15 Blood Pressure 113/64 113/63 Pulse Oximetry 94 Oxygen Delivery Method 06/06/25 23:35 06/06/25 23:35 06/06/25 23:40 Pulse Rate 62 Respiratory Rate 12 Blood Pressure 114/64 108/62 Pulse Oximetry 95 Oxygen Delivery Method 06/06/25 23:40 06/06/25 23:45 06/06/25 23:45 Pulse Rate 67 64 Respiratory Rate 20 15 Blood Pressure 106/60 Pulse Oximetry 94 94 Oxygen Delivery Method 06/06/25 23:50 06/06/25 23:50 06/06/25 23:55 Pulse Rate 62 63 Respiratory Rate 12 13 Blood Pressure 113/63 Pulse Oximetry 95 94 Oxygen Delivery Method 06/06/25 23:55 06/07/25 00:00 06/07/25 00:00 Pulse Rate 63 Respiratory Rate 11 L Blood Pressure 112/62 115/65 Pulse Oximetry 95 Oxygen Delivery Method 06/07/25 00:05 06/07/25 00:05 06/07/25 00:10 Pulse Rate 62 Respiratory Rate 13 Blood Pressure 118/66 110/63 Pulse Oximetry 95 Oxygen Delivery Method 06/07/25 00:10 06/07/25 00:15 06/07/25 00:15 Pulse Rate 62 62 Respiratory Rate 11 L 10 L Blood Pressure 112/65 Pulse Oximetry 95 95 Oxygen Delivery Method 06/07/25 00:20 06/07/25 00:20 06/07/25 00:25 Pulse Rate 62 62 Respiratory Rate 10 L 12 Blood Pressure 112/66 Pulse Oximetry 95 95 Oxygen Delivery Method 06/07/25 00:25 06/07/25 00:30 06/07/25 00:30 Pulse Rate 61 Respiratory Rate 11 L Blood Pressure 118/67 111/62 Pulse Oximetry 94 Oxygen Delivery Method 06/07/25 00:35 06/07/25 00:35 06/07/25 00:40 Pulse Rate 64 62 Respiratory Rate 17 12 Blood Pressure 108/62 Pulse Oximetry 96 95 Oxygen Delivery Method 06/07/25 00:40 06/07/25 00:45 06/07/25 00:45 Pulse Rate 61 Respiratory Rate 11 L Blood Pressure 104/61 107/65 Pulse Oximetry 95 Oxygen Delivery Method <Wesley Cruz DO - Last Filed: 06/07/25 01:09> Orders Ordered: Discontinued Medications Aspirin (Aspirin 81 Mg Chew Tab) 324 mg PO NOW ONE Stop: 06/06/25 09:18 Last Admin: 06/06/25 09:37 Dose: 324 mg Documented By: CHARISMA Heparin Sodium (Porcine) (Heparin 5,000 Unit/Ml Vial) 5,000 unit IV NOW ONE Stop: 06/06/25 10:13 Last Admin: 06/06/25 11:14 Dose: 5,000 unit Documented By: RONNIE Heparin Sodium/Dextrose (Heparin Drip) 25,000 unit in 500 mls @ 20.058 mls/hr IV CONT NELLY; Protocol Last Titration: 06/07/25 01:11 Dose: 9 units/kg/hr, 16.411 mls/hr Documented By: MIQUEL Co-signed By: DENVER Titration: 06/06/25 18:16 Dose: 9 units/kg/hr, 16.411 mls/hr Documented By: RONNIE Co-signed By: STEPHANIE Titration: 06/06/25 17:44 Dose: 0 units/kg/hr, 0 mls/hr Documented By: RONNIE Co-signed By: CHARISMA Admin: 06/06/25 11:15 Dose: 11 units/kg/hr, 20.058 mls/hr Documented By: RONNIE Co-signed By: CARMEN Nitroglycerin (Nitroglycerin) 50 mg in 250 mls @ 1.5 mls/hr IV TITRATE NELLY; Protocol Last Titration: 06/07/25 01:12 Dose: 30 mcg/min, 9 mls/hr Documented By: Titration: 06/06/25 23:26 Dose: 30 mcg/min, 9 mls/hr Documented By: Titration: 06/06/25 15:51 Dose: 25 mcg/min, 7.5 mls/hr Documented By: Titration: 06/06/25 15:00 Dose: 20 mcg/min, 6 mls/hr Documented By: Titration: 06/06/25 13:00 Dose: 15 mcg/min, 4.5 mls/hr Documented By: Titration: 06/06/25 12:10 Dose: 10 mcg/min, 3 mls/hr Documented By: Admin: 06/06/25 11:25 Dose: 5 mcg/min, 1.5 mls/hr Documented By: RONNIE Morphine Sulfate (Morphine 2 Mg/Ml Inj) 2 mg IV Q15MIN [facility] Last Admin: 06/06/25 23:24 Dose: 2 mg Documented By: Admin: 06/06/25 22:19 Dose: 2 mg Documented By: Admin: 06/06/25 19:09 Dose: 2 mg Documented By: Admin: 06/06/25 16:59 Dose: 2 mg Documented By: Admin: 06/06/25 16:19 Dose: 2 mg Documented By: RONNIE Nitroglycerin (Nitroglycerin Oint 1 Inch/Gm Oint...G.) 0.5 inch TOP NOW ONE Stop: 06/06/25 09:29 Last Admin: 06/06/25 09:37 Dose: 0.5 inch Documented By: CHARISMA Vital Signs Vital signs: Vital Signs - 8 hr 06/06/25 17:15 06/06/25 17:15 06/06/25 17:30 Pulse Rate 63 63 Respiratory Rate 13 15 Blood Pressure 122/69 Pulse Oximetry 95 96 Oxygen Delivery Method 06/06/25 17:30 06/06/25 17:45 06/06/25 17:45 Pulse Rate 64 Respiratory Rate 24 Blood Pressure 123/68 105/67 Pulse Oximetry 96 Oxygen Delivery Method 06/06/25 18:00 06/06/25 18:00 06/06/25 18:10 Pulse Rate 64 61 Respiratory Rate 19 18 Blood Pressure 109/69 Pulse Oximetry 96 95 Oxygen Delivery Method 06/06/25 18:10 06/06/25 18:20 06/06/25 18:20 Pulse Rate 63 Respiratory Rate 14 Blood Pressure 133/70 125/69 Pulse Oximetry 96 Oxygen Delivery Method 06/06/25 18:30 06/06/25 18:30 06/06/25 18:40 Pulse Rate 64 61 Respiratory Rate 14 15 Blood Pressure 123/69 Pulse Oximetry 95 95 Oxygen Delivery Method 06/06/25 18:40 06/06/25 19:00 06/06/25 19:30 Pulse Rate 73 66 Respiratory Rate 15 Blood Pressure 127/68 Pulse Oximetry 95 95 Oxygen Delivery Method 06/06/25 20:00 06/06/25 20:30 06/06/25 21:00 Pulse Rate 69 64 65 Respiratory Rate 21 13 12 Blood Pressure Pulse Oximetry 95 95 96 Oxygen Delivery Method Room Air 06/06/25 21:30 06/06/25 22:00 06/06/25 22:12 Pulse Rate 64 66 72 Respiratory Rate 12 17 20 Blood Pressure Pulse Oximetry 95 95 95 Oxygen Delivery Method 06/06/25 22:12 06/06/25 22:20 06/06/25 22:20 Pulse Rate 66 Respiratory Rate 23 Blood Pressure 118/72 108/64 Pulse Oximetry 94 Oxygen Delivery Method 06/06/25 22:30 06/06/25 22:30 06/06/25 22:45 Pulse Rate 68 65 Respiratory Rate 20 17 Blood Pressure 130/74 Pulse Oximetry 95 95 Oxygen Delivery Method 06/06/25 22:45 06/06/25 23:00 06/06/25 23:00 Pulse Rate 66 Respiratory Rate 24 Blood Pressure 127/72 117/68 Pulse Oximetry 95 Oxygen Delivery Method 06/06/25 23:15 06/06/25 23:15 06/06/25 23:25 Pulse Rate 66 65 Respiratory Rate 13 17 Blood Pressure 114/67 Pulse Oximetry 96 95 Oxygen Delivery Method 06/06/25 23:25 06/06/25 23:30 06/06/25 23:30 Pulse Rate 64 Respiratory Rate 15 Blood Pressure 113/64 113/63 Pulse Oximetry 94 Oxygen Delivery Method 06/06/25 23:35 06/06/25 23:35 06/06/25 23:40 Pulse Rate 62 Respiratory Rate 12 Blood Pressure 114/64 108/62 Pulse Oximetry 95 Oxygen Delivery Method 06/06/25 23:40 06/06/25 23:45 06/06/25 23:45 Pulse Rate 67 64 Respiratory Rate 20 15 Blood Pressure 106/60 Pulse Oximetry 94 94 Oxygen Delivery Method 06/06/25 23:50 06/06/25 23:50 06/06/25 23:55 Pulse Rate 62 63 Respiratory Rate 12 13 Blood Pressure 113/63 Pulse Oximetry 95 94 Oxygen Delivery Method 06/06/25 23:55 06/07/25 00:00 06/07/25 00:00 Pulse Rate 63 Respiratory Rate 11 L Blood Pressure 112/62 115/65 Pulse Oximetry 95 Oxygen Delivery Method 06/07/25 00:05 06/07/25 00:05 06/07/25 00:10 Pulse Rate 62 Respiratory Rate 13 Blood Pressure 118/66 110/63 Pulse Oximetry 95 Oxygen Delivery Method 06/07/25 00:10 06/07/25 00:15 06/07/25 00:15 Pulse Rate 62 62 Respiratory Rate 11 L 10 L Blood Pressure 112/65 Pulse Oximetry 95 95 Oxygen Delivery Method 06/07/25 00:20 06/07/25 00:20 06/07/25 00:25 Pulse Rate 62 62 Respiratory Rate 10 L 12 Blood Pressure 112/66 Pulse Oximetry 95 95 Oxygen Delivery Method 06/07/25 00:25 06/07/25 00:30 06/07/25 00:30 Pulse Rate 61 Respiratory Rate 11 L Blood Pressure 118/67 111/62 Pulse Oximetry 94 Oxygen Delivery Method 06/07/25 00:35 06/07/25 00:35 06/07/25 00:40 Pulse Rate 64 62 Respiratory Rate 17 12 Blood Pressure 108/62 Pulse Oximetry 96 95 Oxygen Delivery Method 06/07/25 00:40 06/07/25 00:45 06/07/25 00:45 Pulse Rate 61 Respiratory Rate 11 L Blood Pressure 104/61 107/65 Pulse Oximetry 95 Oxygen Delivery Method Medical Decision Making <Vianey Slade MD - Last Filed: 06/07/25 23:24> Lab Data 06/06/25 09:20 06/06/25 09:20 Labs: Lab Results 06/06/25 06/06/25 06/06/25 Range/Units 09:20 11:20 16:31 WBC 7.4 (4.5-11.0) X10^3/uL RBC 4.73 (4.5-5.9) X10^6/uL Hgb 15.0 (13.5-17.5) g/dL Hct 43.4 (41-53) % MCV 91.7 (80-100) fL MCH 31.7 (26-34) PG MCHC 34.6 (30-36) % RDW 14.7 (11.6-14.8) % Plt Count 257 (150-400) X10^3/uL Neut % (Auto) Not Reportable Lymph % (Auto) Not Reportable Appling % (Auto) Not Reportable Eos % (Auto) Not Reportable Baso % (Auto) Not Reportable Lymph # (Auto) Not Reportable Appling # (Auto) Not Reportable Baso # (Auto) Not Reportable Total Counted 100 Seg Neutrophils % 63.0 (38-70) % Lymphocytes % (Manual) 26.0 (25-45) % Monocytes % (Manual) 9.0 (2-11) % Eosinophils % (Manual) 2.0 (2-4) % Neutrophils # (Manual) [phone] ([id number]) /uL Plt Morphology Comment P RBC Morphology Not Reportable Anisocytosis 1+ H Ovalocytes 1+ H PT 24.4 H (9.4-12.5) SECONDS INR 2.2 H (0.9-1.3) APTT 39 H (25.1-36.5) SECONDS Sodium 136 L (137-145) mmol/L Potassium 4.6 (3.4-5.1) mmol/L Chloride 104 (98-107) mmol/L Carbon Dioxide 24 (22-32) mmol/L BUN 22 H (9-20) mg/dL Creatinine 1.15 (0.66-1.25) mg/dL Estimated GFR > 60 (>60) mL/min BUN/Creatinine Ratio 19.1 (6-22) Glucose 113 H (70-99) mg/dL Calcium 9.7 (8.4-10.2) mg/dL Magnesium 2.2 (1.6-2.3) mg/dL Total Bilirubin 1.0 (0.2-1.3) mg/dL AST 30 (17-59) IU/L ALT 25 (<50) IU/L Alkaline Phosphatase 72 (38-126) U/L Total Creatine Kinase 58 (55-170) U/L Troponin I 0.012 < 0.012 0.015 (0.01-0.034) ng/mL NT-Pro-B Natriuret Pep 665 H (<125) pg/mL Total Protein 8.0 (6.3-8.2) g/dL Albumin 4.9 (3.5-5.0) g/dL Globulin 3.1 (1.7-4.1) g/dL Albumin/Globulin Ratio 1.6 (1.0-2.8) Lipase 93 (23-300) U/L 06/06/25 Range/Units 17:10 WBC (4.5-11.0) X10^3/uL RBC (4.5-5.9) X10^6/uL Hgb (13.5-17.5) g/dL Hct (41-53) % MCV (80-100) fL MCH (26-34) PG MCHC (30-36) % RDW (11.6-14.8) % Plt Count (150-400) X10^3/uL Neut % (Auto) Lymph % (Auto) Appling % (Auto) Eos % (Auto) Baso % (Auto) Lymph # (Auto) Appling # (Auto) Baso # (Auto) Total Counted Seg Neutrophils % (38-70) % Lymphocytes % (Manual) (25-45) % Monocytes % (Manual) (2-11) % Eosinophils % (Manual) (2-4) % Neutrophils # (Manual) ([id number]) /uL Plt Morphology Comment RBC Morphology Anisocytosis Ovalocytes PT (9.4-12.5) SECONDS INR (0.9-1.3) APTT 94 H* D (25.1-36.5) SECONDS Sodium (137-145) mmol/L Potassium (3.4-5.1) mmol/L Chloride (98-107) mmol/L Carbon Dioxide (22-32) mmol/L BUN (9-20) mg/dL Creatinine (0.66-1.25) mg/dL Estimated GFR (>60) mL/min BUN/Creatinine Ratio (6-22) Glucose (70-99) mg/dL Calcium (8.4-10.2) mg/dL Magnesium (1.6-2.3) mg/dL Total Bilirubin (0.2-1.3) mg/dL AST (17-59) IU/L ALT (<50) IU/L Alkaline Phosphatase (38-126) U/L Total Creatine Kinase (55-170) U/L Troponin I (0.01-0.034) ng/mL NT-Pro-B Natriuret Pep (<125) pg/mL Total Protein (6.3-8.2) g/dL Albumin (3.5-5.0) g/dL Globulin (1.7-4.1) g/dL Albumin/Globulin Ratio (1.0-2.8) Lipase (23-300) U/L MDM Narrative Medical decision making narrative: CC: 2 days of chest pain always present occasional episodes of getting worse, responsive to nitro, similar to prior cardiac pain Complicating co-morbidities: Multiple complex PCI, aortic valve replacement with mechanical valve and one- vessel CABG Data collected from: patient, Medical records reviewed: Please see summary from January 2025 cardiology note in HPI above Differential considered: Unstable angina, NSTEMI, STEMI, GI symptoms Exam documented above, pertinent findings include: Diaphoretic but otherwise unremarkable, mechanical click is heard Lab Test results independently reviewed as above. Pertinent findings: CBC is unremarkable Chemistries are reassuring INR is 2.2. On May 17 it was 6.0 initial trop quite low to undetectable. Independently reviewed EKG: EKG shows sinus rhythm at a rate of 73. He has a right bundle branch block no obvious ischemic changes. Similar to description of the EKG from cardiology note in January 2025 Imaging studies independently reviewed: Chest x-ray shows no significant pathology Consultations: 10am discussed with Dr. Mendoza, cardiology. With classic unstable angina patient will need transfer. Given his descriptions of complex PCI question is whether we should try to transfer him to [facility] with his primary body cleaner or try for direct [facility] transfer. Message was sent to Dr. Ortez, his [facility] body cleaner Beds are not available at [facility]. Poultry Cleaner at ever it suggested we could do an ED that ED transfer and care for this gentleman in their emergency department currently boarding an exceptional number of patients and on volume overload. We will continue to provide care in our emergency department and continue to search for bed availability [address] Holder, cardiology [facility]. Agrees with current management accepts patient, patient will go to the hospitalist service we will talk to hospitalist when available. Hoping for bed availability later this evening after discharges. Patient is updated 3pm Joe Wild accepts. Waiting now for bed availability at [facility] Treatments: Half an inch of nitro paste, patient is currently anticoagulated 10am pain still 2/10. Will increase to IV nitro. BP remains elevated Re-evaluation: At 3:30 a.m. begin developing acute onset worsening chest pain with severe neck pain feeling like his neck is going to explode. This is while he is on heparin and nitro has been pain-free at rest. Initial EKG shows some mild wave form changes inferiorly but no STT wave changes. Morphine is given for pain control. Possibility of dissection is entertained and a CT scan looking for dissection is ordered. Findings concerns and plans reviewed with the patient. He is alert and appropriate Discussion: 65-year-old gentleman with a known history of significant cardiac disease as well as aortic valve replacement. Presents with unstable angina increasing over the last 48 hours, severe pain when he got out of bed this morning responsive to nitroglycerin returned when nitrites or off. Currently on heparin drip and nitro drip pain-free. There is a telemetry bed available [facility], I have reviewed the care with both their hospitalist as well as their body cleaner. Patient has been updated on the plans for transfer continued care in the emergency department until a bed is available. <Wesley Cruz, - Last Filed: 06/07/25 01:09> Lab Data Labs: Lab Results 0706/06/25 06/06/25 Range/Units 09:20 11:20 16:31 WBC 7.4 (4.5-11.0) X10^3/uL RBC 4.73 (4.5-5.9) X10^6/uL Hgb 15.0 (13.5-17.5) g/dL Hct 43.4 (41-53) % MCV 91.7 (80-100) fL MCH 31.7 (26-34) PG MCHC 34.6 (30-36) % RDW 14.7 (11.6-14.8) % Plt Count 257 (150-400) X10^3/uL Neut % (Auto) Not Reportable Lymph % (Auto) Not Reportable Appling % (Auto) Not Reportable Eos % (Auto) Not Reportable Baso % (Auto) Not Reportable Lymph # (Auto) Not Reportable Appling # (Auto) Not Reportable Baso # (Auto) Not Reportable Total Counted 100 Seg Neutrophils % 63.0 (38-70) % Lymphocytes % (Manual) 26.0 (25-45) % Monocytes % (Manual) 9.0 (2-11) % Eosinophils % (Manual) 2.0 (2-4) % Neutrophils # (Manual) [phone] ([id number]) /uL Plt Morphology Comment P RBC Morphology Not Reportable Anisocytosis 1+ H Ovalocytes 1+ H PT 24.4 H (9.4-12.5) SECONDS INR 2.2 H (0.9-1.3) APTT 39 H (25.1-36.5) SECONDS Sodium 136 L (137-145) mmol/L Potassium 4.6 (3.4-5.1) mmol/L Chloride 104 (98-107) mmol/L Carbon Dioxide 24 (22-32) mmol/L BUN 22 H (9-20) mg/dL Creatinine 1.15 (0.66-1.25) mg/dL Estimated GFR > 60 (>60) mL/min BUN/Creatinine Ratio 19.1 (6-22) Glucose 113 H (70-99) mg/dL Calcium 9.7 (8.4-10.2) mg/dL Magnesium 2.2 (1.6-2.3) mg/dL Total Bilirubin 1.0 (0.2-1.3) mg/dL AST 30 (17-59) IU/L ALT 25 (<50) IU/L Alkaline Phosphatase 72 (38-126) U/L Total Creatine Kinase 58 (55-170) U/L Troponin I 0.012 < 0.012 0.015 (0.01-0.034) ng/mL NT-Pro-B Natriuret Pep 665 H (<125) pg/mL Total Protein 8.0 (6.3-8.2) g/dL Albumin 4.9 (3.5-5.0) g/dL Globulin 3.1 (1.7-4.1) g/dL Albumin/Globulin Ratio 1.6 (1.0-2.8) Lipase 93 (23-300) U/L 06/06/25 Range/Units 17:10 WBC (4.5-11.0) X10^3/uL RBC (4.5-5.9) X10^6/uL Hgb (13.5-17.5) g/dL Hct (41-53) % MCV (80-100) fL MCH (26-34) PG MCHC (30-36) % RDW (11.6-14.8) % Plt Count (150-400) X10^3/uL Neut % (Auto) Lymph % (Auto) Appling % (Auto) Eos % (Auto) Baso % (Auto) Lymph # (Auto) Appling # (Auto) Baso # (Auto) Total Counted Seg Neutrophils % (38-70) % Lymphocytes % (Manual) (25-45) % Monocytes % (Manual) (2-11) % Eosinophils % (Manual) (2-4) % Neutrophils # (Manual) ([id number]) /uL Plt Morphology Comment RBC Morphology Anisocytosis Ovalocytes PT (9.4-12.5) SECONDS INR (0.9-1.3) APTT 94 H* D (25.1-36.5) SECONDS Sodium (137-145) mmol/L Potassium (3.4-5.1) mmol/L Chloride (98-107) mmol/L Carbon Dioxide (22-32) mmol/L BUN (9-20) mg/dL Creatinine (0.66-1.25) mg/dL Estimated GFR (>60) mL/min BUN/Creatinine Ratio (6-22) Glucose (70-99) mg/dL Calcium (8.4-10.2) mg/dL Magnesium (1.6-2.3) mg/dL Total Bilirubin (0.2-1.3) mg/dL AST (17-59) IU/L ALT (<50) IU/L Alkaline Phosphatase (38-126) U/L Total Creatine Kinase (55-170) U/L Troponin I (0.01-0.034) ng/mL NT-Pro-B Natriuret Pep (<125) pg/mL Total Protein (6.3-8.2) g/dL Albumin (3.5-5.0) g/dL Globulin (1.7-4.1) g/dL Albumin/Globulin Ratio (1.0-2.8) Lipase (23-300) U/L MDM Narrative Medical decision making narrative: CC: 2 days of chest pain always present occasional episodes of getting worse, responsive to nitro, similar to prior cardiac pain Complicating co-morbidities: Multiple complex PCI, aortic valve replacement with mechanical valve and one- vessel CABG Data collected from: patient, Medical records reviewed: Please see summary from January 2025 cardiology note in HPI above Differential considered: Unstable angina, NSTEMI, STEMI, GI symptoms Exam documented above, pertinent findings include: Diaphoretic but otherwise unremarkable, mechanical click is heard Lab Test results independently reviewed as above. Pertinent findings: CBC is unremarkable Chemistries are reassuring INR is 2.2. On May 17 it was 6.0 initial trop quite low to undetectable. Independently reviewed EKG: EKG shows sinus rhythm at a rate of 73. He has a right bundle branch block no obvious ischemic changes. Similar to description of the EKG from cardiology note in January 2025 Imaging studies independently reviewed: Chest x-ray shows no significant pathology Consultations: 10am discussed with Dr. Mendoza, cardiology. With classic unstable angina patient will need transfer. Given his descriptions of complex PCI question is whether we should try to transfer him to [facility] with his primary body cleaner or try for direct [facility] transfer. Message was sent to Dr. Ortez, his [facility] body cleaner Beds are not available at [facility]. Poultry Cleaner at ever it suggested we could do an ED that ED transfer and care for this gentleman in their emergency department currently boarding an exceptional number of patients and on volume overload. We will continue to provide care in our emergency department and continue to search for bed availability [address] Holder, cardiology [facility]. Agrees with current management accepts patient, patient will go to the hospitalist service we will talk to hospitalist when available. Hoping for bed availability later this evening after discharges. Patient is updated 3pm Joe Wild accepts. Waiting now for bed availability at [facility] Treatments: Half an inch of nitro paste, patient is currently anticoagulated 10am pain still 2/10. Will increase to IV nitro. BP remains elevated Re-evaluation: At 3:30 a.m. begin developing acute onset worsening chest pain with severe neck pain feeling like his neck is going to explode. This is while he is on heparin and nitro has been pain-free at rest. Initial EKG shows some mild wave form changes inferiorly but no STT wave changes. Morphine is given for pain control. Possibility of dissection is entertained and a CT scan looking for dissection is ordered. Findings concerns and plans reviewed with the patient. He is alert and appropriate Discussion: 65-year-old gentleman with a known history of significant cardiac disease as well as aortic valve replacement. Presents with unstable angina increasing over the last 48 hours, severe pain when he got out of bed this morning responsive to nitroglycerin returned when nitrites or off. Currently on heparin drip and nitro drip pain-free. There is a telemetry bed available [facility], I have reviewed the care with both their hospitalist as well as their body cleaner. Patient has been updated on the plans for transfer continued care in the emergency department until a bed is available. 1800: Patient was signed out to me by Dr. slade, patient presenting for 2 days of chest pain with exertion, has a unstable angina, is currently on nitro drip for chest pain as well as heparin, CTA angio chest negative for any dissection or aneurysm, patient has already been accepted at [facility] pending bed/ETA. 7.9.25 @ 0108: Patient re-evaluated not having any active chest pain, transport is here at bedside, vital signs reviewed patient is safe for transport to outside hospital Critical Care Time <Vianey Slade MD - Last Filed: 06/07/25 23:24> Critical Care Time Critical Care Time: Yes Total Critical Care Time: 47 Attestation: Critical care time is separate from other billable procedures. There is a high probability of a significant, sudden or life-threatening deterioration that requires my full and direct attention, intervention and personal management. This critical care time includes consultation with family and other consulting doctors, review of records, and interpretation of data from labs, EKGs and imaging as well as managements of unstable angina with IV nitrites, IV heparin. Extensive consultation with multiple hospitals and providers find a safe and appropriate bed for transfer Discharge Plan Departure Patient Disposition: [facility] Clinical Impression: Unstable angina Prescriptions: No Action multivitamin Tablet 1 tab PO DAILY Qty: 0 naproxen 500 mg tablet 1,000 mg PO .PRN Qty: 90 3RF isosorbide mononitrate 60 mg tablet extended release 24 hr 60 mg PO DAILY Qty: 30 3RF warfarin 5 mg tablet See Rx Instructions .ROUTE .COMPLEX Qty: 270 0RF Dose Instruction: take two and a half tablets (12.5mg) Thursday, Thursday, Thursday and two tablets (10 mg) all other days, or as directed. Rx Instructions: Take 1.5 tablets (7.5 mg) Thursday, Thursday, Thursday and 2 tablets (10 mg) all other days, or as directed. rosuvastatin 40 mg tablet 40 mg PO DAILY Qty: 90 1RF Rx Instructions: ANNUAL/YEARLY CHECK IN DUE 02/2025. PLEASE CALL TO SCHEDULE FUTURE APPT. THANKS 11/25/24. diltiazem HCl 120 mg capsule,extended release 24hr 120 mg PO BID triamcinolone acetonide [Kenalog] 40 mg/mL suspension 40 mg intrabursal ONCE Qty: 1 0RF Referrals: Juan George MD [Primary Care Provider, Internal Medicine]
--- NOTE | 2025-06-06 09:22 | EKG_ITS ---
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
--- NOTE | 2025-06-06 09:23 | EKG_ITS ---
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
[2025-06-06 09:32] LABS: Hematocrit 43.4 % (41-53); Hemoglobin 15.0 g/dL (13.5-17.5); Mean Corpuscular HGB Conc 34.6 % (30-36); Mean Corpuscular Hemoglobin 31.7 PG (26-34); Mean Corpuscular Volume 91.7 fL (80-100); Platelet Count 257 X10^3/uL (150-400)
[2025-06-06 09:37] LABS: Add Manual Diff / Slide Review YES; INR 2.2 (0.9-1.3); Prothrombin Time 24.4 SECONDS (9.4-12.5)
[2025-06-06] MEDS: NITROGLYCERIN OINT 1 INCH/GM OINT...G. 0.5 INCH TOP (09:37)
[2025-06-06] MEDS: ASPIRIN 81 MG CHEW TAB 324 MG PO (09:37)
[2025-06-06 09:40] LABS: PTT Partial Thromboplastin Tim 39 SECONDS (25.1-36.5)
[2025-06-06 09:41] LABS: Alanine Aminotransferase 25 IU/L (<50); Albumin 4.9 g/dL (3.5-5.0); Albumin Globulin Ratio 1.6 (1.0-2.8); Alkaline Phosphatase 72 U/L (38-126); Blood Urea Nitrogen 22 mg/dL (9-20); Calcium 9.7 mg/dL (8.4-10.2); Carbon Dioxide 24 mmol/L (22-32); Chloride 104 mmol/L (98-107); Creatine Kinase 58 U/L (55-170); Estimated Glomerular Filt Rate > 60 mL/min (>60); Globulin 3.1 g/dL (1.7-4.1); Glucose 113 mg/dL (70-99); HEMOLYSIS 26 (0-50); Lipase 93 U/L (23-300); Magnesium 2.2 mg/dL (1.6-2.3); Potassium 4.6 mmol/L (3.4-5.1); Sodium 136 mmol/L (137-145); Total Protein 8.0 g/dL (6.3-8.2)
[2025-06-06 09:53] LABS: NT-proBNP (BNP-Adult 18+) 665 pg/mL (<125); Troponin I 0.012 ng/mL (0.01-0.034)
[2025-06-06 09:59] LABS: Eosinophils Percent Manual 2.0 % (2-4); Lymphocytes Percent Manual 26.0 % (25-45); Monocytes Percent Manual 9.0 % (2-11); Neutrophils Absolute Manual 4662 /uL (3000-5900); Segmented Neutrophils Percent 63.0 % (38-70); Total Cells Counted 100
[2025-06-06 10:01] LABS: Anisocytosis 1+; Ovalocytes 1+
[2025-06-06] MEDS: HEPARIN 5,000 UNIT/ML VIAL 5000 UNIT IV (11:14)
[2025-06-06] MEDS: HEPARIN DRIP 25,000 UNIT/500 ML IV.SOLN 20.058 UNIT IV (11:15)
[2025-06-06] MEDS: NITROGLYCERIN 50 MG/250 ML INFUS..BTL IV (11:25)
--- NOTE | 2025-06-06 11:31 | PC.NURSE ---
Verbal order given to this RN to remove nitro paste before starting nitro gtt
[2025-06-06 12:04] LABS: Troponin I < 0.012 ng/mL (0.01-0.034)
--- NOTE | 2025-06-06 15:35 | EKG_ITS ---
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
--- NOTE | 2025-06-06 15:48 | DI.CT.S_ITS ---
PROCEDURE: CT ANGIO CHEST ABDOMEN PELVIS INDICATIONS: ? dissection, severe CP and neck pain on IV nitro/heparin TECHNIQUE: Precontrast 5 mm thick sections acquired from the lung apices to the iliac crests. After the administration of intravenous contrast, 2.5 mm thick sections again acquired from the lung apices to the iliac crests. Maximum intensity projection (MIP) oblique sagittal and coronal reformats were then acquired. For radiation dose reduction, the following was used: automated exposure control. COMPARISON: [facility], CT, CT ANGIO CHEST ABDOMEN PELVIS, 04/22/2022, 15:48. [facility], CR, XR CHEST 1V, 06/06/2025, 9:16. [facility], CT, CT ANGIO CHEST ABDOMEN, 01/28/2021, 11:55. FINDINGS: Image quality: Diagnostic. VASCULATURE: Prosthetic aortic valve. No aortic aneurysm. No acute aortic syndrome. Moderate aortic atherosclerotic calcifications. Proximal arch vessels are patent. No central pulmonary embolus. No abdominal aortic aneurysm or dissection. Moderate abdominal aortic atherosclerotic calcifications. The proximal celiac trunk, superior mesenteric artery, inferior mesenteric artery are patent. The renal arteries are patent bilaterally. The bilateral common, external, and internal iliac arteries demonstrate atherosclerotic calcifications without significant stenosis. The included common, superficial, and deep femoral arteries are patent. CHEST: Lower Neck: No enlarged lymph nodes. Thyroid: Subcentimeter thyroid nodule does not require dedicated imaging follow-up. Axillae: No enlarged lymph nodes. Chest Wall: Sternotomy wires. Lungs and Pleura: No pneumothorax or pleural effusions. Mild dependent atelectasis in the lung bases. Stable densely calcified nodule at the left lung apex. Previously seen 4 mm right middle lobe nodule is no longer visualized. Heart: Heart size is normal. No pericardial effusion. Severe coronary artery calcifications. Thoracic Vessels: Pulmonary arteries demonstrate normal size. Mediastinum and Martina: No enlarged lymph nodes. Esophagus: No wall thickening. No hiatal hernia. ABDOMEN: Liver: No solid mass. Gallbladder: No radiopaque gallstones or wall thickening. Biliary ducts: No biliary dilation. Pancreas: No ductal dilation. Spleen: Size is within normal limits. Adrenal Glands: No adrenal nodules. Kidneys and Ureters: No hydronephrosis. No solid mass. No complex renal cystic lesion which requires follow up. Stomach and Bowel: Normal colonic caliber, without significant wall thickening. Peritoneum: No abnormal intraperitoneal fluid. No free air. Ventral Wall: No hernia. Abdominal Nodes: No retroperitoneal or mesenteric adenopathy by size criteria. Vessels: Inferior vena cava is normal in size. PELVIS: Pelvic Organs: Right testicle not visualized in the scrotum. Normal left testicle. Prostate is normal in size. Bladder: Unremarkable. Pelvic Nodes: No enlarged lymph nodes. Miscellaneous: No inguinal hernias are seen. Bones: Multilevel degenerative changes in the included spine. No acute or aggressive osseous abnormality identified. IMPRESSION: 1. No aortic aneurysm or acute aortic syndrome. Prosthetic aortic valve is present. 2. Stable mild cardiomegaly. Severe coronary artery calcifications. 3. No acute abnormality identified in the chest, abdomen, or pelvis. Approved by: Kenji Hussein M.D. on 06/06/2025 at 17:44
[2025-06-06] MEDS: MORPHINE 2 MG/ML INJ IV ×5 (16:19→23:24)
[2025-06-06 17:04] LABS: Troponin I 0.015 ng/mL (0.01-0.034)
[2025-06-06 17:27] LABS: PTT Partial Thromboplastin Tim 94 SECONDS (25.1-36.5)
[2025-06-07] VITALS (10 sets, daily range): BP systolic 104–118; BP diastolic 61–67; PULSE 61–64; RESP 10–17; O2SAT 94–96
== END 2025-06-07 01:00 | disposition short-term general hospital (02) ==
PROVIDERS: Emergency Medicine; Emergency Provider Student in an Organized Health Care Education/Training Program; PCP Internal Medicine
DX: I20.0 Unstable angina (principal); Z95.2 Presence of prosthetic heart valve
CPT/HCPCS: 36415; 71045; 71275; 74174; 80053; 82550; 83690; 83735; 83880; 84484; 85007; 85025; 85610; 85730; 93005; 93010; 96365; 96366; 96368; 96375; 96376; 99284; 99291; J1644; J2270; Q9967

== ENCOUNTER → 2025-08-30 14:23 | Outpatient (CLI) | payer MEDICARE, BC, SELFPAY ==
[2023-06-10 15:20] VITALS: BMI 27.3
== END ==
PROVIDERS: PCP Internal Medicine; Visit Provider Nurse Practitioner Family
DX: R31.9 Hematuria, unspecified (principal)
CPT/HCPCS: 87086

== ENCOUNTER → 2025-08-30 15:02 | Outpatient (CLI) | payer MEDICARE, BC, SELFPAY ==
[2023-06-10 15:20] VITALS: BMI 27.3
[2025-08-30 15:48] LABS: Add Manual Diff / Slide Review NO; Hematocrit 44.0 % (41-53); Hemoglobin 15.1 g/dL (13.5-17.5); Lymphocytes Absolute Auto 1500 /uL (1100-4500); Mean Corpuscular HGB Conc 34.2 % (30-36); Mean Corpuscular Hemoglobin 30.5 PG (26-34); Mean Corpuscular Volume 89.1 fL (80-100); Platelet Count 298 X10^3/uL (150-400)
[2025-08-30 16:37] LABS: Prothrombin Time 51.9 SECONDS (9.4-12.5)
[2025-08-30 16:38] LABS: INR 4.8 (0.9-1.3)
[2025-08-30 16:41] LABS: Alanine Aminotransferase 20 IU/L (<50); Albumin 4.7 g/dL (3.5-5.0); Albumin Globulin Ratio 1.7 (1.0-2.8); Alkaline Phosphatase 76 U/L (38-126); Blood Urea Nitrogen 21 mg/dL (9-20); Calcium 9.8 mg/dL (8.4-10.2); Carbon Dioxide 24 mmol/L (22-32); Chloride 105 mmol/L (98-107); Estimated Glomerular Filt Rate 56 mL/min (>60); Globulin 2.8 g/dL (1.7-4.1); Glucose 96 mg/dL (70-99); HEMOLYSIS < 15 (0-50); Potassium 4.5 mmol/L (3.4-5.1); Sodium 138 mmol/L (137-145); Total Protein 7.5 g/dL (6.3-8.2)
== END ==
PROVIDERS: PCP Internal Medicine; Referring Provider Nurse Practitioner Family; Visit Provider Nurse Practitioner Family
DX: R31.9 Hematuria, unspecified (principal)
CPT/HCPCS: 36415; 80053; 85025; 85610; 87086

== ENCOUNTER 2025-08-30 17:25 | Emergency (ER) | payer MEDICARE, BC, SELFPAY ==
[2023-06-10 15:20] VITALS: BMI 27.3
[2025-08-30 17:30] VITALS: BP 141/85; PULSE 79; RESP 14; TEMP 36.1; O2SAT 99; BMI 27.8
[2025-08-30 18:58] VITALS: BP 140/81; PULSE 75; RESP 14; TEMP 36.9; O2SAT 96
--- NOTE | 2025-08-30 19:03 | PC.NURSE ---
Came in d/t blood in urine while taking Warfarin 10mg daily. INR 4.8. Reports dark blood in urine and no clotts that has occured over 2-3 days.
--- NOTE | 2025-08-30 19:56 | ED.MALEGU ---
HPI - Male Genitourinary General Chief complaint: Urogenital-Male Stated complaint: K-SHOT Time Seen by Provider: 08/30/25 18:04 Source: patient Mode of arrival: Ambulatory History of Present Illness HPI Narrative: 65-year-old gentleman history of [place] mechanical aortic valve received Brice 2017 for severe aortic stenosis, CAD prior complex PCI [facility] January along with cardiac ablation in 2011, 2012, history of non-Hodgkin's lymphoma, hyperlipidemia on Coumadin 10 mg daily last INR check 2 weeks ago INR was 2.9 for which he needs to be between 2.5 and 3.5. For the past 3 days he has had he has had increased hematuria today seen at the walk-in clinic told to come to the ER for vitamin K therapy. He does pee frequently with the enlarged prostate with a weak stream but denies any dysuria, back pain, fever, chills, body aches, penile discharge, testicular pain. Other than what is stated 14 point review of system is negative. Related Data Home Medications ?Medication ?Instructions ?Recorded ?Confirmed multivitamin 1 tab PO DAILY ##0 04/07/11 08/30/25 diltiazem HCl 120 mg 120 mg PO BID 02/07/21 08/30/25 capsule,extended release 24 hr Previous Rx's ?Medication ?Instructions ?Recorded naproxen 500 mg tablet 1,000 mg (2 x 500 mg) PO .PRN #90 07/15/22 tabs isosorbide mononitrate 60 mg 60 mg PO DAILY #30 tabs 11/19/22 tablet,extended release 24 hr warfarin 5 mg tablet See Rx Instructions .Route 06/10/23 .COMPLEX #270 tabs rosuvastatin 40 mg tablet 40 mg PO DAILY #90 tabs 11/25/24 cefdinir 300 mg capsule 300 mg PO BID #14 caps 08/30/25 Allergies Allergy/AdvReac Type Severity Reaction Status Date / Time No Known Drug Allergies Allergy Verified 08/30/25 17:32 Review of Systems Review of Systems ROS Unobtainable: All systems reviewed & are unremarkable except as noted in HPI and below Patient History Medical History Osteoarthritis of foot, right Mixed hyperlipidemia Personal history of colonic polyps GI bleed Cigarette smoker motivated to quit Coronary artery disease correction current use of anticoagulant therapy Atrial tachycardia Non-Hodgkin's lymphoma (09/06/15) Chronic hepatitis C without hepatic coma (09/06/15) Stenosis of aorta (09/06/15) PSVT (paroxysmal supraventricular tachycardia) Surgical History S/P coronary artery stent placement (~01/2021) Status post heart valve replacement with mechanical valve S/P aortic valve replacement with metallic valve (~09/2018) Family History Father Crohn's disease Brother Prostate cancer Social History household members: spouse Smoking Status: Unknown if ever smoked alcohol intake: never Smoking Status: Unknown if ever smoked alcohol intake frequency: holidays/special occasions only Exam Narrative Exam Narrative: GENERAL: [65] year old patient appears stated age. Well-developed patient, in mild distress. HEAD: Atraumatic. Normocephalic. EYES: Pupils equal round and reactive. Extraocular motions intact. No scleral icterus. No injection or drainage. CARDIOVASCULAR: Regular rate and rhythm without murmurs, gallops, or rubs. RESPIRATORY: Clear to auscultation. Breath sounds equal bilaterally. No wheezes, rales, or rhonchi. GASTROINTESTINAL: Abdomen soft, non-tender, nondistended. EXTREMITIES: No edema or joint tenderness. BACK: Nontender without deformity or crepitance. No flank tenderness. NEURO: AOx3. SKIN: No rash or erythema of visible areas Initial Vital Signs Initial Vital Signs: Vital Signs Temperature 97.0 F L 08/30/25 17:30 Pulse Rate 79 08/30/25 17:30 Respiratory Rate 14 08/30/25 17:30 Blood Pressure 141/85 H 08/30/25 17:30 Pulse Oximetry 99 08/30/25 17:30 Oxygen Delivery Method Room Air 08/30/25 17:30 Course Vital Signs Vital signs: Vital Signs - 8 hr 08/30/25 17:30 08/30/25 18:58 Temperature 97.0 F L 98.5 F Pulse Rate 79 75 Respiratory Rate 14 14 Blood Pressure 141/85 H 140/81 Pulse Oximetry 99 96 Oxygen Delivery Method Room Air Room Air MDM - Male Genitourinary MDM Narrative Medical decision making narrative: All lab work, vital signs, nurse triage note, medication list, previous ER visits, and all imaging studies reviewed. WBC 8.7 hemoglobin 15.1 platelet 298 INR 4.8 BUN 21 creatinine 1.39 UA shows +3 blood positive nitrites +2 leukocyte currently on antibiotics. DC home follow up for INR recheck in 2 days and to withhold Coumadin for the next 2 days and continue taking antibiotics as previously prescribed. Discharge Plan Departure Patient Disposition: Home Clinical Impression: Supratherapeutic INR, Acute UTI Instructions: DI for Urinary Tract Infection (UTI) Activity Restrictions/Additional Instructions: Return with new or worsening symptoms. Take antibiotics as previously prescribed for urinary tract infection. Withhold taking Coumadin for the next 2 days and have INR rechecked on Thursday and to follow up with PCP in 1-2 days. Prescriptions: No Action cefdinir 300 mg capsule 300 mg PO BID Qty: 14 0RF multivitamin Tablet 1 tab PO DAILY Qty: 0 naproxen 500 mg tablet 1,000 mg PO .PRN Qty: 90 3RF isosorbide mononitrate 60 mg tablet extended release 24 hr 60 mg PO DAILY Qty: 30 3RF warfarin 5 mg tablet See Rx Instructions .ROUTE .COMPLEX Qty: 270 0RF Dose Instruction: take two and a half tablets (12.5mg) Thursday, Thursday, Thursday and two tablets (10 mg) all other days, or as directed. Rx Instructions: Take 1.5 tablets (7.5 mg) Thursday, Thursday, Thursday and 2 tablets (10 mg) all other days, or as directed. rosuvastatin 40 mg tablet 40 mg PO DAILY Qty: 90 1RF Rx Instructions: ANNUAL/YEARLY CHECK IN DUE 02/2025. PLEASE CALL TO SCHEDULE FUTURE APPT. THANKS 11/25/24. diltiazem HCl 120 mg capsule,extended release 24hr 120 mg PO BID triamcinolone acetonide [Kenalog] 40 mg/mL suspension 40 mg intrabursal ONCE Qty: 1 0RF Referrals: Juan George MD [Primary Care Provider, Internal Medicine] Stand Alone Forms: Patient Portal/API
[2025-08-30 20:16] VITALS: BP 147/82; PULSE 77; RESP 16; TEMP 36.9; O2SAT 96
== END 2025-08-30 20:15 | disposition home or self-care (01) ==
PROVIDERS: Emergency Provider Family Medicine; PCP Internal Medicine
DX: R79.1 Abnormal coagulation profile (principal); N39.0 Urinary tract infection, site not specified; Z79.01 Long term (current) use of anticoagulants
CPT/HCPCS: 99281